=== PATIENT | female | born 1940 | race Caucasian/White ===

== ENCOUNTER 2019-09-13 06:28 | Emergency (ER) | payer MEDICARE, MEDICAID, SELFPAY ==
--- NOTE | ~2019-09-13 | XR_ITS ---
XR hip RT min 3V w AP pelvis 09/13/2019 07:49 Indication: Right hip pain Procedure: 6 views right hip including AP pelvis Comparison: No prior studies for comparison. Findings: There is osteoarthritis of the hips, right greater than left. Pelvic rings are intact. Ther e is an IVC filter. Sacral foramen are symmetric. No acute fracture or traumatic malalignment. Impression: 1: No acute fracture. Reviewed, dictated and finalized at location A. ATION GENERAL MANAGER Impression: 1: No acute fracture.
--- NOTE | ~2019-09-13 | XR_ITS ---
XR lumbar spine 2-3V 09/13/2019 07:49 Indication: Back pain. Procedure: 4 views lumbar spine Comparison: No prior studies for comparison. Findings: There is levoscoliosis. There is disc narrowing at all lumbar levels. There is advanced mul tilevel facet hypertrophy. No acute fracture or traumatic malalignment. There is an IVC filter with t he superior aspect of the L2-3 level. There are cholecystectomy clips. There are multiple pelvic phle boliths. Bowel pattern is nonobstructive. Impression: 1: Severe lumbar spondylosis with levoscoliosis. Reviewed, dictated and finalized at location A. OR JAVA UI DEVELOPER Impression: 1: Severe lumbar spondylosis with levoscoliosis.
--- NOTE | ~2019-09-13 | XR_ITS ---
XR toe 1st LT min 2V 09/13/2019 07:49 Indication: Left first toe pain after injury Procedure: 4 views left first toe Comparison: No prior studies for comparison. Findings: There is a nondisplaced extra-articular fracture left first distal phalanx. Osteopenia. Mod erate osteoarthritis of the first MTP joint. No other fractures. There is hallux valgus. Impression: 1: Nondisplaced extra-articular fracture left first distal phalanx. Reviewed, dictated and finalized at location A. RACT DESIGN AGENT Impression: 1: Nondisplaced extra-articular fracture left first distal phalanx.
[2019-09-13 06:27] VITALS: BP 160/84; PULSE 86; RESP 18; TEMP 36.6; O2SAT 100
[2019-09-13 06:49] VITALS: BP 141/70; PULSE 81; RESP 21; O2SAT 95
--- NOTE | 2019-09-13 07:00 | ED.GENADULT ---
HPI - General Adult General Chief complaint: Extremity Injury, Lower Stated complaint: right hip pain Time Seen by Provider: 09/13/19 06:46 History of Present Illness HPI narrative: Patient is 79 y/o female complaining of aching right hip and back pain for 2 days. She rates her pain as 3/10 with no radiation. When asked to point to her area of pain, she points to right buttock and waist area. She denies any recent injury. She states that she was doing some physical therapy. She also complains of bending her left great toe last night in shower and still has some bleeding. Related Data Home Medications Medication Instructions Recorded Confirmed aspirin 81 mg PO DAILY 07/18/19 citalopram 20 mg PO DAILY 07/18/19 diltiazem HCl 180 mg PO DAILY 07/18/19 furosemide 40 mg PO DAILY 07/18/19 lisinopril 5 mg PO DAILY 07/18/19 insulin glargine [Lantus Solostar unit SUBCUT 07/21/19 U-100 Insulin] meclizine mg 07/21/19 metformin mg 07/21/19 metoprolol succinate PO 07/21/19 nystatin TOPICAL 07/21/19 potassium chloride meq PO 07/21/19 blood sugar diagnostic [OneTouch 09/13/19 09/13/19 Ultra Blue Test Strip] cholecalciferol (vitamin D3) unit 09/13/19 [Vitamin D3] [id number] acid-lutein [Centrum tablet PO 09/13/19 Silver] Allergies Allergy/AdvReac Type Severity Reaction Status Date / Time bisoprolol Allergy Intermediate unknown Verified 09/13/19 06:42 hydrochlorothiazide Allergy Intermediate unknown Verified 09/13/19 06:42 oxycodone Allergy Intermediate unknown Verified 09/13/19 06:42 acetaminophen Allergy Unknown Unknown Verified 09/13/19 06:42 Review of Systems Constitutional: Constitutional: Denies chills, Denies fever(s), Denies headache(s) and Denies weakness Eyes: Eyes: Denies blurry vision ENT: Denies headache(s) and Denies neck pain Cardiovascular: Cardiovascular: Denies chest pain and Denies dyspnea Respiratory: Respiratory: Denies cough and Denies dyspnea Gastrointestinal: Gastrointestinal: Denies abdominal pain, Denies diarrhea, Denies nausea and Denies vomiting Genitourinary: Genitourinary: Denies hematuria and Denies dysuria Musculoskeletal: Musculoskeletal: Reports as per HPI, Reports back pain, Reports arthralgias (right hip pain) and Denies neck pain Neurologic: Denies headache(s) and Denies weakness PMFSH Past Medical History Medical History Arthritis Atrial fibrillation Bronchitis CHF (congestive heart failure) Diabetes Foot fracture, left GERD (gastroesophageal reflux disease) Hypercholesterolemia Hypertension Mitral valve prolapse Peripheral neuropathy Pneumonia Sinus problem UTI (urinary tract infection) Surgical History Surgical History H/O: hysterectomy History of appendectomy Hx of cholecystectomy Social History Social History Smoking status: Never smoker Exam Const: General: no acute distress and well developed Orientation/consciousness: oriented to person, oriented to place, oriented to time and patient oriented x3 HENMT: Head: normocephalic Ears: external ears normal General nose exam: Normal external nose present Eyes: General: appearance normal, both eyes and all related structures Conjunctivae: conjunctivae normal Neck: Neck: normal visual inspection and full ROM Chest: Chest palpation & inspection: normal inspection of the chest and no tenderness Resp: Effort & Inspection: normal respiratory effort Auscultation: clear to auscultation bilaterally Cardio: Rate: regular rate Rhythm: regular rhythm GI: GI Palp: No abdominal tenderness and Yes Soft to palpation Skin: General skin exam: normal color and turgor normal Trauma: laceration (lateral aspect of left great toe) Neuro: General: oriented to person, oriented to place, oriented to time and patient oriented x3 Cognition (Neuro): n
[2019-09-13 07:05] VITALS: BP 148/83; PULSE 79; RESP 13; O2SAT 97
--- NOTE | 2019-09-13 07:05 | PC.NURSE ---
Assumed care of patient, report received from Fela PABLO
[2019-09-13] MEDS: CYCLOBENZAPRINE HCL 10 MG TABLET PO (07:12)
[2019-09-13] MEDS: TETANUS,DIPHTHERIA,AC PERTUSSIS ADULT (0.5 ML) BOOSTRIX IM (07:12)
--- NOTE | 2019-09-13 07:15 | PC.NURSE ---
Patient reports that she is unable to urinate at this time. Refusing straight cath. Water given. Patient going to xray. Will attempt collection when she returns.
[2019-09-13 07:16] LABS: Basophils Absolute Auto 0.1 K/mm3 (0.0-0.1); Basophils Percent Auto 0.7 % (0.2-1.2); Eosinophils Absolute Auto 0.1 K/mm3 (0-0.3); Eosinophils Percent Auto 1.6 % (0-4.4); Hematocrit 35.9 % (37.0-47.0); Hemoglobin 11.2 g/dL (12.0-15.0); Immature Granulocyte Absolute 0.03 K/mm3 (0.00-0.031); Immature Granulocyte Percent A 0.3 % (0-0.5); Lymphocytes Absolute Auto 1.29 K/mm3 (0.9-3.2); Lymphocytes Percent Auto 14.4 % (18.3-44.2); Mean Corpuscular HGB Conc 31.2 g/dl (32-36); Mean Corpuscular Hemoglobin 27.5 pg (26-34); Mean Corpuscular Volume 88.2 fl (80-100); Mean Platelet Volume 10.1 fl (7.4-10.4); Monocytes Absolute Auto 0.8 K/mm3 (0.1-0.6); Monocytes Percent Auto 9.2 % (2.6-8.5); Neutrophils Absolute Auto 6.6 K/mm3 (1.3-6.7); Neutrophils Percent Auto 73.8 % (45.5-73.1); Platelet Count Result 280 k/mm3 (150-375); Red Blood Count 4.07 M/mm3 (4.2-5.4); Red Cell Distribution Width 14.6 % (11.5-14.5)
[2019-09-13 07:24] LABS: Alanine Aminotransferase 21 U/L (4-35); Albumin Level 3.8 g/dL (3.5-5.1); Alkaline Phosphatase 103 U/L (38-126); Aspartate Amino Transferase 25 U/L (14-36); Bilirubin,Total 0.5 mg/dL (0.2-1.3); Blood Urea Nitrogen 18 mg/dL (7-17); Calcium 8.8 mg/dL (8.4-10.2); Carbon Dioxide 27 mmol/L (22-30); Chloride 106 mmol/L (98-107); Estimated CRCL calculation 65 ml/min; Estimated Glomerular Filt Rate > 60; Glucose 61 mg/dL (65-105); Potassium 3.7 mmol/L (3.4-5.0); Sodium 137 mmol/L (137-145)
[2019-09-13 08:15] LABS: Add Urine Microscopic? YES; Appearance Urine Clear (Clear); Bilirubin Urine Negative (Negative); Blood Urine Negative (Negative); Color Urine Yellow (Yellow); Glucose Urine UA Negative (Negative); Ketones Urine Trace mg/dL (Negative); Leukocyte Esterase Ur Negative LEU/UL (Negative); Mucus Urine Rare /lpf; Nitrate Urine Negative (Negative); Protein Urine 1+ mg/dL (Negative); RBC Urine 0-2 /hpf (0-2); Specific Grav Ur 1.017 (1.001-1.035); Urobilinogen Urine Negative mg/dL (<2.0); WBC Urine 0-3 /hpf
[2019-09-13 08:29] VITALS: BP 151/95; PULSE 84
[2019-09-13 09:27] VITALS: BP 141/85; PULSE 78; RESP 18; O2SAT 98
[2019-09-13 10:25] VITALS: BP 134/82; PULSE 66; RESP 18; O2SAT 100
== END 2019-09-13 10:26 ==
PROVIDERS: Emergency Provider Emergency Medicine; PCP Emergency Medicine
DX: M54.5 Low back pain (principal); S92.425A Nondisplaced fracture of distal phalanx of left great toe, initial encounter for closed fracture; Z23 Encounter for immunization; M19.90 Unspecified osteoarthritis, unspecified site; I48.91 Unspecified atrial fibrillation; I50.9 Heart failure, unspecified; E11.42 Type 2 diabetes mellitus with diabetic polyneuropathy; K21.9 Gastro-esophageal reflux disease without esophagitis; E78.00 Pure hypercholesterolemia, unspecified; I11.0 Hypertensive heart disease with heart failure; I34.1 Nonrheumatic mitral (valve) prolapse; Z79.4 Long term (current) use of insulin; Z79.82 Long term (current) use of aspirin; Z87.440 Personal history of urinary (tract) infections; M47.816 Spondylosis without myelopathy or radiculopathy, lumbar region; X50.9XXA Other and unspecified overexertion or strenuous movements or postures, initial encounter
CPT/HCPCS: 36415; 51701; 72100; 73502; 73660; 80053; 81001; 85025; 90471; 90715; 99284; A9270

== ENCOUNTER 2020-09-27 14:22 | Outpatient (CLI) | payer MEDICARE, SELFPAY ==
--- NOTE | ~2020-09-27 | XR_ITS ---
XR knee LT 3V DATE: 09/27/2020 15:15 INDICATION: Bilateral knee pain, right greater than left. Left knee surgery 7 years ago. TECHNIQUE: [place], AP and crosstable lateral views COMPARISON: None FINDINGS: Diffuse osteopenia. 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 No recent fracture or dislocation. No joint effusion is evident. No periosteal reaction or bone destr uction. IMPRESSION: Status post left total knee arthroplasty Osteopenia Reviewed, dictated and finalized at location B.
--- NOTE | ~2020-09-27 | XR_ITS ---
XR knee RT 3V 09/27/2020 15:10 Indication: Right knee pain Procedure: 3 views right knee Comparison: No prior studies for comparison. Findings: There is mild osteoarthritis of the right knee. No fracture or traumatic malalignment no si gnificant joint effusion. Osteopenia. No foreign bodies. Impression: 1: Mild osteoarthritis of the right knee. Reviewed, dictated and finalized at location A. Impression: 1: Mild osteoarthritis of the right knee.
[2020-09-27 15:06] LABS: Hemoglobin A1C 5.8 % (<5.7)
[2020-09-27 15:09] LABS: BNP 73.1 pg/mL (0-100)
[2020-09-27 15:18] LABS: Alanine Aminotransferase 32 U/L (14-59); Albumin Level 3.5 g/dL (3.4-5.0); Alkaline Phosphatase 98 U/L (46-116); Anion Gap 10 mmol/L (8-16); Aspartate Amino Transferase 21 U/L (15-37); Bilirubin,Total 0.3 mg/dL (0.00-1.00); Blood Urea Nitrogen 26 mg/dL (7-18); Calcium 9.4 mg/dL (8.5-10.1); Carbon Dioxide 29 mmol/L (21-32); Chloride 106 mmol/L (98-108); Cholesterol 144 mg/dL (0-200); Estimated Glomerular Filt Rate 59; Glucose 69 mg/dL (70-99); HDL Direct 69 mg/dL (40-60); LDL Cholesterol Calculated 61 mg/dL (<130); Osmolality Calculated 302 mOsm/kg (285-295); Potassium 3.7 mmol/L (3.5-5.1); Sodium 145 mmol/L (136-145); Total Protein 6.9 g/dL (6.4-8.2); Triglycerides 72 mg/dL (0-150)
== END 2020-09-27 14:23 | disposition home or self-care (01) ==
PROVIDERS: PCP Family Medicine; Visit Provider Family Medicine
DX: I50.9 Heart failure, unspecified (principal); E11.9 Type 2 diabetes mellitus without complications; M19.90 Unspecified osteoarthritis, unspecified site
CPT/HCPCS: 36415; 73562; 80053; 80061; 83036; 83880

== ENCOUNTER 2021-04-25 18:47 | Inpatient (IN) | payer MEDICARE, MEDICAID, SELFPAY ==
--- NOTE | ~2021-04-25 | XR_ITS ---
EXAMINATION: XR retrograde pyelo w/stent BI DATE: 04/26/2021 12:43 INDICATION: Bilateral urolithiasis with bilateral internal ureteral stent placement. TECHNIQUE: 9 fluoroscopic spot images of the abdomen and pelvis were obtained during procedure perfor med by Dr. Monge. Radiologist was not present for the imaging or procedure. The amount of fluorosc opy time used during this procedure was 0.5 minutes. COMPARISON: CT and KUB dated 04/25/2021. FINDINGS: Large stone at the right ureteropelvic junction is clearly visible on the game tester images. The previous noted left ureteral stone is not identified. Subsequent image demonstrates a catheter advanced into t he right renal pelvis with contrast injection demonstrating mild dilation of the right renal pelvis b ut no significant caliectasis. Final images demonstrate placement of a right internal ureteral stent with proximal loop in the right renal pelvis and distal loop formed in the bladder. There is incomple tely visualized left internal ureteral stent with loops formed in the bladder extending proximally al sathish the left ureter but with the proximal loop not imaged. Infrarenal IVC filter projects along the r ight side of the lower lumbar spine. Cholecystectomy clips in right upper quadrant. Lumbar levoscolio sis with moderate spondylosis. IMPRESSION: 1. Fluoroscopy utilized during placement of bilateral internal ureteral stents. 2. Unchanged large stone at the right ureter pelvic junction on the game tester image. This region is opaci fied with contrast on the subsequent images and is unclear whether this has been removed or not. Also a prior left ureteral stone is not visualized and may also been removed. Correlate with procedure no te. Reviewed, dictated and finalized at location A. IMPRESSION: 1. Fluoroscopy utilized during placement of bilateral internal ureteral stents. 2. Unchanged large stone at the right ureter pelvic junction on the game tester image . This region is opacified with contrast on the subsequent images and is unclea r whether this has been removed or not. Also a prior left ureteral stone is not visualized and may also been removed. Correlate with procedure note.
--- NOTE | ~2021-04-25 | XR_ITS ---
EXAMINATION: XR abdomen/kub 1V DATE: 04/27/2021 14:38 INDICATION: Urolithiasis. TECHNIQUE: A supine view of the abdomen on 2 radiographs was obtained. COMPARISON: Abdomen radiographs 04/25/2021 FINDINGS: There are phleboliths in the pelvis. There are bilateral internal ureteral stents in expect ed positions. There is a 9 mm stone in right renal pelvis. There is a 10 mm stone in proximal left ur eter. There is a filter in the inferior vena cava. Surgical clips in the right upper quadrant are lik thor from cholecystectomy. IMPRESSION: 1. Stone in the right renal pelvis with right internal ureteral stent in expected position. 2. Stone in the proximal left ureter with left internal ureteral stent in expected position. Reviewed, dictated and finalized at location A. IMPRESSION: 1. Stone in the right renal pelvis with right internal ureteral stent in expect ed position. 2. Stone in the proximal left ureter with left internal ureteral stent in expec grant position.
--- NOTE | ~2021-04-25 | CT_ITS ---
EXAMINATION: CT abdomen pelvis w con INDICATION: Nausea and vomiting TECHNIQUE: Computed tomographic images of the abdomen and pelvis were obtained after the administrati on of 100 cc of Omnipaque 350 intravenous contrast. The dose-length product (DLP) was 1193.21 mGy-cm. Automated exposure control and iterative reconstruction technique were employed. COMPARISON: None available FINDINGS: Minimal dependent atelectasis is present in the lung bases. Cardiomegaly is noted. Cysts of the liver measure up to 1.5 cm in the right hepatic lobe. The spleen, pancreas, and adrenal glands a re normal. The gallbladder is surgically absent. There is a 9 mm stone in the left proximal ureter wh ich causes moderate left hydroureteronephrosis. Nonobstructing stones of the left kidney measure up t o 5 mm. There is an 11 mm stone in the right renal pelvis. An IVC filter is noted. No pathologically enlarged abdominal or pelvic lymph nodes are identified. There is no free intraperitoneal gas or evid ence of bowel obstruction. The appendix is normal. There is severe lumbar spondylosis with grade 2 an terolisthesis of L5 on S1. IMPRESSION: 1. 9 mm stone of the left proximal ureter causing moderate left hydroureteronephrosis. 2. 11 mm stone in the right renal pelvis. 3. Nonobstructing left nephrolithiasis. Reviewed, dictated and finalized at location A. IMPRESSION: 1. 9 mm stone of the left proximal ureter causing moderate left hydroureteronep hrosis. 2. 11 mm stone in the right renal pelvis. 3. Nonobstructing left nephrolithiasis.
--- NOTE | ~2021-04-25 | XR_ITS ---
EXAMINATION: XR abdomen/kub 1V INDICATION: Left flank pain TECHNIQUE: Supine views of the abdomen were obtained on 2 radiographs. COMPARISON: CT from today FINDINGS: There is a 7 mm stone projecting in the proximal left ureter. An 11 projects in the expecte d location of the right renal pelvis. There are multiple phleboliths of the pelvis. No dilated loops of bowel are evident. An IVC filter is noted. There is mild left and moderate right hip osteoarthriti s. Cholecystectomy clips are noted in the right upper quadrant. IMPRESSION: 1. 7 mm stone in the expected location of the left proximal ureter and 11 mm stone in the right renal pelvis. Reviewed, dictated and finalized at location A. IMPRESSION: 1. 7 mm stone in the expected location of the left proximal ureter and [address] one in the right renal pelvis.
--- NOTE | ~2021-04-25 | US_ITS ---
EXAMINATION: US renal BI DATE: 04/27/2021 16:21 INDICATION: Hydronephrosis TECHNIQUE: Multiple grayscale and Doppler ultrasound images of the kidneys were obtained. COMPARISON: None. FINDINGS: The right kidney measures 10.6 x 5.5 x 4.9 cm. An internal ureteral stent is seen in the ri ght renal pelvis. There is also a 17 mm stone of the right renal pelvis. The left kidney measures 10. 7 x 4.6 x 5.0 cm. The kidneys demonstrate normal parenchymal echogenicity. There is mild right hydron ephrosis. The bladder is normal. IMPRESSION: 1. Mild right hydronephrosis with 70 mm stone of the right renal pelvis. Reviewed, dictated and finalized at location A.
[2021-04-25 19:01] VITALS: BP 185/103; PULSE 102; RESP 14; TEMP 37.1; O2SAT 99
[2021-04-25 19:22] LABS: Basophils Percent Auto 0.2 % (0.2-1.2); Hematocrit 43.3 % (37.0-47.0); Hemoglobin 14.2 g/dL (12.0-15.0); Immature Granulocyte Absolute 0.05 K/mm3 (0.00-0.031); Immature Granulocyte Percent A 0.4 % (0-0.5); Lymphocytes Absolute Auto 1.11 K/mm3 (0.9-3.2); Lymphocytes Percent Auto 8.2 % (18.3-44.2); Mean Corpuscular HGB Conc 32.8 g/dl (32-36); Mean Corpuscular Volume 88.4 fl (80-100); Mean Platelet Volume 9.8 fl (7.4-10.4); Monocytes Absolute Auto 0.7 K/mm3 (0.1-0.6); Monocytes Percent Auto 5.4 % (2.6-8.5); Neutrophils Absolute Auto 11.7 K/mm3 (1.3-6.7); Neutrophils Percent Auto 85.8 % (45.5-73.1); Platelet Count Result 299 k/mm3 (150-375); Red Cell Distribution Width 15.2 % (11.5-14.5); White Blood Count 13.6 K/mm3 (4.5-10.0)
[2021-04-25 19:37] LABS: Alanine Aminotransferase 31 U/L (4-35); Albumin Level 5.1 g/dL (3.5-5.1); Alkaline Phosphatase 111 U/L (38-126); Anion Gap 15 mmol/L (8-16); Aspartate Amino Transferase 57 U/L (14-36); Bilirubin,Total 0.8 mg/dL (0.2-1.3); Blood Urea Nitrogen 19 mg/dL (7-17); Carbon Dioxide 26 mmol/L (22-30); Chloride 94 mmol/L (98-107); Estimated CRCL calculation 37 ml/min; Estimated Glomerular Filt Rate 48; Glucose 190 mg/dL (65-110); Lipase 78 U/L (23-300); Potassium 3.8 mmol/L (3.4-5.0); Sodium 135 mmol/L (137-145)
[2021-04-25 20:04] LABS: Add Urine Microscopic? YES; Appearance Urine Clear (Clear); Bilirubin Urine Negative (Negative); Blood Urine 2+ (Negative); Color Urine Straw (Yellow); Glucose Urine UA 1+ mg/dL (Negative); Ketones Urine 1+ mg/dL (Negative); Leukocyte Esterase Ur Trace LEU/UL (Negative); Nitrate Urine Negative (Negative); Protein Urine 3+ mg/dL (Negative); RBC Urine >75 /hpf (0-2); Specific Grav Ur 1.011 (1.001-1.035); Squamous Epithelial Cell Urine Rare /hpf (Few); Urobilinogen Urine Negative mg/dL (<2.0); WBC Urine 21-30 /hpf
[2021-04-25 21:31] VITALS: BP 152/98; PULSE 112; RESP 18; O2SAT 100
[2021-04-25] MEDS: ONDANSETRON INJ 4 MG/2 ML VIAL IV PUSH (21:41)
--- NOTE | 2021-04-25 21:41 | ED.ABDPAIN ---
HPI - Abdominal Pain General Chief Complaint: Abdominal Pain Stated Complaint: abd pain/hip pain/nausea Time Seen by Provider: 04/25/21 21:27 Source: RN notes reviewed History of Present Illness HPI narrative: Patient presents emergency room from home for abdominal pain. Patient states that abdominal pain began this morning pain is located in the left abdomen and into the left back described as aching in nature. Associated with nausea but patient denies any vomiting denies any diarrhea she denies any fevers or chills chest pain shortness of breath or any other symptoms. States she took Tylenol at home with last dose of Tylenol at 5 PM this evening Related Data Home Medications Medication Instructions Recorded Confirmed fm-icx-hcdoa acid-lutein [Centrum tablet PO 09/13/19 03/23/21 Silver] aspirin 81 mg tablet,delayed 81 mg PO DAILY 09/27/20 03/23/21 release calcium carbonate 600 mg calcium 1,200 mg PO DAILY tablet 09/27/20 03/23/21 (1,500 mg) tablet cholecalciferol (vitamin D3) 25 25 mcg PO DAILY 09/27/20 03/23/21 mcg (1,000 unit) tablet cyclobenzaprine 5 mg tablet 5 mg PO .Bedtime PRN tablet 09/27/20 03/23/21 diltiazem HCl 180 mg 180 mg PO DAILY 09/27/20 03/23/21 capsule,extended release 24 hr furosemide 40 mg tablet 40 mg PO QAM 09/27/20 03/23/21 lisinopril 5 mg tablet 5 mg PO DAILY 09/27/20 03/23/21 meclizine 25 mg tablet 25 mg PO BID PRN 09/27/20 03/23/21 metformin 1,000 mg tablet 1,000 mg PO BID 09/27/20 03/23/21 metoprolol succinate 100 mg 100 mg PO DAILY 09/27/20 03/23/21 tablet,extended release 24 hr wbyfdcruowtt-gakafaoc-hkziki tablet 1 tablet PO DAILY 09/27/20 03/23/21 potassium chloride 20 mEq 20 meq PO DAILY 09/27/20 03/23/21 tablet,extended release(part/cryst) insulin glargine 100 unit/mL (3 15 unit SUBCUT QAM 03/11/21 03/23/21 mL) subcutaneous pen Allergies Allergy/AdvReac Type Severity Reaction Status Date / Time bisoprolol Allergy Intermediate unknown Verified 03/23/21 11:03 hydrochlorothiazide Allergy Intermediate unknown Verified 03/23/21 11:03 oxycodone Allergy Intermediate unknown Verified 03/23/21 11:03 acetaminophen Allergy Unknown Unknown Verified 03/23/21 11:03 Review of Systems Review of Systems: Gen.: Denies fevers or chills ENT: Denies congestion Respiratory: Denies shortness of breath or cough CV: Denies chest pain or palpitations GI: See HPI denies burning, urgency, frequency or hematuria Musculoskeletal: Denies back pain or muscle pain Neuro: Denies numbness, tingling, weakness or focal weakness Skin: Denies rash Except as documented, all other systems reviewed and negative [facility] Past Medical History Medical History Arthritis Atrial fibrillation Bronchitis CHF (congestive heart failure) Diabetes Foot fracture, left GERD (gastroesophageal reflux disease) Hypercholesterolemia Hypertension Mitral valve prolapse Peripheral neuropathy Pneumonia Sinus problem UTI (urinary tract infection) Surgical History Surgical History H/O: hysterectomy History of appendectomy Hx of cholecystectomy Social History Social History Smoking status: Never smoker Gender identity (if verbalized by the patient): Female Exam Narrative: APPEARANCE: No acute distress, nontoxic, resting in bed HEENT: Normocephalic, atraumatic, OMM RESPIRATORY: No respiratory distress, clear to auscultation bilaterally with no rhonchi wheezing or rales CARDIOVASCULAR: RRR s murmur ABDOMINAL: Soft nondistended tender palpation left upper quadrant left lower quadrant no tenderness right upper quadrant right lower quadrant no rebound or guarding MUSCULOSKELETAl: Moves all extremities. No clubbing, cyanosis or edema. NEURO: Awake and alert. Following commands, speech normal, no focal deficits SKIN:: Warm, dry. Normal Color PSYCHI
[2021-04-25] MEDS: SODIUM CHLORIDE 0.9% IV 1,000 ML 999 ML IV CONT (21:42)
[2021-04-25 23:14] VITALS: BP 143/111; PULSE 94; RESP 20; O2SAT 98
[2021-04-25 23:49] LABS: Lactic Acid Reflex 5.7 mmol/L (0.7-2.1)
[2021-04-26] VITALS (17 sets, daily range): BP systolic 109–179; BP diastolic 61–108; PULSE 71–111; RESP 16–20; TEMP 36.4–37.2; O2SAT 92–100; BMI 39.0
[2021-04-26] MEDS: SODIUM CHLORIDE 0.9% IV 1,000 ML 999 ML IV CONT (00:13)
[2021-04-26 01:58] LABS: Reflex Lactic Acid Yes or No Add Lactic
--- NOTE | 2021-04-26 02:21 | ADMGEN ---
This patient, Freda Khanna, was admitted to 3 [facility] Surg Room 316-01. Patient/family oriented to hospital policies and general routines including ID bracelet, bed and alarms, visiting hours, pain management, procedures, bathroom and other care routines, personal items, smoking policy, room service/diet, and visiting hours. Information on how to activate the Rapid Response Team has been discussed. Patient/Family are encouraged to report perceived risks to care and to ask questions if they do not understand what they are told or what they should do.
[2021-04-26] MEDS: SODIUM CHLORIDE 0.9% IV 1,000 ML 125 ML IV CONT (03:17)
[2021-04-26 03:21] LABS: Lactic Acid 2.9 mmol/L (0.7-2.1)
[2021-04-26] MEDS: ONDANSETRON INJ 4 MG/2 ML VIAL IV PUSH ×2 (04:31→09:28)
[2021-04-26 07:55] LABS: Glucose Point of Care 138 mg/dl (65-105)
--- NOTE | 2021-04-26 08:07 | ECG_ITS ---
Measurements Intervals Johnson Rate: 107 P: MA: 0 QRS: -55 QRSD: 116 T: 264 QT: 345 QTc: 462 Interpretive Statements ATRIAL FLUTTER/TACHYCARDIA WITH RAPID VENTRICULAR RESPONSE LEFT AXIS DEVIATION LEFT VENTRICULAR HYPERTROPHY AND ST-T CHANGE CANNOT RULE OUT SEPTAL INFARCT, AGE INDETERMINATE INFERIOR INFARCT, AGE INDETERMINATE ABNORMAL ECG Electronically Signed On 04-26-2021 8:32:46 CDT by Juan Alberto Gomez D.O.
--- NOTE | 2021-04-26 09:22 | WPDURCON ---
Assessment and Plan Assessment and plan (1) Acute UTI: Code(s): N39.0 - Urinary tract infection, site not specified <Rema Mendoza APRN - Last Filed: 04/26/21 11:53> Status: Acute <Rema Mendoza APRN - Last Filed: 04/26/21 11:53> Assessment and Plan: Continue Ceftriaxone, tailor antibiotics to culture results. <Rema Mendoza APRN - Last Filed: 04/26/21 11:53> (2) Left ureteral stone: Code(s): N20.1 - Calculus of ureter <Rema Mendoza APRN - Last Filed: 04/26/21 11:53> Status: Acute <Rema Mendoza APRN - Last Filed: 04/26/21 11:53> Assessment and Plan: 9mm left proximal ureteral stone visible on KUB. Obtain Consent:Cystoscopy with bilateral ureteroscopy, bilateral stent placement, bilateral retrograde pyelogram. Keep NPO Plan to go to the OR today with Dr. Monge. Patient will then need to have bilateral lithotripsy, the left side first after infection clears as an outpatient in a few weeks. <Rema Mendoza APRN - Last Filed: 04/26/21 11:53> (3) Bilateral renal stones: Code(s): N20.0 - Calculus of kidney <Rema Mendoza APRN - Last Filed: 04/26/21 11:53> Status: Acute <Rema Mendoza APRN - Last Filed: 04/26/21 11:53> Assessment and Plan: 11mm right renal pelvic stone visible on KUB as well. Multiple smaller left non obstructive stones not visible on KUB measuring up to 5mm. <Rema Mendoza APRN - Last Filed: 04/26/21 11:53> Urology Consult Note HPI Date Seen: 04/26/21 <Rema Mendoza APRN - Last Filed: 04/26/21 11:53> 04/26/21 <Jc Monge MD - Last Filed: 04/26/21 11:44> Requesting Physician: Edgardo Browne MD <Rema Mendoza APRN - Last Filed: 04/26/21 11:53> Primary Care Provider: Dayton Jones DO <Rema Mendoza APRN - Last Filed: 04/26/21 11:53> Consult Narrative Narrative: Freda Khanna is a 80 year old female who presented to the ER yesterday with abdominal pain on the left side and nausea. She denies fever, vomiting, right flank pain, dysuria or hematuria at this time and is afebrile. Her WBC is elevated at 13.6, creatinine 1.10, UA appears to support a UTI, urine and blood cultures are pending at this time. She is on Ceftriaxone for the possible UTI and leukocytosis. She was found on CT/KUB to have a 9mm left proximal ureteral stone with moderate left hydronephrosis and an 11mm right renal pelvic stone as well as non obstructive left renal stones measuring up to 5mm. She is fatigued and was found asleep in her bed this morning, I startled her when I got to the bedside. She was alert and oriented but very confused when I was trying to explain the plan for her treatment. We went over it many times before she finally understood. <Rema Mendoza APRN - Last Filed: 04/26/21 11:53> Review of Systems Cardiovascular: Cardiovascular: Denies chest pain <Rema Mendoza APRN - Last Filed: 04/26/21 11:53> Respiratory: Respiratory: Reports no additional respiratory complaints <Rema Mendoza APRN - Last Filed: 04/26/21 11:53> Gastrointestinal: Gastrointestinal: Reports abdominal pain, Reports nausea and Denies vomiting <Rema Mendoza APRN - Last Filed: 04/26/21 11:53> [facility] Past Medical History Medical History: Medical History Arthritis Atrial fibrillation Bronchitis CHF (congestive heart failure) Diabetes Foot fracture, left GERD (gastroesophageal reflux disease) Hypercholesterolemia Hypertension Mitral valve prolapse Peripheral neuropathy Pneumonia Sinus problem UTI (urinary tract infection) <Rema Mendoza APRN - Last Filed: 04/26/21 11:53> Surgical History Surgical History: Surgical History H/O: hysterectomy History of appendectomy Hx of cholecystecto
[2021-04-26] MEDS: fentaNYL CITRATE INJ (*CRX) 100 MCG/2 ML VIAL 25 MCG IV PUSH ×2 (10:23→11:43)
--- NOTE | 2021-04-26 11:23 | PC.NURSE ---
Pt transferred to PreOP at 1115 via stretcher.
[2021-04-26 11:31] LABS: Glucose Point of Care 147 mg/dl (65-105)
--- NOTE | 2021-04-26 11:44 | WPDHPUPDATE1 ---
History and Physical Update Update Date/Time: 04/26/21 11:44 History and Physical has been reviewed, including an updated exam of the patient. There are NO changes in the patient's condition. Risks, benefits, and alternatives have been discussed and questions answered. Patient agrees to proceed with procedure. Consult note reviewed. Case discussed with patient. Patient has an obstructing 9 mm left proximal ureteral calculus but also 11 mm stone in the right renal pelvis which is at risk for causing obstruction. Given her sepsis I have recommended placement of bilateral ureteral stents to give maximal drainage bilaterally. Patient is in agreement. Will proceed with cystoscopy bilateral retrogrades bilateral ureteral stent placement today
[2021-04-26] MEDS: LACTATED RINGERS 1,000 ML 30 ML IV CONT (11:45)
--- NOTE | 2021-04-26 12:01 | WPDANESEPPF ---
Anes - Initial Pre Proc Eval Procedure: Operation Date: 04/26/21 12:30 Proposed Procedures p Cystoscopy, Left Stent Placement - Jc Monge MD Date/Time: 04/26/21 12:01 Surgeon: Edgardo Browne MD Pre Op Diagnosis: Severe Sepsis,Left Kidney Stone, UTI Patient Data Age: 80 Gender: F Height: 1.57 m Weight: 96.8 kg Last Vital Signs Temp 97.8 F 04/26/21 11:30 Pulse 107 H 04/26/21 11:30 Resp 16 04/26/21 11:30 BP 123/76 04/26/21 11:30 Pulse Ox 96 04/26/21 11:30 Allergies Allergy/AdvReac Type Severity Reaction Status Date / Time bisoprolol Allergy Intermediate unknown Verified 04/26/21 02:52 hydrochlorothiazide Allergy Intermediate unknown Verified 04/26/21 02:52 oxycodone Allergy Intermediate unknown Verified 04/26/21 02:52 acetaminophen Allergy Unknown Unknown Verified 04/26/21 02:52 Home Medications Medication Instructions Recorded Confirmed Type [id number] acid-lutein [Centrum 1 tablet PO DAILY 09/13/19 04/26/21 History Silver] calcium carbonate 600 mg calcium 1,200 mg PO DAILY tablet 09/27/20 04/26/21 History (1,500 mg) tablet cholecalciferol (vitamin D3) 25 25 mcg PO DAILY 09/27/20 04/26/21 History mcg (1,000 unit) tablet cyclobenzaprine 5 mg tablet 5 mg PO .Bedtime PRN tablet 09/27/20 04/26/21 History diltiazem HCl 180 mg 180 mg PO DAILY 09/27/20 04/26/21 History capsule,extended release 24 hr furosemide 40 mg tablet 40 mg PO QAM 09/27/20 04/26/21 History lisinopril 5 mg tablet 5 mg PO DAILY 09/27/20 04/26/21 History meclizine 25 mg tablet 25 mg PO BID PRN 09/27/20 04/26/21 History metformin 1,000 mg tablet 1,000 mg PO BID 09/27/20 04/26/21 History metoprolol succinate 100 mg 100 mg PO DAILY 09/27/20 04/26/21 History tablet,extended release 24 hr potassium chloride 20 mEq 20 meq PO DAILY 09/27/20 04/26/21 History tablet,extended release(part/cryst) citalopram 10 mg tablet See Rx Instructions .ROUTE 01/19/21 04/26/21 Rx .COMPLEX #30 tablet blood sugar diagnostic #100 ea 02/24/21 04/26/21 Rx blood sugar diagnostic #100 ea 03/03/21 04/26/21 Rx nystatin 100,000 unit/gram topical See Rx Instructions .ROUTE 03/08/21 04/26/21 Rx cream .COMPLEX #30 gram insulin glargine 100 unit/mL (3 15 unit SUBCUT QAM 03/11/21 04/26/21 History mL) subcutaneous pen aspirin 325 mg PO DAILY 04/26/21 04/26/21 History Laboratory Tests 04/25/21 04/25/21 04/25/21 19:15 19:15 19:30 WBC 13.6 K/mm3 H K/mm3 (4.5-10.0) RBC 4.90 M/mm3 M/mm3 (4.2-5.4) Hgb 14.2 g/dL D g/dL (12.0-15.0) Hct 43.3 % % (37.0-47.0) MCV 88.4 fl fl (80-100) MCH 29.0 pg pg (26-34) MCHC 32.8 g/dl g/dl (32-36) RDW 15.2 % H % (11.5-14.5) Plt Count 299 k/mm3 k/mm3 (150-375) MPV 9.8 fl fl (7.4-10.4) Immature Gran % (Auto) 0.4 % % (0-0.5) Neut % (Auto) 85.8 % H % (45.5-73.1) Lymph % (Auto) 8.2 % L % (18.3-44.2) [place] % (Auto) 5.4 % % (2.6-8.5) Eos % (Auto) 0.0 % % (0-4.4) Baso % (Auto) 0.2 % % (0.2-1.2) Lymph # (Auto) 1.11 K/mm3 K/mm3 (0.9-3.2) [place] # (Auto) 0.7 K/mm3 H K/mm3 (0.1-0.6) Eos # (Auto) 0.0 K/mm3 K/mm3 (0-0.3) Baso # (Auto) 0.0 K/mm3 K/mm3 (0.0-0.1) Abs Immat Gran (auto) 0.05 K/mm3 H K/mm3 (0.00-0.031) Absolute Neuts (auto) 11.7 K/mm3 H K/mm3 (1.3-6.7) Absolute Nucleated RBC 0.0 K/mm3 K/mm3 (0.0-0.012) Nucleated RBC % 0.0 % % (0.0-0.2) Sodium 135 mmol/L L mmol/L (137-145) Potassium 3.8 mmol/L mmol/L (3.4-5.0) Chloride 94 mmol/L L mmol/L (98-107) Carbon Dioxide 26 mmol/L mmol/L (22-30) Anion Gap 15 mmol/L mmol/L (8-16) BUN 19 mg/dL H mg/dL (7-17) Creatinine 1.10 mg/dL H mg/dL (0.7-1.0) Estim Creat Clear Calc 37 ml/min ml/m
--- NOTE | 2021-04-26 12:40 | P.OP_ITS ---
Procedure Note - Detailed Date of Procedure 04/26/21 Pre-op Diagnosis Severe Sepsis,Left ureteral stone, right renal pelvic stone, UTI Post-op Diagnosis same Procedure Performed Cystoscopy, bilateral retrogrades, bilateral ureteral stent placement 4.8 [place] contour Surgeon Jc Monge MD Anesthesia general Description of Procedure Patient is taken the operative suite correctly identified. Once anesthesia was obtained she was placed in dorsal lithotomy position and prepped and draped usual sterile fashion. Twenty-two [place] scope was inserted the bladder. There is no tumors noted. Left ureteral orifice was cannulated with a [place] and a pyelogram was performed. Contrast made its way up into the kidney easily. Guidewire was inserted and a 4.8 [place] contour stent was then placed with proximal end coiled in the renal pelvis distal in the bladder. We then turned our attention to the right side. Similar procedure was then performed. Another 4.8 [place] contour stent was placed with the proximal end coiled in the renal pelvis and the distal in the bladder. Bladder was drained. 2% viscous lidocaine was inserted urethra patient is taken recovery stable condition. Will await final urine cultures. Once patient gets over acute episode will plan on lithotripsy of her left proximal ureteral stone 1st. Will plan on obtaining a KUB in the morning just to see where the stones are at this time with the stents in. Drains Yes Packing No Pathology none sent Complications No immediate complications Condition stable Disposition PACU
[2021-04-26] MEDS: LIDOCAINE HCL 2% GEL UROJET 10 ML PKG MUCOUS MEM (12:53)
[2021-04-26 13:21] LABS: Glucose Point of Care 138 mg/dl (65-105)
--- NOTE | 2021-04-26 14:28 | PM.IMHP ---
H&P: HPI History of Present Illness Date/Time: 04/26/21 14:28 CC ABDOMINAL PAIN Pt presents to ED with lower abdominal pains worse on left flank. Pt denies fever, no dysuria or hematuria. No significant medical problems. Pt feels anxious about procedure. Pt having stents placed today. Pt having dark urine and left flank pain. Pt labs reviewed, WBC is elevated at 13.6, creatinine 1.10, UA appears to support a UTI, cultures are pending . Pt started on iv rocephin. for UTI. CT/KUB showed 9mm left proximal ureteral stone with moderate left hydronephrosis and an 11mm right renal pelvic stone as well as non obstructive left renal stones measuring up to 5mm. Chief Complaint: Left flank pain and lower abdominal pains Review of Systems Review of Systems: All systems reviewed & are unremarkable except as noted in HPI and below PMFSH Past Medical History Medical History Arthritis Atrial fibrillation Bronchitis CHF (congestive heart failure) Diabetes Foot fracture, left GERD (gastroesophageal reflux disease) Hypercholesterolemia Hypertension Mitral valve prolapse Peripheral neuropathy Pneumonia Sinus problem UTI (urinary tract infection) Surgical History Surgical History H/O: hysterectomy History of appendectomy Hx of cholecystectomy Social History Social History Smoking status: Never smoker Second hand tobacco smoke exposure: No Alcohol intake: never Substance use: never Substance use type: does not use Gender identity (if verbalized by the patient): Female Spiritual care concerns: No Meds Home Medications and Allergies Home Medications Medication Instructions Recorded Confirmed Type id-oao-hmddr acid-lutein [Centrum 1 tablet PO DAILY 09/13/19 04/26/21 History Silver] calcium carbonate 600 mg calcium 1,200 mg PO DAILY tablet 09/27/20 04/26/21 History (1,500 mg) tablet cholecalciferol (vitamin D3) 25 25 mcg PO DAILY 09/27/20 04/26/21 History mcg (1,000 unit) tablet cyclobenzaprine 5 mg tablet 5 mg PO .Bedtime PRN tablet 09/27/20 04/26/21 History diltiazem HCl 180 mg 180 mg PO DAILY 09/27/20 04/26/21 History capsule,extended release 24 hr furosemide 40 mg tablet 40 mg PO QAM 09/27/20 04/26/21 History lisinopril 5 mg tablet 5 mg PO DAILY 09/27/20 04/26/21 History meclizine 25 mg tablet 25 mg PO BID PRN 09/27/20 04/26/21 History metformin 1,000 mg tablet 1,000 mg PO BID 09/27/20 04/26/21 History metoprolol succinate 100 mg 100 mg PO DAILY 09/27/20 04/26/21 History tablet,extended release 24 hr potassium chloride 20 mEq 20 meq PO DAILY 09/27/20 04/26/21 History tablet,extended release(part/cryst) citalopram 10 mg tablet See Rx Instructions .ROUTE 01/19/21 04/26/21 Rx .COMPLEX #30 tablet blood sugar diagnostic #100 ea 02/24/21 04/26/21 Rx blood sugar diagnostic #100 ea 03/03/21 04/26/21 Rx nystatin 100,000 unit/gram topical See Rx Instructions .ROUTE 03/08/21 04/26/21 Rx cream .COMPLEX #30 gram insulin glargine 100 unit/mL (3 15 unit SUBCUT QAM 03/11/21 04/26/21 History mL) subcutaneous pen aspirin 325 mg PO DAILY 04/26/21 04/26/21 History Allergies Allergy/AdvReac Type Severity Reaction Status Date / Time bisoprolol Allergy Intermediate unknown Verified 04/26/21 02:52 hydrochlorothiazide Allergy Intermediate unknown Verified 04/26/21 02:52 oxycodone Allergy Intermediate unknown Verified 04/26/21 02:52 acetaminophen Allergy Unknown Unknown Verified 04/26/21 02:52 Vital Signs Vital Signs - 24 hr 04/25/21 19:01 04/25/21 21:31 04/25/21 23:14 Temperature 37.1 C Pulse Rate 102 H 112 H 94 Respiratory Rate 14 18 20 Blood Pressure 185/103 H 152/98 H 143/111 H Pulse Oximetry 99 100 98 04/26/21 00:14 04/26/21 01:10 04/26/21 02:15 Temperature 36.6 C Pulse Rate 111 H 109 H 75 Respiratory Rate 19
[2021-04-26] MEDS: SODIUM CHLORIDE 0.9% IV 1,000 ML 100 ML IV CONT ×2 (15:50→16:30)
[2021-04-26 15:55] LABS: Glucose Point of Care 158 mg/dl (65-105)
[2021-04-26 16:50] LABS: Glucose Point of Care 162 mg/dl (65-105)
[2021-04-26] MEDS: METOPROLOL SUCCINATE EXT REL 100 MG TABCR PO (17:33)
[2021-04-26] MEDS: POTASSIUM CHLORIDE 20 MEQ TABLET.ER PO (17:33)
[2021-04-26] MEDS: lisinopriL 5 MG TABLET PO (17:34)
[2021-04-26] MEDS: dilTIAZem HCL CD 180 MG CAP.ER.24H PO (17:34)
[2021-04-26] MEDS: CYCLOBENZAPRINE HCL 5 MG TABLET PO (21:00)
[2021-04-26 23:57] LABS: Glucose Point of Care 257 mg/dl (65-105)
[2021-04-27] VITALS (8 sets, daily range): BP systolic 146–180; BP diastolic 82–98; PULSE 74–93; RESP 17–20; TEMP 36.6–36.8; O2SAT 91–98
[2021-04-27] MEDS: SODIUM CHLORIDE 0.9% IV 1,000 ML 100 ML IV CONT ×2 (05:24→21:28)
[2021-04-27 06:27] LABS: Basophils Percent Auto 0.3 % (0.2-1.2); Eosinophils Percent Auto 0.2 % (0-4.4); Hematocrit 42.4 % (37.0-47.0); Hemoglobin 13.5 g/dL (12.0-15.0); Immature Granulocyte Absolute 0.05 K/mm3 (0.00-0.031); Immature Granulocyte Percent A 0.5 % (0-0.5); Lymphocytes Percent Auto 12.7 % (18.3-44.2); Mean Corpuscular HGB Conc 31.8 g/dl (32-36); Mean Corpuscular Hemoglobin 28.4 pg (26-34); Mean Corpuscular Volume 89.3 fl (80-100); Mean Platelet Volume 10.3 fl (7.4-10.4); Monocytes Absolute Auto 1.4 K/mm3 (0.1-0.6); Monocytes Percent Auto 12.3 % (2.6-8.5); Neutrophils Absolute Auto 8.2 K/mm3 (1.3-6.7); Platelet Count Result 297 k/mm3 (150-375); Red Blood Count 4.75 M/mm3 (4.2-5.4)
[2021-04-27 07:00] LABS: Anion Gap 10 mmol/L (8-16); Blood Urea Nitrogen 15 mg/dL (7-17); Calcium 8.5 mg/dL (8.4-10.2); Carbon Dioxide 27 mmol/L (22-30); Chloride 99 mmol/L (98-107); Estimated CRCL calculation 47 ml/min; Estimated Glomerular Filt Rate 60; Glucose 178 mg/dL (65-110); Potassium 2.8 mmol/L (3.4-5.0); Sodium 136 mmol/L (137-145)
[2021-04-27 08:53] LABS: Glucose Point of Care 183 mg/dl (65-105)
[2021-04-27] MEDS: MULTIVITAMINS /C LUTEIN (CENTRUM SILVER) TABLET *BKC 1 TAB PO (09:40)
[2021-04-27] MEDS: TOLNAFTATE 1% POWDER 45 GM BTL 1 APPLIC TOPICAL ×2 (09:40→21:29)
[2021-04-27] MEDS: METOPROLOL SUCCINATE EXT REL 100 MG TABCR PO (09:40)
[2021-04-27] MEDS: FUROSEMIDE 40 MG TABLET PO (09:40)
[2021-04-27] MEDS: POTASSIUM CHLORIDE 20 MEQ PACKET (FOR LIQUID) 40 MEQ PO ×2 (09:42→16:19)
[2021-04-27] MEDS: lisinopriL 5 MG TABLET PO (09:42)
[2021-04-27] MEDS: dilTIAZem HCL CD 180 MG CAP.ER.24H PO (09:42)
[2021-04-27] MEDS: POTASSIUM CHLORIDE 20 MEQ TABLET.ER PO (09:42)
[2021-04-27] MEDS: INSULIN GLARGINE (*BKC) 100 UNITS/ML 15 UNITS SUB-Q (09:50)
[2021-04-27] MEDS: ONDANSETRON INJ 4 MG/2 ML VIAL IV PUSH ×2 (09:52→16:26)
--- NOTE | 2021-04-27 09:57 | PM.IMPN ---
Progress Note: A&P Assessment and Plan (1) Bilateral renal stones: Code(s): N20.0 - Calculus of kidney Status: Acute Assessment and Plan: Currently patient is postop day 1 cystoscopy, bilateral stent placement, bilateral retrograde pyelogram. She is doing much better today and has tolerated the stents. She is reporting some postoperative nausea. Bilateral stents were placed by urology. Follow up KUB and FATIMAH to confirm stone placement and resolution of hydro. Continue toradol and flexeril for pain. Tums or zofran for nausea. (2) Severe sepsis: Code(s): A41.9 - Sepsis, unspecified organism; R65.20 - Severe sepsis without septic shock Status: Acute Assessment and Plan: Continue IV fluids IV rocephin await cultures. Currently patient is hemodynamically stable with a blood pressure of 160/82 a pulse of 74, respirations 17, temperature 98?, and a saturation of 97% on room air. She has been afebrile since admission. (3) Acute UTI: Code(s): N39.0 - Urinary tract infection, site not specified Status: Acute Assessment and Plan: Patient's present to the hospital with bilateral flank pain worse on the left side. On admission her CBC showed a WBC of 13.6 with 85.8% neutrophils. White blood cell count improving down to 11 today. Her urinalysis showed 3+ protein, 1+ glucose, 1+ ketones, 2+ blood, trace leukocyte esterase, over 75 RBC, 21-30 WBC. Urine culture is growing pansensitive E coli. Blood cultures have been sent and pending at the time of this dictation. Continue iv rocephin (4) CHF (congestive heart failure): Code(s): I50.9 - Heart failure, unspecified Status: Acute Assessment and Plan: Monitor for evidence of volume overload with previous CHF diagnosis (5) Type II diabetes mellitus: Code(s): E11.9 - Type 2 diabetes mellitus without complications Status: Acute Assessment and Plan: ssi accuchecks, home insulin correcting insulin Fasting blood sugar was 178. Accu-Cheks in 183-287 range. (6) Osteoarthritis: Code(s): M19.90 - Unspecified osteoarthritis, unspecified site Status: Acute Assessment and Plan: Pain control pt appears stable with her OA . If statin or as needed for pain management. (7) Hypokalemia: Code(s): E87.6 - Hypokalemia Status: Acute Assessment and Plan: Hypokalemia was supplemented with post IV and p.o. potassium. Repeat potassium is 3.5. Monitor potassium in daily labs. Subjective Date/time seen: Pt presents to ED with lower abdominal pains worse on left flank. Pt denies fever, no dysuria or hematuria. No significant medical problems. Pt feels anxious about procedure. Pt had bilateral stents placed yesterday. Pt having dark urine and left flank pain. Pt labs reviewed, WBC is elevated at 13.6, creatinine 1.10, UA appears to support a UTI, cultures are pending . Pt started on iv rocephin. for UTI. CT/KUB showed 9mm left proximal ureteral stone with moderate left hydronephrosis and an 11mm right renal pelvic stone as well as non obstructive left renal stones measuring up to 5mm. Bilateral stents in place; follow up KUB and FATIMAH to confirm stone placement and resolution of hydro. 04/27/21 09:57 S: Patient is examined at the bedside. No complaints. she tolerated the procedure well yesterday. Exam Const: General: other (Elderly tired ) HENMT: Head: normocephalic Eyes: General: appearance normal, both eyes and all related structures Pupils: Equal, round and reactive pupils present Neck: Neck: supple Chest: Chest palpation & inspection: normal inspection of the chest Resp: Effort & Inspection: normal respiratory effort Auscultation: clear to auscultation bilaterally Cardio: Jugular venous distension: no JVD Rhythm: regular rhythm Heart sounds: S1 normal heart sound present and S2 normal heart sound present GI: Inspection: normal to inspection Auscultation: normal bowel sounds
[2021-04-27 11:40] LABS: Glucose Point of Care 287 mg/dl (65-105)
--- NOTE | 2021-04-27 13:13 | WPDANESPN ---
Anes - Prog Note Post-Op Date/Time: 04/27/21 13:13 Cardiovascular status: normal Respiratory status: normal Airway patency: baseline Mental status: baseline Post-Op hydration status: normal Vital Signs: Last Vital Signs Temp 36.8 C 04/27/21 06:00 Pulse 88 04/27/21 09:40 Resp 18 04/27/21 06:00 BP 146/88 H 04/27/21 06:00 Pulse Ox 91 04/27/21 10:24 Pain Score (VAS): 0 I/O: Intake & Output 04/26/21 04/27/21 04/27/21 23:59 07:59 15:59 Intake Total 1650 1400 240 Output Total 500 Balance 1150 1400 240 Laboratory Tests 04/27/21 05:51 04/27/21 05:51 04/26/21 04/26/21 04/26/21 13:18 15:43 16:47 WBC RBC Hgb Hct MCV MCH MCHC RDW Plt Count MPV Immature Gran % (Auto) Neut % (Auto) Lymph % (Auto) [place] % (Auto) Eos % (Auto) Baso % (Auto) Lymph # (Auto) [place] # (Auto) Eos # (Auto) Baso # (Auto) Abs Immat Gran (auto) Absolute Neuts (auto) Absolute Nucleated RBC Nucleated RBC % Sodium Potassium Chloride Carbon Dioxide Anion Gap BUN Creatinine Estim Creat Clear Calc Estimated GFR Glucose POC Capillary Glucose 138 H 158 H 162 H Calcium 04/26/21 04/27/21 04/27/21 20:58 05:51 05:51 WBC 11.0 H RBC 4.75 Hgb 13.5 Hct 42.4 MCV 89.3 MCH 28.4 MCHC 31.8 L RDW 15.0 H Plt Count 297 MPV 10.3 Immature Gran % (Auto) 0.5 Neut % (Auto) 74.0 H Lymph % (Auto) 12.7 L [place] % (Auto) 12.3 H Eos % (Auto) 0.2 Baso % (Auto) 0.3 Lymph # (Auto) 1.40 [place] # (Auto) 1.4 H Eos # (Auto) 0.0 Baso # (Auto) 0.0 Abs Immat Gran (auto) 0.05 H Absolute Neuts (auto) 8.2 H Absolute Nucleated RBC 0.0 Nucleated RBC % 0.0 Sodium 136 L Potassium 2.8 L* Chloride 99 Carbon Dioxide 27 Anion Gap 10 BUN 15 Creatinine 0.90 Estim Creat Clear Calc 47 Estimated GFR 60 Glucose 178 H POC Capillary Glucose 257 H Calcium 8.5 04/27/21 04/27/21 08:27 11:29 WBC RBC Hgb Hct MCV MCH MCHC RDW Plt Count MPV Immature Gran % (Auto) Neut % (Auto) Lymph % (Auto) [place] % (Auto) Eos % (Auto) Baso % (Auto) Lymph # (Auto) [place] # (Auto) Eos # (Auto) Baso # (Auto) Abs Immat Gran (auto) Absolute Neuts (auto) Absolute Nucleated RBC Nucleated RBC % Sodium Potassium Chloride Carbon Dioxide Anion Gap BUN Creatinine Estim Creat Clear Calc Estimated GFR Glucose POC Capillary Glucose 183 H 287 H Calcium Microbiology 04/25/21 19:30 Urine Clean Catch Urine Culture - Final Escherichia Coli 04/25/21 22:51 Blood Blood Culture - Preliminary 04/25/21 22:51 Blood Blood Culture - Preliminary Post-procedural complaints: none Patient Feedback: Patient satisfied with anesthetic care.
--- NOTE | 2021-04-27 14:19 | WPDUROPN2 ---
Progress Note: A&P Assessment and Plan (1) Bilateral renal stones: Code(s): N20.0 - Calculus of kidney Status: Acute Assessment and Plan: Bilateral stents in place. Will get a KUB and FATIMAH to confirm stone placement and resolution of hydro. (2) Left ureteral stone: Code(s): N20.1 - Calculus of ureter Status: Acute Assessment and Plan: Will plan to do a left lithotripsy first in a couple of weeks once infection clears. She will f/u in the office next week for a repeat urine culture and surgical planning. (3) Acute UTI: Code(s): N39.0 - Urinary tract infection, site not specified Status: Acute Assessment and Plan: [place] grew E-Coli but is sensitive to Ceftriaxone, continue IV antibiotics. (4) Acute renal insufficiency: Code(s): N28.9 - Disorder of kidney and ureter, unspecified Status: Acute Assessment and Plan: creatinine is 0.90. Subjective Subjective Date/Time Seen: 04/27/21 14:19 POD #1 Cystoscopy, bilateral stent placement, bilateral retrograde pyelogram. Doing much better today, and is tolerating the stents ok. She is having some post op nausea. Review of Systems Cardiovascular: Cardiovascular: Denies chest pain Respiratory: Respiratory: Reports no additional respiratory complaints Gastrointestinal: Gastrointestinal: Denies abdominal pain, Reports nausea and Denies vomiting Genitourinary: Genitourinary: Denies nocturia, Denies dysuria, Denies pelvic pain, Denies flank pain and Denies urinary urgency Exam Resp: Effort & Inspection: normal respiratory effort Cardio: Rate: regular rate GI: GI Palp: Yes Soft to palpation and No Tenderness to palpation present (GI) : General: Yes no CVA tenderness Urinary Catheter: Urinary Catheter: patent and draining and urine cloudy Extrem: General: no edema Objective Data Vital Signs Vital Signs: Vital Signs - 24 hr 04/26/21 14:38 04/26/21 14:49 04/26/21 17:33 Temperature 98.9 F Pulse Rate 110 H 82 Respiratory Rate 18 Blood Pressure 179/99 H Pulse Oximetry 100 96 04/26/21 20:00 04/26/21 22:00 04/27/21 06:00 Temperature 97.8 F 98.2 F Pulse Rate 71 84 Respiratory Rate 18 18 Blood Pressure 140/76 146/88 H Pulse Oximetry 94 94 95 10/20/21 08:00 04/27/21 09:40 04/27/21 09:55 Temperature Pulse Rate 88 Respiratory Rate Blood Pressure Pulse Oximetry 91 97 04/27/21 10:24 Temperature Pulse Rate Respiratory Rate Blood Pressure Pulse Oximetry 91 Intake/Output Intake/Output: Intake & Output 04/24/21 04/25/21 04/26/21 04/27/21 23:59 23:59 23:59 23:59 Intake Total 1000 2900 2100 Output Total 500 Balance 1000 2400 2100 Meds/Results Medications: Active Medications Generic Name Dose Route Start Last Admin Trade Name Freq PRN Reason Stop Dose Admin Cyclobenzaprine HCl 5 mg 04/26/21 21:00 04/26/21 21:00 Cyclobenzaprine Hcl 5 Mg Tablet PO 5 mg HS PRN Administration Muscle Pain Dextrose 12.5 gm 04/26/21 15:30 Dextrose 50% 25 Gm/50 Ml Syringe IV PUSH PRN PRN Hypoglycemia Protocol Diltiazem HCl 180 mg 04/26/21 16:00 04/27/21 09:42 Diltiazem Hcl Cd 180 Mg Cap.Er.24h PO 180 mg DAILY DALIA Administration Furosemide 40 mg 04/27/21 09:00 04/27/21 09:40 Furosemide 40 Mg Tablet PO 40 mg QAM DALIA Administration Glucagon 1 mg 04/26/21 15:30 Glucagon For Inj 1 Mg Vial IM PRN PRN Hypoglycemia Protocol Glucose 15 gm 04/26/21 15:30 Glucose Oral Gel 15 Gm Of Glucse In 37.5 Gm Tube PO PRN PRN Hypoglycemia Protocol Ceftriaxone Sodium/Dextrose 1 gm in 50 mls @ 100 mls/hr 04/27/21 00:00 04/27/21 00:22 Rocephin 1 Gm/D5w 50 Ml IVPB Infused Q24H DALIA Infusion Sodium Chloride 1,000 mls @ 100 mls/hr 04/26/21 15:05 04/27/21 05:24 Normal Saline Iv IV CONT 100 mls/hr .Q10H DALIA Administration Dextrose 1,000 mls @ 100 mls/hr
[2021-04-27 14:28] LABS: Potassium 3.5 mmol/L (3.4-5.0)
[2021-04-27 16:39] LABS: Glucose Point of Care 224 mg/dl (65-105)
[2021-04-27 22:26] LABS: Glucose Point of Care 188 mg/dl (65-105)
[2021-04-28 06:00] VITALS: BP 168/92; PULSE 60; RESP 18; TEMP 36.2; O2SAT 93
[2021-04-28 06:41] LABS: Potassium 3.3 mmol/L (3.4-5.0)
[2021-04-28 08:00] VITALS: O2SAT 92
[2021-04-28 08:28] LABS: Glucose Point of Care 155 mg/dl (65-105)
[2021-04-28] MEDS: SODIUM CHLORIDE 0.9% IV 1,000 ML 100 ML IV CONT (08:33)
[2021-04-28 08:34] VITALS: PULSE 108
[2021-04-28] MEDS: METOPROLOL SUCCINATE EXT REL 100 MG TABCR PO (08:34)
[2021-04-28] MEDS: dilTIAZem HCL CD 180 MG CAP.ER.24H PO (08:34)
[2021-04-28] MEDS: lisinopriL 5 MG TABLET PO ×2 (08:34→14:00)
[2021-04-28] MEDS: MULTIVITAMINS /C LUTEIN (CENTRUM SILVER) TABLET *BKC 1 TAB PO (08:34)
[2021-04-28] MEDS: FUROSEMIDE 40 MG TABLET PO (08:35)
[2021-04-28] MEDS: INSULIN GLARGINE (*BKC) 100 UNITS/ML 15 UNITS SUB-Q (11:15)
[2021-04-28] MEDS: TOLNAFTATE 1% POWDER 45 GM BTL 1 APPLIC TOPICAL ×2 (11:17→21:40)
--- NOTE | 2021-04-28 11:36 | WPDCDIQUERY2 ---
CDI Query Clarification Request -04/25 Abd/Pelvis CT impression: moderate left hydroureteronephrosis - CT/KUB showed 9mm left proximal ureteral stone with moderate left hydronephrosis and an 11mm right renal pelvic stone as well as non obstructive left renal stones measuring up to 5mm. documented in H&P - Follow up KUB and FATIMAH to confirm stone placement and resolution of hydro documented Coders are not able to code from CT/KUB findings or from hydro . Please clarify diagnosis that corresponds to above findings.
[2021-04-28 12:05] LABS: Glucose Point of Care 199 mg/dl (65-105)
[2021-04-28 14:00] VITALS: BP 132/80; PULSE 79; RESP 17; TEMP 36.4; O2SAT 97
[2021-04-28 15:37] LABS: Anion Gap 7 mmol/L (8-16); Blood Urea Nitrogen 18 mg/dL (7-17); Carbon Dioxide 31 mmol/L (22-30); Chloride 96 mmol/L (98-107); Estimated CRCL calculation 52 ml/min; Estimated Glomerular Filt Rate > 60; Glucose 259 mg/dL (65-110); Potassium 3.7 mmol/L (3.4-5.0); Sodium 134 mmol/L (137-145)
[2021-04-28 16:41] LABS: Glucose Point of Care 206 mg/dl (65-105)
--- NOTE | 2021-04-28 17:04 | PM.IMPN ---
Progress Note: A&P Assessment and Plan (1) Bilateral renal stones: Code(s): N20.0 - Calculus of kidney Status: Acute Assessment and Plan: Currently patient is postop day 2 cystoscopy, bilateral stent placement, bilateral retrograde pyelogram. She is doing much better today and has tolerated the stents. She reported some postoperative nausea, now resolved. Bilateral stents were placed by urology. repeat renal US shows mild right hydronephrosis with 70 mm stone of the right renal pelvis Continue toradol and flexeril for pain. Tums or zofran PRN for nausea. (2) Severe sepsis: Code(s): A41.9 - Sepsis, unspecified organism; R65.20 - Severe sepsis without septic shock Status: Acute Assessment and Plan: Continue IV fluids IV rocephin; urine growing Ecoli sensitive to rocephin. Currently patient is hemodynamically stable with a blood pressure of 132/80 a pulse of 79, respirations 17, temperature 97.6F, and a saturation of 97% on room air. She has been afebrile since admission. (3) Acute UTI: Code(s): N39.0 - Urinary tract infection, site not specified Status: Acute Assessment and Plan: Patient's present to the hospital with bilateral flank pain worse on the left side. On admission her CBC showed a WBC of 13.6 with 85.8% neutrophils. White blood cell count improving down to 11 today. Her urinalysis showed 3+ protein, 1+ glucose, 1+ ketones, 2+ blood, trace leukocyte esterase, over 75 RBC, 21-30 WBC. Urine culture is growing pansensitive E coli. Blood cultures have been negative so far. Continue iv rocephin (4) CHF (congestive heart failure): Code(s): I50.9 - Heart failure, unspecified Status: Acute Assessment and Plan: Monitor for evidence of volume overload with previous CHF diagnosis (5) Type II diabetes mellitus: Code(s): E11.9 - Type 2 diabetes mellitus without complications Status: Acute Assessment and Plan: ssi accuchecks, home insulin correcting insulin Fasting blood sugar was 258. Accu-Cheks in 199-206 range. (6) Osteoarthritis: Code(s): M19.90 - Unspecified osteoarthritis, unspecified site Status: Acute Assessment and Plan: Pain control pt appears stable with her OA . If statin or as needed for pain management. (7) Hypokalemia: Code(s): E87.6 - Hypokalemia Status: Acute Assessment and Plan: Hypokalemia was supplemented with post IV and p.o. potassium. Repeat potassium is 3.5. Monitor potassium in daily labs. Subjective Date/time seen: 04/28/21 17:04 S: Patient is examined at the bedside. She is feeling a lot better. No complaints. Review of Systems Review of Systems: All systems reviewed & are unremarkable except as noted in HPI and below Constitutional: Constitutional: Reports no additional constitutional complaints Eyes: Eyes: Reports no additional eye complaints ENT: Reports system reviewed and no additional complaints, except as documented Cardiovascular: Cardiovascular: Reports no additional cardiovascular complaints Respiratory: Respiratory: Reports no additional respiratory complaints Gastrointestinal: Gastrointestinal: Reports no additional gastrointestinal complaints Genitourinary: Genitourinary: Reports no additional female genitourinary complaints Musculoskeletal: Musculoskeletal: Reports no additional musculoskeletal complaints Integumentary/Breasts: Skin/Breast: Reports system reviewed and no additional complaints, except as docu Neurologic: Reports system reviewed and no additional complaints, except as documented Psychiatric: Psychiatric: Reports no additional psychiatric complaints Exam Const: General: cooperative, comfortable, no acute distress and other (Elderly tired ) HENMT: Head: normocephalic Eyes: General: appearance normal, both eyes and all related structures Pupils: Equal, round and reactive pupils present Neck: Neck: supple Chest:
[2021-04-28 21:57] LABS: Glucose Point of Care 173 mg/dl (65-105)
[2021-04-28 22:00] VITALS: BP 144/93; PULSE 74; RESP 20; TEMP 36.5; O2SAT 100
[2021-04-29] MEDS: SODIUM CHLORIDE 0.9% IV 1,000 ML 100 ML IV CONT ×2 (00:43→12:22)
[2021-04-29 05:35] VITALS: BP 153/84; PULSE 73; RESP 20; TEMP 37; O2SAT 95
[2021-04-29 06:31] LABS: Basophils Absolute Auto 0.1 K/mm3 (0.0-0.1); Basophils Percent Auto 0.6 % (0.2-1.2); Eosinophils Absolute Auto 0.3 K/mm3 (0-0.3); Eosinophils Percent Auto 3.2 % (0-4.4); Hematocrit 39.4 % (37.0-47.0); Hemoglobin 12.7 g/dL (12.0-15.0); Immature Granulocyte Absolute 0.04 K/mm3 (0.00-0.031); Immature Granulocyte Percent A 0.4 % (0-0.5); Lymphocytes Absolute Auto 2.79 K/mm3 (0.9-3.2); Lymphocytes Percent Auto 28.1 % (18.3-44.2); Mean Corpuscular HGB Conc 32.2 g/dl (32-36); Mean Corpuscular Hemoglobin 28.2 pg (26-34); Mean Corpuscular Volume 87.6 fl (80-100); Monocytes Percent Auto 10.4 % (2.6-8.5); Neutrophils Absolute Auto 5.7 K/mm3 (1.3-6.7); Neutrophils Percent Auto 57.3 % (45.5-73.1); Platelet Count Result 293 k/mm3 (150-375); Red Cell Distribution Width 14.8 % (11.5-14.5); White Blood Count 9.9 K/mm3 (4.5-10.0)
[2021-04-29 06:47] LABS: Anion Gap 6 mmol/L (8-16); Blood Urea Nitrogen 16 mg/dL (7-17); Calcium 8.2 mg/dL (8.4-10.2); Carbon Dioxide 32 mmol/L (22-30); Chloride 101 mmol/L (98-107); Estimated CRCL calculation 52 ml/min; Estimated Glomerular Filt Rate > 60; Glucose 125 mg/dL (65-110); Potassium 3.4 mmol/L (3.4-5.0); Sodium 139 mmol/L (137-145)
[2021-04-29 08:10] LABS: Glucose Point of Care 171 mg/dl (65-105)
[2021-04-29 08:14] LABS: Magnesium 1.5 mg/dL (1.6-2.3)
[2021-04-29] MEDS: MULTIVITAMINS /C LUTEIN (CENTRUM SILVER) TABLET *BKC 1 TAB PO (09:19)
[2021-04-29 09:20] VITALS: PULSE 64; O2SAT 98
[2021-04-29] MEDS: dilTIAZem HCL CD 180 MG CAP.ER.24H PO (09:20)
[2021-04-29] MEDS: lisinopriL 10 MG TABLET PO (09:20)
[2021-04-29] MEDS: POTASSIUM CHLORIDE 20 MEQ PACKET (FOR LIQUID) 40 MEQ PO (09:20)
[2021-04-29] MEDS: FUROSEMIDE 40 MG TABLET PO (09:20)
[2021-04-29] MEDS: METOPROLOL SUCCINATE EXT REL 100 MG TABCR PO (09:20)
[2021-04-29] MEDS: INSULIN GLARGINE (*BKC) 100 UNITS/ML 15 UNITS SUB-Q (09:21)
[2021-04-29] MEDS: TOLNAFTATE 1% POWDER 45 GM BTL 1 APPLIC TOPICAL (09:22)
[2021-04-29] MEDS: INSULIN ASPART (*BKC) 100 UNITS/ML SUB-Q ×3 (09:22→16:59)
[2021-04-29 12:32] LABS: Glucose Point of Care 166 mg/dl (65-105)
[2021-04-29 14:30] VITALS: BP 149/78; PULSE 64; RESP 14; TEMP 36.7; O2SAT 99
--- NOTE | 2021-04-29 14:30 | PM.DS ---
DS: Admitting Diagnosis Discharge Date 04/29/2021 Admitting Diagnosis Bilateral renal stones Urinary tract infection, Sepsis DS: Discharge Diagnosis Discharge Diagnosis (1) Bilateral renal stones: Code(s): N20.0 - Calculus of kidney Status: Acute Assessment and Plan: Currently patient is postop day 2 cystoscopy, bilateral stent placement, bilateral retrograde pyelogram. She is doing much better today and has tolerated the stents. She reported some postoperative nausea, now resolved. Bilateral stents were placed by urology. repeat renal US shows mild right hydronephrosis with 70 mm stone of the right renal pelvis Continue toradol and flexeril for pain. Tums or zofran PRN for nausea. (2) Severe sepsis: Code(s): A41.9 - Sepsis, unspecified organism; R65.20 - Severe sepsis without septic shock Status: Acute Assessment and Plan: Continue IV fluids IV rocephin; urine growing Ecoli sensitive to rocephin. Currently patient is hemodynamically stable with a blood pressure of 132/80 a pulse of 79, respirations 17, temperature 97.6F, and a saturation of 97% on room air. She has been afebrile since admission. (3) Acute UTI: Code(s): N39.0 - Urinary tract infection, site not specified Status: Acute Assessment and Plan: Patient's present to the hospital with bilateral flank pain worse on the left side. On admission her CBC showed a WBC of 13.6 with 85.8% neutrophils. White blood cell count improving down to 11 today. Her urinalysis showed 3+ protein, 1+ glucose, 1+ ketones, 2+ blood, trace leukocyte esterase, over 75 RBC, 21-30 WBC. Urine culture is growing pansensitive E coli. Blood cultures have been negative so far. Continue iv rocephin (4) CHF (congestive heart failure): Code(s): I50.9 - Heart failure, unspecified Status: Acute Assessment and Plan: Monitor for evidence of volume overload with previous CHF diagnosis (5) Type II diabetes mellitus: Code(s): E11.9 - Type 2 diabetes mellitus without complications Status: Acute Assessment and Plan: ssi accuchecks, home insulin correcting insulin Fasting blood sugar was 258. Accu-Cheks in 199-206 range. (6) Osteoarthritis: Code(s): M19.90 - Unspecified osteoarthritis, unspecified site Status: Acute Assessment and Plan: Pain control pt appears stable with her OA . If statin or as needed for pain management. (7) Hypokalemia: Code(s): E87.6 - Hypokalemia Status: Acute Assessment and Plan: Hypokalemia was supplemented with post IV and p.o. potassium. Repeat potassium is 3.5. Monitor potassium in daily labs. DS: Summary Hospital Course Reason for hospitalization: Chief Complaint: Left flank pain and lower abdominal pain. Hospital Course: Pt presents to ED with lower abdominal pains worse on left flank. Pt denies fever, no dysuria or hematuria. No significant medical problems. Pt feels anxious about procedure. Pt having stents placed today. Pt having dark urine and left flank pain. Pt labs reviewed, WBC is elevated at 13.6, creatinine 1.10, UA appears to support a UTI, urine cultures revealed pansensitive E coli. Pt started on iv rocephin for UTI. CT/KUB showed 9mm left proximal ureteral stone with moderate left hydronephrosis and an 11mm right renal pelvic stone as well as non obstructive left renal stones measuring up to 5mm. Patient underwent stent placement by Urology. Her pain was managed with Toradol and Flexeril. Patient carries a diagnosis of heart failure. She was not on fluid overload. Patient carries a diagnosis of type 2 diabetes mellitus and was managed with sliding scale insulin. Her blood sugar were well controlled and she was discharged on her home medication. Patient blood pressure was elevated. This could be multifactorial related to pain. Her lisinopril was increased from 5-10 mg p.o. daily. On the day of discharge her blood pressure was stabl
[2021-04-29 17:00] LABS: Glucose Point of Care 105 mg/dl (65-105)
== END 2021-04-29 17:30 | DRG 854 ==
LOC: ANHED 22:41 → ANH3MEDSUR 04-26 00:41
PROVIDERS: Emergency Medicine; Family Medicine; Urology; Admitting Provider Internal Medicine; Emergency Provider Emergency Medicine; PCP Family Medicine; Visit Provider Internal Medicine
PROC: 0T788DZ Dilation of Bilateral Ureters with Intraluminal Device, Via Natural or Artificial Opening Endoscopic (ICD-10-PCS; CPT 52352; principal; 2021-04-26 12:30)
DX: A41.9 Sepsis, unspecified organism (principal); N13.6 Pyonephrosis; B96.20 Unspecified Escherichia coli [E. coli] as the cause of diseases classified elsewhere; E11.42 Type 2 diabetes mellitus with diabetic polyneuropathy; I11.0 Hypertensive heart disease with heart failure; I50.9 Heart failure, unspecified; R65.20 Severe sepsis without septic shock; N28.9 Disorder of kidney and ureter, unspecified; M19.90 Unspecified osteoarthritis, unspecified site; K21.9 Gastro-esophageal reflux disease without esophagitis; I34.1 Nonrheumatic mitral (valve) prolapse; E78.00 Pure hypercholesterolemia, unspecified; E87.6 Hypokalemia; Z23 Encounter for immunization; Z79.4 Long term (current) use of insulin; Z79.82 Long term (current) use of aspirin; Z79.84 Long term (current) use of oral hypoglycemic drugs
CPT/HCPCS: 36415; 74018; 74177; 74420; 76775; 80048; 80053; 81001; 82948; 83605; 83690; 83735; 84132; 85025; 87040; 87077; 87086; 87088; 87186; 90471; 90653; 93005; 96361; 96365; 96367; 96375; 96376; 97162; 97165; 97530; 97535; 99285; A9270; C1758; C1769; C2617; G0008; G0378; J0131; J0696; J1815; J2405; J2704; J3010; J3480; J7030; J7120; Q9966; Q9967

== ENCOUNTER 2021-05-01 16:06 | Inpatient (IN) | payer MEDICARE, MEDICAID, SELFPAY ==
--- NOTE | ~2021-05-01 | CT_ITS ---
EXAMINATION: CT brain wo con DATE: 05/01/2021 17:12 INDICATION: Posterior head injury from fall. TECHNIQUE: Computed tomography (CT) of the head was performed without intravenous contrast. The mA wa s adjusted according to patient size. Iterative reconstruction technique was employed. Exam dose: 60 5.33 mGy-cm total exam DLP. COMPARISON: 07/21/2019 CT Brain FINDINGS: Cavum septum pellucidum and cavum vergae. There is moderate cerebral and cerebellar volume loss consistent with patient age. There is prominent nonspecific diminished attenuation of the subcortical and periventricular cerebral white matter, most likely due to chronic small vessel ischemic changes. Bilateral carotid siphon int ernal carotid artery calcifications and vertebral artery calcifications are noted. No intracranial mass lesion or hemorrhage, midline shift or mass effect or cerebrovascular accident. No subdural or epidural hematoma. No fracture or bone destruction of the cranial vault. The mastoid air cells and included paranasal si nuses are unremarkable. IMPRESSION: Cerebral atherosclerosis and chronic small vessel ischemic changes of the cerebral white matter Cavum septum pellucidum and cavum very No acute intracranial finding or skull fracture Reviewed, dictated and finalized at [facility]. Reviewed, dictated and finalized at location [facility].
--- NOTE | ~2021-05-01 | XR_ITS ---
XR abdomen/kub 1V DATE: 05/01/2021 17:04 INDICATION: Left renal stone, stent TECHNIQUE: AP projection, 2 views COMPARISON: 04/27/2021 KUB / CT abdomen pelvis with IV contrast material FINDINGS: Previously reported 9 mm right renal pelvic calcified calculus and proximal left ureteral 1 0 mm calcified calculus or unchanged in position since 04/27/2021. Bilateral internal urinary stents are unchanged in position. Status post cholecystectomy. IVC filter. Nonspecific bowel gas pattern without evidence of obstruction. IMPRESSION: No change in position of 9 mm right renal calcified pelvic calculus and terminal proximal left ureteral calcified calculus Bilateral internal urinary stents. Reviewed, dictated and finalized at [facility]. Reviewed, dictated and finalized at [facility].
--- NOTE | ~2021-05-01 | XR_ITS ---
XR chest 1V DATE: 05/01/2021 17:04 INDICATION: Fall. TECHNIQUE: AP chest COMPARISON: 02/03/2018 AP and lateral chest FINDINGS: Cardiomegaly. There is aortic calcification and tortuosity. No hilar or mediastinal enlarge ment. No pulmonary infiltrate or consolidation, pleural effusion or pulmonary vascular congestion or pneumo thorax. Diffuse osteopenia. Bilateral glenohumeral osteoarthritis. Right rotator cuff atrophy. There is dextroscoliosis and prominent degenerative spurring of the thoracic spine, levoscoliosis of the lumbar spine. IMPRESSION: Cardiomegaly and aortic atherosclerosis No active pulmonary disease Scoliosis and degenerative change of the thoracic and lumbar spine. Reviewed, dictated and finalized at location [facility].
--- NOTE | ~2021-05-01 | CT_ITS ---
EXAMINATION: CT abdomen pelvis w con DATE: 05/01/2021 17:52 INDICATION: Worsening left-sided abdominal pain TECHNIQUE: Computed tomography (CT) of the abdomen and pelvis was performed with 100 cc Omnipaque 350 intravenous contrast. Automated exposure control and iterative reconstruction technique were employe d. Exam dose: 1427.83 mGy-cm total exam DLP. COMPARISON: 05/01/2021 KUB FINDINGS: There is patchy groundglass density in the lower lung zones. Mild atelectasis in the lower lung zones. Cardiomegaly. No pericardial or pleural effusion. 1.2 cm lateral segment left hepatic cyst. Status post cholecystectomy. No bile duct or pancreatic duct dilatation. Normal splenic size. Normal morphology of the adrenal glands. Bilateral internal urinary stents are present, the proximal pigtails in the renal pelves. 12 mm right renal pelvic calculus. No right renal mass lesion is noted. Approximately 5 mm nonobstructing upper pole left renal calculus. 2.7 mm lower pole nonobstructing le ft renal calculus. Several left renal cysts, measuring up to 9 mm maximal dimension. There is mild left hydronephrosis and pelviectasis. There is an approximately 1 cm stone in the proxi mal left ureter. There is a small sliding hiatal hernia. IVC filter is present. Diffuse idiopathic skeletal hyperostosis of the thoracic spine. Borderline grade 2/almost grade 3 anterolisthesis at L5-S1. Severe degenerative disc disease and poss ible fusion at L5-S1. There is severe degenerative change at the apophyseal joints of the lumbar and lumbosacral spine. Prominent degenerative disc disease at T11-12, T12-L1, L1-L2, moderately prominent degenerative disc disease at L2-3 and L3-4. Bilateral hip osteoporosis, more severe on the right. IMPRESSION: Mild left pelviectasis and hydronephrosis secondary to proximal left ureteral 1 cm calcu adams 5 mm and 2.7 mm nonobstructing left renal calculi 12 mm right renal pelvic calculus Bilateral internal urinary stents Left renal cysts IVC filter Status post cholecystectomy 1.2 cm lateral segment left hepatic cyst Small sliding hiatal hernia Cardiomegaly Reviewed, dictated and finalized at [facility]. Reviewed, dictated and finalized at location [facility]. IMPRESSION: Mild left pelviectasis and hydronephrosis secondary to proximal le ft ureteral 1 cm calculus 5 mm and 2.7 mm nonobstructing left renal calculi 12 mm right renal pelvic calculus Bilateral internal urinary stents Left renal cysts IVC filter Status post cholecystectomy 1.2 cm lateral segment left hepatic cyst Small sliding hiatal hernia Cardiomegaly
[2021-05-01 16:05] VITALS: BP 117/82; PULSE 85; RESP 18; O2SAT 98
[2021-05-01 16:20] LABS: Basophils Absolute Auto 0.1 K/mm3 (0.0-0.1); Basophils Percent Auto 0.5 % (0.2-1.2); Eosinophils Absolute Auto 0.2 K/mm3 (0-0.3); Hematocrit 38.7 % (37.0-47.0); Hemoglobin 12.4 g/dL (12.0-15.0); Immature Granulocyte Absolute 0.06 K/mm3 (0.00-0.031); Immature Granulocyte Percent A 0.5 % (0-0.5); Lymphocytes Absolute Auto 2.16 K/mm3 (0.9-3.2); Lymphocytes Percent Auto 18.7 % (18.3-44.2); Mean Corpuscular Hemoglobin 28.8 pg (26-34); Mean Corpuscular Volume 89.8 fl (80-100); Mean Platelet Volume 9.8 fl (7.4-10.4); Monocytes Absolute Auto 1.2 K/mm3 (0.1-0.6); Monocytes Percent Auto 10.6 % (2.6-8.5); Neutrophils Absolute Auto 7.8 K/mm3 (1.3-6.7); Neutrophils Percent Auto 67.7 % (45.5-73.1); Platelet Count Result 284 k/mm3 (150-375); Red Blood Count 4.31 M/mm3 (4.2-5.4); Red Cell Distribution Width 15.1 % (11.5-14.5); White Blood Count 11.6 K/mm3 (4.5-10.0)
[2021-05-01 16:34] LABS: Alanine Aminotransferase 42 U/L (4-35); Albumin Level 3.9 g/dL (3.5-5.1); Alkaline Phosphatase 90 U/L (38-126); Anion Gap 9 mmol/L (8-16); Aspartate Amino Transferase 39 U/L (14-36); Bilirubin,Total 0.2 mg/dL (0.2-1.3); Blood Urea Nitrogen 24 mg/dL (7-17); Calcium 9.3 mg/dL (8.4-10.2); Carbon Dioxide 31 mmol/L (22-30); Chloride 100 mmol/L (98-107); Estimated CRCL calculation 35 ml/min; Estimated Glomerular Filt Rate 48; Glucose 155 mg/dL (65-110); Lipase 264 U/L (23-300); Sodium 140 mmol/L (137-145)
--- NOTE | 2021-05-01 16:45 | ECG_ITS ---
Measurements Intervals [place] Rate: 85 P: [place]: 0 QRS: -61 QRSD: 109 T: -83 QT: 365 QTc: 436 Interpretive Statements ATRIAL FLUTTER/TACHYCARDIA LEFT AXIS DEVIATION INCOMPLETE RIGHT BUNDLE BRANCH BLOCK LEFT VENTRICULAR HYPERTROPHY AND ST-T CHANGE ANTEROSEPTAL INFARCT, AGE INDETERMINATE INFERIOR INFARCT, AGE INDETERMINATE BORDERLINE ST-T WAVE ABNORMALITY- HIGH LATERAL LEADS BASELINE ARTIFACT- I, III, AVR, AVL, AVF ABNORMAL ECG Electronically Signed On 05-01-2021 22:28:23 CDT by Juan Alberto Gomez D.O.
--- NOTE | 2021-05-01 17:03 | ED.ABDPAIN ---
HPI - Abdominal Pain General Chief Complaint: Abdominal Pain Stated Complaint: abd & back pain Time Seen by Provider: 05/01/21 16:13 Source: patient, family, RN notes reviewed and old records reviewed Mode of arrival: EMS Limitations: no limitations and dementia History of Present Illness HPI narrative: This is an 80 year old female with recent diagnosis left proximal ureter calculus s/p stent who presents for evaluation of left lower abdominal pain. Patient states she developed pain this morning and it has gradually worsens. She has associated nausea and back pain. She is unsure of fever or chills. She reports frequent urination and BM but states this is normal for her. She was discharged from [facility] 3 days ago after hospitalization for UTI and kidney stone. She was found to have left proximal ureteral stone with moderate hydronephrosis and large right renal stone so urology placed bilateral ureteral stents 4 days ago. She was discharged with antibiotics as well. PAtient denies taking anything for pain and I do not see that patient was discharged with pain medications or ordered any at facility. Patient also notes that she fell early today coming out of bathroom. She states she fell onto her bottom fell backwards hitting her head. She had a headache but it is resolving. She denies LOC . She takes aspirin 325 mg. Related Data Home Medications Medication Instructions Recorded Confirmed Centrum Silver 1 tablet PO DAILY 09/13/19 04/26/21 calcium carbonate 600 mg calcium 1,200 mg PO DAILY tablet 09/27/20 04/26/21 (1,500 mg) tablet cholecalciferol (vitamin D3) 25 25 mcg PO DAILY 09/27/20 04/26/21 mcg (1,000 unit) tablet cyclobenzaprine 5 mg tablet 5 mg PO .Bedtime PRN tablet 09/27/20 04/26/21 diltiazem HCl 180 mg 180 mg PO DAILY 09/27/20 04/26/21 capsule,extended release 24 hr furosemide 40 mg tablet 40 mg PO QAM 09/27/20 04/26/21 meclizine 25 mg tablet 25 mg PO BID PRN 09/27/20 04/26/21 metformin 1,000 mg tablet 1,000 mg PO BID 09/27/20 04/26/21 metoprolol succinate 100 mg 100 mg PO DAILY 09/27/20 04/26/21 tablet,extended release 24 hr potassium chloride 20 mEq 20 meq PO DAILY 09/27/20 04/26/21 tablet,extended release(part/cryst) insulin glargine 100 unit/mL (3 15 unit SUBCUT QAM 03/11/21 04/26/21 mL) subcutaneous pen aspirin 325 mg PO DAILY 04/26/21 04/26/21 Allergies Allergy/AdvReac Type Severity Reaction Status Date / Time bisoprolol Allergy Intermediate unknown Verified 04/26/21 02:52 hydrochlorothiazide Allergy Intermediate unknown Verified 04/26/21 02:52 oxycodone Allergy Intermediate unknown Verified 04/26/21 02:52 acetaminophen Allergy Unknown Unknown Verified 04/26/21 02:52 Review of Systems Review of Systems: All systems reviewed & are unremarkable except as noted in HPI and below PMFSH Past Medical History Medical History Arthritis Atrial fibrillation Bronchitis CHF (congestive heart failure) Diabetes Foot fracture, left GERD (gastroesophageal reflux disease) Hypercholesterolemia Hypertension Mitral valve prolapse Peripheral neuropathy Pneumonia Sinus problem UTI (urinary tract infection) Surgical History Surgical History H/O: hysterectomy History of appendectomy Hx of cholecystectomy Social History Social History Smoking status: Never smoker Second hand tobacco smoke exposure: No Alcohol intake: never Substance use: never Substance use type: does not use Gender identity (if verbalized by the patient): Female Spiritual care concerns: No Exam Const: General: no acute distress and alert Nutritional Appearance: obese Orientation/consciousness: patient oriented x3 Eyes: EOM: EOMs intact bilaterally Resp: Effort & Inspection: normal respiratory effort and no retractions Au
[2021-05-01] MEDS: SODIUM CHLORIDE 0.9% IV 1,000 ML 999 ML IV CONT (17:16)
[2021-05-01 17:27] LABS: Magnesium 1.4 mg/dL (1.6-2.3)
[2021-05-01 18:01] VITALS: BP 117/50; PULSE 74; RESP 18; O2SAT 97
[2021-05-01 18:25] LABS: Add Urine Microscopic? YES; Appearance Urine Cloudy (Clear); Bacteria Urine Trace /hpf; Bilirubin Urine Negative (Negative); Blood Urine 2+ (Negative); Color Urine Yellow (Yellow); Glucose Urine UA Negative (Negative); Ketones Urine Negative (Negative); Leukocyte Esterase Ur 3+ LEU/UL (Negative); Mucus Urine Rare /lpf; Nitrate Urine Negative (Negative); Protein Urine 2+ mg/dL (Negative); RBC Urine >75 /hpf (0-2); Specific Grav Ur 1.018 (1.001-1.035); Squamous Epithelial Cell Urine Rare /hpf (Few); Urobilinogen Urine Negative mg/dL (<2.0); WBC Urine 31-50 /hpf
[2021-05-01] MEDS: MAGNESIUM OXIDE 400 MG TABLET PO (19:02)
[2021-05-01] MEDS: POTASSIUM CHLORIDE 20 MEQ TABLET 40 MEQ PO (19:02)
[2021-05-01 19:04] VITALS: BP 103/72; PULSE 94; RESP 20; TEMP 37; O2SAT 97
[2021-05-01 20:52] VITALS: BP 109/84; PULSE 72; RESP 19; O2SAT 97
[2021-05-01 21:29] VITALS: BP 107/58; PULSE 76; RESP 16; O2SAT 95
[2021-05-01 21:45] VITALS: BP 108/90; PULSE 81; RESP 18; TEMP 36.3; O2SAT 100; BMI 38.7
--- NOTE | 2021-05-01 21:58 | PM.IMHP ---
H&P: HPI History of Present Illness Date/Time: 05/01/21 21:58 this is a 80-year-old female patient who was just discharged from this facility 2 days ago. The patient had cystoscopy, bilateral retrogrades, bilateral ureteral stent placement 4.8 Sloven[place] contour placed on 04/26/[address] Monge. The patient had been on Rocephin at that time. The patient was growing E coli that was pansensitive. The patient had been sent home on Levaquin 750 mg p.o. daily for 14 days. Also her lisinopril was increased to 10 mg daily. The patient resides at [facility]. The patient developed pain this morning that gradually got worse. She also had nausea back pain. She was reporting frequent urination. The patient also was complaining of feeling weak and she fell earlier today coming out of bathroom. The patient states that she fell on to her buttocks and fell backwards hitting her head. She has a headache but it is starting to resolve. Head CT was read as Cerebral atherosclerosis and chronic small vessel ischemic changes of the cerebral white matter Cavum septum pellucidum and cavum very No acute intracranial finding or skull fracture. Abdominal x-ray was read as No change in position of 9 mm right renal calcified pelvic calculus and terminal proximal left ureteral calcified calculus Bilateral internal urinary stents. Abdominal pelvis CT was read as the followingMild left pelviectasis and hydronephrosis secondary to proximal left ureteral 1 cm calculus 5 mm and 2.7 mm nonobstructing left renal calculi 12 mm right renal pelvic calculus Bilateral internal urinary stents Left renal cysts IVC filter Status post cholecystectomy 1.2 cm lateral segment left hepatic cyst Small sliding hiatal hernia Cardiomegaly Chest x-ray was read asCardiomegaly and aortic atherosclerosis No active pulmonary disease Scoliosis and degenerative change of the thoracic and lumbar spine. Her white count is elevated to 11.6 and had been normal when she was discharged 2 days ago. BUN 24 creatinine 1.1 glucose 155. Magnesium 1.4. Urine is positive for UTI. The patient was started on IV fluids and ceftriaxone. She was supplemented with magnesium and potassium. Urology has been consulted. The patient has been admitted for observation on the date of service of 05/01/2021. Chief Complaint: Weakness Review of Systems Review of Systems: All systems reviewed & are unremarkable except as noted in HPI and below Constitutional: Constitutional: Reports as per HPI and Reports no additional constitutional complaints Eyes: Eyes: Reports as per HPI and Reports no additional eye complaints ENT: Reports system reviewed and no additional complaints, except as documented and Reports Normal hearing present Cardiovascular: Cardiovascular: Reports no additional cardiovascular complaints Respiratory: Respiratory: Reports no additional respiratory complaints and Reports no additional respiratory complaints Gastrointestinal: Gastrointestinal: Reports as per HPI and Reports no additional gastrointestinal complaints Musculoskeletal: Musculoskeletal: Reports no additional musculoskeletal complaints Integumentary/Breasts: Skin/Breast: Reports system reviewed and no additional complaints, except as docu and Reports as per HPI Neurologic: Reports system reviewed and no additional complaints, except as documented, Reports as per HPI and Reports Normal hearing present Psychiatric: Psychiatric: Reports no additional psychiatric complaints and Reports as per HPI Endocrine: Endocrine: Reports no additional endocrine complaints Hematologic/Lymphatic: Hematologic/Lymphatic: Reports no additional hematologic/lymphatic complaints Allergic/Immunologic: Allergic/Immunologic: Reports no additional allergic/immunologic complaints [facility] Past Medical History Medical History (Updated 05/01/21 @ 22:24 by Natacha Jimenez NP) Arthritis Atrial fibrillation Bronchitis CHF (congestive hea
[2021-05-01] MEDS: LACTATED RINGERS 1,000 ML 125 ML IV CONT (22:13)
[2021-05-01 22:28] LABS: Glucose Point of Care 163 mg/dl (65-105)
--- NOTE | 2021-05-01 23:13 | ADMGEN ---
This patient, Freda Khanna, was admitted to [facility] Surg Room 332-02. Patient/family oriented to hospital policies and general routines including ID bracelet, bed and alarms, visiting hours, pain management, procedures, bathroom and other care routines, personal items, smoking policy, room service/diet, and visiting hours. Information on how to activate the Rapid Response Team has been discussed. Patient/Family are encouraged to report perceived risks to care and to ask questions if they do not understand what they are told or what they should do.
[2021-05-02 06:00] VITALS: BP 132/75; PULSE 70; RESP 18; TEMP 36.2; O2SAT 95
[2021-05-02 06:40] LABS: Basophils Absolute Auto 0.1 K/mm3 (0.0-0.1); Basophils Percent Auto 0.9 % (0.2-1.2); Eosinophils Absolute Auto 0.4 K/mm3 (0-0.3); Eosinophils Percent Auto 4.4 % (0-4.4); Hematocrit 37.1 % (37.0-47.0); Hemoglobin 11.8 g/dL (12.0-15.0); Immature Granulocyte Absolute 0.06 K/mm3 (0.00-0.031); Immature Granulocyte Percent A 0.6 % (0-0.5); Lymphocytes Absolute Auto 2.35 K/mm3 (0.9-3.2); Lymphocytes Percent Auto 25.1 % (18.3-44.2); Mean Corpuscular HGB Conc 31.8 g/dl (32-36); Mean Corpuscular Hemoglobin 28.6 pg (26-34); Mean Corpuscular Volume 89.8 fl (80-100); Mean Platelet Volume 10.2 fl (7.4-10.4); Monocytes Absolute Auto 0.9 K/mm3 (0.1-0.6); Monocytes Percent Auto 9.9 % (2.6-8.5); Neutrophils Absolute Auto 5.6 K/mm3 (1.3-6.7); Neutrophils Percent Auto 59.1 % (45.5-73.1); Platelet Count Result 275 k/mm3 (150-375); Red Blood Count 4.13 M/mm3 (4.2-5.4); Red Cell Distribution Width 15.5 % (11.5-14.5); White Blood Count 9.4 K/mm3 (4.5-10.0)
[2021-05-02 07:02] LABS: Alanine Aminotransferase 37 U/L (4-35); Albumin Level 3.5 g/dL (3.5-5.1); Alkaline Phosphatase 84 U/L (38-126); Anion Gap 6 mmol/L (8-16); Aspartate Amino Transferase 36 U/L (14-36); Bilirubin,Total 0.4 mg/dL (0.2-1.3); Blood Urea Nitrogen 20 mg/dL (7-17); Calcium 8.7 mg/dL (8.4-10.2); Carbon Dioxide 29 mmol/L (22-30); Chloride 105 mmol/L (98-107); Estimated CRCL calculation 52 ml/min; Estimated Glomerular Filt Rate > 60; Glucose 112 mg/dL (65-110); Potassium 3.5 mmol/L (3.4-5.0); Sodium 140 mmol/L (137-145)
[2021-05-02 08:24] LABS: Glucose Point of Care 93 mg/dl (65-105)
[2021-05-02 09:05] LABS: Magnesium 1.6 mg/dL (1.6-2.3)
[2021-05-02 09:31] VITALS: PULSE 78
[2021-05-02] MEDS: ASPIRIN 325 MG TABLET PO (09:31)
[2021-05-02] MEDS: FUROSEMIDE 40 MG TABLET PO (09:31)
[2021-05-02] MEDS: dilTIAZem HCL CD 180 MG CAP.ER.24H PO (09:31)
[2021-05-02] MEDS: POTASSIUM CHLORIDE 20 MEQ TABLET.ER PO (09:31)
[2021-05-02] MEDS: METOPROLOL SUCCINATE EXT REL 100 MG TABCR PO (09:31)
[2021-05-02] MEDS: CITALOPRAM HYDROBROMIDE 10 MG TABLET PO (09:31)
[2021-05-02] MEDS: CALCIUM CARBONATE (OSCAL) 500 MG TABLET 1000 MG PO (09:32)
[2021-05-02] MEDS: MULTIVITAMINS /C LUTEIN (CENTRUM SILVER) TABLET *BKC 1 TAB PO (09:32)
[2021-05-02] MEDS: CHOLECALCIFEROL 1,000 UNITS TABLET 1000 UNITS PO (09:32)
[2021-05-02] MEDS: TOLNAFTATE 1% POWDER 45 GM BTL 1 APPLIC TOPICAL ×2 (09:33→20:12)
[2021-05-02 09:37] VITALS: O2SAT 92
[2021-05-02] MEDS: INSULIN GLARGINE (*BKC) 100 UNITS/ML 15 UNITS SUB-Q (09:38)
--- NOTE | 2021-05-02 12:21 | WPDURCON ---
Assessment and Plan Assessment and plan (1) Bilateral ureteral calculi: Code(s): N20.1 - Calculus of ureter Status: Acute Assessment and Plan: Stents appeared to be in good position. Abdominal pain is resolved. She is minimally bothered by her stents other than frequency. Will need outpatient definitive urologic procedure for her stones. (2) Hydronephrosis: Code(s): N13.30 - Unspecified hydronephrosis Status: Acute Assessment and Plan: Minimal. Appears more to be an extrarenal pelvis. Consistent with stent placement. No intervention needed. Her creatinine is normal at 0.8 (3) Urinary tract infection: Code(s): N39.0 - Urinary tract infection, site not specified Status: Acute Assessment and Plan: Recent urinary tract infection of E coli. With sent home on Levaquin as an outpatient. Continue management (4) Abnormal urinalysis: Code(s): R82.90 - Unspecified abnormal findings in urine Status: Acute Assessment and Plan: Urinalysis is unreliable with stents in her urinary tract. Urine culture is pending. Urology Consult Note HPI Date Seen: 05/02/21 Requesting Physician: Divya Bautista PA-C Primary Care Provider: Dayton Jones DO Consult Narrative Narrative: Freda Khanna is a 80 year old female s seen at the request of hospitalist service. On April 25, 2021 she underwent bilateral stent placement for bilateral ureteral stones. She also positive urine with E coli with multiple sensitivities. She was sent back to her facility on antibiotics. She returned 2 days later with nonspecific abdominal pain and what sounds like diarrhea. A CT scan shows the stents to be in good position. There is mild hydronephrosis which looks more like an extrarenal pelvis and is consistent with placement of her stents. The ureteral stones are still present. She denies any fevers. She denies any chills. She denies any dysuria. She does note urinary frequency secondary to the stents. Her abdominal pain has since resolved. Review of Systems Review of Systems: All systems reviewed & are unremarkable except as noted in HPI and below [facility] Past Medical History Medical History Arthritis Atrial fibrillation Bronchitis CHF (congestive heart failure) Diabetes Foot fracture, left GERD (gastroesophageal reflux disease) Hypercholesterolemia Hypertension Mitral valve prolapse Peripheral neuropathy Pneumonia Sinus problem UTI (urinary tract infection) Surgical History Surgical History H/O cataract extraction H/O: hysterectomy History of appendectomy History of esophageal surgery History of total knee arthroplasty On the left Hx of cholecystectomy S/P excision of lipoma S/P IVC filter Family History Family History Mother Diabetes mellitus Father Diabetes mellitus Sibling Acute myocardial infarction Social History Social History Social History: The patient resides has [facility] living. The patient has 5 children. The patient is . 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 The patient does have a durable power family law attorney for healthcare. The patient is lifelong nonsmoker. She does not use any marijuana alcohol or illicit drugs. Code status Full code Smoking status: Never smoker Second hand tobacco smoke exposure: No Alcohol intake: never Substance use: never Substance use type: does not use Gender identity (if verbalized by the patient): Female Spiritual care concerns: No Meds Home Medications and Allergies Home Medications Medication Instructions Recorded Confirmed Type Centrum Silver 1 tablet PO DAILY 09/13/19 05/01/21 History calcium carbonate 600 mg calc
[2021-05-02 12:45] LABS: Glucose Point of Care 153 mg/dl (65-105)
[2021-05-02 14:00] VITALS: BP 114/64; PULSE 80; RESP 18; TEMP 36.5; O2SAT 97
--- NOTE | 2021-05-02 14:41 | P.PNIM_ITS ---
Progress Note: A&P Assessment and Plan (1) Bilateral ureteral calculi: Code(s): N20.1 - Calculus of ureter Status: Acute Assessment and Plan: With recent bilateral ureteral stent placement on 04/26/21 * Appreciate urology consultation. No intervention required at this time. * She will need definitive stone management down the road. Continue with outpatient urology follow-up (2) Hydronephrosis: Code(s): N13.30 - Unspecified hydronephrosis Status: Acute Assessment and Plan: Mild hydronephrosis noted on CT, secondary to stone * Urology has evaluated the patient and determined no intervention is required * Renal function is normal * Continue urology follow-up outpatient as described above (3) Abnormal urinalysis: Code(s): R82.90 - Unspecified abnormal findings in urine Status: Acute Assessment and Plan: UA abnormal on presentation. She does not endorse urinary symptoms on my evaluation. * May be related to bilateral ureteral stents * Continue with IV ceftriaxone while awaiting urine culture results * Discontinue IV fluids as she is tolerating p.o. intake * Urine culture from recent admission 04 25 positive for E coli. She was discharged on a 14 day course of Levaquin (4) Hypertension: Code(s): I10 - Essential (primary) hypertension Status: Chronic Assessment and Plan: Blood pressure reviewed and has been stable. Last BP 132/75 * Continue diltiazem, lisinopril, and metoprolol * Monitor BP trends (5) CHF (congestive heart failure): Code(s): I50.9 - Heart failure, unspecified Status: Acute Assessment and Plan: She appears euvolemic at this time. * Continue home regimen of Lasix 40 mg daily * Continue metoprolol and lisinopril * Monitor intake output. Weigh daily. Heart healthy diet (6) Type II diabetes mellitus: Code(s): E11.9 - Type 2 diabetes mellitus without complications Status: Acute Assessment and Plan: Last A1c was 5.8 in September 2020. Blood sugars have been well controlled this hospital stay * Accu-Cheks, sliding scale insulin, hypoglycemic protocol * Continue home metformin and Lantus 15 units q.h.s. * Monitor blood sugars closely and adjust medication regimen as needed * Check updated A1c (7) Atrial fibrillation: Code(s): I48.91 - Unspecified atrial fibrillation Status: Acute Assessment and Plan: Rate is controlled at this time * She is not on anticoagulation, possibly due to fall risk. She is on full dose aspirin daily which is being continued * Continue metoprolol and diltiazem Additional Plan Spoke with insurance healthcare consultant. Patient resides in assisted living and requires PT/OT eval prior to return. Therapy orders placed and appreciate evaluations. Hopeful discharge tomorrow if continued improvement pending results of urine culture Subjective Date/time seen: 05/02/21 14:41 Interval history: Date of service: 05/02/2021 Freda Khanna is an 80-year-old female with a history of atrial fibrillation not on chronic anticoagulation, CHF, hypertension, hyperlipidemia, diabetes mellitus, and mitral valve prolapse who is seen in follow-up for ureterolithiasis with hydronephrosis. She is feeling very well at this time. She offers no complaints. She is enjoying her lunch. She denies nausea, vomiting, fever, chills, dizziness, lightheadedness. She has no pain. Denies suprapubic pain, flank pain, or back pain. She does note some generalized
--- NOTE | 2021-05-02 14:41 | PM.IMPN ---
Progress Note: A&P Assessment and Plan (1) Bilateral ureteral calculi: Code(s): N20.1 - Calculus of ureter Status: Acute Assessment and Plan: With recent bilateral ureteral stent placement on 04/26/21 Appreciate urology consultation. No intervention required at this time. She will need definitive stone management down the road. Continue with outpatient urology follow-up (2) Hydronephrosis: Code(s): N13.30 - Unspecified hydronephrosis Status: Acute Assessment and Plan: Mild hydronephrosis noted on CT, secondary to stone Urology has evaluated the patient and determined no intervention is required Renal function is normal Continue urology follow-up outpatient as described above (3) Abnormal urinalysis: Code(s): R82.90 - Unspecified abnormal findings in urine Status: Acute Assessment and Plan: UA abnormal on presentation. She does not endorse urinary symptoms on my evaluation. May be related to bilateral ureteral stents Continue with IV ceftriaxone while awaiting urine culture results Discontinue IV fluids as she is tolerating p.o. intake Urine culture from recent admission 10 18 positive for E coli. She was discharged on a 14 day course of Levaquin (4) Hypertension: Code(s): I10 - Essential (primary) hypertension Status: Chronic Assessment and Plan: Blood pressure reviewed and has been stable. Last BP 132/75 Continue diltiazem, lisinopril, and metoprolol Monitor BP trends (5) CHF (congestive heart failure): Code(s): I50.9 - Heart failure, unspecified Status: Acute Assessment and Plan: She appears euvolemic at this time. Continue home regimen of Lasix 40 mg daily Continue metoprolol and lisinopril Monitor intake output. Weigh daily. Heart healthy diet (6) Type II diabetes mellitus: Code(s): E11.9 - Type 2 diabetes mellitus without complications Status: Acute Assessment and Plan: Last A1c was 5.8 in September 2020. Blood sugars have been well controlled this hospital stay Accu-Cheks, sliding scale insulin, hypoglycemic protocol Continue home metformin and Lantus 15 units q.h.s. Monitor blood sugars closely and adjust medication regimen as needed Check updated A1c (7) Atrial fibrillation: Code(s): I48.91 - Unspecified atrial fibrillation Status: Acute Assessment and Plan: Rate is controlled at this time She is not on anticoagulation, possibly due to fall risk. She is on full dose aspirin daily which is being continued Continue metoprolol and diltiazem Additional Plan Spoke with child care provider. Patient resides in assisted living and requires PT/OT eval prior to return. Therapy orders placed and appreciate evaluations. Hopeful discharge tomorrow if continued improvement pending results of urine culture Subjective Date/time seen: 05/02/21 14:41 Interval history: Date of service: 05/02/2021 Freda Khanna is an 80-year-old female with a history of atrial fibrillation not on chronic anticoagulation, CHF, hypertension, hyperlipidemia, diabetes mellitus, and mitral valve prolapse who is seen in follow-up for ureterolithiasis with hydronephrosis. She is feeling very well at this time. She offers no complaints. She is enjoying her lunch. She denies nausea, vomiting, fever, chills, dizziness, lightheadedness. She has no pain. Denies suprapubic pain, flank pain, or back pain. She does note some generalized soreness of her back due to lying in the bed. She denies dysuria, hematuria, urgency, or frequency. No shortness breath, cough, or chest pain. She denies feeling dizzy, weak, or lightheaded. She has no additional concerns. Review of Systems Review of Systems: All systems reviewed & are unremarkable except as noted in HPI and below Exam Narrative: Ms. Khanna is no wheeze, well-appearing 80-year-old female who is sitting up in b
[2021-05-02] MEDS: MAGNESIUM OXIDE 400 MG TABLET PO (16:43)
[2021-05-02 16:53] LABS: Glucose Point of Care 160 mg/dl (65-105)
[2021-05-02 20:48] VITALS: PULSE 74; RESP 18; O2SAT 96
[2021-05-02 20:59] VITALS: BP 131/85; PULSE 104; RESP 17; TEMP 36.6; O2SAT 94
[2021-05-03 00:32] LABS: Glucose Point of Care 155 mg/dl (65-105)
[2021-05-03 04:20] VITALS: BP 132/78; PULSE 73; RESP 18; TEMP 36.6; O2SAT 97
[2021-05-03 06:04] LABS: Hematocrit 35.8 % (37.0-47.0); Hemoglobin 11.6 g/dL (12.0-15.0)
[2021-05-03 06:19] LABS: Magnesium 1.5 mg/dL (1.6-2.3)
[2021-05-03 07:04] LABS: Hemoglobin A1C 6.3 % (<5.7)
[2021-05-03 07:54] LABS: Glucose Point of Care 115 mg/dl (65-105)
[2021-05-03] MEDS: MICONAZOLE NITRATE 2% CREAM 30 GM TUBE 1 APPLIC TOPICAL (08:30)
[2021-05-03] MEDS: ASPIRIN 325 MG TABLET PO (08:51)
[2021-05-03] MEDS: POTASSIUM CHLORIDE 20 MEQ TABLET.ER PO (08:51)
[2021-05-03] MEDS: CITALOPRAM HYDROBROMIDE 10 MG TABLET PO (08:51)
[2021-05-03] MEDS: CHOLECALCIFEROL 1,000 UNITS TABLET 1000 UNITS PO (08:51)
[2021-05-03] MEDS: dilTIAZem HCL CD 180 MG CAP.ER.24H PO (08:51)
[2021-05-03 08:52] VITALS: PULSE 73
[2021-05-03] MEDS: METOPROLOL SUCCINATE EXT REL 100 MG TABCR PO (08:52)
[2021-05-03] MEDS: INSULIN GLARGINE (*BKC) 100 UNITS/ML 15 UNITS SUB-Q (08:52)
[2021-05-03] MEDS: CALCIUM CARBONATE (OSCAL) 500 MG TABLET 1000 MG PO (08:52)
[2021-05-03] MEDS: MULTIVITAMINS /C LUTEIN (CENTRUM SILVER) TABLET *BKC 1 TAB PO (08:52)
[2021-05-03] MEDS: FUROSEMIDE 40 MG TABLET PO (08:53)
[2021-05-03] MEDS: TOLNAFTATE 1% POWDER 45 GM BTL 1 APPLIC TOPICAL (08:53)
[2021-05-03] MEDS: MAGNESIUM OXIDE 400 MG TABLET PO (10:13)
[2021-05-03] MEDS: MAGNESIUM SULF 2 GM/WATER 50ML 2 GM/50 ML BAG IVPB (12:19)
[2021-05-03 12:20] LABS: Glucose Point of Care 156 mg/dl (65-105)
[2021-05-03 14:00] VITALS: BP 123/74; PULSE 82; RESP 18; TEMP 36.4; O2SAT 94
--- NOTE | 2021-05-03 16:14 | PC.NURSE ---
On 05/03/21, the student, [Eric Curry ], provided care and completed [facility] documentation on this patient. I have reviewed the student's documentation and agree with the findings.
[2021-05-03 16:19] LABS: Glucose Point of Care 216 mg/dl (65-105)
[2021-05-03] MEDS: INSULIN ASPART (*BKC) 100 UNITS/ML SUB-Q (16:54)
--- NOTE | 2021-05-03 17:04 | PM.DS ---
DS: Admitting Diagnosis Discharge Date 05/03/2021 Admitting Diagnosis Bilateral ureteral calculi DS: Discharge Diagnosis Discharge Diagnosis (1) Bilateral ureteral calculi: Code(s): N20.1 - Calculus of ureter Status: Acute Assessment and Plan: Recent admission 04/26-04/29 with bilateral ureteral stent placement on 04/26/21. She was seen in consultation by Urology this admission and no intervention was required at this time. She will need definitive stone management down the road. Continue with outpatient urology follow-up (2) Hydronephrosis: Code(s): N13.30 - Unspecified hydronephrosis Status: Acute Assessment and Plan: Mild hydronephrosis noted on CT, secondary to stone. As above, she was evaluated by Urology and no intervention was required. Renal function was normal. Urology follow-up (3) Abnormal urinalysis: Code(s): R82.90 - Unspecified abnormal findings in urine Status: Acute Assessment and Plan: UA abnormal on presentation. She did not endorse urinary symptoms on my evaluation. She was started on IV Rocephin while awaiting urine culture results. Urine culture was negative for growth. She will continue with p.o. Levaquin to complete 14 day course which was prescribed at last admission on 04/29 based on E coli UTI from 04/25/2021 urine culture. (4) Hypertension: Code(s): I10 - Essential (primary) hypertension Status: Chronic Assessment and Plan: Blood pressure reviewed and remained stable. Continue diltiazem, lisinopril, and metoprolol (5) CHF (congestive heart failure): Code(s): I50.9 - Heart failure, unspecified Status: Acute Assessment and Plan: She was euvolemic. Continue Lasix, metoprolol, and lisinopril (6) Type II diabetes mellitus: Code(s): E11.9 - Type 2 diabetes mellitus without complications Status: Acute Assessment and Plan: A1c is 6.3. Blood sugars well controlled during hospital stay. Continue home regimen with metformin and Lantus (7) Atrial fibrillation: Code(s): I48.91 - Unspecified atrial fibrillation Status: Acute Assessment and Plan: Rate controlled. She is on anticoagulation, possibly due to fall risk. She is on full-dose aspirin daily. Continue metoprolol diltiazem. (8) Fall: Code(s): W19.XXXA - Unspecified fall, initial encounter Status: Acute Assessment and Plan: She had a mechanical fall just prior to presentation. She fell on to her buttocks and then fell backwards hitting her head. Did not have loss of consciousness. Head CT showed no acute intracranial findings or skull fracture. She was evaluated by PT/OT and will continue with therapy at assisted living facility. (9) Electrolyte abnormality: Code(s): E87.8 - Other disorders of electrolyte and fluid balance, not elsewhere classified Status: Acute Assessment and Plan: Potassium magnesium slightly low and was supplemented. Repeat magnesium levels in 1 week. DS: Summary Hospital Course Hospital Course: Date of admission: 05/01/2021 Date of discharge: 05/03/2021 Freda Khanna is an 80-year-old female with a history of atrial fibrillation not on chronic anticoagulation, CHF, hypertension, hyperlipidemia, diabetes mellitus, mitral valve prolapse, and recent admission a few days prior for UTI and ureteral stones s/p bilateral ureteral stent placement who presented to the emergency department from her assisted living facility on 05/01/2021 with complaints of left flank pain with associated nausea. She also had a fall prior to presentation. On presentation to the emergency department, her vital signs were stable, she was afebrile, she had mild leukocytosis, additional CBC unremarkable, potassium was 3.0, creatinine 1.1, magnesium 1.4, additional electrolytes stable, UA was abnormal, CXR showed no acute cardiopulmonary disease, hea
== END 2021-05-03 17:36 | DRG 690 ==
LOC: ANHED 19:21 → ANH3MEDSUR 21:09
PROVIDERS: Physician Assistant; Admitting Provider Internal Medicine; Emergency Provider General Practice; PCP Family Medicine; Visit Provider Internal Medicine
DX: N13.6 Pyonephrosis (principal); I48.20 Chronic atrial fibrillation, unspecified; I11.0 Hypertensive heart disease with heart failure; I50.9 Heart failure, unspecified; N17.9 Acute kidney failure, unspecified; E11.42 Type 2 diabetes mellitus with diabetic polyneuropathy; W19.XXXA Unspecified fall, initial encounter; E87.8 Other disorders of electrolyte and fluid balance, not elsewhere classified; E78.5 Hyperlipidemia, unspecified; I34.1 Nonrheumatic mitral (valve) prolapse; M19.90 Unspecified osteoarthritis, unspecified site; E87.6 Hypokalemia; K21.9 Gastro-esophageal reflux disease without esophagitis; Z90.49 Acquired absence of other specified parts of digestive tract; Z90.710 Acquired absence of both cervix and uterus; Z79.82 Long term (current) use of aspirin
CPT/HCPCS: 36415; 51701; 70450; 71045; 74018; 74177; 80053; 81001; 82948; 83036; 83690; 83735; 85014; 85018; 85025; 87086; 93005; 96365; 96366; 96367; 97161; 97165; 99285; A9270; G0378; J0131; J0696; J1815; J3475; J7030; J7120; Q9967

== ENCOUNTER 2021-05-14 23:32 | Inpatient (IN) | payer OTHER, SELFPAY ==
--- NOTE | ~2021-05-14 | XR_ITS ---
EXAMINATION: XR abdomen/kub 1V DATE: 05/15/2021 09:17 INDICATION: Bilateral renal calculi and internal ureteral stents. TECHNIQUE: A supine view of the abdomen was obtained. COMPARISON: CT dated 05/15/2021 at 1:55 AM FINDINGS: Bilateral internal ureteral stents with loops formed in the bilateral renal pelvises sees and in the bladder. 12 mm stone in the right kidney has shifted, now in the renal pelvis slightly cephalad to th e internal ureteral stent. Unchanged 10 mm stone alongside the left internal ureteral stent at the ur eteropelvic junction. Couple smaller stones remain in the lower pole calyx of the left kidney. Multip le phleboliths in the pelvis. Normal bowel gas pattern. Cholecystectomy clips in right upper quadrant . IVC filter projects over the right side of the lumbar spine at L3-L4. S-shaped thoracolumbar scolio sis with moderate spondylosis. Moderate right and mild left hip osteoarthritis. Mild bibasilar atelec tasis. IMPRESSION: 1. Bilateral nephrolithiasis including 2 mm stone at the left ureteropelvic junction. 2. Bilateral internal ureteral stents remain in expected position. Reviewed, dictated and finalized at location A. FILTER TANK TENDER HEAD IMPRESSION: 1. Bilateral nephrolithiasis including 2 mm stone at the left ureteropelvic terri ction. 2. Bilateral internal ureteral stents remain in expected position.
--- NOTE | ~2021-05-14 | XR_ITS ---
EXAMINATION: XR chest 1V DATE: 05/15/2021 00:08 INDICATION: Transient alteration of awareness. Abdominal pain. TECHNIQUE: frontal view of the chest was obtained. COMPARISON: Chest radiograph dated 05/01/2021 FINDINGS: Persistent linear band of discoid atelectasis/scarring at the right lower lung zone. No pulmonary albin ma, pleural effusion or pneumothorax. Cardiomegaly. Right rotator cuff arthropathy. IMPRESSION: 1. Unchanged discoid atelectasis/scarring at the right lower lung zone. Reviewed, dictated and finalized at location A. UNTING COORDINATOR
--- NOTE | ~2021-05-14 | CT_ITS ---
EXAMINATION: CT abdomen pelvis wo con DATE: 05/15/2021 01:01 INDICATION: Nausea. Bilateral urinary tract calculi and internal urinary stents TECHNIQUE: Computed tomography (CT) of the abdomen and pelvis was performed without intravenous contr ast. Automated exposure control and iterative reconstruction technique were employed. Exam dose: 134 1.99 mGy-cm total exam DLP. COMPARISON: 04/27/2021 CT abdomen pelvis FINDINGS: There is bibasilar multifocal discoid atelectasis or scarring. Cardiomegaly. No pericardial or pleural effusion. Stable approximately 1.2 cm lateral segment left hepatic cyst. The liver is otherwise unremarkable. Status post cholecystectomy. No bile duct dilatation. Normal splenic size. No pancreatic mass lesion, calcification or ductal dilatation. Normal morphology of the adrenal glands. There are bilateral internal urinary stent, the proximal pigtails in the renal pelves and the distal pigtails of the base of the urinary bladder. There are 2 contiguous nonobstructing lower pole left renal calculi measuring up to approximately 5.7 mm maximal dimension. There is an approximately 5 x 8 mm calculus at the left ureteropelvic junction . There is mild left hydronephrosis. There is prominent anterior and posterior pararenal fascia soft tissue thickening and perinephric stranding, new since 05/01/2021, suggesting possible infection. 11 x 13 x 14 mm calculus of the lower pole of the right kidney IVC filter. Normal caliber of the abdominal aorta. Small sliding hiatal hernia. Occasional colonic diverticula; no CT evidence of diverticulitis. No bow el obstruction or intraperitoneal free air. Borderline grade 2/grade 3 spondylolisthesis and fusion at L5-S1. Diffuse osteopenia. Extensive degenerative changes of the thoracic and lumbar spine including diffuse idiopathic skeletal hyperostosis of the thoracic spine, multilevel degenerative disc disease of the lumbar spine and prominent degenerative change at the apophyseal joints. Bilateral hip osteoarthritis. IMPRESSION: Interval left perinephric stranding and thickening of the anterior and posterior pararen al fascia suggesting left sided or urinary tract infection Bilateral internal urinary stents are again noted in addition to bilateral nephrolithiasis IVC filter Reviewed, dictated and finalized at [facility]. Reviewed, dictated and finalized at location A. T METAL SHOP HELPER IMPRESSION: Interval left perinephric stranding and thickening of the anterior and posterior pararenal fascia suggesting left sided or urinary tract infectio n Bilateral internal urinary stents are again noted in addition to bilateral neph rolithiasis IVC filter
--- NOTE | ~2021-05-14 | CT_ITS ---
EXAMINATION: CT brain wo con DATE: 05/15/2021 00:00 INDICATION: Altered mental status TECHNIQUE: Computed tomography (CT) of the head was performed without intravenous contrast. Sagittal and coronal reconstructions were performed. The mA was adjusted according to patient size. Iterative reconstruction technique was employed. The dose-length product was 605.33 mGy-cm. COMPARISON: head CT dated 05/01/2021 FINDINGS: No acute intracranial hemorrhage, acute infarction or abnormal extra axial fluid collection. There is moderate to severe scattered white matter hypoattenuation consistent with chronic small vessel ische guillaume disease. Ventricles are normal and symmetric with normal variant cavum septum pellucidum et verg ae. No mass/mass effect. Changes of bilateral intraocular lens replacement. The orbits, paranasal sin uses and mastoid air cells are normal. Intracranial calcified cerebral atherosclerosis is noted. IMPRESSION: 1. No acute intracranial process. 2. Stable appearance of moderate to severe scattered white matter hypoattenuation consistent with chr onic small vessel ischemic disease. Reviewed, dictated and finalized at location A. UCT MARKETER IMPRESSION: 1. No acute intracranial process. 2. Stable appearance of moderate to severe scattered white matter hypoattenuati on consistent with chronic small vessel ischemic disease.
[2021-05-14 23:34] VITALS: BP 124/100; PULSE 112; RESP 16; TEMP 37.1; O2SAT 92
--- NOTE | 2021-05-14 23:40 | ECG_ITS ---
Measurements Intervals [place] Rate: 119 P: [place]: 0 QRS: -56 QRSD: 109 T: 31 QT: 337 QTc: 475 Interpretive Statements ATRIAL FLUTTER/TACHYCARDIA WITH RAPID VENTRICULAR RESPONSE LEFT AXIS DEVIATION ANTERIOR INFARCT, AGE INDETERMINATE BORDERLINE ST-T WAVE ABNORMALITY- HIGH LATERAL LEADS BASELINE ARTIFACT- I, III, AVR, AVL ABNORMAL ECG Electronically Signed On 05-15-2021 7:01:17 VALUER by Juan Alberto Gomez D.O.
--- NOTE | 2021-05-14 23:46 | ED.AMS ---
HPI - Altered Mental Status General Chief Complaint: Altered Mental Status Stated Complaint: mult c/o Source: RN notes reviewed History of Present Illness HPI narrative: Patient presents emergency department from [facility] via EMS for weakness. Patient states over the past 2 days has been having increasing weakness difficulty getting up and ambulating. Patient denies any numbness or tingling in the extremities she denies any chest pain shortness of breath states she has been nauseous but denies any abdominal pain or vomiting. Per EMS when they arrived the patient was 88% on room air is currently placed on 2 L nasal cannula Related Data Home Medications Medication Instructions Recorded Confirmed calcium carbonate 600 mg calcium 1,200 mg PO DAILY tablet 09/27/20 05/01/21 (1,500 mg) tablet cholecalciferol (vitamin D3) 25 25 mcg PO DAILY 09/27/20 05/01/21 mcg (1,000 unit) tablet diltiazem HCl 180 mg 180 mg PO DAILY 09/27/20 05/01/21 capsule,extended release 24 hr furosemide 40 mg tablet 40 mg PO QAM 09/27/20 05/01/21 metformin 1,000 mg tablet 1,000 mg PO BID 09/27/20 05/01/21 insulin glargine 100 unit/mL (3 15 unit SUBCUT QAM 03/11/21 05/01/21 mL) subcutaneous pen citalopram 10 mg PO DAILY 05/01/21 05/01/21 nystatin See Rx Instructions .ROUTE 05/01/21 05/01/21 .COMPLEX PRN Allergies Allergy/AdvReac Type Severity Reaction Status Date / Time bisoprolol Allergy Intermediate unknown Verified 05/12/21 07:35 hydrochlorothiazide Allergy Intermediate unknown Verified 05/12/21 07:35 oxycodone Allergy Intermediate unknown Verified 05/12/21 07:35 Review of Systems Review of Systems: Gen.: Denies fevers or chills Eyes: Denies eye pain or visual change ENT: Denies congestion Respiratory: Denies shortness of breath or cough CV: Denies chest pain or palpitations GI: Denies abdominal pain emesis or diarrhea reports nausea denies burning, urgency, frequency or hematuria Musculoskeletal: Denies back pain or muscle pain Neuro: Reports weakness Skin: Denies rash Except as documented, all other systems reviewed and negative PMFSH Past Medical History Medical History Arthritis Atrial fibrillation Bronchitis CHF (congestive heart failure) Diabetes Foot fracture, left GERD (gastroesophageal reflux disease) Hypercholesterolemia Hypertension Mitral valve prolapse Peripheral neuropathy Pneumonia Sinus problem UTI (urinary tract infection) Surgical History Surgical History H/O cataract extraction H/O: hysterectomy History of appendectomy History of esophageal surgery History of total knee arthroplasty On the left Hx of cholecystectomy S/P excision of lipoma S/P IVC filter Family History Family History Mother Diabetes mellitus Father Diabetes mellitus Sibling Acute myocardial infarction Social History Social History Social History: The patient resides has [facility] living. The patient has 5 children. The patient is . 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 The patient does have a durable power staff attorney for healthcare. The patient is lifelong nonsmoker. She does not use any marijuana alcohol or illicit drugs. Code status Full code Smoking status: Never smoker Second hand tobacco smoke exposure: No Alcohol intake: never Substance use: never Substance use type: does not use Gender identity (if verbalized by the patient): Female Spiritual care concerns: No Exam Narrative: APPEARANCE: No acute distress, nontoxic, resting in bed EYES: EOMI, PERRL HEENT: Normocephalic, atraumatic, OMM RESPIRATORY: No respiratory distress Clear to auscultation bilaterally with no rhonchi wheezing or rales. CARDIOVASCULAR: Tachycardic without murmurs rubs o
[2021-05-14 23:50] VITALS: PULSE 119; RESP 33; O2SAT 95
[2021-05-15] VITALS (36 sets, daily range): BP systolic 104–171; BP diastolic 62–109; PULSE 84–124; RESP 17–31; TEMP 37–38.1; O2SAT 90–99; BMI 37.3
[2021-05-15 00:02] LABS: Basophils Absolute Auto 0.1 K/mm3 (0.0-0.1); Basophils Percent Auto 0.5 % (0.2-1.2); Eosinophils Percent Auto 0.1 % (0-4.4); Hematocrit 32.4 % (37.0-47.0); Hemoglobin 10.8 g/dL (12.0-15.0); Immature Granulocyte Absolute 0.08 K/mm3 (0.00-0.031); Immature Granulocyte Percent A 0.6 % (0-0.5); Lymphocytes Absolute Auto 0.81 K/mm3 (0.9-3.2); Lymphocytes Percent Auto 5.6 % (18.3-44.2); Mean Corpuscular HGB Conc 33.3 g/dl (32-36); Mean Corpuscular Hemoglobin 28.4 pg (26-34); Mean Corpuscular Volume 85.3 fl (80-100); Mean Platelet Volume 9.9 fl (7.4-10.4); Monocytes Absolute Auto 1.5 K/mm3 (0.1-0.6); Monocytes Percent Auto 10.3 % (2.6-8.5); Neutrophils Absolute Auto 11.9 K/mm3 (1.3-6.7); Neutrophils Percent Auto 82.9 % (45.5-73.1); Platelet Count Result 290 k/mm3 (150-375); Red Cell Distribution Width 15.7 % (11.5-14.5); White Blood Count 14.4 K/mm3 (4.5-10.0)
[2021-05-15 00:11] LABS: INR 1.1; Prothrombin Time 14.1 Seconds (11.1-14.7)
[2021-05-15 00:12] LABS: Partial Thromboplastin Time 31.7 SECONDS (22.3-36.8)
[2021-05-15] MEDS: dilTIAZem HCl INJ 25 MG/5 ML VIAL 5 MG IV PUSH (01:03)
[2021-05-15 01:04] LABS: Alanine Aminotransferase 22 U/L (4-35); Albumin Level 3.7 g/dL (3.5-5.1); Alkaline Phosphatase 99 U/L (38-126); Anion Gap 11 mmol/L (8-16); Aspartate Amino Transferase 29 U/L (14-36); Bilirubin,Total 0.6 mg/dL (0.2-1.3); Blood Urea Nitrogen 16 mg/dL (7-17); Calcium 9.1 mg/dL (8.4-10.2); Carbon Dioxide 24 mmol/L (22-30); Chloride 102 mmol/L (98-107); Estimated CRCL calculation 42 ml/min; Estimated Glomerular Filt Rate 48; Glucose 166 mg/dL (65-110); Lactic Acid Reflex 2.6 mmol/L (0.7-2.1); Sodium 137 mmol/L (137-145)
--- NOTE | 2021-05-15 01:27 | ECG_ITS ---
Measurements Intervals [place] Rate: 113 P: [place]: 0 QRS: -56 QRSD: 116 T: 264 QT: 345 QTc: 474 Interpretive Statements ATRIAL FLUTTER/TACHYCARDIA WITH RAPID VENTRICULAR RESPONSE LEFT AXIS DEVIATION INTRAVENTRICULAR CONDUCTION DELAY ANTERIOR INFARCT, AGE INDETERMINATE BORDERLINE ST-T WAVE ABNORMALITY- HIGH LATERAL LEADS ABNORMAL ECG Electronically Signed On 05-15-2021 7:06:58 BATH DESIGN SALES CONSULTANT by Juan Alberto Gomez D.O.
[2021-05-15 01:28] LABS: NT Pro B Type Natriuretic Pept 2950 pg/mL (5-100); Troponin I 0.052 ng/mL (0.000-0.034)
[2021-05-15 01:47] LABS: Add Urine Microscopic? YES; Appearance Urine Cloudy (Clear); Bacteria Urine Trace /hpf; Bilirubin Urine Negative (Negative); Blood Urine 3+ (Negative); Budding Yeast Urine Present /hpf; Color Urine Yellow (Yellow); Glucose Urine UA Negative (Negative); Ketones Urine Negative (Negative); Leukocyte Esterase Ur 3+ LEU/UL (Negative); Mucus Urine Rare /lpf; Nitrate Urine Negative (Negative); Protein Urine 2+ mg/dL (Negative); RBC Urine >75 /hpf (0-2); Urobilinogen Urine Negative mg/dL (<2.0); WBC Urine >75 /hpf
[2021-05-15] MEDS: SODIUM CHLORIDE 0.9% IV 1,000 ML 999 ML IV CONT (01:48)
[2021-05-15] MEDS: POTASSIUM CHLORIDE 20 MEQ TABLET 40 MEQ PO (02:07)
--- NOTE | 2021-05-15 02:38 | PC.NURSE ---
RN spoke with Rema GARCIA at [facility] and notified them that pt will be admitted but we do not currently have a bed at this time. Notified them that RN will attempt to make contact with Pts son in the morning, but pt did not want us to call in the middle of the night.
[2021-05-15 03:18] LABS: Reflex Lactic Acid Yes or No Add Lactic
[2021-05-15 03:59] LABS: Lactic Acid 1.1 mmol/L (0.7-2.1)
[2021-05-15 04:17] LABS: Troponin I 0.052 ng/mL (0.000-0.034)
--- NOTE | 2021-05-15 06:40 | PC.NURSE ---
This patient, Freda Khanna, was admitted to Intensive Care Unit-11. Patient/family oriented to hospital policies and general routines including ID bracelet, bed and alarms, visiting hours, pain management, procedures, bathroom and other care routines, personal items, smoking policy, room service/diet, and visiting hours. Information on how to activate the Rapid Response Team has been discussed. Patient/Family are encouraged to report perceived risks to care and to ask questions if they do not understand what they are told or what they should do.
--- NOTE | 2021-05-15 07:38 | PM.IMHP ---
H&P: HPI History of Present Illness Date/Time: 05/15/21 07:38 This 80-year-old lady with multiple comorbidities including but not limited to kidney stone, diabetes mellitus, mood disorder, atrial fibrillation, was recently admitted with obstructive uropathy whom a stone disease and treated with urinary tract infection. She was 1st diagnosed with kidney stone disease after a KUB showed 9mm left proximal ureteral stone with moderate left hydronephrosis and an 11mm right renal pelvic stone as well as non obstructive left renal stones measuring up to 5mm. Bilateral stents in place; follow up KUB and FATIMAH to confirm stone placement and resolution of hydronephrosis. she was managed appropriately with IV fluids and IV rocephin; urine grew Ecoli sensitive to rocephin. At the time she was discharged on a 14 day course of Levaquin with a plan to return to the hospital for an elective lithotripsy. Two days after her discharge, the patient developed nausea, back pain and frequent urination. She was feeling weak and even fell earlier prior to presentation. She was evaluated by Urology who found that her stents were in good position. Plan was to perform definitive urologic procedure for her stones electively. she was discharged home on a 14 day course of p.o. Levaquin with plan to follow up with Urology as an outpatient.The patient had been in her usual state of health until 2 days prior to presentation. The patient had cystoscopy, bilateral retrogrades, bilateral ureteral stent placement 4.8 Estonian contour placed on 04/26/[address] Monge. The patient had been on Rocephin at that time. The patient was growing E coli that was pansensitive. The patient had been sent home on Levaquin 750 mg p.o. daily for 14 days. Also her lisinopril was increased to 10 mg daily. The patient resides at [facility]. Patient states over the past 2 days has been having increasing weakness difficulty getting up and ambulating. Patient denies any numbness or tingling in the extremities she denies any chest pain shortness of breath states she has been nauseous but denies any abdominal pain or vomiting. Per EMS when they arrived the patient was 88% on room air is currently placed on 2 L nasal cannula. She was appropriately started on IV fluid and IV antibiotics. Her blood pressures was increasing and in view of her history of CHF, and objective physical findings of mild peripheral edema, IV fluids were stopped her arrival to the ICU. in the ED the patient is stable and afebrile with the following vital sign temperature 98.7? Sunday night, pulse rate 112, scattered rate 16, blood pressure 124/100, pulse oximetry 92 while breathing oxygen 2 L via nasal cannula. She was found to be in atrial fib fibrillation rate control with heart rate 70-80. Dr Mccullough with Cardiology Was consulted for elevated troponin and management of atrial fibrillation with rapid ventricular response; Dr. Monge with urology was consulted for lithotripsy. Patient is admitted on the inpatient service for least 2 midnights. Chief Complaint: Altered mental status, weakness. Review of Systems Review of Systems: All systems reviewed & are unremarkable except as noted in HPI and below Constitutional: Constitutional: Reports no additional constitutional complaints, Denies body ache(s), Denies chills, Denies difficulty sleeping, Reports fatigue, Reports lethargy, Denies night sweats and Reports weakness Eyes: Eyes: Denies no additional eye complaints and Denies blurry vision ENT: Denies dysphagia, Denies epistaxis and Denies nasal congestion Cardiovascular: Cardiovascular: Reports no additional cardiovascular complaints, Denies chest pain, Denies diaphoresis, Reports leg edema, Denies lightheadedness and Denies palpitations Respiratory: Respiratory: Reports as per HPI, Denies cough, Denies dyspnea, Denies dyspnea on exertion and Denies wheezing Gastrointestinal: Gastrointestinal: Denies
--- NOTE | 2021-05-15 08:55 | WPDURCON ---
Assessment and Plan Assessment and plan (1) Bilateral ureteral calculi: Code(s): N20.1 - Calculus of ureter Status: Acute Assessment and Plan: Will obtain KUB to evaluate the stones. Will need further management once he gets over acute episode an infection is treated. (2) Sepsis: Code(s): A41.9 - Sepsis, unspecified organism Status: Acute Assessment and Plan: Cultures pending at this time. Hemodynamically stable Urology Consult Note HPI Date Seen: 05/15/21 Requesting Physician: Gely Salgado DO Primary Care Provider: Dayton Jones DO Consult Narrative Narrative: Freda Khanna is a 80 year old female who is well known to me. Freda had a 9-10 mm left proximal ureteral stone as well as a 12-15 mm right renal pelvic stone. She was taken to the operating room April 26 and had bilateral ureteral stents placed. She had a UTI at that time and we were in the process of waiting to see see if her infection cleared. She now presented back to the emergency room with a fall [place] [id number] with a persistent infection. She also has AFib. She is is it for further evaluation and management. Patient does complain of some abdominal discomfort possibly related to the stents with spasms. Review of Systems Review of Systems: All systems reviewed & are unremarkable except as noted in HPI and below PMFSH Past Medical History Medical History Arthritis Atrial fibrillation Bronchitis CHF (congestive heart failure) Diabetes Foot fracture, left GERD (gastroesophageal reflux disease) Hypercholesterolemia Hypertension Mitral valve prolapse Peripheral neuropathy Pneumonia Sinus problem UTI (urinary tract infection) Surgical History Surgical History H/O cataract extraction H/O: hysterectomy History of appendectomy History of esophageal surgery History of total knee arthroplasty On the left Hx of cholecystectomy S/P excision of lipoma S/P IVC filter Family History Family History Mother Diabetes mellitus Father Diabetes mellitus Sibling Acute myocardial infarction Social History Social History Social History: The patient resides has [facility]. The patient has 5 children. The patient is . 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 The patient does have a durable power assistant county attorney for healthcare. The patient is lifelong nonsmoker. She does not use any marijuana alcohol or illicit drugs. Code status Full code Smoking status: Never smoker Second hand tobacco smoke exposure: Yes Alcohol intake: never Substance use: never Substance use type: does not use Gender identity (if verbalized by the patient): Female Spiritual care concerns: No Meds Home Medications and Allergies Home Medications Medication Instructions Recorded Confirmed Type calcium carbonate 600 mg calcium 1,200 mg PO DAILY tablet 09/27/20 05/15/21 History (1,500 mg) tablet cholecalciferol (vitamin D3) 25 25 mcg PO DAILY 09/27/20 05/15/21 History mcg (1,000 unit) tablet diltiazem HCl 180 mg 180 mg PO DAILY 09/27/20 05/15/21 History capsule,extended release 24 hr furosemide 40 mg tablet 40 mg PO QAM 09/27/20 05/15/21 History metformin 1,000 mg tablet 1,000 mg PO BID 09/27/20 05/15/21 History blood sugar diagnostic #100 ea 02/24/21 05/15/21 Rx blood sugar diagnostic #100 ea 03/03/21 05/15/21 Rx insulin glargine 100 unit/mL (3 30 unit SUBCUT QA 03/11/21 05/15/21 History mL) subcutaneous pen citalopram 10 mg PO DAILY 05/01/21 05/15/21 History nystatin See Rx Instructions .ROUTE 05/01/21 05/15/21 History .COMPLEX PRN aspirin 325 mg PO DAILY 05/15/21 05/15/21 History cyclo
[2021-05-15 09:09] LABS: Troponin I 0.035 ng/mL (0.000-0.034)
[2021-05-15 09:30] LABS: Glucose Point of Care 109 mg/dl (65-105)
[2021-05-15 09:40] LABS: Anion Gap 8 mmol/L (8-16); Blood Urea Nitrogen 15 mg/dL (7-17); Calcium 8.4 mg/dL (8.4-10.2); Carbon Dioxide 27 mmol/L (22-30); Chloride 104 mmol/L (98-107); Estimated CRCL calculation 41 ml/min; Estimated Glomerular Filt Rate 53; Glucose 129 mg/dL (65-110); Potassium 3.2 mmol/L (3.4-5.0); Sodium 139 mmol/L (137-145)
--- NOTE | 2021-05-15 11:01 | PM.CNCAR ---
Assessment and Plan Assessment and plan (1) Chronic atrial flutter: Code(s): I48.92 - Unspecified atrial flutter Status: Acute Assessment and Plan: Chronic atrial flutter presenting with RVR in setting of sepsis, fall and mild acute kidney injury. Controlled on Diltiazem gtt. Continue for now until pt further stabilized from infectious perspective. PT at significant risk for CVA (CHADS2-Vasc score 7) and A/C would in general be advised Pt is not currently on systemic A/C presumably due to fall risk. Nonetheless, given presentation with fall and head injury candidacy for A/C highly questionable. ASA to be continued. Continue Toprol XL 100 mg daily which would be favored over propranolol apparently changes an outpatient recently. As patient states she no longer sees Dr. Gomez we will continue to follow patient. We will check with Dr. Gomez's office in AM to confirm she in fact is not an active patient, yet no notes in the system since 07/2018. (2) Elevated troponin: Code(s): R77.8 - Other specified abnormalities of plasma proteins Status: Acute Assessment and Plan: Most likely type 2 infarct in setting of sepsis, JEREMY history of cardiomyopathy, atrial flutter with RVR, and hypoxia. Presentation not consistent with acute coronary syndrome and/or plaque rupture. However, given patient's history of cardiomyopathy, multiple risk factors for atherosclerotic disease include diabetes mellitus, hypertension, age can not exclude underlying CAD. Repeat 2D echocardiogram to assess LV function, wall motion abnormalities, valve pathology pulmonary pressures. Recommendations to follow. (3) Sepsis: Code(s): A41.9 - Sepsis, unspecified organism Status: Acute (4) Cardiomyopathy: Code(s): I42.9 - Cardiomyopathy, unspecified Status: Acute Assessment and Plan: Echocardiogram 2018 EF 40-45% without repeat study available in system. Patient is not in overt decompensated heart failure at this time. Continue to monitor volume status closely however. Continue supportive medical therapy as she tolerates. (5) Status post fall: Code(s): Z91.81 - History of falling Status: Acute Assessment and Plan: As above, candidacy for anticoagulation highly questionable in this regard. Agree with continuation of aspirin for the time being. (6) Hypertension: Code(s): I10 - Essential (primary) hypertension Status: Chronic Assessment and Plan: Stable. Avoid excessive hypotension. (7) Acute renal insufficiency: Code(s): N28.9 - Disorder of kidney and ureter, unspecified Status: Acute Assessment and Plan: Improved since admission. Continue treatment per primary service. (8) Urinary tract infection: Code(s): N39.0 - Urinary tract infection, site not specified Status: Acute Assessment and Plan: Per urology and primary service. (9) Type II diabetes mellitus: Code(s): E11.9 - Type 2 diabetes mellitus without complications Status: Acute Assessment and Plan: Per primary service. History of Present Illness History of Present Illness Consult date/time: Date of service: 05/15/21 11:01 Cardiology consultation at the request of Dr. Weiss for our opinion regarding atrial flutter with rapid ventricular response. Requesting physician: Ceci Weiss MD Consult reason: atrial fibrillation (atrial flutter with RVR) Reason For Visit: A fib with RVR, sepsis, UTI, elevated troponin, Narrative: Patient is an 80-year-old female with a past medical history significant for mild to moderate LV dysfunction EF 40 45% by echocardiogram 2018, persistent atrial flutter, type 2 diabetes mellitus, chronic heart failure with reduced ejection fraction, history of CVA who per records had been seen by Dr. Gomez in 2018 and 2019 but patient states she no longer sees him as her insurance was no longer accepted. She states she had not established wi
[2021-05-15] MEDS: CHOLECALCIFEROL 1,000 UNITS TABLET 1000 UNITS PO (11:46)
[2021-05-15] MEDS: INSULIN ASPART (*BKC) 100 UNITS/ML SUB-Q (11:46)
[2021-05-15 12:16] LABS: Glucose Point of Care 251 mg/dl (65-105)
[2021-05-15 13:35] LABS: Anion Gap 8 mmol/L (8-16); Blood Urea Nitrogen 15 mg/dL (7-17); Calcium 8.6 mg/dL (8.4-10.2); Carbon Dioxide 26 mmol/L (22-30); Chloride 103 mmol/L (98-107); Estimated CRCL calculation 41 ml/min; Estimated Glomerular Filt Rate 53; Glucose 221 mg/dL (65-110); Potassium 3.6 mmol/L (3.4-5.0); Sodium 137 mmol/L (137-145)
[2021-05-15 16:21] LABS: Potassium 3.5 mmol/L (3.4-5.0)
[2021-05-15] MEDS: FUROSEMIDE 40 MG TABLET PO (17:01)
[2021-05-15] MEDS: METOPROLOL SUCCINATE EXT REL 50 MG TABCR PO (17:01)
[2021-05-15] MEDS: lisinopriL 10 MG TABLET PO (17:01)
[2021-05-15 18:18] LABS: Glucose Point of Care 167 mg/dl (65-105)
[2021-05-15] MEDS: ACETAMINOPHEN 325 MG TABLET 650 MG PO (20:49)
[2021-05-15] MEDS: MICONAZOLE NITRATE 2% CREAM 30 GM TUBE TOPICAL (20:51)
[2021-05-15 22:08] LABS: Glucose Point of Care 207 mg/dl (65-105)
[2021-05-16] VITALS (12 sets, daily range): BP systolic 105–152; BP diastolic 67–90; PULSE 73–90; RESP 15–20; TEMP 36.9–37.4; O2SAT 93–98
[2021-05-16 04:54] LABS: Basophils Absolute Auto 0.1 K/mm3 (0.0-0.1); Basophils Percent Auto 0.4 % (0.2-1.2); Eosinophils Absolute Auto 0.7 K/mm3 (0-0.3); Eosinophils Percent Auto 4.9 % (0-4.4); Hematocrit 31.9 % (37.0-47.0); Hemoglobin 10.4 g/dL (12.0-15.0); Immature Granulocyte Absolute 0.08 K/mm3 (0.00-0.031); Immature Granulocyte Percent A 0.6 % (0-0.5); Lymphocytes Absolute Auto 1.71 K/mm3 (0.9-3.2); Lymphocytes Percent Auto 12.9 % (18.3-44.2); Mean Corpuscular HGB Conc 32.6 g/dl (32-36); Mean Corpuscular Hemoglobin 27.9 pg (26-34); Mean Corpuscular Volume 85.5 fl (80-100); Mean Platelet Volume 10.4 fl (7.4-10.4); Monocytes Absolute Auto 1.5 K/mm3 (0.1-0.6); Monocytes Percent Auto 11.1 % (2.6-8.5); Neutrophils Absolute Auto 9.3 K/mm3 (1.3-6.7); Neutrophils Percent Auto 70.1 % (45.5-73.1); Platelet Count Result 274 k/mm3 (150-375); Red Blood Count 3.73 M/mm3 (4.2-5.4); Red Cell Distribution Width 15.9 % (11.5-14.5); White Blood Count 13.3 K/mm3 (4.5-10.0)
[2021-05-16 05:07] LABS: Anion Gap 9 mmol/L (8-16); Blood Urea Nitrogen 14 mg/dL (7-17); Calcium 8.4 mg/dL (8.4-10.2); Carbon Dioxide 29 mmol/L (22-30); Chloride 98 mmol/L (98-107); Estimated CRCL calculation 41 ml/min; Estimated Glomerular Filt Rate 53; Glucose 140 mg/dL (65-110); Sodium 136 mmol/L (137-145)
[2021-05-16 07:28] LABS: Glucose Point of Care 131 mg/dl (65-105)
[2021-05-16] MEDS: POTASSIUM CHLORIDE 20 MEQ TABLET 80 MEQ PO (08:31)
[2021-05-16] MEDS: lisinopriL 10 MG TABLET PO (08:32)
[2021-05-16] MEDS: CALCIUM CARBONATE (OSCAL) 500 MG TABLET 1000 MG PO (08:32)
[2021-05-16] MEDS: CHOLECALCIFEROL 1,000 UNITS TABLET 1000 UNITS PO (08:32)
[2021-05-16] MEDS: MULTIVITAMINS /C LUTEIN (CENTRUM SILVER) TABLET *BKC 1 TAB PO (08:33)
[2021-05-16] MEDS: METOPROLOL SUCCINATE EXT REL 100 MG TABCR PO (08:33)
[2021-05-16] MEDS: CITALOPRAM HYDROBROMIDE 10 MG TABLET PO (08:33)
[2021-05-16] MEDS: ASPIRIN 325 MG ENTERIC TABLET PO (08:33)
[2021-05-16] MEDS: INSULIN GLARGINE (*BKC) 100 UNITS/ML 15 UNITS SUB-Q (09:46)
[2021-05-16] MEDS: dilTIAZem HCL CD 180 MG CAP.ER.24H PO (11:12)
--- NOTE | 2021-05-16 11:30 | ECHO_ITS ---
Patient Info Name: Freda Khanna Age: 80 years : 1940 Gender: Female Ht: 62 in Wt: 204 lbs BSA: 2.06 m2 HR: 90 bpm BP: 118 / 79 mmHg Heart Rhythm: Atrial Flutter Exam Date: 05/16/2021 8:07 AM Exam Location: [facility] Pulmonary Patient Status: Inpatient Admit Date: 05/15/2021 Staff Ordering Physician: Brett Whitman MD [employer] Supervisor: Jame Castaneda RDCS, RT Attending Provider: Gely Salgado DO Referring Physician: Antonette BUENROSTRO; Exam Type: CA echo doppler color flow Study Info Indications I50.9 - Heart failure, unspecified Complete two-dimensional, color flow and Doppler transthoracic echocardiogram is performed. Strain analysis performed. Summary 1. Complete two-dimensional, color flow and Doppler transthoracic echocardiogram is performed. 2. Left ventricular chamber dimension is normal. 3. Left ventricular systolic function is normal, estimated at 50-55%. 4. Biatrial dilation left greater than right. 5. Trivial amount of aortic valve regurgitation. 6. Dilated IVC. 7. Assessment of LV function somewhat difficult as the patient is in atrial flutter with variable conduction. Left Ventricle Left ventricular chamber dimension is normal. Left ventricular systolic function is normal, estimated at 50-55%. Right Ventricle Right ventricular chamber dimension is normal. Left Atria Left atrial chamber dimension is moderately enlarged. Right Atria Right atrial chamber dimension is mildly enlarged. Aortic Valve The aortic valve is trileaflet. There is mild aortic valve sclerosis. Pulmonic Valve The pulmonic valve is not well visualized. Mitral Valve The mitral valve has normal leaflets. Tricuspid Valve The tricuspid valve leaflets are normal. Pericardium/Pleural The pericardium appears normal. Aorta The aortic root size at the sinus of Valsalva is normal. Left Ventricular Outflow Tract Name Value Normal LVOT 2D LVOT Diameter 2.0 cm LVOT Doppler LVOT Peak Gradient 3 mmHg LVOT Mean Gradient 2 mmHg LVOT VTI 16 cm LVOT VTI/AV VTI Ratio 0.7 LVOT Stroke Volume 50 ml LVOT CO 5.0 l/min LVOT CI 2.4 l/min/m2 Mitral Valve Name Value Normal MV Doppler MV Decel Maries 742 cm/s2 MV PHT 48 ms MV Area (PHT) 4.6 cm2 4.0-5.0 MV Diastolic Function MV E Peak Velocity 122 cm/s MV A Peak Velocity 0 cm/s MV E/A 335.7 MV Decel Time
[2021-05-16 12:37] LABS: Glucose Point of Care 156 mg/dl (65-105)
--- NOTE | 2021-05-16 14:30 | PM.IMPN ---
Progress Note: A&P Assessment and Plan (1) Atrial fibrillation: Code(s): I48.91 - Unspecified atrial fibrillation Status: Acute Assessment and Plan: Chronic atrial flutter presenting with RVR in setting of sepsis, fall and mild acute kidney injury along with UTI - Controlled on Diltiazem gtt. -patient also on metoprolol, rate controlled -will transition diltiazem infusion to p.o. diltiazem the patient takes at home - PT at significant risk for CVA (CHADS2-Vasc score 7) and A/C would in general be advised. Pt is not currently on systemic A/C presumably due to fall risk. will start aggressive rehabilitation with PT and OT. -appreciate cardiology evaluation and recommendations -continue aspirin (2) Acute UTI: Code(s): N39.0 - Urinary tract infection, site not specified Status: Acute Assessment and Plan: UA reflective of UTI, -urine culture growing pansensitive E coli, -continue ceftriaxone (3) Weakness: Code(s): R53.1 - Weakness Status: Acute Assessment and Plan: Likely secondary to acute urinary tract infection in an elderly lady. -will order PT/OT (4) Acute renal failure (ARF): Qualifiers: Acute renal failure type: unspecified Qualified Code(s): N17.9 - Acute kidney failure, unspecified Code(s): N17.9 - Acute kidney failure, unspecified Status: Acute Assessment and Plan: Mild JEREMY with creatinine already improving down to 1.0 -urine output has been adequate, continue to monitor (5) CHF (congestive heart failure): Code(s): I50.9 - Heart failure, unspecified Status: Acute Assessment and Plan: Currently patient without evidence of acute exacerbation. She only has trace peripheral edema. -chest x-ray reviewed Unchanged discoid atelectasis/scarring at the right lower lung zone. -continue Lasix, lisinopril, metoprolol (6) Type II diabetes mellitus: Code(s): E11.9 - Type 2 diabetes mellitus without complications Status: Acute Assessment and Plan: Hyperglycemia, continue Lantus and sliding scale insulin with Accu-Chek (7) Mood disorder: Code(s): F39 - Unspecified mood [affective] disorder Status: Acute Assessment and Plan: Continue home medication. Patient appears slightly confused which can be likely send with a acute UTI. Head CT was unremarkable. No additional intervention for now. (8) Hypertension: Code(s): I10 - Essential (primary) hypertension Status: Chronic Assessment and Plan: Uncontrolled hypertension. Resume home medications. Continue close blood pressure monitoring. Additional Plan Code status: Full code This dictation may have been done utilizing a voice recognition system. Attempts have been made to correct errors. However, there may be uncorrected grammatical, spelling, and recognition errors present. Due to a high probability of clinically significant, life threatening deterioration, the patient required my highest level of preparedness to intervene emergently and I personally spent this critical care time directly and personally managing the patient. This critical care time included obtaining a history; examining the patient; pulse oximetry; ordering and review of studies; arranging urgent treatment with development of a management plan; evaluation of patient's response to treatment; frequent reassessment; and discussions with other providers. It was exclusive of separately billable procedures and treating other patients and teaching time. Please see Assessment and Plan section and the rest of the note for further information on patient assessment and treatment Subjective Date/time seen: 05/16/21 14:30 Interval history: 05/16/2021: Seeing patient for the hospitalist group. Patient resting in bed, is awake, alert, able to answer questions and follow simple commands. Remains in atrial flutter, rate controlled on Cardizem infusion
--- NOTE | 2021-05-16 15:00 | PM.PNCARD ---
Progress Note: A&P Assessment and Plan (1) Chronic atrial flutter: Code(s): I48.92 - Unspecified atrial flutter Status: Acute Assessment and Plan: Chronic atrial flutter presenting with RVR in setting of sepsis, fall and mild acute kidney injury. Initially controlled with diltiazem drip, now has been transitioned to oral and rate remains controlled. PT at significant risk for CVA (CHADS2-Vasc score 7) and A/C would in general be advised. However, given presentation with fall and head injury candidacy for A/C highly questionable. Patient tells me she has fallen as recently as this past Sunday. ASA to be continued. Continue Toprol XL 100 mg daily which would be favored over propranolol apparently changes an outpatient recently. As patient states she no longer sees Dr. Gomez we will continue to follow patient. Confirmed with Dr. Gomez's office that patient is no longer seen in his practice. (2) Elevated troponin: Code(s): R77.8 - Other specified abnormalities of plasma proteins Status: Acute Assessment and Plan: Most likely type 2 infarct in setting of sepsis, JEREMY history of cardiomyopathy, atrial flutter with RVR, and hypoxia. Presentation not consistent with acute coronary syndrome and/or plaque rupture. However, given patient's history of cardiomyopathy, multiple risk factors for atherosclerotic disease include diabetes mellitus, hypertension, age can not exclude underlying CAD. Repeat 2D echocardiogram to assess LV function, wall motion abnormalities, valve pathology pulmonary pressures. Recommendations to follow. (3) Sepsis: Code(s): A41.9 - Sepsis, unspecified organism Status: Acute Assessment and Plan: Management per primary team (4) Cardiomyopathy: Code(s): I42.9 - Cardiomyopathy, unspecified Status: Acute Assessment and Plan: Echocardiogram 2018 EF 40-45% without repeat study available in system. Repeat echocardiogram pending. Patient is not in overt decompensated heart failure at this time. Continue to monitor volume status closely however. Continue supportive medical therapy as she tolerates. (5) Status post fall: Code(s): Z91.81 - History of falling Status: Acute Assessment and Plan: As above, candidacy for anticoagulation highly questionable in this regard. Agree with continuation of aspirin for the time being. (6) Hypertension: Code(s): I10 - Essential (primary) hypertension Status: Chronic Assessment and Plan: Stable. Avoid excessive hypotension. (7) Acute renal insufficiency: Code(s): N28.9 - Disorder of kidney and ureter, unspecified Status: Acute Assessment and Plan: Improved since admission. Continue treatment per primary service. (8) Urinary tract infection: Code(s): N39.0 - Urinary tract infection, site not specified Status: Acute Assessment and Plan: Per urology and primary service. (9) Type II diabetes mellitus: Code(s): E11.9 - Type 2 diabetes mellitus without complications Status: Acute Assessment and Plan: Per primary service. Subjective Date/time seen: 05/16/21 15:00 Cardiology follow up for atrial flutter Date of service 05/16/2021: Patient is complaining of fatigue today. Denies chest pain, shortness of breath, palpitations. She remains in strial flutter, rate controlled in the 70's. Review of Systems Review of Systems: All systems reviewed & are unremarkable except as noted in HPI and below Constitutional: Constitutional: Reports as per HPI, Reports no additional constitutional complaints, Reports chills, Reports fatigue, Denies headache(s) and Reports weakness Eyes: Eyes: Reports as per HPI and Reports no additional eye complaints ENT: Reports system reviewed and no additional complaints, except as documented, Reports as per HPI and Denies headache(s) Cardiovascular: Cardiovascular: Reports as per HPI, Reports no a
[2021-05-16] MEDS: ACETAMINOPHEN 325 MG TABLET 650 MG PO (16:32)
[2021-05-16 16:33] LABS: Glucose Point of Care 162 mg/dl (65-105)
--- NOTE | 2021-05-16 18:20 | PM.IMPN ---
Progress Note: A&P Assessment and Plan (1) Acute UTI: Code(s): N39.0 - Urinary tract infection, site not specified Status: Acute Assessment and Plan: A urinalysis reveals pyuria. Patient was appropriately started on Rocephin, pending final culture results. Most recently patient was diagnosed with funez sensitive E coli UTI. (2) Weakness: Code(s): R53.1 - Weakness Status: Acute Assessment and Plan: Likely secondary to acute urinary tract infection in an elderly lady. PT OT in a.m.. (3) Acute renal failure (ARF): Qualifiers: Acute renal failure type: unspecified Qualified Code(s): N17.9 - Acute kidney failure, unspecified Code(s): N17.9 - Acute kidney failure, unspecified Status: Acute Assessment and Plan: Mild JEREMY with creatinine already improving down to 1. (4) CHF (congestive heart failure): Code(s): I50.9 - Heart failure, unspecified Status: Acute Assessment and Plan: Currently patient without evidence of acute exacerbation. She is tolerating the decubitus position. She only has trace peripheral edema. Chest x-ray read. Unchanged discoid atelectasis/scarring at the right lower lung zone. Resume home medications and stop IV fluids. Mild flat troponin elevation likely reflecting type 2 [place] un the settign of acute ilness, Afib with RVR, mild JEREMY and hyppoxia. Obtain echo to evaluate for LV function. (5) Type II diabetes mellitus: Code(s): E11.9 - Type 2 diabetes mellitus without complications Status: Acute Assessment and Plan: Uncontrolled diabetes with blood glucose 140 and Accu-Chek of 131-162.. Continue accucheck monitoring. Standard insulin coverage. (6) Atrial fibrillation: Code(s): I48.91 - Unspecified atrial fibrillation Status: Acute Assessment and Plan: Chronic atrial flutter presenting with RVR in setting of sepsis, fall and mild acute kidney injury. Controlled on Diltiazem gtt. Continue for now until pt further stabilized from infectious perspective. Transition to p.o. diltiazem in a.m. PT at significant risk for CVA (CHADS2-Vasc score 7) and A/C would in general be advised. Pt is not currently on systemic A/C presumably due to fall risk. Continue ASA. will start aggressive rehabilitation with PT and OT. (7) Mood disorder: Code(s): F39 - Unspecified mood [affective] disorder Status: Acute Assessment and Plan: Continue home medication. Patient appears slightly confused which can be likely send with a acute UTI. Head CT was unremarkable. No additional intervention for now. (8) Hypertension: Code(s): I10 - Essential (primary) hypertension Status: Chronic Assessment and Plan: Uncontrolled hypertension. Resume home medications. Continue close blood pressure monitoring. Subjective Date/time seen: 05/16/21 10:20 S: Patient is examined at the bedside. She is feeling a lot better. There is no active complaints. Review of Systems Review of Systems: All systems reviewed & are unremarkable except as noted in HPI and below Constitutional: Constitutional: Reports no additional constitutional complaints, Denies body ache(s), Denies chills, Denies difficulty sleeping, Reports fatigue, Reports lethargy, Denies night sweats and Reports weakness Eyes: Eyes: Denies no additional eye complaints and Denies blurry vision ENT: Denies dysphagia, Denies epistaxis and Denies nasal congestion Cardiovascular: Cardiovascular: Reports no additional cardiovascular complaints, Denies chest pain, Denies diaphoresis, Reports leg edema, Denies lightheadedness, Denies palpitations, Denies dyspnea and Denies dyspnea on exertion Respiratory: Respiratory: Reports as per HPI, Denies cough, Denies dyspnea, Denies dyspnea on exertion and Denies wheezing Gastrointestinal: Gastrointestinal: Denies no additional gastrointestinal complaints, Denies abdominal pain, Denies dys
[2021-05-16 21:01] LABS: Glucose Point of Care 202 mg/dl (65-105)
[2021-05-17] VITALS (11 sets, daily range): BP systolic 122–151; BP diastolic 63–93; PULSE 87–122; RESP 18–28; TEMP 36.8–37.6; O2SAT 92–97
[2021-05-17] MEDS: ACETAMINOPHEN 325 MG TABLET 650 MG PO (00:23)
[2021-05-17 05:19] LABS: Basophils Absolute Auto 0.1 K/mm3 (0.0-0.1); Basophils Percent Auto 0.4 % (0.2-1.2); Eosinophils Absolute Auto 0.4 K/mm3 (0-0.3); Eosinophils Percent Auto 3.7 % (0-4.4); Hematocrit 31.1 % (37.0-47.0); Hemoglobin 10.1 g/dL (12.0-15.0); Immature Granulocyte Absolute 0.07 K/mm3 (0.00-0.031); Immature Granulocyte Percent A 0.6 % (0-0.5); Lymphocytes Percent Auto 12.3 % (18.3-44.2); Mean Corpuscular HGB Conc 32.5 g/dl (32-36); Mean Corpuscular Hemoglobin 27.8 pg (26-34); Mean Corpuscular Volume 85.7 fl (80-100); Mean Platelet Volume 10.5 fl (7.4-10.4); Monocytes Absolute Auto 1.4 K/mm3 (0.1-0.6); Monocytes Percent Auto 11.8 % (2.6-8.5); Neutrophils Absolute Auto 8.1 K/mm3 (1.3-6.7); Neutrophils Percent Auto 71.2 % (45.5-73.1); Platelet Count Result 307 k/mm3 (150-375); Red Blood Count 3.63 M/mm3 (4.2-5.4); Red Cell Distribution Width 15.8 % (11.5-14.5); White Blood Count 11.4 K/mm3 (4.5-10.0)
[2021-05-17 05:39] LABS: Alanine Aminotransferase 23 U/L (4-35); Albumin Level 3.1 g/dL (3.5-5.1); Alkaline Phosphatase 144 U/L (38-126); Anion Gap 4 mmol/L (8-16); Aspartate Amino Transferase 29 U/L (14-36); Bilirubin,Total 0.4 mg/dL (0.2-1.3); Blood Urea Nitrogen 18 mg/dL (7-17); Calcium 8.5 mg/dL (8.4-10.2); Carbon Dioxide 30 mmol/L (22-30); Chloride 102 mmol/L (98-107); Estimated CRCL calculation 40 ml/min; Estimated Glomerular Filt Rate 48; Glucose 157 mg/dL (65-110); Magnesium 1.7 mg/dL (1.6-2.3); Potassium 3.7 mmol/L (3.4-5.0); Sodium 136 mmol/L (137-145)
[2021-05-17] MEDS: dilTIAZem HCL CD 180 MG CAP.ER.24H PO (09:14)
[2021-05-17] MEDS: CITALOPRAM HYDROBROMIDE 10 MG TABLET PO (09:14)
[2021-05-17] MEDS: POTASSIUM CHLORIDE 20 MEQ TABLET.ER PO (09:14)
[2021-05-17] MEDS: ASPIRIN 325 MG ENTERIC TABLET PO (09:14)
[2021-05-17] MEDS: lisinopriL 10 MG TABLET PO (09:14)
[2021-05-17] MEDS: CALCIUM CARBONATE (OSCAL) 500 MG TABLET 1000 MG PO (09:14)
[2021-05-17] MEDS: CHOLECALCIFEROL 1,000 UNITS TABLET 1000 UNITS PO (09:15)
[2021-05-17] MEDS: METOPROLOL SUCCINATE EXT REL 100 MG TABCR PO (09:16)
--- NOTE | 2021-05-17 09:17 | PM.PNCARD ---
Progress Note: A&P Assessment and Plan (1) Chronic atrial flutter: Code(s): I48.92 - Unspecified atrial flutter Status: Acute Assessment and Plan: Chronic atrial flutter presenting with RVR in setting of sepsis, fall and mild acute kidney injury. Initially controlled with diltiazem drip, now has been transitioned to oral and rate remains reasonably controlled although some tachycardia was noted on telemetry this morning possibly with activity. PT at significant risk for CVA (CHADS2-Vasc score 7) and A/C would in general be advised. However, given presentation with fall and head injury candidacy for A/C highly questionable. Patient tells me she has fallen as recently as this past Sunday. ASA to be continued. Continue Toprol XL 100 mg daily which would be favored over propranolol apparently changes an outpatient recently. As patient states she no longer sees Dr. Gomez we will continue to follow patient. Confirmed with Dr. Gomez's office that patient is no longer seen in his practice. (2) Elevated troponin: Code(s): R77.8 - Other specified abnormalities of plasma proteins Status: Acute Assessment and Plan: Most likely type 2 infarct in setting of sepsis, JEREMY history of cardiomyopathy, atrial flutter with RVR, and hypoxia. Presentation not consistent with acute coronary syndrome and/or plaque rupture. However, given patient's history of cardiomyopathy, multiple risk factors for atherosclerotic disease include diabetes mellitus, hypertension, age can not exclude underlying CAD. Echocardiogram showed normal LV systolic function with an ejection fraction of 50-55%. (3) Sepsis: Code(s): A41.9 - Sepsis, unspecified organism Status: Acute Assessment and Plan: Management per primary team (4) Cardiomyopathy: Code(s): I42.9 - Cardiomyopathy, unspecified Status: Acute Assessment and Plan: Repeat echocardiogramShowed normal LV systolic function with an ejection fraction of 50-55%. Patient is not in overt decompensated heart failure at this time. Continue to monitor volume status closely however. Continue supportive medical therapy as she tolerates. (5) Status post fall: Code(s): Z91.81 - History of falling Status: Acute Assessment and Plan: As above, candidacy for anticoagulation highly questionable in this regard. Agree with continuation of aspirin for the time being. (6) Hypertension: Code(s): I10 - Essential (primary) hypertension Status: Chronic Assessment and Plan: Stable. Avoid excessive hypotension. (7) Acute renal insufficiency: Code(s): N28.9 - Disorder of kidney and ureter, unspecified Status: Acute Assessment and Plan: Improved since admission. Continue treatment per primary service. (8) Urinary tract infection: Code(s): N39.0 - Urinary tract infection, site not specified Status: Acute Assessment and Plan: Per urology and primary service. (9) Type II diabetes mellitus: Code(s): E11.9 - Type 2 diabetes mellitus without complications Status: Acute Assessment and Plan: Per primary service. Subjective Date/time seen: 05/17/21 09:17 Cardiology follow-up for atrial flutter Date of service 05/17/2021: Who she is feeling okay today. She denies any chest pain, shortness of breath, palpitations. She is complaining about her ureteral stents and says that she wants that to be taken out. Review of Systems Review of Systems: All systems reviewed & are unremarkable except as noted in HPI and below Constitutional: Constitutional: Reports as per HPI, Reports no additional constitutional complaints, Reports chills, Reports fatigue, Denies headache(s) and Reports weakness Eyes: Eyes: Reports as per HPI and Reports no additional eye complaints ENT: Reports system reviewed and no additional complaints, except as documented, Reports as per HPI and Denies headache(s) Ca
[2021-05-17] MEDS: FUROSEMIDE 40 MG TABLET PO (09:46)
[2021-05-17] MEDS: INSULIN GLARGINE (*BKC) 100 UNITS/ML 15 UNITS SUB-Q (09:47)
[2021-05-17] MEDS: MULTIVITAMINS /C LUTEIN (CENTRUM SILVER) TABLET *BKC 1 TAB PO (09:47)
[2021-05-17 11:54] LABS: Glucose Point of Care 188 mg/dl (65-105)
--- NOTE | 2021-05-17 15:59 | PM.IMPN ---
Progress Note: A&P Assessment and Plan (1) Acute UTI: Code(s): N39.0 - Urinary tract infection, site not specified Status: Acute Assessment and Plan: A urinalysis reveals pyuria. Patient was appropriately started on Rocephin, pending final culture results. Most recently patient was diagnosed with funez sensitive E coli UTI. Urine and blood cultures have remained negative at the time of this dictation. This is the patient on admission with the same UTI. Discussed with urology; plan for lithotripsy for source control later this week. Meanwhile patient will remain inpatient on IV antibiotics. (2) Weakness: Code(s): R53.1 - Weakness Status: Acute Assessment and Plan: Likely secondary to acute urinary tract infection in an elderly lady. Improving with daily PT OT . (3) Acute renal failure (ARF): Qualifiers: Acute renal failure type: unspecified Qualified Code(s): N17.9 - Acute kidney failure, unspecified Code(s): N17.9 - Acute kidney failure, unspecified Status: Acute Assessment and Plan: Resolved mild JEREMY with creatinine already improving down to 1. (4) CHF (congestive heart failure): Code(s): I50.9 - Heart failure, unspecified Status: Acute Assessment and Plan: Currently patient without evidence of acute exacerbation. She is tolerating the decubitus position. She only has trace peripheral edema. Chest x-ray read. Unchanged discoid atelectasis/scarring at the right lower lung zone. Resume home medications and stop IV fluids. Mild flat troponin elevation likely reflecting type 2 [place] un the settign of acute ilness, Afib with RVR, mild JEREMY and hyppoxia. Obtain echo to evaluate for LV function. (5) Type II diabetes mellitus: Code(s): E11.9 - Type 2 diabetes mellitus without complications Status: Acute Assessment and Plan: Uncontrolled diabetes with blood glucose 157 and Accu-Chek of 188-188. Continue accucheck monitoring. Standard insulin coverage. (6) Atrial fibrillation: Code(s): I48.91 - Unspecified atrial fibrillation Status: Acute Assessment and Plan: Chronic atrial flutter presenting with RVR in setting of sepsis, fall and mild acute kidney injury. Controlled on Diltiazem gtt. Continue for now until pt further stabilized from infectious perspective. Transition to p.o. diltiazem in a.m. PT at significant risk for CVA (CHADS2-Vasc score 7) and A/C would in general be advised. Pt is not currently on systemic A/C presumably due to fall risk. Continue ASA. will continue aggressive rehabilitation with PT and OT. (7) Mood disorder: Code(s): F39 - Unspecified mood [affective] disorder Status: Acute Assessment and Plan: Continue home medication. Patient appears slightly confused which can be likely send with a acute UTI. Head CT was unremarkable. No additional intervention for now. (8) Hypertension: Code(s): I10 - Essential (primary) hypertension Status: Chronic Assessment and Plan: Improved blood pressure control with blood pressures in the 122/68-1 40/76 range. Continue home blood pressure medications. Continue close blood pressure monitoring. Continue diltiazem 180 mg p.o. daily. Continue lisinopril 10 mg p.o. daily. Continue metoprolol 100 mg p.o. daily. Continue Lasix 40 mg p.o. daily. Additional Plan Code status: Full code This dictation may have been done utilizing a voice recognition system. Attempts have been made to correct errors. However, there may be uncorrected grammatical, spelling, and recognition errors present. Subjective Date/time seen: 05/17/21 15:59 S: Patient was examined at the bedside. She is feeling a lot better. She is working with physical therapy. Oral intake is well tolerated. She denies any urinary symptoms. Review of Systems Review of Systems: All systems reviewed & are unremarkable except as noted in HPI and below
[2021-05-17 16:22] LABS: Glucose Point of Care 188 mg/dl (65-105)
[2021-05-17 20:37] LABS: Glucose Point of Care 163 mg/dl (65-105)
[2021-05-18] VITALS (12 sets, daily range): BP systolic 115–154; BP diastolic 76–115; PULSE 80–122; RESP 16–20; TEMP 36.1–36.7; O2SAT 93–98
--- NOTE | 2021-05-18 07:29 | PM.IMPN ---
Progress Note: A&P Assessment and Plan (1) Acute UTI: Code(s): N39.0 - Urinary tract infection, site not specified Status: Acute Assessment and Plan: A urinalysis reveals pyuria. Patient was appropriately started on Rocephin, her cultures have remained negative. Most recently patient was diagnosed with funez sensitive E coli UTI on urine culture from 04/25/2021. Urine and blood cultures have remained negative at the time of this dictation. Discussed with urology; plan for lithotripsy for source control later this week. Meanwhile patient will remain inpatient on IV antibiotics. (2) Weakness: Code(s): R53.1 - Weakness Status: Acute Assessment and Plan: Likely secondary to acute urinary tract infection in an elderly lady. Improving with daily PT OT . (3) Acute renal failure (ARF): Qualifiers: Acute renal failure type: unspecified Qualified Code(s): N17.9 - Acute kidney failure, unspecified Code(s): N17.9 - Acute kidney failure, unspecified Status: Acute Assessment and Plan: Resolved mild JEREMY with creatinine already improving down to 1.1. (4) CHF (congestive heart failure): Code(s): I50.9 - Heart failure, unspecified Status: Acute Assessment and Plan: Currently patient without evidence of acute exacerbation. She is tolerating the decubitus position. She only has trace peripheral edema. Chest x-ray read. Unchanged discoid atelectasis/scarring at the right lower lung zone. Resume home medications and stop IV fluids. Mild flat troponin elevation likely reflecting type 2 [place] un the setting of acute illness, Afib with RVR, mild JEREMY and hypoxia. On echocardiogram from 05/16/2021, her left systolic ventricular function is normal, with an EF estimated at 50-55%. Her left atrial chamber dimension is moderately enlarged. (5) Type II diabetes mellitus: Code(s): E11.9 - Type 2 diabetes mellitus without complications Status: Acute Assessment and Plan: Moderately controlled diabetes with blood glucose 157 on 05/17 and Accu-Check in the 163-188 range. Hemoglobin A1c has been ordered and is pending at the time of this dictation. Continue accucheck monitoring. Standard insulin coverage. (6) Atrial fibrillation: Code(s): I48.91 - Unspecified atrial fibrillation Status: Acute Assessment and Plan: Chronic atrial flutter presenting with RVR in setting of sepsis, fall and mild acute kidney injury. Controlled on Diltiazem gtt. Continue for now until pt further stabilized from infectious perspective. Patient was switched to p.o. diltiazem in a.m. PT at significant risk for CVA (CHADS2-Vasc score 7) and A/C would in general be advised. Pt is not currently on systemic A/C presumably due to fall risk. Continue ASA. We will continue aggressive rehabilitation with PT and OT. After rehabilitation, control of current infection, patient may be reassessed with for initiation of chronic anticoagulation for stroke prevention. (7) Mood disorder: Code(s): F39 - Unspecified mood [affective] disorder Status: Acute Assessment and Plan: Continue home medication. Patient appears slightly confused on admission which can be likely send with a acute UTI. Head CT was unremarkable. No additional intervention for now. Currently the patient mood as improved significantly. Her mentation is a lot better. She is awake alert and oriented x3. She appears to be back to her baseline. This was likely acute metabolic encephalopathy in the setting of acute infection. Continue to monitor. (8) Hypertension: Code(s): I10 - Essential (primary) hypertension Status: Chronic Assessment and Plan: Improved blood pressure control with blood pressures in the 130/89-151/86 range. Continue home blood pressure medications. Continue close blood pressure monitoring. Continue diltiazem 180 mg p.o. daily. Continue lisinopril 10 mg
[2021-05-18 07:48] LABS: Glucose Point of Care 171 mg/dl (65-105)
[2021-05-18] MEDS: METOPROLOL SUCCINATE EXT REL 100 MG TABCR PO (08:10)
[2021-05-18] MEDS: POTASSIUM CHLORIDE 20 MEQ TABLET.ER PO (08:10)
[2021-05-18] MEDS: FUROSEMIDE 40 MG TABLET PO (08:10)
[2021-05-18] MEDS: CITALOPRAM HYDROBROMIDE 10 MG TABLET PO (08:11)
[2021-05-18] MEDS: lisinopriL 10 MG TABLET PO (08:11)
[2021-05-18] MEDS: ASPIRIN 325 MG ENTERIC TABLET PO (08:11)
[2021-05-18] MEDS: dilTIAZem HCL CD 180 MG CAP.ER.24H PO (08:11)
[2021-05-18] MEDS: MULTIVITAMINS /C LUTEIN (CENTRUM SILVER) TABLET *BKC 1 TAB PO (08:11)
[2021-05-18] MEDS: CALCIUM CARBONATE (OSCAL) 500 MG TABLET 1000 MG PO (08:11)
[2021-05-18] MEDS: CHOLECALCIFEROL 1,000 UNITS TABLET 1000 UNITS PO (08:11)
[2021-05-18] MEDS: INSULIN GLARGINE (*BKC) 100 UNITS/ML 15 UNITS SUB-Q (08:16)
[2021-05-18 11:43] LABS: Glucose Point of Care 195 mg/dl (65-105)
[2021-05-18 16:24] LABS: Glucose Point of Care 199 mg/dl (65-105)
--- NOTE | 2021-05-18 17:04 | PM.PNCARD ---
Progress Note: A&P Assessment and Plan (1) Chronic atrial flutter: Code(s): I48.92 - Unspecified atrial flutter Status: Acute Assessment and Plan: Chronic atrial flutter presenting with RVR in setting of sepsis, fall and mild acute kidney injury. Initially controlled with diltiazem drip, now has been transitioned to oral and rate remains reasonably controlled. Pt. at significant risk for CVA (CHADS2-Vasc score 7) and A/C would in general be advised. However, given presentation with fall and head injury candidacy for A/C highly questionable. Patient tells me She falls frequently and fell just days prior to coming to the hospital. ASA to be continued. Continue Toprol XL 100 mg daily which would be favored over propranolol apparently changed as an outpatient recently. (2) Elevated troponin: Code(s): R77.8 - Other specified abnormalities of plasma proteins Status: Acute Assessment and Plan: Most likely type 2 infarct in setting of sepsis, JEREMY history of cardiomyopathy, atrial flutter with RVR, and hypoxia. Presentation not consistent with acute coronary syndrome and/or plaque rupture. However, given patient's history of cardiomyopathy, multiple risk factors for atherosclerotic disease include diabetes mellitus, hypertension, age can not exclude underlying CAD. Echocardiogram showed normal LV systolic function with an ejection fraction of 50-55%. (3) Sepsis: Code(s): A41.9 - Sepsis, unspecified organism Status: Acute Assessment and Plan: Management per primary team (4) Cardiomyopathy: Code(s): I42.9 - Cardiomyopathy, unspecified Status: Acute Assessment and Plan: Repeat echocardiogramShowed normal LV systolic function with an ejection fraction of 50-55%. Patient is not in overt decompensated heart failure at this time. Continue to monitor volume status closely however. Continue supportive medical therapy as she tolerates. (5) Status post fall: Code(s): Z91.81 - History of falling Status: Acute Assessment and Plan: As above, candidacy for anticoagulation highly questionable in this regard. Agree with continuation of aspirin for the time being. (6) Hypertension: Code(s): I10 - Essential (primary) hypertension Status: Chronic Assessment and Plan: Stable. Avoid excessive hypotension. (7) Acute renal insufficiency: Code(s): N28.9 - Disorder of kidney and ureter, unspecified Status: Acute Assessment and Plan: Improved since admission. Continue treatment per primary service. (8) Urinary tract infection: Code(s): N39.0 - Urinary tract infection, site not specified Status: Acute Assessment and Plan: Per urology and primary service. (9) Type II diabetes mellitus: Code(s): E11.9 - Type 2 diabetes mellitus without complications Status: Acute Assessment and Plan: Per primary service. Additional Plan History of chronic atrial flutter. Was found have atrial flutter with rapid ventricular response in the setting of urosepsis. This was controlled initially with IV diltiazem. She has been transitioned to oral diltiazem and her rate remains controlled. She is no longer on telemetry. She was previously a patient of Dr. Gomez but will need to be established with a provider in our office as Dr. Stewart office does not accept her insurance. I will arrange for this. Currently, she does not have any acute cardiac issues. The primary reason for her hospitalization is UTI and sepsis. We will follow along with this patient on an as-needed basis while she remains in the hospital. Thank you for asking us to see Ms. Khanna. Please do not hesitate to contact us if we can be of assistance in the care of this patient in any way. Subjective Date/time seen: 05/18/21 17:04 Cardiology Follow-up for atrial flutter Date of service 05/18/2021: She is feeling well today. She dugan
[2021-05-18] MEDS: ACETAMINOPHEN 325 MG TABLET 650 MG PO (19:49)
[2021-05-18 20:07] LABS: Glucose Point of Care 233 mg/dl (65-105)
[2021-05-19] VITALS (13 sets, daily range): BP systolic 93–142; BP diastolic 64–89; PULSE 49–123; RESP 16–18; TEMP 35.8–36.8; O2SAT 92–97
[2021-05-19 05:35] LABS: Hematocrit 29.4 % (37.0-47.0); Mean Corpuscular Hemoglobin 28.2 pg (26-34); Mean Corpuscular Volume 82.8 fl (80-100); Mean Platelet Volume 9.9 fl (7.4-10.4); Platelet Count Result 361 k/mm3 (150-375); Red Blood Count 3.55 M/mm3 (4.2-5.4); Red Cell Distribution Width 15.5 % (11.5-14.5); White Blood Count 11.3 K/mm3 (4.5-10.0)
[2021-05-19 05:49] LABS: Anion Gap 5 mmol/L (8-16); Blood Urea Nitrogen 23 mg/dL (7-17); Calcium 8.5 mg/dL (8.4-10.2); Carbon Dioxide 32 mmol/L (22-30); Chloride 97 mmol/L (98-107); Estimated CRCL calculation 36 ml/min; Estimated Glomerular Filt Rate 43; Glucose 126 mg/dL (65-110); Potassium 3.3 mmol/L (3.4-5.0); Sodium 134 mmol/L (137-145)
[2021-05-19 06:01] LABS: Hemoglobin A1C 6.1 % (<5.7)
--- NOTE | 2021-05-19 07:50 | PM.IMPN ---
Progress Note: A&P Assessment and Plan (1) Acute UTI: Code(s): N39.0 - Urinary tract infection, site not specified Status: Acute Assessment and Plan: A urinalysis reveals pyuria. Patient was appropriately started on Rocephin, her cultures have remained negative. Most recently patient was diagnosed with funez sensitive E coli UTI on urine culture from 04/25/2021. Urine and blood cultures have remained negative at the time of this dictation. Discussed with urology; plan for lithotripsy for source control later this week. Meanwhile patient will remain inpatient on IV antibiotics. (2) Weakness: Code(s): R53.1 - Weakness Status: Acute Assessment and Plan: Likely secondary to acute urinary tract infection in an elderly lady. Improving with daily PT OT . (3) Acute renal failure (ARF): Qualifiers: Acute renal failure type: unspecified Qualified Code(s): N17.9 - Acute kidney failure, unspecified Code(s): N17.9 - Acute kidney failure, unspecified Status: Acute Assessment and Plan: Resolved mild JEREMY with creatinine already improving down to 1.1. (4) CHF (congestive heart failure): Code(s): I50.9 - Heart failure, unspecified Status: Acute Assessment and Plan: Currently patient without evidence of acute exacerbation. She is tolerating the decubitus position. She only has trace peripheral edema. Chest x-ray read. Unchanged discoid atelectasis/scarring at the right lower lung zone. Resume home medications and stop IV fluids. Mild flat troponin elevation likely reflecting type 2 [place] un the setting of acute illness, Afib with RVR, mild JEREMY and hypoxia. On echocardiogram from 05/16/2021, her left systolic ventricular function is normal, with an EF estimated at 50-55%. Her left atrial chamber dimension is moderately enlarged. (5) Type II diabetes mellitus: Code(s): E11.9 - Type 2 diabetes mellitus without complications Status: Acute Assessment and Plan: Moderately controlled diabetes with blood glucose 126 and Accu-Check in the 142-205 range. Hemoglobin A1c is at goal at 6 point on. Continue accucheck monitoring. Standard insulin coverage. (6) Atrial fibrillation: Code(s): I48.91 - Unspecified atrial fibrillation Status: Acute Assessment and Plan: Chronic atrial flutter presenting with RVR in setting of sepsis, fall and mild acute kidney injury. Controlled on Diltiazem gtt on admission. Continue p.o. diltiazem in addition to Toprol XL 100 mg daily. ASA to be continued as patient is at significant risk for CVA (CHADS2-Vasc score 7) and A/C would in general be advised. Pt is not currently on systemic A/C presumably due to fall risk. Continue ASA. We will continue aggressive rehabilitation with PT and OT. After rehabilitation, control of current infection, patient may be reassessed with for initiation of chronic anticoagulation for primary stroke prevention. (7) Mood disorder: Code(s): F39 - Unspecified mood [affective] disorder Status: Acute Assessment and Plan: Continue home medication. Patient appears slightly confused on admission which can be likely send with a acute UTI. Head CT was unremarkable. No additional intervention for now. Currently the patient mood as improved significantly. Her mentation is a lot better. She is awake alert and oriented x3. She appears to be back to her baseline. This was likely acute metabolic encephalopathy in the setting of acute infection. Continue to monitor. (8) Hypertension: Code(s): I10 - Essential (primary) hypertension Status: Chronic Assessment and Plan: Blood cultures well controlled with current BP of 126/64. Continue home blood pressure medications. Continue close blood pressure monitoring. Continue diltiazem 180 mg p.o. daily. Continue lisinopril 10 mg p.o. daily. Continue metoprolol 100 mg p.o. daily. Continue Lasix 40 mg p
[2021-05-19 07:55] LABS: Glucose Point of Care 142 mg/dl (65-105)
--- NOTE | 2021-05-19 08:06 | PM.DS ---
DS: Admitting Diagnosis Discharge Date 05/20/2021 Admitting Diagnosis Urinary tract infection. Weakness. Altered mental status. Atrial fibrillation with rapid ventricular response. DS: Discharge Diagnosis Discharge Diagnosis (1) Acute UTI: Code(s): N39.0 - Urinary tract infection, site not specified Status: Acute Assessment and Plan: A urinalysis reveals pyuria. Patient was appropriately started on Rocephin, her cultures have remained negative. Most recently patient was diagnosed with funez sensitive E coli UTI on urine culture from 04/25/2021. Urine and blood cultures have remained negative at the time of this dictation. Discussed with urology; plan for lithotripsy for source control later this week. Meanwhile patient will remain inpatient on IV antibiotics. (2) Weakness: Code(s): R53.1 - Weakness Status: Acute Assessment and Plan: Likely secondary to acute urinary tract infection in an elderly lady. Improving with daily PT OT . (3) Acute renal failure (ARF): Qualifiers: Acute renal failure type: unspecified Qualified Code(s): N17.9 - Acute kidney failure, unspecified Code(s): N17.9 - Acute kidney failure, unspecified Status: Acute Assessment and Plan: Resolved mild JEREMY with creatinine already improving down to 1.1. (4) CHF (congestive heart failure): Code(s): I50.9 - Heart failure, unspecified Status: Acute Assessment and Plan: Currently patient without evidence of acute exacerbation. She is tolerating the decubitus position. She only has trace peripheral edema. Chest x-ray read. Unchanged discoid atelectasis/scarring at the right lower lung zone. Resume home medications and stop IV fluids. Mild flat troponin elevation likely reflecting type 2 IA un the setting of acute illness, Afib with RVR, mild JEREMY and hypoxia. On echocardiogram from 05/16/2021, her left systolic ventricular function is normal, with an EF estimated at 50-55%. Her left atrial chamber dimension is moderately enlarged. (5) Type II diabetes mellitus: Code(s): E11.9 - Type 2 diabetes mellitus without complications Status: Acute Assessment and Plan: Moderately controlled diabetes with blood glucose 157 on 05/17 and Accu-Check in the 163-188 range. Hemoglobin A1c has been ordered and is pending at the time of this dictation. Continue accucheck monitoring. Standard insulin coverage. (6) Atrial fibrillation: Code(s): I48.91 - Unspecified atrial fibrillation Status: Acute Assessment and Plan: Chronic atrial flutter presenting with RVR in setting of sepsis, fall and mild acute kidney injury. Controlled on Diltiazem gtt on admission. Continue p.o. diltiazem in addition to Toprol XL 100 mg daily. ASA to be continued as patient is at significant risk for CVA (CHADS2-Vasc score 7) and A/C would in general be advised. Pt is not currently on systemic A/C presumably due to fall risk. Continue ASA. We will continue aggressive rehabilitation with PT and OT. After rehabilitation, control of current infection, patient may be reassessed with for initiation of chronic anticoagulation for primary stroke prevention. (7) Mood disorder: Code(s): F39 - Unspecified mood [affective] disorder Status: Acute Assessment and Plan: Continue home medication. Patient appears slightly confused on admission which can be likely send with a acute UTI. Head CT was unremarkable. No additional intervention for now. Currently the patient mood as improved significantly. Her mentation is a lot better. She is awake alert and oriented x3. She appears to be back to her baseline. This was likely acute metabolic encephalopathy in the setting of acute infection. Continue to monitor. (8) Hypertension: Code(s): I10 - Essential (primary) hypertension Status: Chronic Assessment and Plan: Blood cultures well controlled with cu
[2021-05-19] MEDS: POTASSIUM CHLORIDE 20 MEQ PACKET (FOR LIQUID) 40 MEQ PO ×2 (08:07→18:38)
[2021-05-19] MEDS: dilTIAZem HCL CD 180 MG CAP.ER.24H PO (08:34)
[2021-05-19] MEDS: FUROSEMIDE 40 MG TABLET PO (08:34)
[2021-05-19] MEDS: MULTIVITAMINS /C LUTEIN (CENTRUM SILVER) TABLET *BKC 1 TAB PO (08:34)
[2021-05-19] MEDS: CHOLECALCIFEROL 1,000 UNITS TABLET 1000 UNITS PO (08:34)
[2021-05-19] MEDS: ASPIRIN 325 MG ENTERIC TABLET PO (08:34)
[2021-05-19] MEDS: CITALOPRAM HYDROBROMIDE 10 MG TABLET PO (08:35)
[2021-05-19] MEDS: POTASSIUM CHLORIDE 20 MEQ TABLET.ER PO (08:35)
[2021-05-19] MEDS: METOPROLOL SUCCINATE EXT REL 100 MG TABCR PO (08:35)
[2021-05-19] MEDS: lisinopriL 10 MG TABLET PO (08:36)
[2021-05-19] MEDS: CALCIUM CARBONATE (OSCAL) 500 MG TABLET 1000 MG PO (08:36)
[2021-05-19] MEDS: INSULIN GLARGINE (*BKC) 100 UNITS/ML 15 UNITS SUB-Q (08:37)
[2021-05-19] MEDS: ACETAMINOPHEN 325 MG TABLET 650 MG PO ×2 (11:46→18:41)
[2021-05-19 11:50] LABS: Glucose Point of Care 184 mg/dl (65-105)
--- NOTE | 2021-05-19 13:14 | WPDUROPN2 ---
Progress Note: A&P Assessment and Plan (1) Acute UTI: Code(s): N39.0 - Urinary tract infection, site not specified Status: Acute Assessment and Plan: Urine culture negative from 05/15/2021. No need for antibiotics s/p discharge from a urologic standpoint. (2) Bilateral ureteral calculi: Code(s): N20.1 - Calculus of ureter Status: Acute Assessment and Plan: Vicente is scheduled for a CYstoscopy with bilateral stent exchange and stone removal with Dr. Osullivan on 05/27/2021 at 3:30pm at [facility]. Ok to discharge home at any time, if she has further complications, she should f/u at [facility] d/t her surgery being scheduled there next week. Subjective Subjective Date/Time Seen: 05/19/21 13:14 S/P Cystosopy, bilateral stent placement, bilateral retrograde pyelogram on 04/26/[address] Monge She is doing well, up to chair today, having some diarrhea, but tolerating stents well and has no urinary complaints. Review of Systems Cardiovascular: Cardiovascular: Reports no additional cardiovascular complaints Respiratory: Respiratory: Reports no additional respiratory complaints Gastrointestinal: Gastrointestinal: Denies abdominal pain, Reports diarrhea, Denies nausea and Denies vomiting Genitourinary: Genitourinary: Denies hematuria, Denies dysuria, Denies flank pain, Denies urinary incontinence, Denies urinary hesitancy and Denies urinary urgency Exam Resp: Effort & Inspection: normal respiratory effort Cardio: Rate: regular rate GI: GI Palp: Yes Soft to palpation and No Tenderness to palpation present (GI) : General: Yes no CVA tenderness Extrem: General: no edema Objective Data Vital Signs Vital Signs: Vital Signs - 24 hr 05/18/21 14:17 05/18/21 14:39 05/18/21 16:00 Temperature 97.9 F Pulse Rate 90 80 95 Respiratory Rate 18 20 Blood Pressure 154/109 H 115/76 Pulse Oximetry 93 05/18/21 18:32 05/18/21 20:00 05/18/21 22:00 Temperature 96.9 F L 97.0 F L Pulse Rate 87 87 89 Respiratory Rate 16 16 18 Blood Pressure 149/115 H 138/82 Pulse Oximetry 97 97 98 05/19/21 00:00 05/19/21 04:00 05/19/21 05:58 Temperature 97.6 F Pulse Rate 71 85 84 Respiratory Rate 18 Blood Pressure 134/75 Pulse Oximetry 94 05/19/21 08:00 05/19/21 08:35 05/19/21 08:37 Temperature Pulse Rate 109 H 123 H Respiratory Rate 18 Blood Pressure Pulse Oximetry 94 05/19/21 10:24 05/19/21 12:00 Temperature 97.7 F Pulse Rate 92 92 Respiratory Rate 16 Blood Pressure 93/66 L Pulse Oximetry 94 Intake/Output Intake/Output: Intake & Output 05/16/21 05/17/21 05/18/21 05/19/21 23:59 23:59 23:59 23:59 Intake Total 1010 2160 1220 890 Output Total 600 300 250 Balance 410 1860 970 890 Meds/Results Medications: Active Medications Generic Name Dose Route Start Last Admin Trade Name Freq PRN Reason Stop Dose Admin Acetaminophen 650 mg 05/15/21 20:21 05/19/21 11:46 Acetaminophen 325 Mg Tablet PO 650 mg Q4H PRN Administration Headache Aspirin 325 mg 05/16/21 09:00 05/19/21 08:34 Aspirin 325 Mg Enteric Tablet PO 325 mg DAILY DALIA Administration Calcium Carbonate 1,000 mg 05/16/21 09:00 05/19/21 08:36 Calcium Carbonate (Oscal) 500 Mg Tablet PO 1,000 mg DAILY DALIA Administration Citalopram Hydrobromide 10 mg 05/16/21 09:00 05/19/21 08:35 Citalopram Hydrobromide 10 Mg Tablet PO 10 mg DAILY DALIA Administration Cyclobenzaprine HCl 5 mg 05/15/21 09:19 Cyclobenzaprine Hcl 5 Mg Tablet PO HS PRN Muscle Spasm Dextrose 12.5 gm 05/15/21 16:45 Dextrose 50% 25 Gm/50 Ml Syringe IV PUSH PRN PRN Hypoglycemia Protocol Diltiazem HCl 180 mg 05/16/21 11:00 05/19/21 08:34 Diltiazem Hcl Cd 180 Mg Cap.Er.24h PO 180 mg QAM DALIA Administration Furosemide 40 mg 05/17/21 09:00 05/19/21 08:34 Furosemide 40 Mg Tablet PO 40 mg QAM DALIA Administration Glucagon
[2021-05-19 16:27] LABS: Glucose Point of Care 205 mg/dl (65-105)
[2021-05-19] MEDS: INSULIN ASPART (*BKC) 100 UNITS/ML SUB-Q (16:46)
[2021-05-19 21:32] LABS: Glucose Point of Care 181 mg/dl (65-105)
[2021-05-20] VITALS (7 sets, daily range): BP systolic 109–153; BP diastolic 54–80; PULSE 70–122; RESP 18–20; TEMP 36.7–37; O2SAT 93–97
[2021-05-20] MEDS: ACETAMINOPHEN 325 MG TABLET 650 MG PO (05:54)
[2021-05-20 07:55] LABS: Glucose Point of Care 138 mg/dl (65-105)
[2021-05-20] MEDS: INSULIN GLARGINE (*BKC) 100 UNITS/ML 15 UNITS SUB-Q (08:07)
[2021-05-20] MEDS: FUROSEMIDE 40 MG TABLET PO (08:09)
[2021-05-20] MEDS: CITALOPRAM HYDROBROMIDE 10 MG TABLET PO (08:09)
[2021-05-20] MEDS: ASPIRIN 325 MG ENTERIC TABLET PO (08:09)
[2021-05-20] MEDS: POTASSIUM CHLORIDE 20 MEQ TABLET.ER PO (08:09)
[2021-05-20] MEDS: MULTIVITAMINS /C LUTEIN (CENTRUM SILVER) TABLET *BKC 1 TAB PO (08:09)
[2021-05-20] MEDS: METOPROLOL SUCCINATE EXT REL 100 MG TABCR PO (08:09)
[2021-05-20] MEDS: lisinopriL 10 MG TABLET PO (08:10)
[2021-05-20] MEDS: CHOLECALCIFEROL 1,000 UNITS TABLET 1000 UNITS PO (08:10)
[2021-05-20] MEDS: CALCIUM CARBONATE (OSCAL) 500 MG TABLET 1000 MG PO (08:10)
[2021-05-20] MEDS: dilTIAZem HCL CD 180 MG CAP.ER.24H PO (08:10)
--- NOTE | 2021-05-20 10:28 | PM.IMPN ---
Progress Note: A&P Assessment and Plan (1) Acute UTI: Code(s): N39.0 - Urinary tract infection, site not specified Status: Acute Assessment and Plan: A urinalysis reveals pyuria. Patient was appropriately started on Rocephin, her cultures have remained negative. Most recently patient was diagnosed with funez sensitive E coli UTI on urine culture from 04/25/2021. Urine and blood cultures have remained negative at the time of this dictation. Discussed with urology; plan for lithotripsy for source control later this week. Meanwhile patient will remain inpatient on IV antibiotics. Patient can be discharged today without any antibiotics. She has remained afebrile and leukocytosis has improved by the time of discharge. (2) Weakness: Code(s): R53.1 - Weakness Status: Acute Assessment and Plan: Likely secondary to acute urinary tract infection in an elderly lady. Improving with daily PT OT . Discharged to assisted living. Continue physical therapy at the assisted living. (3) Acute renal failure (ARF): Qualifiers: Acute renal failure type: unspecified Qualified Code(s): N17.9 - Acute kidney failure, unspecified Code(s): N17.9 - Acute kidney failure, unspecified Status: Acute Assessment and Plan: Resolved mild JEREMY with creatinine already improving down to 1.1. (4) CHF (congestive heart failure): Code(s): I50.9 - Heart failure, unspecified Status: Acute Assessment and Plan: Currently patient without evidence of acute exacerbation. She is tolerating the decubitus position. She only has trace peripheral edema. Chest x-ray read. Unchanged discoid atelectasis/scarring at the right lower lung zone. Resume home medications and stop IV fluids. Mild flat troponin elevation likely reflecting type 2 [place] un the setting of acute illness, Afib with RVR, mild JEREMY and hypoxia. On echocardiogram from 05/16/2021, her left systolic ventricular function is normal, with an EF estimated at 50-55%. Her left atrial chamber dimension is moderately enlarged. (5) Type II diabetes mellitus: Code(s): E11.9 - Type 2 diabetes mellitus without complications Status: Acute Assessment and Plan: Moderately controlled diabetes with blood glucose 157 on 05/17 and Accu-Check in the 138-160 range. Hemoglobin A1c has been ordered and is pending at the time of this dictation. Continue accucheck monitoring. Standard insulin coverage. (6) Atrial fibrillation: Code(s): I48.91 - Unspecified atrial fibrillation Status: Acute Assessment and Plan: Chronic atrial flutter presenting with RVR in setting of sepsis, fall and mild acute kidney injury. Controlled on Diltiazem gtt on admission. Continue p.o. diltiazem in addition to Toprol XL 100 mg daily. ASA to be continued as patient is at significant risk for CVA (CHADS2-Vasc score 7) and A/C would in general be advised. Pt is not currently on systemic A/C presumably due to fall risk. Continue ASA. We will continue aggressive rehabilitation with PT and OT. After rehabilitation, control of current infection, patient may be reassessed with for initiation of chronic anticoagulation for primary stroke prevention. (7) Mood disorder: Code(s): F39 - Unspecified mood [affective] disorder Status: Acute Assessment and Plan: Continue home medication. Patient appears slightly confused on admission which can be likely send with a acute UTI. Head CT was unremarkable. No additional intervention for now. Currently the patient mood as improved significantly. Her mentation is a lot better. She is awake alert and oriented x3. She appears to be back to her baseline. This was likely acute metabolic encephalopathy in the setting of acute infection. Continue to monitor. (8) Hypertension: Code(s): I10 - Essential (primary) hypertension Status: Chronic Assessment and Plan: Blood cultures
[2021-05-20 11:46] LABS: Glucose Point of Care 160 mg/dl (65-105)
== END 2021-05-20 15:37 | DRG 871 ==
LOC: ANHED 05-15 02:55 → ANHICU 05-15 05:45 → ANH3MED 05-17 04:46
PROVIDERS: Internal Medicine; Internal Medicine Cardiovascular Disease; Admitting Provider Internal Medicine; Emergency Provider Emergency Medicine; PCP Family Medicine; Visit Provider Internal Medicine
DX: A41.9 Sepsis, unspecified organism (principal); G93.41 Metabolic encephalopathy; N39.0 Urinary tract infection, site not specified; N17.9 Acute kidney failure, unspecified; I48.92 Unspecified atrial flutter; I42.9 Cardiomyopathy, unspecified; N20.1 Calculus of ureter; I11.0 Hypertensive heart disease with heart failure; I50.9 Heart failure, unspecified; I48.91 Unspecified atrial fibrillation; E11.42 Type 2 diabetes mellitus with diabetic polyneuropathy; R53.1 Weakness; I34.1 Nonrheumatic mitral (valve) prolapse; F39 Unspecified mood [affective] disorder; E78.00 Pure hypercholesterolemia, unspecified; R77.8 Other specified abnormalities of plasma proteins; Z96.0 Presence of urogenital implants; Z98.49 Cataract extraction status, unspecified eye; Z91.81 History of falling; Z86.73 Personal history of transient ischemic attack (TIA), and cerebral infarction without residual deficits
CPT/HCPCS: 36415; 70450; 71045; 74018; 74176; 80048; 80053; 81001; 82948; 83036; 83605; 83735; 83880; 84100; 84132; 84443; 84484; 85025; 85027; 85610; 85730; 87040; 87086; 87088; 93005; 93306; 96365; 96366; 96367; 96368; 96375; 97110; 97116; 97161; 97166; 97530; 97535; 99285; A9270; G0378; J0131; J0696; J1815; J3480; J7030; J7060

== ENCOUNTER 2021-05-20 18:00 | Inpatient (IN) | payer OTHER, SELFPAY ==
[2021-05-20] VITALS (21 sets, daily range): BP systolic 117–160; BP diastolic 69–105; PULSE 85–118; RESP 11–32; TEMP 36.4–37.3; O2SAT 91–97; BMI 42.2
--- NOTE | ~2021-05-20 | CT_ITS ---
EXAMINATION: CT abdomen pelvis wo con EXAM DATE: 05/20/2021 20:13 INDICATION: abd pain, right flank pain. TECHNIQUE: Spiral CT of the abdomen and pelvis was performed without contrast. Axial, coronal and sag ittal images were reviewed. The dose-length product (DLP) for this examination was 1422.72 mGy-cm. The exposure was tailored according to patient size (auto mA exposure control), and iterative reconst ruction (ASIR) was used as additional dose reduction technique. Comparison is made to prior examinati on from 05/15/2021. FINDINGS: Again there are bilateral double-J ureteral stents in position. There is moderate bilateral perinephric and periureteral fat stranding, correlate with urinalysis. Moderate bilateral hydronephr osis is also unchanged. Nonobstructing bilateral calyceal stones up to about 1 cm in each kidney. The uterus is not identified and has likely been surgically resected. The bladder is collapsed at time of imaging limiting evaluation. The liver, spleen, adrenal glands and pancreas are unremarkable. Th ere are cholecystectomy clips. There is no retroperitoneal or pelvic lymphadenopathy. IVC filter. The appendix is normal. There is small sliding gastroesophageal hiatal hernia. There is expected am ount of colonic stool. No free intraperitoneal gas. There is cardiomegaly. There are no pleural o r pericardial effusions. Left lower lobe subsegmental atelectasis. Left lower lobe subsegmental ate lectasis. Moderate lumbar levoscoliosis. IMPRESSION: 1. Persistent moderate bilateral hydroureteronephrosis and perinephric fat stranding. Stents in posi tion. 2. Bilateral nonobstructing calyceal stones. 3. Small hiatal hernia. Reviewed, dictated and finalized at location A. R FEEDER IMPRESSION: 1. Persistent moderate bilateral hydroureteronephrosis and perinephric fat str anding. Stents in position. 2. Bilateral nonobstructing calyceal stones. 3. Small hiatal hernia.
--- NOTE | ~2021-05-20 | CT_ITS ---
EXAMINATION: CT brain wo [facility] EXAM DATE: 05/20/2021 20:13 INDICATION: Altered mental status, disoriented. TECHNIQUE: Spiral CT of the head was performed without contrast. Axial, coronal and sagittal images were reviewed. The dose-length product (DLP) for this examination was 681.00 mGy-cm. The exposure w as tailored according to patient size, and iterative reconstruction (ASIR) was used as additional dos e reduction technique. Comparison is made to prior examination from 05/14/2021. FINDINGS: There is no acute intraparenchymal hemorrhage. No evidence of intraparenchymal brain mass lesion. No evidence of acute infarction. Please note that initial head CT has limited sensitivity f or small or acute infarctions. 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 There is extensive periventricular and subcortical hypodensity, nonspecific but probably related to small v essel ischemic disease. There is mild to moderate prominence of the sulci and ventricles related to cerebral atrophy. There is intracranial carotid arteriosclerosis. There are no extra-axial collec tions. There is no mass effect or midline shift. Patient has had bilateral ocular lens surgery. So ft tissue is unremarkable. The visualized sinuses and mastoid air cells are well aerated. IMPRESSION: 1. No acute intracranial findings. 2. Chronic age related findings. Reviewed, dictated and finalized at location A. CAL SERVICE TECHNICIAN
[2021-05-20 18:28] LABS: Basophils Absolute Auto 0.1 K/mm3 (0.0-0.1); Basophils Percent Auto 0.6 % (0.2-1.2); Eosinophils Absolute Auto 0.6 K/mm3 (0-0.3); Eosinophils Percent Auto 3.6 % (0-4.4); Hematocrit 35.1 % (37.0-47.0); Hemoglobin 11.7 g/dL (12.0-15.0); Immature Granulocyte Absolute 0.35 K/mm3 (0.00-0.031); Immature Granulocyte Percent A 2.3 % (0-0.5); Lymphocytes Absolute Auto 1.64 K/mm3 (0.9-3.2); Lymphocytes Percent Auto 10.8 % (18.3-44.2); Mean Corpuscular HGB Conc 33.3 g/dl (32-36); Mean Corpuscular Hemoglobin 28.5 pg (26-34); Mean Corpuscular Volume 85.6 fl (80-100); Mean Platelet Volume 9.8 fl (7.4-10.4); Monocytes Absolute Auto 1.5 K/mm3 (0.1-0.6); Monocytes Percent Auto 9.9 % (2.6-8.5); Neutrophils Absolute Auto 11.1 K/mm3 (1.3-6.7); Neutrophils Percent Auto 72.8 % (45.5-73.1); Platelet Count Result 472 k/mm3 (150-375); Red Cell Distribution Width 15.3 % (11.5-14.5); White Blood Count 15.2 K/mm3 (4.5-10.0)
[2021-05-20 18:37] LABS: Anion Gap 9 mmol/L (8-16); Blood Urea Nitrogen 31 mg/dL (7-17); Calcium 9.7 mg/dL (8.4-10.2); Carbon Dioxide 30 mmol/L (22-30); Chloride 95 mmol/L (98-107); Estimated CRCL calculation 28 ml/min; Estimated Glomerular Filt Rate 33; Glucose 179 mg/dL (65-110); Potassium 4.6 mmol/L (3.4-5.0); Sodium 134 mmol/L (137-145)
[2021-05-20 19:52] LABS: Alanine Aminotransferase 82 U/L (4-35); Albumin Level 3.9 g/dL (3.5-5.1); Alkaline Phosphatase 271 U/L (38-126); Aspartate Amino Transferase 81 U/L (14-36); Bilirubin,Total 0.4 mg/dL (0.2-1.3); Lipase 264 U/L (23-300)
[2021-05-20] MEDS: ONDANSETRON INJ 4 MG/2 ML VIAL IV PUSH (19:52)
[2021-05-20] MEDS: fentaNYL CITRATE INJ (*CRX) 100 MCG/2 ML VIAL 25 MCG IV PUSH ×2 (19:52→21:41)
[2021-05-20] MEDS: SODIUM CHLORIDE 0.9% IV 1,000 ML 999 ML IV CONT (19:52)
[2021-05-20 19:53] LABS: Lactic Acid Reflex 1.6 mmol/L (0.7-2.1)
--- NOTE | 2021-05-20 19:56 | PC.NURSE ---
Pt off floor to radiology. son given patient's watch
--- NOTE | 2021-05-20 19:59 | PC.NURSE ---
Pt is only oriented to self. MD aware, ordered head CT
--- NOTE | 2021-05-20 20:44 | PC.NURSE ---
Pt vomiting, 100 cc green bili. aware
[2021-05-20 20:51] LABS: Add Urine Microscopic? YES; Appearance Urine Turbid (Clear); Bilirubin Urine Negative (Negative); Blood Urine Negative (Negative); Color Urine Yellow (Yellow); Glucose Urine UA Negative (Negative); Ketones Urine Negative (Negative); Leukocyte Esterase Ur 2+ LEU/UL (Negative); Mucus Urine Few /lpf; Nitrate Urine Negative (Negative); Protein Urine 2+ mg/dL (Negative); RBC Urine >75 /hpf (0-2); Urobilinogen Urine Negative mg/dL (<2.0); WBC Clumps Urine Present /HPF; WBC Urine >75 /hpf
--- NOTE | 2021-05-20 21:19 | PC.NURSE ---
Interaction noted between citalopram and zofran. Order cancelled for additional dose of zofran by Dr Tiwari
--- NOTE | 2021-05-20 21:33 | PM.IMHP ---
H&P: HPI History of Present Illness Date/Time: 05/20/21 21:33 Chief Complaint: Fevers and chills Narrative: This is an 80-year-old female with past medical history significant for atrial fibrillation, arthritis, bronchitis, congestive heart failure, gastroesophageal reflux disease, hypercholesterolemia, mitral valve prolapse, referral neuropathy, kidney stones. Patient was just discharged home to [facility] an assisted living facility where she has been residing for the last 7 years patient had stents placed for urolithiasis and returned after been there for only few hours due to chills, fevers, generalized malaise, rigors, nausea, vomiting, patient is status post situs copy with bilateral stent placement and retrograde pyelograms she is scheduled later this month at [facility] for stent exchange with situs copy and extracorporeal wave lithotripsy. Preliminary workup is significant for CT of abdomen and pelvis with persistent moderate bilateral hydroureteronephrosis and perinephric fat stranding, stents in position, bilateral nonobstructing calyceal stones, small hiatal hernia, WBC was 15,000, creatinine of 1.5 and BUN of 30. Decision has been made to admit the patient for further management, evaluation and treatment. Review of Systems Review of Systems: Chills ,fevers, nausea,vomiting ,generalized weakness, feels ill. Constitutional: Constitutional: Reports chills, Reports fever(s), Reports poor appetite and Reports weakness Eyes: Eyes: Denies change in vision ENT: Denies dysphagia, Denies vertigo, Denies dizziness, Denies nasal discharge, Denies nasal obstruction and Denies odynophagia Cardiovascular: Cardiovascular: Denies edema, Denies irregular heart rhythm, Denies claudication, Denies lightheadedness, Denies radiating jaw, neck or arm pain, Denies palpitations, Denies dyspnea on exertion and Denies orthopnea Respiratory: Respiratory: Denies change in phlegm color, Denies cough, Denies excessive phlegm production and Denies dyspnea Gastrointestinal: Gastrointestinal: Denies abdominal pain, Denies dyspepsia, Denies heartburn, Denies diarrhea, Reports nausea and Reports vomiting Genitourinary: Genitourinary: Denies dysuria and Denies flank pain Musculoskeletal: Musculoskeletal: Denies arthralgias and Denies joint swelling Integumentary/Breasts: Skin/Breast: Denies rash Neurologic: Denies focal weakness and Denies Sensory deficit (Neuro) Psychiatric: Psychiatric: Reports no additional psychiatric complaints and Reports as per HPI Endocrine: Endocrine: Reports no additional endocrine complaints and Reports as per HPI Hematologic/Lymphatic: Hematologic/Lymphatic: Reports no additional hematologic/lymphatic complaints and Reports as per HPI Allergic/Immunologic: Allergic/Immunologic: Reports no additional allergic/immunologic complaints and Reports as per HPI PMFSH Past Medical History Medical History (Updated 05/21/21 @ 01:49 by Edgardo Browne MD) Arthritis Atrial fibrillation Bronchitis CHF (congestive heart failure) Diabetes Foot fracture, left GERD (gastroesophageal reflux disease) Hypercholesterolemia Hypertension Mitral valve prolapse Peripheral neuropathy Pneumonia Sinus problem UTI (urinary tract infection) Surgical History Surgical History H/O cataract extraction H/O: hysterectomy History of appendectomy History of esophageal surgery History of total knee arthroplasty On the left Hx of cholecystectomy S/P excision of lipoma S/P IVC filter Family History Family History Mother Diabetes mellitus Father Diabetes mellitus Sibling Acute myocardial infarction Social History Social History Social History: The patient resides has [facility] living. The patient has 5 children. The patient is . The patient was a homemak
--- NOTE | 2021-05-20 21:47 | PC.NURSE ---
Hospitalist at bedside
[2021-05-20] MEDS: SODIUM CHLORIDE 0.9% IV 1,000 ML 125 ML IV CONT (22:17)
--- NOTE | 2021-05-20 22:17 | ED.ABDPAIN ---
HPI - Abdominal Pain General Chief Complaint: Abdominal Pain Stated Complaint: flank pain Time Seen by Provider: 05/20/21 19:01 Source: RN notes reviewed History of Present Illness HPI narrative: Patient presents emergency department for right flank and abdominal pain. Patient states that she has been having increasing pain in the right flank described as sharp and stabbing states is associated with pain that radiates around to the abdomen as well as nausea she denies any fevers or chills or chest pain denies shortness of breath denies diarrhea. The patient was recently admitted to the hospital and discharged yesterday in which she had bilateral renal stents placed she is due to have her stents replaced and bilateral kidney stone removal next week agreement see by Dr. Sinclair. The patient had had a UTI in the emergency department but was no longer on antibiotics from discharged Related Data Home Medications Medication Instructions Recorded Confirmed calcium carbonate 600 mg calcium 1,200 mg PO DAILY tablet 09/27/20 05/15/21 (1,500 mg) tablet cholecalciferol (vitamin D3) 25 25 mcg PO DAILY 09/27/20 05/15/21 mcg (1,000 unit) tablet diltiazem HCl 180 mg 180 mg PO DAILY 09/27/20 05/15/21 capsule,extended release 24 hr furosemide 40 mg tablet 40 mg PO QAM 09/27/20 05/15/21 metformin 1,000 mg tablet 1,000 mg PO BID 09/27/20 05/15/21 citalopram 10 mg PO DAILY 05/01/21 05/15/21 nystatin See Rx Instructions .ROUTE 05/01/21 05/15/21 .COMPLEX PRN CertaVite Senior 1 tablet PO DAILY 05/15/21 05/15/21 aspirin 325 mg PO DAILY 05/15/21 05/15/21 cyclobenzaprine 5 mg PO HS PRN 05/15/21 05/15/21 lisinopril 5 mg PO DAILY 05/15/21 05/15/21 meclizine 25 mg PO BID PRN 05/15/21 05/15/21 metoprolol succinate 100 mg PO DAILY 05/15/21 05/15/21 potassium chloride 20 meq PO DAILY 05/15/21 05/15/21 Allergies Allergy/AdvReac Type Severity Reaction Status Date / Time bisoprolol Allergy Intermediate unknown Verified 05/12/21 07:35 hydrochlorothiazide Allergy Intermediate unknown Verified 05/12/21 07:35 oxycodone Allergy Intermediate unknown Verified 05/12/21 07:35 Review of Systems Review of Systems: Gen.: Denies fevers or chills ENT: Denies congestion Respiratory: Denies shortness of breath or cough CV: Denies chest pain or palpitations GI: Reports abdominal pain nausea and emesis denies diarrhea see HPI Musculoskeletal: Denies back pain or muscle pain Neuro: Denies numbness, tingling, weakness or focal weakness Skin: Denies rash Except as documented, all other systems reviewed and negative [facility] Past Medical History Medical History Arthritis Atrial fibrillation Bronchitis CHF (congestive heart failure) Diabetes Foot fracture, left GERD (gastroesophageal reflux disease) Hypercholesterolemia Hypertension Mitral valve prolapse Peripheral neuropathy Pneumonia Sinus problem UTI (urinary tract infection) Surgical History Surgical History H/O cataract extraction H/O: hysterectomy History of appendectomy History of esophageal surgery History of total knee arthroplasty On the left Hx of cholecystectomy S/P excision of lipoma S/P IVC filter Family History Family History Mother Diabetes mellitus Father Diabetes mellitus Sibling Acute myocardial infarction Social History Social History Social History: The patient resides has [facility]. The patient has 5 children. The patient is . 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 The patient does have a durable power claim attorney for healthcare. The patient is lifelong nonsmoker. She does not use any marijuana alcohol or illicit drugs. Code status Full code Smoking status: Never smoker Second hand tobacco smoke exposure:
--- NOTE | 2021-05-20 23:06 | PC.NURSE ---
Called [facility] requesting facility paperwork to be faxed to ED. Unable to locate facility paperwork.
--- NOTE | 2021-05-20 23:45 | ADMGEN ---
This patient, Freda Khanna, was admitted to Medical Room 347-01. Patient/family oriented to hospital policies and general routines including ID bracelet, bed and alarms, visiting hours, pain management, procedures, bathroom and other care routines, personal items, smoking policy, room service/diet, and visiting hours. Information on how to activate the Rapid Response Team has been discussed. Patient/Family are encouraged to report perceived risks to care and to ask questions if they do not understand what they are told or what they should do.
[2021-05-21] VITALS (10 sets, daily range): BP systolic 115–157; BP diastolic 57–88; PULSE 80–115; RESP 16–18; TEMP 36.1–37.7; O2SAT 91–94
[2021-05-21 04:47] LABS: Basophils Absolute Auto 0.1 K/mm3 (0.0-0.1); Basophils Percent Auto 0.4 % (0.2-1.2); Eosinophils Percent Auto 0.1 % (0-4.4); Hematocrit 32.7 % (37.0-47.0); Hemoglobin 10.9 g/dL (12.0-15.0); Immature Granulocyte Absolute 0.33 K/mm3 (0.00-0.031); Immature Granulocyte Percent A 2.4 % (0-0.5); Lymphocytes Absolute Auto 1.04 K/mm3 (0.9-3.2); Lymphocytes Percent Auto 7.5 % (18.3-44.2); Mean Corpuscular HGB Conc 33.3 g/dl (32-36); Mean Corpuscular Hemoglobin 28.3 pg (26-34); Mean Corpuscular Volume 84.9 fl (80-100); Mean Platelet Volume 10.2 fl (7.4-10.4); Monocytes Absolute Auto 0.9 K/mm3 (0.1-0.6); Monocytes Percent Auto 6.6 % (2.6-8.5); Neutrophils Absolute Auto 11.6 K/mm3 (1.3-6.7); Platelet Count Result 455 k/mm3 (150-375); Red Blood Count 3.85 M/mm3 (4.2-5.4); Red Cell Distribution Width 15.3 % (11.5-14.5); White Blood Count 13.9 K/mm3 (4.5-10.0)
[2021-05-21 05:01] LABS: Alanine Aminotransferase 72 U/L (4-35); Albumin Level 3.4 g/dL (3.5-5.1); Alkaline Phosphatase 231 U/L (38-126); Anion Gap 8 mmol/L (8-16); Aspartate Amino Transferase 65 U/L (14-36); Bilirubin,Total 0.4 mg/dL (0.2-1.3); Blood Urea Nitrogen 30 mg/dL (7-17); Calcium 8.7 mg/dL (8.4-10.2); Carbon Dioxide 31 mmol/L (22-30); Chloride 97 mmol/L (98-107); Estimated CRCL calculation 25 ml/min; Estimated Glomerular Filt Rate 29; Glucose 201 mg/dL (65-110); Potassium 4.1 mmol/L (3.4-5.0); Sodium 136 mmol/L (137-145)
[2021-05-21 08:07] LABS: Glucose Point of Care 178 mg/dl (65-105)
[2021-05-21] MEDS: SODIUM CHLORIDE 0.9% IV 1,000 ML 100 ML IV CONT ×2 (09:16→20:51)
[2021-05-21] MEDS: MULTIVITAMINS /C LUTEIN (CENTRUM SILVER) TABLET *BKC 1 TAB PO (09:17)
[2021-05-21] MEDS: CALCIUM CARBONATE (OSCAL) 500 MG TABLET 1000 MG PO (09:17)
[2021-05-21] MEDS: METOPROLOL SUCCINATE EXT REL 100 MG TABCR PO (09:18)
[2021-05-21] MEDS: INSULIN GLARGINE (*BKC) 100 UNITS/ML 15 UNITS SUB-Q (09:28)
[2021-05-21] MEDS: MICONAZOLE NITRATE 2% CREAM 30 GM TUBE 1 APPLIC TOPICAL ×2 (09:29→17:58)
[2021-05-21] MEDS: dilTIAZem HCL CD 180 MG CAP.ER.24H PO (10:29)
[2021-05-21] MEDS: CITALOPRAM HYDROBROMIDE 10 MG TABLET PO (10:29)
[2021-05-21] MEDS: CHOLECALCIFEROL 1,000 UNITS TABLET 1000 UNITS PO (10:29)
--- NOTE | 2021-05-21 11:46 | PM.IMPN ---
Progress Note: A&P Assessment and Plan (1) Acute UTI: Code(s): N39.0 - Urinary tract infection, site not specified Status: Acute Assessment and Plan: Patient is an 80-year-old woman with a history of diabetes, atrial fibrillation not on anticoagulation most likely secondary to fall risk, who was just discharged from our hospital after being admitted for generalized weakness, CHF, diabetes, and bilateral ureteral calculi. She was given IV Rocephin while here since her urine culture from 04/25/2021 grew out E coli which was pansensitive. Urology evaluated her in the hospital and has set up a cystoscopy with stent exchange and stone removal on 05/27/2021 at 3:00 p.m. at [facility], [place]. The patient was discharged to SNF facility where she was not even there for 24 hours when she began feeling disoriented, right flank pain. Initial vitals showed stable blood pressure 132/69, heart rate 92, afebrile, normal oxygenation on room air. Initial labs showed leukocytosis at 15,000, normal neutrophil count, normocytic anemia with a hemoglobin of 11, hematocrit 35. Slight hyponatremia at 134, elevated creatinine at 1.5, BUN 31. Lactic acid was normal at 1.6. Elevated LFTs with an AST of 81, ALT 82, alk-phos 271. Lipase normal. Urinalysis shows turbid urine with 2+ leukocyte esterase, greater than 75 WBCs and RBCs, WBC clumps present. Abdominal CT scan showed Persistent moderate bilateral hydroureteronephrosis and perinephric fat stranding. Stents in position. Bilateral nonobstructing calyceal stones. Small hiatal hernia. The patient was admitted into the hospital with broad-spectrum antibiotics for UTI and Urology consult due to moderate bilateral hydroureternephrosis. Started on IV Zosyn until urine and blood cultures return Continue IV fluid hydration at 100 cc/hour due to elevated creatinine Urology evaluated the patient and will place her NPO after midnight and may perform further evaluation Bladder scan showed she was retaining 200 cc, will continue monitoring to make sure she is not retaining urine Continue monitoring. Appreciate urology input (2) Bilateral hydronephrosis: Code(s): N13.30 - Unspecified hydronephrosis Status: Acute Assessment and Plan: Could be due to obstructive nephropathy due to kidney stones in ureters verses outflow obstruction verses underlying infection Bladder scan showed she was only retaining 200 cc, will continue monitoring to make sure she is not retaining more needs to Schwartz Urology evaluated the patient and may perform a procedure tomorrow if she is still having issues with increasing creatinine Will continue some IV fluid hydration at this time and recheck labs in morning. (3) Acute renal insufficiency: Code(s): N28.9 - Disorder of kidney and ureter, unspecified Status: Acute Assessment and Plan: Likely secondary to post obstructive uropathy and UTI infection Continue IV fluids Continue to monitor Holding Lasix , lisinopril and metformin. Continue monitoring. (4) Nausea and vomiting: Code(s): R11.2 - Nausea with vomiting, unspecified Status: Acute Assessment and Plan: Likely due to underlying infection. P.r.n. antiemetics. Patient states she is feeling much better at this time (5) Chronic atrial flutter: Code(s): I48.92 - Unspecified atrial flutter Status: Acute Assessment and Plan: Rate controlled. Will order Lovenox while hospitalized. She is not on chronic anticoagulation due to fall risk Continue to monitor (6) Type II diabetes mellitus: Code(s): E11.9 - Type 2 diabetes mellitus without complications Status: Acute Assessment and Plan: Continue monitoring. Will hold metformin due to JEREMY. Will continue insulin. Accu-Cheks AC and HS. Sliding scale insulin. Hypoglycemic protocol in place. (7) GERD (gastroesophageal reflux disease): Code(s): K21.9 - Gastro-eso
[2021-05-21 12:26] LABS: Glucose Point of Care 163 mg/dl (65-105)
--- NOTE | 2021-05-21 13:05 | WPDURCON ---
Assessment and Plan Additional Plan 80-year-old woman with bilateral ureteral stents in place and presumed urosepsis. Cultures are pending. She was started on Zosyn for broad-spectrum antibiosis well cultures results. I suspect her azotemia secondary to urosepsis. Blood pressures are stable however she is persistently tachycardic. Her urine output is low however she and her nurse report that she suffers from incontinence which will complicate monitoring I&Os . 1. Agree with IV fluid rehydration, agree with antibiotic selection. Taper to culture and sensitivity as they result. 2. Place Schwartz. Repeat a BMP around 4:00 p.m.. This will allow 12 hours since the last. if her creatinine continues to rise with a Schwartz catheter and her urine outputs are low, we will proceed to the operating room for ureteral stent replacement and up-sizing. NPO at midnight. Discussed plan with nursing. 3. Contact Urology emergently if the patient develops hemodynamic instability. Urology Consult Note HPI Date Seen: 05/21/21 Requesting Physician: Sayda Cartagena PA-C Primary Care Provider: Dayton Jones DO Consult Narrative Narrative: Freda Khanna is a 80 year old female low underwent bilateral ureteral stent placement with Dr. Monge several weeks ago for ureteral stones. She was discharged and then subsequently readmitted for presumed urosepsis. To his again discharged this time without antibiotics as her cultures were negative but presented to the emergency room at [facility] with tachycardia confusion and weakness. In the emergency room she was noted to have a leukocytosis, elevated creatinine, CT demonstrated ureteral stents in position, urinalysis with suggestion of urinary tract infection, cultures are pending. She is scheduled for bilateral ureteroscopy laser lithotripsy with Dr. Osullivan at [facility] on Sunday05/27/2021. Review of Systems Constitutional: Constitutional: Reports as per HPI Eyes: Eyes: Reports no additional eye complaints ENT: Reports system reviewed and no additional complaints, except as documented and Reports Normal hearing present Cardiovascular: Cardiovascular: Reports as per HPI Respiratory: Respiratory: Reports no additional respiratory complaints Gastrointestinal: Gastrointestinal: Reports no additional gastrointestinal complaints Genitourinary: Genitourinary: Reports as per HPI Musculoskeletal: Musculoskeletal: Reports as per HPI Integumentary/Breasts: Skin/Breast: Reports system reviewed and no additional complaints, except as docu Neurologic: Reports system reviewed and no additional complaints, except as documented Psychiatric: Psychiatric: Reports no additional psychiatric complaints Endocrine: Endocrine: Reports no additional endocrine complaints [facility] Past Medical History Medical History (Updated 05/21/21 @ 12:20 by Sayda Cartagena PA-C) Arthritis Atrial fibrillation Bronchitis CHF (congestive heart failure) Diabetes Foot fracture, left GERD (gastroesophageal reflux disease) Hypercholesterolemia Hypertension Mitral valve prolapse Peripheral neuropathy Pneumonia Sinus problem UTI (urinary tract infection) Surgical History Surgical History H/O cataract extraction H/O: hysterectomy History of appendectomy History of esophageal surgery History of total knee arthroplasty On the left Hx of cholecystectomy S/P excision of lipoma S/P IVC filter Family History Family History Mother Diabetes mellitus Father Diabetes mellitus Sibling Acute myocardial infarction Social History Social History Social History: The patient resides has [facility] [place] living. The patient has 5 children. The patient is . 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 The
--- NOTE | 2021-05-21 13:31 | PCPTNOTE ---
attempted PT evaluation 1330, pt was resting in bed, partially asleep; stated tired and did not want PT evaluation. Her son was present, stated she is worn out, came in late last night and did not get enough sleep last night. He stated pt to rest and do PT tomorrow.
[2021-05-21] MEDS: ENOXAPARIN 30 MG/0.3 ML SYRINGE SUB-Q (14:07)
--- NOTE | 2021-05-21 14:57 | PCOTNOTE ---
OT evaluation attempted; pt. unarousable d/t increased fatigue. Vitals check revealed 100 degree fever. Will follow-up for evaluation at a later time.
[2021-05-21 16:06] LABS: Anion Gap 9 mmol/L (8-16); Blood Urea Nitrogen 25 mg/dL (7-17); Calcium 8.5 mg/dL (8.4-10.2); Carbon Dioxide 30 mmol/L (22-30); Chloride 97 mmol/L (98-107); Estimated CRCL calculation 30 ml/min; Estimated Glomerular Filt Rate 36; Glucose 171 mg/dL (65-110); Potassium 3.9 mmol/L (3.4-5.0); Sodium 136 mmol/L (137-145)
[2021-05-21 16:40] LABS: Glucose Point of Care 145 mg/dl (65-105)
[2021-05-21 20:20] LABS: Glucose Point of Care 142 mg/dl (65-105)
[2021-05-21] MEDS: PANTOPRAZOLE 40 MG TABLET PO (20:51)
[2021-05-22 05:09] VITALS: BP 128/83; PULSE 78; RESP 18; TEMP 36.6; O2SAT 92
[2021-05-22 06:01] LABS: Basophils Absolute Auto 0.1 K/mm3 (0.0-0.1); Basophils Percent Auto 0.5 % (0.2-1.2); Eosinophils Percent Auto 8.4 % (0-4.4); Hematocrit 30.3 % (37.0-47.0); Hemoglobin 9.9 g/dL (12.0-15.0); Immature Granulocyte Absolute 0.19 K/mm3 (0.00-0.031); Immature Granulocyte Percent A 1.7 % (0-0.5); Lymphocytes Absolute Auto 0.87 K/mm3 (0.9-3.2); Lymphocytes Percent Auto 7.6 % (18.3-44.2); Mean Corpuscular HGB Conc 32.7 g/dl (32-36); Mean Corpuscular Hemoglobin 27.6 pg (26-34); Mean Corpuscular Volume 84.4 fl (80-100); Mean Platelet Volume 9.9 fl (7.4-10.4); Monocytes Absolute Auto 0.7 K/mm3 (0.1-0.6); Monocytes Percent Auto 6.3 % (2.6-8.5); Neutrophils Absolute Auto 8.7 K/mm3 (1.3-6.7); Neutrophils Percent Auto 75.5 % (45.5-73.1); Platelet Count Result 483 k/mm3 (150-375); Red Blood Count 3.59 M/mm3 (4.2-5.4); Red Cell Distribution Width 15.6 % (11.5-14.5); White Blood Count 11.5 K/mm3 (4.5-10.0)
[2021-05-22 06:15] LABS: Alanine Aminotransferase 50 U/L (4-35); Albumin Level 2.9 g/dL (3.5-5.1); Alkaline Phosphatase 166 U/L (38-126); Anion Gap 8 mmol/L (8-16); Aspartate Amino Transferase 40 U/L (14-36); Bilirubin,Total 0.3 mg/dL (0.2-1.3); Blood Urea Nitrogen 22 mg/dL (7-17); Calcium 7.9 mg/dL (8.4-10.2); Carbon Dioxide 28 mmol/L (22-30); Chloride 100 mmol/L (98-107); Estimated CRCL calculation 34 ml/min; Estimated Glomerular Filt Rate 43; Glucose 115 mg/dL (65-110); Potassium 3.5 mmol/L (3.4-5.0); Sodium 136 mmol/L (137-145)
[2021-05-22 08:04] LABS: Glucose Point of Care 98 mg/dl (65-105)
[2021-05-22] MEDS: INSULIN GLARGINE (*BKC) 100 UNITS/ML 10 UNITS SUB-Q (08:58)
[2021-05-22] MEDS: CHOLECALCIFEROL 1,000 UNITS TABLET 1000 UNITS PO (08:59)
[2021-05-22] MEDS: CALCIUM CARBONATE (OSCAL) 500 MG TABLET 1000 MG PO (08:59)
[2021-05-22] MEDS: MULTIVITAMINS /C LUTEIN (CENTRUM SILVER) TABLET *BKC 1 TAB PO (08:59)
[2021-05-22] MEDS: CITALOPRAM HYDROBROMIDE 10 MG TABLET PO (08:59)
[2021-05-22] MEDS: dilTIAZem HCL CD 180 MG CAP.ER.24H PO (08:59)
[2021-05-22] MEDS: PANTOPRAZOLE 40 MG TABLET PO ×2 (08:59→20:04)
[2021-05-22 09:00] VITALS: PULSE 80
[2021-05-22] MEDS: METOPROLOL SUCCINATE EXT REL 100 MG TABCR PO (09:00)
[2021-05-22] MEDS: ENOXAPARIN 30 MG/0.3 ML SYRINGE SUB-Q (09:00)
[2021-05-22] MEDS: MICONAZOLE NITRATE 2% CREAM 30 GM TUBE 1 APPLIC TOPICAL ×2 (09:01→17:38)
[2021-05-22 09:34] LABS: Magnesium 1.3 mg/dL (1.6-2.3)
[2021-05-22 10:03] LABS: Hepatitis B Surface Antigen Negative (Negative)
[2021-05-22 10:08] LABS: HAV RESULT Negative (Negative); Hepatitis B Core IgM Result Negative (Negative)
--- NOTE | 2021-05-22 10:16 | WPDUROPN2 ---
Progress Note: A&P Additional Plan 80F with presume urosepsis and urinary retention--cultures pending, serum studies demonstrate improvement. 1. Culture pending at [facility], they expect result tomorrow morning, continue broad spectrum antibiotics, patient's mental status is improving. 2. SCr down-trending, maintain Schwartz for maximal urinary drainage and likely source control. 3. Trend labs. I have discussed with Dr. Osullivan who is scheduled to take patient to OR on Sunday for URS/LL. OR plans may need to be delayed pending patient's clinical status. Monique Alvarado MD [facility] Subjective Subjective Date/Time Seen: 05/22/21 10:16 Interval history: NAEO, SCr has down-trended after Schwartz placement, suspect retention and likely infection at play. I called [facility], culture was plated at 3AM, expect results tomorrow morning (05/23/21). Dr. Osullivan aware. Exam Const: General: cooperative, comfortable and no acute distress Orientation/consciousness: oriented to person, oriented to place, oriented to time and confusion (Less confused today.) HENMT: Face and sinus: normal facial exam and no edema Eyes: General: appearance normal, both eyes and all related structures Neck: Neck: normal visual inspection Resp: Effort & Inspection: normal respiratory effort, able to speak in complete sentences, normal respiratory pattern and no audible wheezes Cardio: Jugular venous distension: JVD present Rate: regular rate (HR 86) Rhythm: regular rhythm GI: Inspection: normal to inspection Urinary Catheter: Urinary Catheter: patent and draining and urine clear Objective Data Vital Signs Vital Signs: Vital Signs - 24 hr 05/21/21 10:37 05/21/21 11:54 05/21/21 14:00 Temperature 100 F H Pulse Rate 83 92 Respiratory Rate 16 Blood Pressure 121/58 L Pulse Oximetry 91 94 93 05/21/21 14:56 05/21/21 15:28 05/21/21 18:00 Temperature 100 F H 99.4 F 98 F Pulse Rate Respiratory Rate Blood Pressure Pulse Oximetry 05/21/21 19:55 05/21/21 20:23 05/22/21 05:09 Temperature 97.3 F L 98 F Pulse Rate 82 80 78 Respiratory Rate 16 16 18 Blood Pressure 115/57 L 128/83 Pulse Oximetry 93 93 92 05/22/21 09:00 Temperature Pulse Rate 80 Respiratory Rate Blood Pressure Pulse Oximetry Intake/Output Intake/Output: Intake & Output 05/19/21 05/20/21 05/21/21 05/22/21 23:59 23:59 23:59 23:59 Intake Total 1050 2650 50 Output Total 277 60 9560 Balance 890 2625 -950 Meds/Results Medications: Active Medications Generic Name Dose Route Start Last Admin Trade Name Freq PRN Reason Stop Dose Admin Calcium Carbonate 1,000 mg 05/21/21 09:00 05/22/21 08:59 Calcium Carbonate (Oscal) 500 Mg Tablet PO 1,000 mg QAM DALIA Administration Citalopram Hydrobromide 10 mg 05/21/21 09:00 05/22/21 08:59 Citalopram Hydrobromide 10 Mg Tablet PO 10 mg DAILY DALIA Administration Dextrose 12.5 gm 05/21/21 07:55 Dextrose 50% 25 Gm/50 Ml Syringe IV PUSH PRN PRN Hypoglycemia Protocol Diltiazem HCl 180 mg 05/21/21 09:00 05/22/21 08:59 Diltiazem Hcl Cd 180 Mg Cap.Er.24h PO 180 mg DAILY DALIA Administration Enoxaparin Sodium 30 mg 05/21/21 13:18 05/22/21 09:00 Enoxaparin 30 Mg/0.3 Ml Syringe SUB-Q 30 mg DAILY DALIA Administration Glucagon 1 mg 05/21/21 07:55 Glucagon For Inj 1 Mg Vial IM PRN PRN Hypoglycemia Protocol Glucose 15 gm 05/21/21 07:55 Glucose Oral Gel 15 Gm Of Glucse In 37.5 Gm Tube PO PRN PRN Hypoglycemia Protocol Piperacillin Sod/Tazobactam Sod 2.25 gm in 50 mls @ 100 mls/hr 05/21/21 12:00 05/22/21 06:10 Zosyn 2.25 Gm/D5w 50 Ml IVPB Infused Q6HR DALIA Infusion Dextrose 1,000 mls @ 100 mls/hr 05/21/21 07:55 Dextrose 5% 1,000 Ml IVPB PRN PRN Hypoglycemia Protocol Insulin Aspart 4 - 8 units 05/21/21 08:00 05/22/21 08:51 Insulin Aspart (*Bkc) 100 Units/Ml SUB-Q Not Given TIDW
[2021-05-22 10:20] LABS: Hepatitis C Virus Antibody Negative (Negative)
--- NOTE | 2021-05-22 10:24 | PM.IMPN ---
Progress Note: A&P Assessment and Plan (1) Acute UTI: Code(s): N39.0 - Urinary tract infection, site not specified Status: Acute Assessment and Plan: Patient is an 80-year-old woman with a history of diabetes, atrial fibrillation not on anticoagulation most likely secondary to fall risk, who was just discharged from our hospital after being admitted for generalized weakness, CHF, diabetes, and bilateral ureteral calculi. She was given IV Rocephin while here since her urine culture from 04/25/2021 grew out E coli which was pansensitive. Urology evaluated her in the hospital and has set up a cystoscopy with stent exchange and stone removal on 05/27/2021 at 3:00 p.m. at [facility]. The patient was discharged to SNF facility where she was not even there for 24 hours when she began feeling disoriented, right flank pain. Initial vitals showed stable blood pressure 132/69, heart rate 92, afebrile, normal oxygenation on room air. Initial labs showed leukocytosis at 15,000, normal neutrophil count, normocytic anemia with a hemoglobin of 11, hematocrit 35. Slight hyponatremia at 134, elevated creatinine at 1.5, BUN 31. Lactic acid was normal at 1.6. Elevated LFTs with an AST of 81, ALT 82, alk-phos 271. Lipase normal. Urinalysis shows turbid urine with 2+ leukocyte esterase, greater than 75 WBCs and RBCs, WBC clumps present. Abdominal CT scan showed Persistent moderate bilateral hydroureteronephrosis and perinephric fat stranding. Stents in position. Bilateral nonobstructing calyceal stones. Small hiatal hernia. The patient was admitted into the hospital with broad-spectrum antibiotics for UTI and Urology consult due to moderate bilateral hydroureternephrosis. Continue on IV Zosyn until urine Blood cultures are negative to date Will discontinue IV fluids at this time since she has improvement of her creatinine. Urology evaluated the patient and placed a Schwartz catheter. They feel with her creatinine improving, good output with the Schwartz catheter this could have been contributing to her UTI from urinary retention. Bladder scan showed she was retaining 200 cc Waiting for urine culture results Continue monitoring. Appreciate urology input (2) Sepsis: Code(s): A41.9 - Sepsis, unspecified organism Status: Acute Assessment and Plan: Patient meets criteria for sepsis with fever of 100, tachycardia, leukocytosis, with metabolic encephalopathy in the setting of an acute UTI Given IV fluid hydration which is now discontinued Given broad-spectrum IV antibiotics, pending urine culture results Blood culture results are negative today Patient is much more back to her baseline at this time. She has been afebrile overnight, non tachycardic, leukocytosis improving Continue monitoring. (3) Metabolic encephalopathy: Code(s): G93.41 - Metabolic encephalopathy Status: Acute Assessment and Plan: See under sepsis. (4) Bilateral hydronephrosis: Code(s): N13.30 - Unspecified hydronephrosis Status: Acute Assessment and Plan: Could be due to obstructive nephropathy due to kidney stones in ureters verses outflow obstruction verses underlying infection Bladder scan showed she was only retaining 200 cc, will continue monitoring to make sure she is not retaining more needs to Schwartz Urology evaluated the patient and placed a Schwartz catheter. Believed that urinary retention could be contributing to her bilateral hydronephrosis. Creatinine improving and we will continue waiting for urine culture results. Will continue some IV fluid hydration at this time and recheck labs in morning. (5) Acute renal insufficiency: Code(s): N28.9 - Disorder of kidney and ureter, unspecified Status: Acute Assessment and Plan: Likely secondary to post obstructive uropathy and UTI infection Creatinine improved to 1.2 this morning. Will discontinue IV fluids to prevent fluid ov
[2021-05-22 12:03] LABS: Glucose Point of Care 165 mg/dl (65-105)
[2021-05-22] MEDS: MAGNESIUM SULF 4 GM/WATER100ML 4 GM/100 ML BAG IVPB (12:18)
[2021-05-22] MEDS: POTASSIUM CHLORIDE 20 MEQ TABLET 40 MEQ PO (13:20)
[2021-05-22 14:00] VITALS: BP 132/72; PULSE 79; RESP 16; TEMP 37.4; O2SAT 96
[2021-05-22 17:33] LABS: Glucose Point of Care 251 mg/dl (65-105)
[2021-05-22] MEDS: INSULIN ASPART (*BKC) 100 UNITS/ML SUB-Q (17:37)
[2021-05-22 20:08] VITALS: BP 123/88; PULSE 77; RESP 18; TEMP 36.2; O2SAT 96
[2021-05-22 21:16] LABS: Glucose Point of Care 228 mg/dl (65-105)
[2021-05-23 05:23] VITALS: BP 142/89; PULSE 86; RESP 18; TEMP 36.4; O2SAT 95
[2021-05-23 06:51] LABS: Basophils Absolute Auto 0.1 K/mm3 (0.0-0.1); Basophils Percent Auto 0.6 % (0.2-1.2); Eosinophils Absolute Auto 0.5 K/mm3 (0-0.3); Eosinophils Percent Auto 5.1 % (0-4.4); Hematocrit 30.4 % (37.0-47.0); Hemoglobin 10.1 g/dL (12.0-15.0); Immature Granulocyte Absolute 0.28 K/mm3 (0.00-0.031); Lymphocytes Absolute Auto 1.02 K/mm3 (0.9-3.2); Lymphocytes Percent Auto 10.7 % (18.3-44.2); Mean Corpuscular HGB Conc 33.2 g/dl (32-36); Mean Corpuscular Hemoglobin 28.5 pg (26-34); Mean Corpuscular Volume 85.9 fl (80-100); Mean Platelet Volume 10.1 fl (7.4-10.4); Monocytes Absolute Auto 0.9 K/mm3 (0.1-0.6); Monocytes Percent Auto 9.2 % (2.6-8.5); Neutrophils Absolute Auto 6.8 K/mm3 (1.3-6.7); Neutrophils Percent Auto 71.4 % (45.5-73.1); Platelet Count Result 414 k/mm3 (150-375); Red Blood Count 3.54 M/mm3 (4.2-5.4); Red Cell Distribution Width 15.3 % (11.5-14.5); White Blood Count 9.5 K/mm3 (4.5-10.0)
[2021-05-23 07:05] LABS: Alanine Aminotransferase 57 U/L (4-35); Alkaline Phosphatase 178 U/L (38-126); Anion Gap 8 mmol/L (8-16); Aspartate Amino Transferase 54 U/L (14-36); Bilirubin,Total 0.3 mg/dL (0.2-1.3); Blood Urea Nitrogen 17 mg/dL (7-17); Calcium 7.7 mg/dL (8.4-10.2); Carbon Dioxide 26 mmol/L (22-30); Chloride 97 mmol/L (98-107); Estimated CRCL calculation 37 ml/min; Estimated Glomerular Filt Rate 48; Glucose 160 mg/dL (65-110); Magnesium 1.5 mg/dL (1.6-2.3); Potassium 3.6 mmol/L (3.4-5.0); Sodium 131 mmol/L (137-145)
[2021-05-23 07:48] LABS: Glucose Point of Care 171 mg/dl (65-105)
[2021-05-23 08:00] VITALS: PULSE 74; RESP 18; O2SAT 97
[2021-05-23 08:25] VITALS: PULSE 86
[2021-05-23] MEDS: CHOLECALCIFEROL 1,000 UNITS TABLET 1000 UNITS PO (08:25)
[2021-05-23] MEDS: dilTIAZem HCL CD 180 MG CAP.ER.24H PO (08:25)
[2021-05-23] MEDS: MULTIVITAMINS /C LUTEIN (CENTRUM SILVER) TABLET *BKC 1 TAB PO (08:25)
[2021-05-23] MEDS: CALCIUM CARBONATE (OSCAL) 500 MG TABLET 1000 MG PO (08:25)
[2021-05-23] MEDS: METOPROLOL SUCCINATE EXT REL 100 MG TABCR PO (08:25)
[2021-05-23] MEDS: PANTOPRAZOLE 40 MG TABLET PO ×2 (08:26→20:25)
[2021-05-23] MEDS: CITALOPRAM HYDROBROMIDE 10 MG TABLET PO (08:26)
[2021-05-23] MEDS: MICONAZOLE NITRATE 2% CREAM 30 GM TUBE 1 APPLIC TOPICAL ×2 (08:28→17:20)
[2021-05-23] MEDS: POTASSIUM CHLORIDE 20 MEQ TABLET 40 MEQ PO (08:32)
[2021-05-23] MEDS: INSULIN GLARGINE (*BKC) 100 UNITS/ML 10 UNITS SUB-Q (08:33)
[2021-05-23] MEDS: ENOXAPARIN 30 MG/0.3 ML SYRINGE SUB-Q (08:41)
--- NOTE | 2021-05-23 08:55 | WPDUROPN2 ---
Progress Note: A&P Assessment and Plan (1) Sepsis: Code(s): A41.9 - Sepsis, unspecified organism Status: Acute Assessment and Plan: Urine culture was negative from 05/20/2021. WBC is stable, creatinine is normal at 1.10. (2) Bilateral hydronephrosis: Code(s): N13.30 - Unspecified hydronephrosis Status: Acute Assessment and Plan: Keep drake in place, stents are in place and draining and will be exchanged with Dr. Osullivan this Sunday at [place] as well as bilateral ureteral calculi removal. No further evaluation needed. Ok to discharge with drake at anytime from a urologic standpoint. (3) Bilateral ureteral calculi: Code(s): N20.1 - Calculus of ureter Status: Acute Subjective Subjective Date/Time Seen: 05/23/21 08:55 SCr has down-trended after Drake placement, suspect retention, urine cultures are negative. Urine remains cloudy and milky secondary to stents, it is draining well to gravity. Review of Systems Cardiovascular: Cardiovascular: Denies chest pain Respiratory: Respiratory: Reports no additional respiratory complaints Gastrointestinal: Gastrointestinal: Reports abdominal pain, Denies nausea and Denies vomiting Genitourinary: Genitourinary: Denies hematuria, Denies flank pain and Reports other (retention) Exam Resp: Effort & Inspection: normal respiratory effort Cardio: Rate: regular rate GI: GI Palp: Yes Soft to palpation and Yes Tenderness to palpation present (GI) (bilaterally) Urinary Catheter: Urinary Catheter: patent and draining and urine cloudy Extrem: General: no edema Objective Data Vital Signs Vital Signs: Vital Signs - 24 hr 05/22/21 09:00 05/22/21 14:00 05/22/21 20:08 Temperature 99.3 F 97.2 F L Pulse Rate 80 79 77 Respiratory Rate 16 18 Blood Pressure 132/72 123/88 Pulse Oximetry 96 96 05/23/21 05:23 05/23/21 08:25 Temperature 97.6 F Pulse Rate 86 86 Respiratory Rate 18 Blood Pressure 142/89 H Pulse Oximetry 95 Intake/Output Intake/Output: Intake & Output 05/20/21 05/21/21 05/22/21 05/23/21 23:59 23:59 23:59 23:59 Intake Total 1050 2650 440 550 Output Total 041 73 4535 900 Balance 890 2625 -1360 -350 Meds/Results Medications: Active Medications Generic Name Dose Route Start Last Admin Trade Name Freq PRN Reason Stop Dose Admin Calcium Carbonate 1,000 mg 05/21/21 09:00 05/23/21 08:25 Calcium Carbonate (Oscal) 500 Mg Tablet PO 1,000 mg QAM DALIA Administration Citalopram Hydrobromide 10 mg 05/21/21 09:00 05/23/21 08:26 Citalopram Hydrobromide 10 Mg Tablet PO 10 mg DAILY DALIA Administration Dextrose 12.5 gm 05/21/21 07:55 Dextrose 50% 25 Gm/50 Ml Syringe IV PUSH PRN PRN Hypoglycemia Protocol Diltiazem HCl 180 mg 05/21/21 09:00 05/23/21 08:25 Diltiazem Hcl Cd 180 Mg Cap.Er.24h PO 180 mg DAILY DALIA Administration Enoxaparin Sodium 30 mg 05/21/21 13:18 05/23/21 08:41 Enoxaparin 30 Mg/0.3 Ml Syringe SUB-Q 30 mg DAILY DALIA Administration Glucagon 1 mg 05/21/21 07:55 Glucagon For Inj 1 Mg Vial IM PRN PRN Hypoglycemia Protocol Glucose 15 gm 05/21/21 07:55 Glucose Oral Gel 15 Gm Of Glucse In 37.5 Gm Tube PO PRN PRN Hypoglycemia Protocol Piperacillin Sod/Tazobactam Sod 2.25 gm in 50 mls @ 100 mls/hr 05/21/21 12:00 05/23/21 05:55 Zosyn 2.25 Gm/D5w 50 Ml IVPB Infused Q6HR DALIA Infusion Dextrose 1,000 mls @ 100 mls/hr 05/21/21 07:55 Dextrose 5% 1,000 Ml IVPB PRN PRN Hypoglycemia Protocol Magnesium Sulfate 4 gm in 100 mls @ 100 mls/hr 05/23/21 08:12 Magnesium Sulf 4 Gm/[id number] IVPB 05/23/21 09:11 ONCE ONE Insulin Aspart 4 - 8 units 05/21/21 08:00 05/23/21 08:28 Insulin Aspart (*Bkc) 100 Units/Ml SUB-Q Not Given TIDWM [facility] Protocol Insulin Glargine 10 units 05/22/21 09:00 05/23/21 08:33 Insulin Glargine (*Bkc) 100 Units/Ml SUB-Q 10
[2021-05-23] MEDS: MAGNESIUM SULF 4 GM/WATER100ML 4 GM/100 ML BAG IVPB (11:03)
[2021-05-23 12:15] LABS: Glucose Point of Care 179 mg/dl (65-105)
--- NOTE | 2021-05-23 13:28 | PM.IMPN ---
Progress Note: A&P Assessment and Plan (1) Acute UTI: Code(s): N39.0 - Urinary tract infection, site not specified Status: Acute Assessment and Plan: Patient is an 80-year-old woman with a history of diabetes, atrial fibrillation not on anticoagulation most likely secondary to fall risk, who was just discharged from our hospital after being admitted for generalized weakness, CHF, diabetes, and bilateral ureteral calculi. She was given IV Rocephin while here since her urine culture from 04/25/2021 grew out E coli which was pansensitive. Urology evaluated her in the hospital and has set up a cystoscopy with stent exchange and stone removal on 05/27/2021 at 3:00 p.m. at [facility]. The patient was discharged to SNF facility where she was not even there for 24 hours when she began feeling disoriented, right flank pain. Initial vitals showed stable blood pressure 132/69, heart rate 92, afebrile, normal oxygenation on room air. Initial labs showed leukocytosis at 15,000, normal neutrophil count, normocytic anemia with a hemoglobin of 11, hematocrit 35. Slight hyponatremia at 134, elevated creatinine at 1.5, BUN 31. Lactic acid was normal at 1.6. Elevated LFTs with an AST of 81, ALT 82, alk-phos 271. Lipase normal. Urinalysis shows turbid urine with 2+ leukocyte esterase, greater than 75 WBCs and RBCs, WBC clumps present. Abdominal CT scan showed Persistent moderate bilateral hydroureteronephrosis and perinephric fat stranding. Stents in position. Bilateral nonobstructing calyceal stones. Small hiatal hernia. The patient was admitted into the hospital with broad-spectrum antibiotics for UTI and Urology consult due to moderate bilateral hydroureternephrosis. Continue on IV Zosyn Urine culture shows no growth Blood cultures are negative to date Urology evaluated the patient and placed a Schwartz catheter. They feel with her creatinine improving, good output with the Schwartz catheter this could have been contributing to her UTI from urinary retention. Urology feels she is stable at this time to continue antibiotics outpatient and follow up for procedure Sunday. I am trying to get a hold of the Urology team about my concerns with this being her 4th admission in 1 month due to recurrence of infection which could be from ureteral obstruction from kidney stones with continued moderate hydronephrosis vs mistreatment of UTI and needed more broadspectrum antibiotics but concerned her CT on arrival still showed persistent hydro and fat stranding. Bladder scan showed she was retaining 200 cc but Schwartz catheter was placed by urology who was concerned she was having retention issues. Continue monitoring. Appreciate urology input (2) Sepsis: Code(s): A41.9 - Sepsis, unspecified organism Status: Acute Assessment and Plan: Patient meets criteria for sepsis with fever of 100, tachycardia, leukocytosis, with metabolic encephalopathy in the setting of an acute UTI Given broad-spectrum IV antibiotics with Zosyn, will talk to urology about the plan and my concerns. Blood culture results are negative Patient is much more back to her baseline at this time. She has been afebrile overnight, non tachycardic, leukocytosis improving Continue monitoring. (3) Metabolic encephalopathy: Code(s): G93.41 - Metabolic encephalopathy Status: Acute Assessment and Plan: See under sepsis. (4) Bilateral hydronephrosis: Code(s): N13.30 - Unspecified hydronephrosis Status: Acute Assessment and Plan: Could be due to obstructive nephropathy due to kidney stones in ureters verses outflow obstruction verses underlying infection Bladder scan showed she was only retaining 200 cc, will continue monitoring to make sure she is not retaining more needs to Schwartz Urology evaluated the patient and placed a Schwartz catheter. Believed that urinary retention could be contributing to her bilateral hydronephrosis.
[2021-05-23 14:00] VITALS: BP 107/89; PULSE 74; RESP 18; TEMP 36.8; O2SAT 97
[2021-05-23 17:04] LABS: Glucose Point of Care 229 mg/dl (65-105)
[2021-05-23] MEDS: INSULIN ASPART (*BKC) 100 UNITS/ML SUB-Q (18:16)
[2021-05-23 19:53] VITALS: BP 136/71; PULSE 79; RESP 17; TEMP 36.4; O2SAT 94
[2021-05-23 20:40] LABS: Glucose Point of Care 208 mg/dl (65-105)
[2021-05-24 04:24] VITALS: BP 139/76; PULSE 87; RESP 16; TEMP 36.9; O2SAT 92
[2021-05-24 06:32] LABS: Alanine Aminotransferase 58 U/L (4-35); Albumin Level 2.9 g/dL (3.5-5.1); Alkaline Phosphatase 171 U/L (38-126); Anion Gap 8 mmol/L (8-16); Aspartate Amino Transferase 62 U/L (14-36); Bilirubin,Total 0.2 mg/dL (0.2-1.3); Blood Urea Nitrogen 12 mg/dL (7-17); Calcium 7.6 mg/dL (8.4-10.2); Carbon Dioxide 27 mmol/L (22-30); Chloride 95 mmol/L (98-107); Estimated CRCL calculation 41 ml/min; Estimated Glomerular Filt Rate 53; Glucose 130 mg/dL (65-110); Magnesium 1.7 mg/dL (1.6-2.3); Potassium 3.2 mmol/L (3.4-5.0); Sodium 130 mmol/L (137-145)
[2021-05-24 06:40] LABS: Hematocrit 27.7 % (37.0-47.0); Hemoglobin 9.2 g/dL (12.0-15.0); Mean Corpuscular HGB Conc 33.2 g/dl (32-36); Mean Corpuscular Hemoglobin 27.6 pg (26-34); Mean Corpuscular Volume 83.2 fl (80-100); Mean Platelet Volume 9.8 fl (7.4-10.4); Platelet Count Result 379 k/mm3 (150-375); Red Blood Count 3.33 M/mm3 (4.2-5.4); Red Cell Distribution Width 15.5 % (11.5-14.5); White Blood Count 8.1 K/mm3 (4.5-10.0)
[2021-05-24 08:03] LABS: Glucose Point of Care 129 mg/dl (65-105)
[2021-05-24] MEDS: CITALOPRAM HYDROBROMIDE 10 MG TABLET PO (09:22)
[2021-05-24] MEDS: CALCIUM CARBONATE (OSCAL) 500 MG TABLET 1000 MG PO (09:22)
[2021-05-24] MEDS: CHOLECALCIFEROL 1,000 UNITS TABLET 1000 UNITS PO (09:22)
[2021-05-24 09:23] VITALS: PULSE 84
[2021-05-24] MEDS: lisinopriL 5 MG TABLET PO (09:23)
[2021-05-24] MEDS: MULTIVITAMINS /C LUTEIN (CENTRUM SILVER) TABLET *BKC 1 TAB PO (09:23)
[2021-05-24] MEDS: METOPROLOL SUCCINATE EXT REL 100 MG TABCR PO (09:23)
[2021-05-24] MEDS: dilTIAZem HCL CD 180 MG CAP.ER.24H PO (09:23)
[2021-05-24] MEDS: PANTOPRAZOLE 40 MG TABLET PO ×2 (09:23→20:11)
[2021-05-24] MEDS: ENOXAPARIN 30 MG/0.3 ML SYRINGE SUB-Q (09:23)
[2021-05-24] MEDS: INSULIN GLARGINE (*BKC) 100 UNITS/ML 10 UNITS SUB-Q (09:24)
[2021-05-24] MEDS: MICONAZOLE NITRATE 2% CREAM 30 GM TUBE 1 APPLIC TOPICAL ×2 (09:24→16:36)
[2021-05-24] MEDS: POTASSIUM CHLORIDE 20 MEQ PACKET (FOR LIQUID) 40 MEQ PO (09:24)
[2021-05-24 12:01] LABS: Glucose Point of Care 246 mg/dl (65-105)
[2021-05-24] MEDS: INSULIN ASPART (*BKC) 100 UNITS/ML SUB-Q (12:22)
[2021-05-24 14:00] VITALS: BP 134/66; PULSE 81; RESP 18; TEMP 37.1; O2SAT 98
--- NOTE | 2021-05-24 16:14 | PM.IMPN ---
Progress Note: A&P Assessment and Plan (1) Acute UTI: Code(s): N39.0 - Urinary tract infection, site not specified Status: Acute Assessment and Plan: Patient is an 80-year-old woman with a history of diabetes, atrial fibrillation not on anticoagulation most likely secondary to fall risk, who was just discharged from our hospital after being admitted for generalized weakness, CHF, diabetes, and bilateral ureteral calculi. She was given IV Rocephin(05/15/2021-05/19/2021)while here since her urine culture from 04/25/2021 grew out E coli which was pansensitive. Urology evaluated her in the hospital. Currently patient was already scheduled for cystoscopy with stent exchange and stone removal on 05/27/2021 at 3:00 p.m. at [facility]. The patient was discharged to SNF facility where she was not even there for 24 hours when she began feeling disoriented, right flank pain. Initial vitals showed stable blood pressure 132/69, heart rate 92, afebrile, normal oxygenation on room air. Initial labs showed leukocytosis at 15,000, normal neutrophil count, normocytic anemia with a hemoglobin of 11, hematocrit 35. Mild hyponatremia at 134, elevated creatinine at 1.5, BUN 31. Lactic acid was normal at 1.6. Elevated LFTs with an AST of 81, ALT 82, alk-phos 271. Lipase normal. Urinalysis shows turbid urine with 2+ leukocyte esterase, greater than 75 WBCs and RBCs, WBC clumps present. Abdominal CT scan showed Persistent moderate bilateral hydroureteronephrosis and perinephric fat stranding. Stents in position. Bilateral nonobstructing calyceal stones. Small hiatal hernia. The patient was admitted into the hospital with broad-spectrum antibiotics for UTI and Urology consult due to moderate bilateral hydro-ureteronephrosis. Continue on IV Zosyn Urine culture shows no growth Blood cultures are negative to date Urology evaluated the patient and placed a Schwartz catheter. They feel with her creatinine improving, good output with the Schwartz catheter this could have been contributing to her UTI from urinary retention. Urology feels she is stable at this time to continue antibiotics outpatient and follow up for procedure Sunday. Given her recurrent admissions over the last 6 weeks, we have tried to contact [facility] to arrange for a transfer to their facility without success today. Bladder scan showed she was retaining 200 cc but Schwartz catheter was placed by urology who was concerned she was having retention issues. Patient is scheduled for intervention by Dr. Lazaro at [facility] on Thursday May 27, 2021. Transfer to [facility] [place] upon discharge from [facility]. (2) Sepsis: Code(s): A41.9 - Sepsis, unspecified organism Status: Acute Assessment and Plan: Patient meets criteria for sepsis with fever of 100, tachycardia, leukocytosis, with metabolic encephalopathy in the setting of an acute UTI Given broad-spectrum IV antibiotics with Zosyn, will talk to urology about the plan and my concerns. Blood culture results are negative. Patient is much more back to her baseline at this time. She has been afebrile overnight, non tachycardic, leukocytosis improving Continue monitoring. (3) Metabolic encephalopathy: Code(s): G93.41 - Metabolic encephalopathy Status: Acute Assessment and Plan: Patient has improved clinically after prompt and cessation of IV antibiotics. It is believed that her recurrent presentation with sepsis may be secondary to infected kidney stones. (4) Bilateral hydronephrosis: Code(s): N13.30 - Unspecified hydronephrosis Status: Acute Assessment and Plan: Could be due to obstructive nephropathy due to kidney stones in ureters verses outflow obstruction verses underlying infection Bladder scan showed she was only retaining 200 cc, will continue monitoring to make sure she is not retaining more needs to [facility] evaluat
[2021-05-24 16:35] LABS: Glucose Point of Care 145 mg/dl (65-105)
[2021-05-24 21:47] LABS: Glucose Point of Care 176 mg/dl (65-105)
[2021-05-24 22:00] VITALS: BP 121/54; PULSE 76; RESP 18; TEMP 37.6; O2SAT 94
[2021-05-25 05:17] VITALS: BP 114/73; PULSE 77; RESP 16; TEMP 37.2; O2SAT 93
--- NOTE | 2021-05-25 08:02 | WPDUROPN2 ---
Progress Note: A&P Assessment and Plan (1) Bilateral renal stones: Code(s): N20.0 - Calculus of kidney Status: Acute Assessment and Plan: Doing well from urologic standpoint. Hemodynamically and medically stable. Urine cultures negative. Patient is already scheduled for a bilateral ureteroscopy with stone manipulation at [facility] on Sunday with our partner Dr. Osullivan. Can be discharge from our standpoint or transfer to [facility] for definitive treatment. Subjective Subjective Date/Time Seen: 05/25/21 08:02 Principal diagnosis: Mental status changes with bilateral renal calculi Interval history: Freda has no complaints at this time and is resting comfortably Review of Systems Review of Systems: All systems reviewed & are unremarkable except as noted in HPI and below Exam Const: General: cooperative, comfortable and no acute distress Resp: Effort & Inspection: normal respiratory effort GI: GI Palp: Yes Soft to palpation Objective Data Vital Signs Vital Signs: Vital Signs - 24 hr 05/24/21 09:23 05/24/21 14:00 05/24/21 22:00 Temperature 37.1 C 37.6 C Pulse Rate 84 81 76 Respiratory Rate 18 18 Blood Pressure 134/66 121/54 L Pulse Oximetry 98 94 05/25/21 05:17 Temperature 37.2 C Pulse Rate 77 Respiratory Rate 16 Blood Pressure 114/73 Pulse Oximetry 93 Intake/Output Intake/Output: Intake & Output 05/22/21 05/23/21 05/24/21 05/25/21 23:59 23:59 23:59 23:59 Intake Total 540 1520 2270 350 Output Total 1800 1650 2150 1000 Balance -1260 -130 120 -650 Meds/Results Medications: Active Medications Generic Name Dose Route Start Last Admin Trade Name Freq PRN Reason Stop Dose Admin Calcium Carbonate 1,000 mg 05/21/21 09:00 05/24/21 09:22 Calcium Carbonate (Oscal) 500 Mg Tablet PO 1,000 mg QAM DALIA Administration Citalopram Hydrobromide 10 mg 05/21/21 09:00 05/24/21 09:22 Citalopram Hydrobromide 10 Mg Tablet PO 10 mg DAILY DALIA Administration Cyclobenzaprine HCl 5 mg 05/23/21 13:34 Cyclobenzaprine Hcl 5 Mg Tablet PO HS PRN Muscle Spasm Dextrose 12.5 gm 05/21/21 07:55 Dextrose 50% 25 Gm/50 Ml Syringe IV PUSH PRN PRN Hypoglycemia Protocol Diltiazem HCl 180 mg 05/21/21 09:00 05/24/21 09:23 Diltiazem Hcl Cd 180 Mg Cap.Er.24h PO 180 mg DAILY DALIA Administration Enoxaparin Sodium 30 mg 05/21/21 13:18 05/24/21 09:23 Enoxaparin 30 Mg/0.3 Ml Syringe SUB-Q 30 mg DAILY DALIA Administration Glucagon 1 mg 05/21/21 07:55 Glucagon For Inj 1 Mg Vial IM PRN PRN Hypoglycemia Protocol Glucose 15 gm 05/21/21 07:55 Glucose Oral Gel 15 Gm Of Glucse In 37.5 Gm Tube PO PRN PRN Hypoglycemia Protocol Piperacillin Sod/Tazobactam Sod 2.25 gm in 50 mls @ 100 mls/hr 05/21/21 12:00 05/25/21 05:50 Zosyn 2.25 Gm/D5w 50 Ml IVPB Infused Q6HR DALIA Infusion Dextrose 1,000 mls @ 100 mls/hr 05/21/21 07:55 Dextrose 5% 1,000 Ml IVPB PRN PRN Hypoglycemia Protocol Insulin Aspart 4 - 8 units 05/21/21 08:00 05/24/21 16:35 Insulin Aspart (*Bkc) 100 Units/Ml SUB-Q Not Given [facility] Protocol Insulin Glargine 10 units 05/22/21 09:00 05/24/21 09:24 Insulin Glargine (*Bkc) 100 Units/Ml SUB-Q 10 units QAM DALIA Administration Lisinopril 5 mg 05/24/21 09:00 05/24/21 09:23 Lisinopril 5 Mg Tablet PO 5 mg DAILY DALIA Administration Meclizine HCl 25 mg 05/21/21 01:52 Meclizine Hcl 25 Mg Tablet PO BID PRN Dizziness Metoprolol Succinate 100 mg 05/21/21 09:00 05/24/21 09:23 Metoprolol Succinate Ext Rel 100 Mg Tabcr PO 100 mg DAILY DALIA Administration Miconazole Nitrate 1 applic 05/21/21 09:00 05/24/21 16:36 Miconazole Nitrate 2% Cream 30 Gm Tube TOPICAL 1 applic BID DALIA Administration Multivitamins/Minerals 1 tab 05/21/21 09:00 05/24/21 09:23 Multivitamins /C Lutein (Centrum Silver) Tablet *Bkc P
[2021-05-25 08:04] LABS: Glucose Point of Care 133 mg/dl (65-105)
[2021-05-25 08:35] VITALS: PULSE 82
[2021-05-25] MEDS: dilTIAZem HCL CD 180 MG CAP.ER.24H PO (08:35)
[2021-05-25] MEDS: CALCIUM CARBONATE (OSCAL) 500 MG TABLET 1000 MG PO (08:35)
[2021-05-25] MEDS: METOPROLOL SUCCINATE EXT REL 100 MG TABCR PO (08:35)
[2021-05-25] MEDS: CHOLECALCIFEROL 1,000 UNITS TABLET 1000 UNITS PO (08:35)
[2021-05-25] MEDS: MULTIVITAMINS /C LUTEIN (CENTRUM SILVER) TABLET *BKC 1 TAB PO (08:35)
[2021-05-25] MEDS: ENOXAPARIN 30 MG/0.3 ML SYRINGE SUB-Q (08:35)
[2021-05-25] MEDS: lisinopriL 5 MG TABLET PO (08:36)
[2021-05-25] MEDS: CITALOPRAM HYDROBROMIDE 10 MG TABLET PO (08:36)
[2021-05-25] MEDS: PANTOPRAZOLE 40 MG TABLET PO ×2 (08:36→20:20)
[2021-05-25] MEDS: MICONAZOLE NITRATE 2% CREAM 30 GM TUBE 1 APPLIC TOPICAL ×2 (08:37→18:00)
[2021-05-25] MEDS: INSULIN GLARGINE (*BKC) 100 UNITS/ML 10 UNITS SUB-Q (08:46)
[2021-05-25 12:08] LABS: Glucose Point of Care 141 mg/dl (65-105)
--- NOTE | 2021-05-25 13:04 | P.CDI_ITS ---
CDI Query Clarification Request -UTI has been documented -Bilateral indwelling ureteral stents documented Please clarify if UTI is: * Due to/associated with indwelling ureteral stents * Not due to/ associated with indwelling ureteral stents * Unable to determine
--- NOTE | 2021-05-25 13:04 | WPDCDIQUERY2 ---
CDI Query Clarification Request -UTI has been documented -Bilateral indwelling ureteral stents documented Please clarify if UTI is: Due to/associated with indwelling ureteral stents Not due to/ associated with indwelling ureteral stents Unable to determine
--- NOTE | 2021-05-25 14:10 | PM.IMPN ---
Progress Note: A&P Assessment and Plan (1) Acute UTI: Code(s): N39.0 - Urinary tract infection, site not specified Status: Acute Assessment and Plan: Patient is an 80-year-old woman with a history of diabetes, atrial fibrillation not on anticoagulation most likely secondary to fall risk, who was just discharged from our hospital after being admitted for generalized weakness, CHF, diabetes, and bilateral ureteral calculi. She was given IV Rocephin(05/15/2021-05/19/2021)while here since her urine culture from 04/25/2021 grew out E coli which was pansensitive. Urology evaluated her in the hospital. Currently patient was already scheduled for cystoscopy with stent exchange and stone removal on 05/27/2021 at 3:00 p.m. at [facility]. The patient was discharged to [facility] facility where she was not even there for 24 hours when she began feeling disoriented, right flank pain. Initial vitals showed stable blood pressure 132/69, heart rate 92, afebrile, normal oxygenation on room air. Initial labs showed leukocytosis at 15,000, normal neutrophil count, normocytic anemia with a hemoglobin of 11, hematocrit 35. Mild hyponatremia at 134, elevated creatinine at 1.5, BUN 31. Lactic acid was normal at 1.6. Elevated LFTs with an AST of 81, ALT 82, alk-phos 271. Lipase normal. Urinalysis shows turbid urine with 2+ leukocyte esterase, greater than 75 WBCs and RBCs, WBC clumps present. Abdominal CT scan showed Persistent moderate bilateral hydroureteronephrosis and perinephric fat stranding. Stents in position. Bilateral nonobstructing calyceal stones. Small hiatal hernia. The patient was admitted into the hospital with broad-spectrum antibiotics for UTI and Urology consult due to moderate bilateral hydro-ureteronephrosis. Continue on IV Zosyn Urine culture shows no growth Blood cultures are negative to date Urology evaluated the patient and placed a Schwartz catheter. They feel with her creatinine improving, good output with the Schwartz catheter this could have been contributing to her UTI from urinary retention. Urology feels she is stable at this time to continue antibiotics outpatient and follow up for procedure Sunday. procedure has been postponed pt to be discharged back to [facility] tomorrow (2) Sepsis: Code(s): A41.9 - Sepsis, unspecified organism Status: Resolved (3) Metabolic encephalopathy: Code(s): G93.41 - Metabolic encephalopathy Status: Resolved (4) Bilateral hydronephrosis: Code(s): N13.30 - Unspecified hydronephrosis Status: Acute Assessment and Plan: Could be due to obstructive nephropathy due to kidney stones in ureters verses outflow obstruction verses underlying infection Bladder scan showed she was only retaining 200 cc, will continue monitoring to make sure she is not retaining more needs to [facility] evaluated the patient and placed a Schwartz catheter. Believed that urinary retention could be contributing to her bilateral hydronephrosis. (5) Acute renal insufficiency: Code(s): N28.9 - Disorder of kidney and ureter, unspecified Status: Resolved (6) Nausea and vomiting: Code(s): R11.2 - Nausea with vomiting, unspecified Status: Resolved (7) Chronic atrial flutter: Code(s): I48.92 - Unspecified atrial flutter Status: Acute Assessment and Plan: Rate controlled. Continue Lovenox while hospitalized. She is not on chronic anticoagulation due to fall risk Continue to monitor (8) Type II diabetes mellitus: Code(s): E11.9 - Type 2 diabetes mellitus without complications Status: Acute Assessment and Plan: Continue monitoring. Will hold metformin due to JEREMY. Will continue insulin. Accu-Cheks AC and HS. Sliding scale insulin. Hypoglycemic protocol in place. (9) GERD (gastroesophageal reflux disease): Code(s): K21.9 - Gastro-esophageal reflux disease without esophagitis
[2021-05-25 14:20] VITALS: BP 113/50; PULSE 78; RESP 20; TEMP 36.7; O2SAT 98
[2021-05-25 16:30] LABS: Glucose Point of Care 195 mg/dl (65-105)
[2021-05-25 21:00] VITALS: BP 102/66; PULSE 74; RESP 17; TEMP 36.7; O2SAT 96
[2021-05-25 21:48] LABS: Glucose Point of Care 250 mg/dl (65-105)
[2021-05-26 07:01] VITALS: BP 104/64; PULSE 84; RESP 18; TEMP 36.1; O2SAT 99
[2021-05-26 07:43] LABS: Glucose Point of Care 143 mg/dl (65-105)
[2021-05-26 08:05] LABS: Hematocrit 30.5 % (37.0-47.0); Hemoglobin 9.9 g/dL (12.0-15.0); Mean Corpuscular HGB Conc 32.5 g/dl (32-36); Mean Corpuscular Hemoglobin 27.7 pg (26-34); Mean Corpuscular Volume 85.2 fl (80-100); Mean Platelet Volume 10.1 fl (7.4-10.4); Platelet Count Result 363 k/mm3 (150-375); Red Blood Count 3.58 M/mm3 (4.2-5.4); Red Cell Distribution Width 15.5 % (11.5-14.5)
[2021-05-26] MEDS: CALCIUM CARBONATE (OSCAL) 500 MG TABLET 1000 MG PO (08:09)
[2021-05-26 08:10] VITALS: PULSE 88
[2021-05-26] MEDS: dilTIAZem HCL CD 180 MG CAP.ER.24H PO (08:10)
[2021-05-26] MEDS: CITALOPRAM HYDROBROMIDE 10 MG TABLET PO (08:10)
[2021-05-26] MEDS: METOPROLOL SUCCINATE EXT REL 100 MG TABCR PO (08:10)
[2021-05-26] MEDS: CHOLECALCIFEROL 1,000 UNITS TABLET 1000 UNITS PO (08:10)
[2021-05-26] MEDS: MICONAZOLE NITRATE 2% CREAM 30 GM TUBE 1 APPLIC TOPICAL ×2 (08:10→16:52)
[2021-05-26] MEDS: MULTIVITAMINS /C LUTEIN (CENTRUM SILVER) TABLET *BKC 1 TAB PO (08:10)
[2021-05-26] MEDS: lisinopriL 5 MG TABLET PO (08:10)
[2021-05-26] MEDS: ENOXAPARIN 30 MG/0.3 ML SYRINGE SUB-Q (08:10)
[2021-05-26] MEDS: PANTOPRAZOLE 40 MG TABLET PO ×2 (08:11→21:07)
[2021-05-26] MEDS: INSULIN GLARGINE (*BKC) 100 UNITS/ML 10 UNITS SUB-Q (08:11)
[2021-05-26 08:24] LABS: Anion Gap 7 mmol/L (8-16); Blood Urea Nitrogen 12 mg/dL (7-17); Calcium 7.7 mg/dL (8.4-10.2); Carbon Dioxide 27 mmol/L (22-30); Chloride 99 mmol/L (98-107); Estimated CRCL calculation 45 ml/min; Estimated Glomerular Filt Rate 60; Glucose 142 mg/dL (65-110); Potassium 3.3 mmol/L (3.4-5.0); Sodium 133 mmol/L (137-145)
--- NOTE | 2021-05-26 10:11 | PM.IMPN ---
Progress Note: A&P Assessment and Plan (1) Acute UTI: Code(s): N39.0 - Urinary tract infection, site not specified Status: Acute Assessment and Plan: Patient is an 80-year-old woman with a history of diabetes, atrial fibrillation not on anticoagulation most likely secondary to fall risk, who was just discharged from our hospital after being admitted for generalized weakness, CHF, diabetes, and bilateral ureteral calculi. She was given IV Rocephin(05/15/2021-05/19/2021)while here since her urine culture from 04/25/2021 grew out E coli which was pansensitive. Urology evaluated her in the hospital. Currently patient was already scheduled for cystoscopy with stent exchange and stone removal on 05/27/2021 at 3:00 p.m. at [facility]. The patient was discharged to SNF facility where she was not even there for 24 hours when she began feeling disoriented, right flank pain. Initial vitals showed stable blood pressure 132/69, heart rate 92, afebrile, normal oxygenation on room air. Initial labs showed leukocytosis at 15,000, normal neutrophil count, normocytic anemia with a hemoglobin of 11, hematocrit 35. Mild hyponatremia at 134, elevated creatinine at 1.5, BUN 31. Lactic acid was normal at 1.6. Elevated LFTs with an AST of 81, ALT 82, alk-phos 271. Lipase normal. Urinalysis shows turbid urine with 2+ leukocyte esterase, greater than 75 WBCs and RBCs, WBC clumps present. Abdominal CT scan showed Persistent moderate bilateral hydroureteronephrosis and perinephric fat stranding. Stents in position. Bilateral nonobstructing calyceal stones. Small hiatal hernia. The patient was admitted into the hospital with broad-spectrum antibiotics for UTI and Urology consult due to moderate bilateral hydro-ureteronephrosis. Continue on IV Zosyn Urine culture shows no growth Blood cultures are negative to date Urology evaluated the patient and placed a Schwartz catheter. They feel with her creatinine improving, good output with the Schwartz catheter this could have been contributing to her UTI from urinary retention. Urology feels she is stable at this time to continue antibiotics outpatient and follow up for procedure Sunday. procedure has been postponed pt to be discharged back to [facility] or SNF placement soon (2) Sepsis: Code(s): A41.9 - Sepsis, unspecified organism Status: Resolved (3) Metabolic encephalopathy: Code(s): G93.41 - Metabolic encephalopathy Status: Resolved (4) Bilateral hydronephrosis: Code(s): N13.30 - Unspecified hydronephrosis Status: Acute Assessment and Plan: Could be due to obstructive nephropathy due to kidney stones in ureters verses outflow obstruction verses underlying infection Bladder scan showed she was only retaining 200 cc, will continue monitoring to make sure she is not retaining more needs to [facility] evaluated the patient and placed a Schwartz catheter. Believed that urinary retention could be contributing to her bilateral hydronephrosis. (5) Acute renal insufficiency: Code(s): N28.9 - Disorder of kidney and ureter, unspecified Status: Resolved (6) Nausea and vomiting: Code(s): R11.2 - Nausea with vomiting, unspecified Status: Resolved (7) Chronic atrial flutter: Code(s): I48.92 - Unspecified atrial flutter Status: Acute Assessment and Plan: Rate controlled. Continue Lovenox while hospitalized. She is not on chronic anticoagulation due to fall risk Continue to monitor (8) Type II diabetes mellitus: Code(s): E11.9 - Type 2 diabetes mellitus without complications Status: Acute Assessment and Plan: Continue monitoring. Will hold metformin due to JEREMY. Will continue insulin. Accu-Cheks AC and HS. Sliding scale insulin. Hypoglycemic protocol in place. (9) GERD (gastroesophageal reflux disease): Code(s): K21.9 - Gastro-esophageal reflux disease without es
[2021-05-26] MEDS: POTASSIUM CHLORIDE 20 MEQ PACKET (FOR LIQUID) 40 MEQ PO ×2 (11:07→16:51)
[2021-05-26 11:39] LABS: Glucose Point of Care 190 mg/dl (65-105)
--- NOTE | 2021-05-26 12:02 | WPDCDIQUERY2 ---
CDI Query Clarification Request -Acute UTI and The patient was admitted into the hospital with broad-spectrum antibiotics for UTI documented - Urine culture shows no growth documented -Pt was on Augmentin prior to arrival, received Ceftriaxone on 05/20 and Zosyn from 05/21 to 05/26. -Antibiotics discontinued due to rash per documentation Please clarify if UTI has been ruled in or ruled out or unable to determine.
[2021-05-26 14:00] VITALS: BP 113/55; PULSE 68; RESP 16; TEMP 36.2; O2SAT 99
[2021-05-26 15:01] LABS: EDCOVIDSCREEN Negative (Negative)
[2021-05-26 16:33] LABS: Glucose Point of Care 250 mg/dl (65-105)
[2021-05-26] MEDS: INSULIN ASPART (*BKC) 100 UNITS/ML SUB-Q (16:49)
[2021-05-26 20:20] VITALS: BP 152/88; PULSE 79; RESP 18; TEMP 36.6; O2SAT 96
[2021-05-26 20:35] LABS: Glucose Point of Care 180 mg/dl (65-105)
[2021-05-27 04:18] VITALS: BP 140/74; PULSE 95; RESP 18; TEMP 36.6; O2SAT 97
[2021-05-27 07:43] LABS: Glucose Point of Care 157 mg/dl (65-105)
[2021-05-27] MEDS: MULTIVITAMINS /C LUTEIN (CENTRUM SILVER) TABLET *BKC 1 TAB PO (08:02)
[2021-05-27] MEDS: dilTIAZem HCL CD 180 MG CAP.ER.24H PO (08:02)
[2021-05-27] MEDS: CHOLECALCIFEROL 1,000 UNITS TABLET 1000 UNITS PO (08:02)
[2021-05-27] MEDS: PANTOPRAZOLE 40 MG TABLET PO (08:02)
[2021-05-27] MEDS: ENOXAPARIN 30 MG/0.3 ML SYRINGE SUB-Q (08:02)
[2021-05-27] MEDS: CITALOPRAM HYDROBROMIDE 10 MG TABLET PO (08:02)
[2021-05-27] MEDS: DIPHENHYDRAMINE 1%/ZINC 0.1% CREAM 30 GM TUBE 1 APPLIC TOPICAL (08:02)
[2021-05-27] MEDS: METOPROLOL SUCCINATE EXT REL 100 MG TABCR PO (08:03)
[2021-05-27] MEDS: POTASSIUM CHLORIDE 20 MEQ PACKET (FOR LIQUID) 40 MEQ PO ×2 (08:03→16:23)
[2021-05-27] MEDS: CALCIUM CARBONATE (OSCAL) 500 MG TABLET 1000 MG PO (08:03)
[2021-05-27] MEDS: lisinopriL 5 MG TABLET PO (08:03)
[2021-05-27] MEDS: MICONAZOLE NITRATE 2% CREAM 30 GM TUBE 1 APPLIC TOPICAL ×2 (08:04→16:23)
[2021-05-27] MEDS: INSULIN GLARGINE (*BKC) 100 UNITS/ML 10 UNITS SUB-Q (08:04)
--- NOTE | 2021-05-27 10:56 | PM.DS ---
DS: Admitting Diagnosis Discharge Date 05/27/2021 Admitting Diagnosis Fevers and chills DS: Discharge Diagnosis Discharge Diagnosis (1) Acute UTI: Code(s): N39.0 - Urinary tract infection, site not specified Status: Acute Assessment and Plan: Patient is an 80-year-old woman with a history of diabetes, atrial fibrillation not on anticoagulation most likely secondary to fall risk, who was just discharged from our hospital after being admitted for generalized weakness, CHF, diabetes, and bilateral ureteral calculi. She was given IV Rocephin(05/15/2021-05/19/2021)while here since her urine culture from 04/25/2021 grew out E coli which was pansensitive. Urology evaluated her in the hospital. Currently patient was already scheduled for cystoscopy with stent exchange and stone removal on 05/27/2021 at 3:00 p.m. at [facility]. The patient was discharged to [facility] facility where she was not even there for 24 hours when she began feeling disoriented, right flank pain. Initial vitals showed stable blood pressure 132/69, heart rate 92, afebrile, normal oxygenation on room air. Initial labs showed leukocytosis at 15,000, normal neutrophil count, normocytic anemia with a hemoglobin of 11, hematocrit 35. Mild hyponatremia at 134, elevated creatinine at 1.5, BUN 31. Lactic acid was normal at 1.6. Elevated LFTs with an AST of 81, ALT 82, alk-phos 271. Lipase normal. Urinalysis shows turbid urine with 2+ leukocyte esterase, greater than 75 WBCs and RBCs, WBC clumps present. Abdominal CT scan showed Persistent moderate bilateral hydroureteronephrosis and perinephric fat stranding. Stents in position. Bilateral nonobstructing calyceal stones. Small hiatal hernia. The patient was admitted into the hospital with broad-spectrum antibiotics for UTI and Urology consult due to moderate bilateral hydro-ureteronephrosis. Continue on IV Zosyn Urine culture shows no growth Blood cultures are negative to date Urology evaluated the patient and placed a Schwartz catheter. They feel with her creatinine improving, good output with the Schwartz catheter this could have been contributing to her UTI from urinary retention. Urology feels she is stable at this time to continue antibiotics outpatient and follow up for procedure Sunday. unfortunately procedure has been postponed as family are having ill health Pt to be discharged back to [facility] and have her procedure later in [place] (2) Sepsis: Code(s): A41.9 - Sepsis, unspecified organism Status: Resolved (3) Metabolic encephalopathy: Code(s): G93.41 - Metabolic encephalopathy Status: Resolved (4) Bilateral hydronephrosis: Code(s): N13.30 - Unspecified hydronephrosis Status: Acute Assessment and Plan: Urology evaluated the patient and placed a Schwartz catheter. Believed that urinary retention could be contributing to her bilateral hydronephrosis. (5) Acute renal insufficiency: Code(s): N28.9 - Disorder of kidney and ureter, unspecified Status: Resolved (6) Nausea and vomiting: Code(s): R11.2 - Nausea with vomiting, unspecified Status: Resolved (7) Chronic atrial flutter: Code(s): I48.92 - Unspecified atrial flutter Status: Acute Assessment and Plan: Rate controlled. Continue Lovenox while hospitalized. She is not on chronic anticoagulation due to fall risk Continue to monitor (8) Type II diabetes mellitus: Code(s): E11.9 - Type 2 diabetes mellitus without complications Status: Chronic Assessment and Plan: Continue monitoring. Will hold metformin due to JEREMY. Will continue insulin. Accu-Cheks AC and HS. Sliding scale insulin. Hypoglycemic protocol in place. (9) GERD (gastroesophageal reflux disease): Code(s): K21.9 - Gastro-esophageal reflux disease without esophagitis Status: Acute Assessment and Plan: PPI (10) Rash:
[2021-05-27 11:38] LABS: Glucose Point of Care 152 mg/dl (65-105)
[2021-05-27 16:26] LABS: Glucose Point of Care 157 mg/dl (65-105)
== END 2021-05-27 18:37 | DRG 698 ==
LOC: ANHED 22:21 → ANH3MED 22:29
PROVIDERS: Emergency Medicine; Physician Assistant; Urology; Admitting Provider Internal Medicine; Emergency Provider Emergency Medicine; PCP Family Medicine; Visit Provider Family Medicine
DX: T83.592A Infection and inflammatory reaction due to indwelling ureteral stent, initial encounter (principal); A41.9 Sepsis, unspecified organism; G93.41 Metabolic encephalopathy; N13.6 Pyonephrosis; E87.1 Hypo-osmolality and hyponatremia; I48.92 Unspecified atrial flutter; N28.9 Disorder of kidney and ureter, unspecified; Z20.822 Contact with and (suspected) exposure to COVID-19; K21.9 Gastro-esophageal reflux disease without esophagitis; R21 Rash and other nonspecific skin eruption; L27.0 Generalized skin eruption due to drugs and medicaments taken internally; T36.0X5A Adverse effect of penicillins, initial encounter; I48.91 Unspecified atrial fibrillation; M19.90 Unspecified osteoarthritis, unspecified site; E11.42 Type 2 diabetes mellitus with diabetic polyneuropathy; Z96.652 Presence of left artificial knee joint; Z90.49 Acquired absence of other specified parts of digestive tract; Z90.710 Acquired absence of both cervix and uterus; Z98.42 Cataract extraction status, left eye; Z98.41 Cataract extraction status, right eye
CPT/HCPCS: 36415; 51701; 70450; 74176; 80048; 80053; 80074; 80076; 81001; 82948; 83605; 83690; 83735; 84132; 85025; 85027; 87040; 87086; 87088; 87426; 96361; 96365; 96366; 96367; 96372; 96375; 96376; 97110; 97116; 97161; 97165; 97530; 97535; 99285; A9270; C9803; G0378; J0131; J1650; J1815; J2405; J2543; J3010; J3475; J7030

== ENCOUNTER 2021-08-01 14:30 | Outpatient (CLI) | payer OTHER, SELFPAY ==
[2021-08-01 15:03] LABS: Hematocrit 31.6 % (35.0-42.0); Hemoglobin 9.8 g/dL (11.7-13.8); Mean Corpuscular Hemoglobin 26.7 pg (27.0-31.0); Mean Corpuscular Volume 86.1 fL (78.0-102.0); Platelet Count Result 309 K/mm3 (150-420); Red Blood Count 3.67 M/mm3 (4.20-5.40); Red Cell Distribution Width 16.3 % (11.6-14.4); White Blood Count 9.5 K/mm3 (4.8-10.8)
[2021-08-01 15:49] LABS: Alanine Aminotransferase 28 U/L (14-59); Albumin Level 3.4 g/dL (3.4-5.0); Alkaline Phosphatase 96 U/L (46-116); Anion Gap 9 mmol/L (8-16); Aspartate Amino Transferase 23 U/L (15-37); Bilirubin,Total 0.4 mg/dL (0.00-1.00); Blood Urea Nitrogen 21 mg/dL (7-18); Calcium 9.3 mg/dL (8.5-10.1); Carbon Dioxide 30 mmol/L (21-32); Chloride 103 mmol/L (98-108); Estimated Glomerular Filt Rate > 60; Ferritin 25 ng/mL (8-252); Glucose 72 mg/dL (70-99); Iron 21 ug/dL (50-170); Osmolality Calculated 296 mOsm/kg (285-295); Percent Iron Saturation 5 % (12-57); Potassium 3.2 mmol/L (3.5-5.1); Sodium 142 mmol/L (136-145); Total Protein 7.1 g/dL (6.4-8.2)
== END 2021-08-01 14:31 | disposition home or self-care (01) ==
LOC: CHSLAB 14:32
PROVIDERS: PCP Family Medicine; Visit Provider Family Medicine
DX: I50.9 Heart failure, unspecified (principal)
CPT/HCPCS: 36415; 80053; 82728; 83540; 83550; 85027

== ENCOUNTER 2021-09-09 13:05 | Outpatient (CLI) | payer OTHER, SELFPAY ==
--- NOTE | ~2021-09-09 | DEXA_ITS ---
Bone Density Report Name: CATY LAURA Age: 81 Sex: Female Ethnicity: White Date of : 1940 Indication: postmenopausal; screening for osteoporosis; Referring Provider: KAYLEE BHAKTA Study: Bone densitometry was performed. Exam Date: September 09, 2021 Accession number: [id number] Bone Density: Region BMD T-score Z-score Classification AP Spine(L1-L4) 1.350 2.8 5.5 Normal Femoral Neck (Left) 0.814 -0.3 2.1 Normal Total Hip (Left) 0.850 -0.8 1.4 Normal Femoral Neck (Right) 0.832 -0.2 2.2 Normal Total Hip (Right) 0.886 -0.5 1.7 Normal Femoral Neck Mean 0.823 -0.2 2.2 Normal Total Hip Mean 0.868 -0.6 1.6 Normal World Health Organization criteria for BMD impression classify patients as: Normal (T-score at or above -1.0), Osteopenia (T-score between -1.0 and -2.5), or Osteoporosis (T-score at or below -2.5). 10-year Fracture Risk: FRAX not reported because: All T-scores for Spine Total, Hip Total, Femoral Neck at or above -1.0 Clinical Information Provided by Patient: Patient maximum height was 60 No regular weight bearing exercise Does not regularly consume dairy products Drinks caffeinated beverages Onset of menses at age 13 Number of children 5 Impression: The patient has normal bone mass. Discussion: BONE DENSITY IS ABOVE THE MINIMUM DESIRABLE LEVEL AT ALL SKELETAL SITES TESTED. This patient?s bone mineral density is above the minimum desirable level (T-score -1.0 or better) at all sites measured. The patient should follow a healthful lifestyle (good nutrition with adequate calcium and vitamin D, and appropriate weight-bearing exercise). Follow-Up: Consider repeating this study in 5 years or sooner if there is some new clinical indication. Reported by: Dr. Zachery Saeed on 09/09/2021 2:42:00 PM. Reviewed, dictated and finalized at location [facility]
--- NOTE | ~2021-09-09 | MM_ITS ---
EXAMINATION: MM screening jacques BI w becki HISTORY: Screening mammogram TECHNIQUE: Craniocaudal and mediolateral oblique 3-D tomosynthesis images were obtained and synthetic 2-D images were generated. CAD analysis was submitted and interpreted. COMPARISON: No prior mammogram is available for comparison at this institution. BREAST PARENCHYMAL COMPOSITION: There are scattered areas of fibroglandular density. FINDINGS: There is no evidence of suspicious mass, calcification, or architectural distortion to sugg est malignancy in either breast. IMPRESSION: 1. No mammographic evidence of malignancy. 2. Recommend routine screening mammography while the patient remains in good health. BI-RADS Category 1: Negative Reviewed, dictated and finalized at location A. [employer] IMPRESSION: 1. No mammographic evidence of malignancy. 2. Recommend routine screening mammography while the patient remains in good he alth. BI-RADS Category 1: Negative
== END 2021-09-09 13:06 | disposition home or self-care (01) ==
LOC: CHSIMG 13:08
PROVIDERS: PCP Family Medicine; Visit Provider Family Medicine
DX: Z78.0 Asymptomatic menopausal state (principal); Z12.31 Encounter for screening mammogram for malignant neoplasm of breast
CPT/HCPCS: 77063; 77067; 77080

== ENCOUNTER 2022-03-05 15:54 | Emergency (ER) | payer OTHER, SELFPAY ==
--- NOTE | ~2022-03-05 | XR_ITS ---
EXAM: XR elbow RT min 3V DATE: 03/05/2022 17:02 HISTORY: PAIN THROUGHOUT RIGHT ARM TODAY NO INJURY, HX ARTHRITIS . COMPARISON: None available. FINDINGS: Decreased mineralization. No fracture or dislocation. No lytic or blastic lesion. Joint sp aces are maintained. No erosion or periosteal change. Soft tissues within normal limits. IMPRESSION: No acute osseous finding in the right elbow. Reviewed, dictated and finalized at location K.
--- NOTE | ~2022-03-05 | XR_ITS ---
EXAM: XR wrist RT min 3V DATE: 03/05/2022 17:04 HISTORY: swelling to posterior wrist w/ pain no injury hx arthritis . COMPARISON: None available. FINDINGS: Decreased mineralization. No fracture or dislocation. No lytic or blastic lesion. There ar e changes in the wrist. Abnormal scapholunate angle. Scapholunate widening. No erosion or periosteal change. Soft tissues within normal limits. IMPRESSION: Scapholunate widening, lack of recent trauma history this is likely related to chronic ch gina or old trauma and findings of SLAC wrist. Reviewed, dictated and finalized at location K. IMPRESSION: Scapholunate widening, lack of recent trauma history this is likely related to chronic change or old trauma and findings of SLAC wrist.
--- NOTE | ~2022-03-05 | XR_ITS ---
EXAM: XR shoulder RT min 2V DATE: 03/05/2022 17:03 HISTORY: pain throughout after opening a drawer yesterday,hxarthritis . COMPARISON: None available. FINDINGS: Decreased mineralization. No fracture or dislocation. No lytic or blastic lesion. Severe A C joint hypertrophy. Moderate glenohumeral joint osteoarthritis. Likely ossific loose joint body in a nterior joint recess. Superior humeral head migration as can be seen with rotator cuff pathology. No erosion or periosteal change. An electronic device projects over the inferior image in one of the vie ws. Metallic density foci project over the anterior soft tissues. IMPRESSION: No acute osseous finding in the right shoulder. Reviewed, dictated and finalized at location K.
[2022-03-05 15:55] VITALS: BP 140/83; PULSE 84; RESP 20; TEMP 36.8; O2SAT 97
--- NOTE | 2022-03-05 17:34 | ED.GENADULT ---
HPI - General Adult General Chief complaint: Extremity Injury, Upper Stated complaint: RIGHT ARM PAIN Time Seen by Provider: 03/05/22 15:54 History of Present Illness HPI narrative: 81-year-old female presented to the emergency department for evaluation of right arm pain. Patient states that she was attempting to pull up in a drawer yesterday when she injured her right arm. Patient does report decreased range of motion of the right arm. Patient states that she has pain in shoulder elbow and wrist. Patient denies any falls or injuries. Related Data Home Medications Medication Instructions Recorded Confirmed calcium carbonate 600 mg calcium 1,200 mg PO DAILY 09/27/20 05/20/21 (1,500 mg) tablet cholecalciferol (vitamin D3) 25 25 mcg PO DAILY 09/27/20 05/20/21 mcg (1,000 unit) tablet diltiazem HCl 180 mg 180 mg PO DAILY 09/27/20 05/20/21 capsule,extended release 24 hr furosemide 40 mg tablet 40 mg PO QAM 09/27/20 05/20/21 metformin 1,000 mg tablet 1,000 mg PO BID 09/27/20 05/20/21 nystatin 100,000 unit/gram topical See Rx Instructions .Route 05/01/21 05/20/21 cream .COMPLEX PRN Rash aspirin 81 mg tablet,delayed 325 mg PO DAILY 05/15/21 05/20/21 release cyclobenzaprine 5 mg tablet 5 mg PO HS PRN Muscle Spasm 05/15/21 05/20/21 meclizine 25 mg tablet 25 mg PO BID PRN Dizziness 05/15/21 05/20/21 metoprolol succinate 100 mg 100 mg PO DAILY 05/15/21 05/20/21 tablet,extended release 24 hr stxntaga-xtf-ppwkt acid 0.4 1 tablet PO DAILY 05/15/21 05/20/21 mg-lycopene 300 mcg-lutein 250 mcg tablet (CertaVite Senior) potassium chloride 20 mEq 20 meq PO DAILY 05/15/21 05/20/21 tablet,extended release Allergies Allergy/AdvReac Type Severity Reaction Status Date / Time bisoprolol Allergy Intermediate unknown Verified 03/05/22 16:04 hydrochlorothiazide Allergy Intermediate unknown Verified 03/05/22 16:04 oxycodone Allergy Intermediate unknown Verified 03/05/22 16:04 Review of Systems Review of Systems: CONSTITUTIONAL: Denies fever, chills, or sweats. EYES: Denies visual changes, redness, or discharge. ENT: Denies rhinorrhea, congestion, sore throat, or otalgia. CARDIOVASCULAR: Denies chest pain, palpitations, or edema. RESPIRATORY: Denies cough or dyspnea. GASTROINTESTINAL: Denies abdominal pain, nausea, vomiting, or diarrhea. GENITOURINARY: Denies dysuria or hematuria. SKIN: Denies rash or itching. MUSCULOSKELETAL: See HPI NEUROLOGIC: Denies headache, numbness, or weakness. PSYCHIATRIC: Denies anxiety or depression. [facility] Past Medical History Medical History (Updated 03/05/22 @ 18:38 by Fernando Navarro MD) Acute renal insufficiency Acute UTI Atrial fibrillation CHF (congestive heart failure) Elevated troponin GERD (gastroesophageal reflux disease) Hypercholesterolemia Hypertension Mitral valve prolapse Sepsis Surgical History Surgical History H/O cataract extraction H/O: hysterectomy History of appendectomy History of esophageal surgery History of total knee arthroplasty On the left Hx of cholecystectomy S/P excision of lipoma S/P IVC filter Family History Family History Mother Diabetes mellitus Father Diabetes mellitus Sibling Acute myocardial infarction Social History Social History Social History: The patient resides has [facility] living. The patient has 5 children. The patient is . 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 The patient does have a durable power state attorney for healthcare. The patient is lifelong nonsmoker. She does not use any marijuana alcohol or illicit drugs. Code status Full code Smoking status: Never smoker Second hand tobacco smoke exposure: Yes Alcohol intake: never Substance use: never Substance use type: does not use Gender identity (if verbalized by the
[2022-03-05 17:52] VITALS: BP 153/99; PULSE 82; RESP 18; O2SAT 98
[2022-03-05] MEDS: ACETAMINOPHEN 500 MG TABLET 650 MG PO (18:43)
== END 2022-03-05 19:06 ==
PROVIDERS: Emergency Provider Emergency Medicine; PCP Family Medicine
DX: S49.91XA Unspecified injury of right shoulder and upper arm, initial encounter (principal); Z79.84 Long term (current) use of oral hypoglycemic drugs; I48.91 Unspecified atrial fibrillation; I50.9 Heart failure, unspecified; K21.9 Gastro-esophageal reflux disease without esophagitis; E78.00 Pure hypercholesterolemia, unspecified; I11.0 Hypertensive heart disease with heart failure; I34.1 Nonrheumatic mitral (valve) prolapse; Z98.49 Cataract extraction status, unspecified eye; Z90.710 Acquired absence of both cervix and uterus; Z96.652 Presence of left artificial knee joint; X50.9XXA Other and unspecified overexertion or strenuous movements or postures, initial encounter
CPT/HCPCS: 73030; 73080; 73110; 99284; A4565; A9270

== ENCOUNTER 2022-03-22 15:17 | Outpatient (CLI) | payer OTHER, SELFPAY ==
[2022-03-22 15:34] LABS: Occult Blood Negative (Negative)
== END 2022-03-22 15:18 | disposition home or self-care (01) ==
PROVIDERS: PCP Family Medicine; Visit Provider Family Medicine
DX: D50.9 Iron deficiency anemia, unspecified (principal)
CPT/HCPCS: 82272

== ENCOUNTER 2022-05-14 17:58 | Observation (INO) | payer OTHER, SELFPAY ==
--- NOTE | ~2022-05-14 | CT_ITS ---
EXAMINATION: CT lumbar spine wo con DATE: 05/14/2022 18:54 INDICATION: fall . TECHNIQUE: Computed tomography (CT) of the lumbar spine was performed without intravenous contrast. A utomated exposure control and iterative reconstruction technique were employed. The dose-length produ ct was 1166.42 mGy-cm. COMPARISON: CT abdomen and pelvis 05/20/2021. FINDINGS: Moderate lumbar scoliosis. IVC filter. 5 nonrib-bearing lumbar-type vertebral bodies. Pedic les intact. Exaggerated lumbar lordosis. Grade 2 anterolisthesis at L5-S1, with fusion. Vertebral bod y heights preserved. Severe degenerative disc disease at all lumbar levels except L4-5. Multilevel se jessie bilateral neural foraminal narrowing and severe central canal narrowing. Severe facet arthropath y at all levels. 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 IMPRESSION: No acute fracture or traumatic malalignment in the lumbar spine. Reviewed, dictated and finalized at location K. IDER RELATIONS SPECIALIST
--- NOTE | ~2022-05-14 | XR_ITS ---
EXAM: XR knee LT min 4V DATE: 05/14/2022 19:07 HISTORY: left knee pain, fall . COMPARISON: 09/27/2020. FINDINGS: Uncomplicated left knee arthroplasty. Decreased mineralization. No fracture or dislocation . No lytic or blastic lesion. Joint spaces are maintained. No erosion or periosteal change. Scattered degenerative and vascular calcifications. Moderate volume joint fluid. IMPRESSION: No acute osseous finding the left knee. No radiographic evidence of hardware related comp lication. Reviewed, dictated and finalized at location K. MACHINE OPERATOR IMPRESSION: No acute osseous finding the left knee. No radiographic evidence of hardware related complication.
--- NOTE | ~2022-05-14 | XR_ITS ---
EXAM: XR hip BI 2V w AP pelvis DATE: 05/14/2022 19:07 HISTORY: BILATERAL HIP PAIN. POOR HISTORIAN . COMPARISON: 09/13/2019. FINDINGS: IVC filter. Decreased mineralization. No acute fracture or dislocation. Dystrophic obscura tion versus old fracture fragment off the superior aspect of the right greater trochanter. Bilateral hip and pelvic enthesopathy No lytic or blastic lesion. Moderate right and mild left hip osteoarthrit is. Degenerative change in the lumbar spine. No erosion or periosteal change. Multiple pelvic phlebol iths. IMPRESSION: No acute osseous finding in the pelvis or bilateral hips. Reviewed, dictated and finalized at location K. STICS OPERATIONS MANAGER
--- NOTE | ~2022-05-14 | XR_ITS ---
EXAMINATION: XR chest 2V Exam Date/Time: 05/14/2022 18:50 COMPLETION ENGINEER HISTORY: WEAKNESS. HX CHF, A-FIB, HTN Comparison: 05/14/2021. RESULT: Lines, tubes, and devices: None. Lungs and pleura: Senescent changes. Cardiomediastinal silhouette: Stable. Other: No acute osseous or upper abdominal finding. IMPRESSION: No acute cardiopulmonary process. Reviewed, dictated and finalized at location K. LETION ENGINEER
--- NOTE | ~2022-05-14 | CT_ITS ---
EXAMINATION: CT cervical spine wo con DATE: 05/14/2022 18:54 INDICATION: fall TECHNIQUE: Computed tomography (CT) of the cervical spine was performed without intravenous contrast. Automated exposure control and iterative reconstruction technique were employed. The dose-length pro duct was 492.08 mGy-cm. COMPARISON: 07/21/2019 FINDINGS: Mildly motion limited images. Vertebral Body Alignment: Intact. Stable multilevel anterolistheses Craniocervical and atlantoaxial alignment: Moderate degenerative change with pannus formation. Alignm ent intact. Osseous structures/fracture: No evidence of a lytic or blastic process in the visualized spine. No e vidence of acute fracture. Cervical soft tissues: The paraspinal soft tissues planes are maintained. Degenerative changes: Multilevel severe degenerative disc disease. Multilevel facet arthropathy. Kelley re neural foraminal narrowing on the right at C3-4 and on the left at C5-6. No severe central canal n arrowing. IMPRESSION: Images are motion limited. Within that constraint, no definite acute fracture or traumatic malalignme nt in the cervical spine. Reviewed, dictated and finalized at location K. NOLOGY PROGRAM MANAGER IMPRESSION: Images are motion limited. Within that constraint, no definite acute fracture o r traumatic malalignment in the cervical spine.
--- NOTE | ~2022-05-14 | CT_ITS ---
EXAMINATION: CT brain wo con DATE: 05/14/2022 18:54 INDICATION: fall . TECHNIQUE: Computed tomography (CT) of the head was performed without intravenous contrast. The mA wa s adjusted according to patient size. Iterative reconstruction technique was employed. The dose-lengt h product was 605.33 mGy-cm. COMPARISON: 05/20/2021 FINDINGS: No acute intracranial hemorrhage or extra-axial fluid collection. No hydrocephalus, mass, or herniation. No acute ischemic infarct. Unremarkable dural venous sinus attenuation. No acute osseous abnormality. Bilateral maxillary mucosal thickening. Air-fluid level and aerated secretions in the right maxillary sinus. Aerated spaces are clear. Moderate atrophy and severe chronic white matter change. Atherosclerotic intracranial calcification. Cavum of septum pellucidum and cavum vergae Bilateral lens replacements. IMPRESSION: No acute intracranial process. Reviewed, dictated and finalized at location K. HEN HELP HANDYMAN
[2022-05-14 18:29] VITALS: BP 122/76; PULSE 70; RESP 18; TEMP 36.8; O2SAT 96
--- NOTE | 2022-05-14 18:31 | ECG_ITS ---
Measurements Intervals [place] Rate: 83 P: MO: 0 QRS: -64 QRSD: 108 T: -27 QT: 276 QTc: 325 Interpretive Statements ATRIAL FLUTTER LEFT AXIS DEVIATION ANTEROSEPTAL INFARCT, AGE INDETERMINATE INFERIOR INFARCT, AGE INDETERMINATE BASELINE ARTIFACT- I, II, AVR ABNORMAL ECG COMPARED TO ECG 05/15/2021 01:31:07 HEART RATE HAS DECREASED Electronically Signed On 05-15-2022 6:21:52 AGRICULTURAL MECHANIC by Juan Alberto Gomez D.O.
--- NOTE | 2022-05-14 18:44 | ED.WEAKNESS ---
HPI - Weakness General Chief complaint: Weakness <Francesca Collins PA-C - Last Filed: 05/14/22 22:56> Stated complaint: GLF, weakness <Francesca Collins PA-C - Last Filed: 05/14/22 22:56> Time Seen by Provider: 05/14/22 18:14 <Francesca Collins PA-C - Last Filed: 05/14/22 22:56> Source: patient <GLYNN Gottlieb Last Filed: 05/14/22 22:56> Mode of arrival: EMS <GLYNN Gottlieb Last Filed: 05/14/22 22:56> Limitations: other (poor historian) <Francesca Collins PA-C - Last Filed: 05/14/22 22:56> History of Present Illness HPI Narrative: This is a 81 year old female that presents to the ER after a fall today at her assisted living facility. Reports she has been feeling generally weak today. Reports she recently tested positive for COVID. She has had a cough. Also reports she has had some left knee pain. Worse with weight bearing and relieved with rest. She does not think that she hit her head when she fell. She did not lose consciousness. She does not have any other focal complaints. Denies fever, chest pain, shortness of breath, vomiting, or dysuria. <Francesca Collins PA-C - Last Filed: 05/14/22 22:56> Related Data Home medications: Home Medications Medication Instructions Recorded Confirmed cholecalciferol (vitamin D3) 25 25 mcg PO DAILY 09/27/20 05/15/22 mcg (1,000 unit) tablet diltiazem HCl 180 mg 180 mg PO DAILY 09/27/20 05/15/22 capsule,extended release 24 hr furosemide 40 mg tablet 40 mg PO QAM 09/27/20 05/15/22 metformin 1,000 mg tablet 1,000 mg PO BID 09/27/20 05/15/22 nystatin 100,000 unit/gram topical See Rx Instructions .Route 05/01/21 05/15/22 cream .COMPLEX PRN Rash cyclobenzaprine 5 mg tablet 5 mg PO HS PRN Muscle Spasm 05/15/21 05/15/22 meclizine 25 mg tablet 25 mg PO BID PRN Dizziness 05/15/21 05/15/22 metoprolol succinate 100 mg 100 mg PO DAILY 05/15/21 05/15/22 tablet,extended release 24 hr yepburfl-wzz-pbzdi acid 0.4 1 tablet PO DAILY 05/15/21 05/15/22 mg-lycopene 300 mcg-lutein 250 mcg tablet (CertaVite Senior) potassium chloride 20 mEq 20 meq PO DAILY 05/15/21 05/15/22 tablet,extended release Saccharomyces boulardii 250 mg 250 mg PO BID 05/15/22 05/15/22 capsule (Florastor) calcium 500 mg tablet 500 mg PO DAILY 05/15/22 05/15/22 citalopram 10 mg tablet 10 mg PO DAILY 05/15/22 05/15/22 insulin detemir U-100 100 unit/mL 15 unit subcut QAM 05/15/22 05/15/22 subcutaneous solution (Levemir U-100 Insulin) lisinopril 5 mg tablet 10 mg PO DAILY 05/15/22 05/15/22 magnesium oxide 400 mg PO DAILY 05/15/22 05/15/22 <Francesca Collins PA-C - Last Filed: 05/14/22 22:56> Allergies/Adverse reactions: Allergies Allergy/AdvReac Type Severity Reaction Status Date / Time bisoprolol Allergy Intermediate unknown Verified 05/14/22 18:25 hydrochlorothiazide Allergy Intermediate unknown Verified 05/14/22 18:25 oxycodone Allergy Intermediate unknown Verified 05/14/22 18:25 <Francesca Collins PA-C - Last Filed: 05/14/22 22:56> Review of Systems Review of Systems: CONSTITUTIONAL: Denies fever CARDIOVASCULAR: Denies chest pain, or edema. RESPIRATORY: Reports cough. Denies dyspnea. GASTROINTESTINAL: Denies vomiting GENITOURINARY: Denies dysuria MUSCULOSKELETAL: Reports joint pain, and myalgia. NEUROLOGIC: Reports generalized weakness. <Francesca Collins PA-C - Last Filed: 05/14/22 22:56> All systems reviewed & are unremarkable except as noted in HPI and below <Francesca Collins PA-C - Last Filed: 05/14/22 22:56> [facility] Past Medical History Medical History: Medical History Acute renal insufficiency Acute UTI Atrial fibrillation CHF (congestive heart failure) Elevated troponin GERD (gastroesophageal reflux disease) Hypercholesterolemia Hypertension Mitral valve prolapse Sepsis <Francesca Collins PA-C - Last Filed: 05/14/22 22:56> Surgical History Surgical History:
[2022-05-14 19:11] VITALS: PULSE 83
[2022-05-14 19:19] LABS: Basophils Absolute Auto 0.1 K/mm3 (0.0-0.1); Basophils Percent Auto 0.7 % (0.2-1.2); Eosinophils Absolute Auto 0.1 K/mm3 (0-0.3); Eosinophils Percent Auto 0.7 % (0-4.4); Hematocrit 37.9 % (37.0-47.0); Hemoglobin 12.1 g/dL (12.0-15.0); Immature Granulocyte Absolute 0.06 K/mm3 (0.00-0.031); Immature Granulocyte Percent A 0.7 % (0-0.5); Lymphocytes Absolute Auto 1.18 K/mm3 (0.9-3.2); Lymphocytes Percent Auto 14.3 % (18.3-44.2); Mean Corpuscular HGB Conc 31.9 g/dl (32-36); Mean Corpuscular Hemoglobin 28.7 pg (26-34); Mean Platelet Volume 10.6 fl (7.4-10.4); Monocytes Absolute Auto 1.1 K/mm3 (0.1-0.6); Monocytes Percent Auto 13.7 % (2.6-8.5); Neutrophils Absolute Auto 5.8 K/mm3 (1.3-6.7); Neutrophils Percent Auto 69.9 % (45.5-73.1); Platelet Count Result 227 k/mm3 (150-375); Red Blood Count 4.21 M/mm3 (4.2-5.4); Red Cell Distribution Width 17.8 % (11.5-14.5); White Blood Count 8.2 K/mm3 (4.5-10.0)
[2022-05-14 19:30] LABS: INR 1.1; Partial Thromboplastin Time 25.8 SECONDS (22.3-36.8); Prothrombin Time 14.1 Seconds (11.1-14.7)
[2022-05-14 19:32] LABS: Alanine Aminotransferase 40 U/L (6-35); Albumin Level 3.8 g/dL (3.5-5.1); Alkaline Phosphatase 106 U/L (38-126); Anion Gap 12 mmol/L (8-16); Aspartate Amino Transferase 33 U/L (14-36); Bilirubin,Total 0.5 mg/dL (0.2-1.3); Blood Urea Nitrogen 20 mg/dL (7-17); Calcium 8.4 mg/dL (8.4-10.2); Carbon Dioxide 25 mmol/L (22-30); Chloride 101 mmol/L (98-107); Estimated CRCL calculation 46 ml/min; Estimated Glomerular Filt Rate 60; Glucose 232 mg/dL (65-110); Potassium 3.7 mmol/L (3.4-5.0); Sodium 138 mmol/L (137-145)
[2022-05-14 20:43] LABS: Mucus Urine Rare /lpf; WBC Urine >75 /hpf
[2022-05-14 20:44] VITALS: BP 106/59; PULSE 81; RESP 20; O2SAT 95
[2022-05-14 20:44] LABS: Appearance Urine Clear (Clear); Bilirubin Urine Negative (Negative); Blood Urine 1+ (Negative); Color Urine Yellow (Yellow); Glucose Urine UA Trace mg/dL (Negative); Ketones Urine Trace mg/dL (Negative); Leukocyte Esterase Ur 1+ LEU/UL (Negative); Nitrate Urine Negative (Negative); Protein Urine 2+ mg/dL (Negative); Specific Grav Ur 1.025 (1.001-1.035); Urobilinogen Urine 0.2 mg/dL (<2.0); pH Urine 5.5 (5.0-9.0)
[2022-05-14 20:46] LABS: Add Urine Microscopic? YES
--- NOTE | 2022-05-14 21:46 | PM.IMHP ---
H&P: HPI History of Present Illness Date/Time: 05/14/22 21:46 Chief Complaint: generalized weakness Narrative: This is an 81-year-old female with past medical history significant for atrial fibrillation, congestive heart failure, GERD, dyslipidemia, hypertension, mitral valve prolapse, Obesity. patient comes to the emergency room with complaints of generalized weakness has had some chills, poor appetite, denies any pain or burning with urination, no nausea, no vomiting, no diarrhea, no abdominal pain, no cough, no sputum production, this has been ongoing for the last week or so. patient also had tested positive for COVID. preliminary workup was significant for urinalysis with more than 75 WBCs per high-power field. Patient has been admitted for further evaluation management and treatment. Chest x-ray was reported as: IMPRESSION: No acute cardiopulmonary process. x-ray of hips: IMPRESSION: No acute osseous finding in the pelvis or bilateral hips. CT of lumbar spine was reported as; IMPRESSION: No acute fracture or traumatic malalignment in the lumbar spine. Review of Systems Review of Systems: generalized weakness Constitutional: Constitutional: Reports chills, Reports fatigue, Reports lethargy, Reports malaise, Reports poor appetite and Reports weakness Eyes: Eyes: Denies change in vision ENT: Denies dysphagia, Denies nasal congestion, Denies nasal discharge, Denies nasal obstruction and Denies odynophagia Cardiovascular: Cardiovascular: Denies chest pain, Denies leg edema, Denies dyspnea on exertion and Denies orthopnea Respiratory: Respiratory: Denies cough Gastrointestinal: Gastrointestinal: Denies abdominal pain, Denies dyspepsia, Denies heartburn, Denies diarrhea, Denies nausea and Denies vomiting Genitourinary: Genitourinary: Denies dysuria Musculoskeletal: Musculoskeletal: Reports muscle weakness Integumentary/Breasts: Skin/Breast: Denies rash Neurologic: Denies focal weakness and Denies Sensory deficit (Neuro) Psychiatric: Psychiatric: Reports no additional psychiatric complaints and Reports as per HPI Endocrine: Endocrine: Denies cold intolerance, Denies flushing, Denies heat intolerance, Denies polyphagia, Denies polydipsia and Denies palpitations Hematologic/Lymphatic: Hematologic/Lymphatic: Reports no additional hematologic/lymphatic complaints and Reports as per HPI Allergic/Immunologic: Allergic/Immunologic: Reports no additional allergic/immunologic complaints and Reports as per HPI [facility] Past Medical History Medical History Acute renal insufficiency Acute UTI Atrial fibrillation CHF (congestive heart failure) Elevated troponin GERD (gastroesophageal reflux disease) Hypercholesterolemia Hypertension Mitral valve prolapse Sepsis Surgical History Surgical History H/O cataract extraction H/O: hysterectomy History of appendectomy History of esophageal surgery History of total knee arthroplasty On the left Hx of cholecystectomy S/P excision of lipoma S/P IVC filter Family History Family History Mother Diabetes mellitus Father Diabetes mellitus Sibling Acute myocardial infarction Social History Social History Social History: The patient resides has [facility] living. The patient has 5 children. The patient is . 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 The patient does have a durable power calendar control clerk blood bank for healthcare. The patient is lifelong nonsmoker. She does not use any marijuana alcohol or illicit drugs. Code status Full code Smoking status: Never smoker Second hand tobacco smoke exposure: Yes Alcohol intake: never Substance use: never Substance use type: does not use Has the Lack of Transportation Kept
[2022-05-14 21:51] VITALS: BP 122/72; PULSE 80; RESP 18; O2SAT 95
[2022-05-14 22:37] VITALS: BP 116/74; PULSE 80; RESP 19; O2SAT 98
[2022-05-14] MEDS: ACETAMINOPHEN 500 MG TABLET 1000 MG PO (23:40)
[2022-05-15] VITALS (9 sets, daily range): BP systolic 120–136; BP diastolic 60–74; PULSE 64–87; RESP 18–26; TEMP 36.6–37; O2SAT 91–99; BMI 38.0
--- NOTE | 2022-05-15 00:18 | ADMGEN ---
This patient, Freda Khanna, was admitted to [facility] Surg Room 312-01. Patient/family oriented to hospital policies and general routines including ID bracelet, bed and alarms, visiting hours, pain management, procedures, bathroom and other care routines, personal items, smoking policy, room service/diet, and visiting hours. Information on how to activate the Rapid Response Team has been discussed. Patient/Family are encouraged to report perceived risks to care and to ask questions if they do not understand what they are told or what they should do.
[2022-05-15 08:35] LABS: Glucose Point of Care 187 mg/dl (65-105)
[2022-05-15] MEDS: CHOLECALCIFEROL 1,000 UNITS TABLET 1000 UNITS PO (09:28)
[2022-05-15] MEDS: SACCHAROMYCES BOULARDII 250 MG CAPSULE PO ×2 (09:28→20:46)
[2022-05-15] MEDS: lisinopriL 10 MG TABLET PO (09:28)
[2022-05-15] MEDS: ASPIRIN 325 MG TABLET PO (09:28)
[2022-05-15] MEDS: CITALOPRAM HYDROBROMIDE 10 MG TABLET PO (09:29)
[2022-05-15] MEDS: INSULIN GLARGINE (*BKC) 100 UNITS/ML 15 UNITS SUB-Q (09:29)
[2022-05-15] MEDS: FUROSEMIDE 40 MG TABLET PO (09:29)
[2022-05-15] MEDS: INSULIN ASPART (*BKC) 100 UNITS/ML SUB-Q ×3 (09:29→17:45)
[2022-05-15] MEDS: MAGNESIUM OXIDE 400 MG TABLET PO (09:30)
[2022-05-15] MEDS: dilTIAZem HCL CD 180 MG CAP.ER.24H PO (09:31)
[2022-05-15] MEDS: ENOXAPARIN 40 MG/0.4 ML SYRINGE SUB-Q (09:32)
[2022-05-15] MEDS: METOPROLOL SUCCINATE EXT REL 100 MG TABCR PO (09:33)
[2022-05-15 12:31] LABS: Glucose Point of Care 224 mg/dl (65-105)
[2022-05-15] MEDS: MULTIVITAMINS /C LUTEIN (CENTRUM SILVER) TABLET *BKC 1 TAB PO (12:33)
[2022-05-15] MEDS: CALCIUM CARBONATE (OSCAL) 500 MG TABLET PO (12:33)
[2022-05-15 15:01] LABS: SARS-CoV-2 RNA PCR Positive
--- NOTE | 2022-05-15 15:37 | PM.IMPN ---
Progress Note: A&P Assessment and Plan (1) Acute UTI: Code(s): N39.0 - Urinary tract infection, site not specified Status: Inactive Assessment and Plan: continue IV Rocephin (2) Chronic atrial flutter: Code(s): I48.92 - Unspecified atrial flutter Status: Acute Assessment and Plan: Rate controlled. continue Cardizem (3) Type II diabetes mellitus: Code(s): E11.9 - Type 2 diabetes mellitus without complications Status: Chronic Assessment and Plan: Continue monitoring. Accu-Cheks AC and HS. Hypoglycemic protocol in place. (4) GERD (gastroesophageal reflux disease): Code(s): K21.9 - Gastro-esophageal reflux disease without esophagitis Status: Acute Assessment and Plan: PPI Subjective Date/time seen: 05/15/22 15:37 patient states she feels weak. No other complaints Review of Systems Review of Systems: generalized weakness Constitutional: Constitutional: Reports chills, Reports fatigue, Reports lethargy, Reports malaise, Reports poor appetite and Reports weakness Eyes: Eyes: Denies change in vision ENT: Denies dysphagia, Denies nasal congestion, Denies nasal discharge, Denies nasal obstruction and Denies odynophagia Cardiovascular: Cardiovascular: Denies chest pain, Denies leg edema, Denies dyspnea on exertion and Denies orthopnea Respiratory: Respiratory: Denies cough Gastrointestinal: Gastrointestinal: Denies abdominal pain, Denies dyspepsia, Denies heartburn, Denies diarrhea, Denies nausea and Denies vomiting Genitourinary: Genitourinary: Denies dysuria Musculoskeletal: Musculoskeletal: Reports muscle weakness Integumentary/Breasts: Skin/Breast: Denies rash Neurologic: Denies focal weakness and Denies Sensory deficit (Neuro) Psychiatric: Psychiatric: Reports no additional psychiatric complaints and Reports as per HPI Endocrine: Endocrine: Denies cold intolerance, Denies flushing, Denies heat intolerance, Denies polyphagia, Denies polydipsia and Denies palpitations Hematologic/Lymphatic: Hematologic/Lymphatic: Reports no additional hematologic/lymphatic complaints and Reports as per HPI Allergic/Immunologic: Allergic/Immunologic: Reports no additional allergic/immunologic complaints and Reports as per HPI Exam Const: General: comfortable, no acute distress, well developed, alert, awake, ill appearing and overweight Nutritional Appearance: average body habitus Orientation/consciousness: patient oriented x3 HENMT: Head: normal to inspection, normocephalic and atraumatic Ears: hearing grossly normal bilaterally Face/Nose/Sinus: normal facial exam Face and sinus: normal facial exam Eyes: General: appearance normal, both eyes and all related structures Pupils: Equal, round and reactive pupils present EOM: EOMs intact bilaterally Neck: Neck: full ROM, no lymphadenopathy and no JVD Thyroid: thyroid normal Lymphatic: no lymphadenopathy noted Resp: Effort & Inspection: normal respiratory effort and able to speak in complete sentences Auscultation: clear to auscultation bilaterally Cardio: Jugular venous distension: no JVD Rate: regular rate Rhythm: regular rhythm Heart sounds: S1 normal heart sound present and S2 normal heart sound present GI: GI Palp: Yes Soft to palpation and Yes No hepatosplenomegaly present : General: Yes deferred Skin: Rashes: no rashes Wounds: no wounds Other: bilateral lower extremity legs chronic skin changes and discoloration Neuro: General: patient oriented x3 and CN's II-XI intact bilaterally Cranial nerves: Yes CN's II-XII intact bilaterally and Yes Equal, round and reactive pupils present Cognition (Neuro): normal cognition Speech: normal speech Gait exam (Neuro): Unable to assess gait Motor exam (neuro): 5/5 motor strength present throughout Extrem: General: normal to inspection, full ROM, no joint enlargement and no pedal edema Other: bilateral lower extremities
[2022-05-15 16:52] LABS: Glucose Point of Care 241 mg/dl (65-105)
[2022-05-15 22:20] LABS: Glucose Point of Care 175 mg/dl (65-105)
[2022-05-16] VITALS: BP 147/81; PULSE 77; RESP 16; TEMP 36.9; O2SAT 94
[2022-05-16 04:00] VITALS: BP 147/96; PULSE 86; RESP 18; TEMP 36.6; O2SAT 93
[2022-05-16 07:49] LABS: Glucose Point of Care 175 mg/dl (65-105)
[2022-05-16 08:00] VITALS: BP 144/61; PULSE 99; RESP 22; TEMP 36.3; O2SAT 94
[2022-05-16] MEDS: FUROSEMIDE 40 MG TABLET PO (08:25)
[2022-05-16] MEDS: SACCHAROMYCES BOULARDII 250 MG CAPSULE PO (08:25)
[2022-05-16] MEDS: ENOXAPARIN 40 MG/0.4 ML SYRINGE SUB-Q (08:25)
[2022-05-16] MEDS: MULTIVITAMINS /C LUTEIN (CENTRUM SILVER) TABLET *BKC 1 TAB PO (08:25)
[2022-05-16] MEDS: MAGNESIUM OXIDE 400 MG TABLET PO (08:26)
[2022-05-16] MEDS: METOPROLOL SUCCINATE EXT REL 100 MG TABCR PO (08:26)
[2022-05-16] MEDS: CALCIUM CARBONATE (OSCAL) 500 MG TABLET PO (08:26)
[2022-05-16] MEDS: INSULIN ASPART (*BKC) 100 UNITS/ML SUB-Q ×3 (08:26→17:11)
[2022-05-16] MEDS: CITALOPRAM HYDROBROMIDE 10 MG TABLET PO (08:26)
[2022-05-16] MEDS: CHOLECALCIFEROL 1,000 UNITS TABLET 1000 UNITS PO (08:26)
[2022-05-16] MEDS: dilTIAZem HCL CD 180 MG CAP.ER.24H PO (08:26)
[2022-05-16] MEDS: lisinopriL 10 MG TABLET PO (08:26)
[2022-05-16] MEDS: ASPIRIN 325 MG TABLET PO (08:26)
[2022-05-16] MEDS: INSULIN GLARGINE (*BKC) 100 UNITS/ML 15 UNITS SUB-Q (08:28)
--- NOTE | 2022-05-16 10:54 | PM.DS ---
DS: Admitting Diagnosis Discharge Date 05/16/2022 Admitting Diagnosis UTI, weakness DS: Summary Hospital Course Hospital Course: ?This is an 81-year-old female with past medical history significant for atrial fibrillation, congestive heart failure, GERD, dyslipidemia, hypertension, mitral valve prolapse, comes to the emergency room with complaints of generalized weakness. has had some chills, poor appetite, denies any pain or burning with urination, no nausea, no vomiting, no diarrhea, no abdominal pain, no cough, no sputum production, this has been ongoing for the last week or so. preliminary workup was significant for UTI.? Patient has been admitted for further evaluation management and treatment. she was started on IV Rocephin. PT and OT were consulted. Patient did very well with therapy and the recommendation is for the patient to go home. Patient will be discharged home with oral Macrobid for 5 days. Time Spent with Patient Time attestation: Total time spent providing and/or coordinating discharge services: Exam Const: General: comfortable, no acute distress, well developed, alert, awake, ill appearing and overweight Nutritional Appearance: average body habitus Orientation/consciousness: patient oriented x3 HENMT: Head: normal to inspection, normocephalic and atraumatic Ears: hearing grossly normal bilaterally Face/Nose/Sinus: normal facial exam Face and sinus: normal facial exam Eyes: General: appearance normal, both eyes and all related structures Pupils: Equal, round and reactive pupils present EOM: EOMs intact bilaterally Neck: Neck: full ROM, no lymphadenopathy and no JVD Thyroid: thyroid normal Lymphatic: no lymphadenopathy noted Resp: Effort & Inspection: normal respiratory effort and able to speak in complete sentences Auscultation: clear to auscultation bilaterally Cardio: Jugular venous distension: no JVD Rate: regular rate Rhythm: regular rhythm Heart sounds: S1 normal heart sound present and S2 normal heart sound present GI: GI Palp: Yes Soft to palpation and Yes No hepatosplenomegaly present : General: Yes deferred Skin: Rashes: no rashes Wounds: no wounds Other: bilateral lower extremity legs chronic skin changes and discoloration Neuro: General: patient oriented x3 and CN's II-XI intact bilaterally Cranial nerves: Yes CN's II-XII intact bilaterally and Yes Equal, round and reactive pupils present Cognition (Neuro): normal cognition Speech: normal speech Gait exam (Neuro): Unable to assess gait Motor exam (neuro): 5/5 motor strength present throughout Extrem: General: normal to inspection, full ROM, no joint enlargement and no pedal edema Other: bilateral lower extremities chronic skin changes and discoloration DS: Data Data Completed and Pending Labs on day of discharge: Labs from last 24 hours 05/16/22 05/15/22 05/15/22 07:42 22:10 16:35 POC Capillary Glucose 175 H 175 H 241 H SARS-CoV-2 RNA (RT-PCR) 05/15/22 05/15/22 13:30 11:50 POC Capillary Glucose 224 H SARS-CoV-2 RNA (RT-PCR) Positive A Preliminary micro results at discharge 05/14/22 20:26 Urine Culture - Preliminary Urine-Clean Catch Staphylococcus aureus Discharge Plan Discharge Consulting providers: Francesca Collins Discharging Clinician: Wilton Worthy Anticipated Discharge Date/Time: 05/16/22 09:31 Patient Disposition: Home, Self-Care Activity: november shower Diet: heart healthy Patient Instructions: Antibiotic Form, Weakness (DC), Urinary Tract Infection in Older Adults (DC), COVID-19 (Coronavirus Disease 2019) (DC) Stand Alone Forms: General Discharge Information Follow-up/Referrals: Dayton Jones DO [Primary Care Provider] - Discharge Medications: New nitrofurantoin macrocrystal [Macrodantin] 100 mg capsule 100 mg PO Q12H 5 Days Qty: 10 0RF Rx Instructions: must administer with a meal/food aspirin 81 mg capsule 81 mg PO D
[2022-05-16 12:00] VITALS: BP 133/67; PULSE 84; RESP 20; TEMP 36.8; O2SAT 96
[2022-05-16 12:04] LABS: Glucose Point of Care 245 mg/dl (65-105)
[2022-05-16 16:00] VITALS: BP 122/64; PULSE 83; RESP 20; TEMP 36.6; O2SAT 95
[2022-05-16 16:40] LABS: Glucose Point of Care 212 mg/dl (65-105)
== END 2022-05-16 18:15 | disposition home or self-care (01) ==
LOC: ANHED 22:56 → ANH3MEDSUR 23:47
PROVIDERS: Physician Assistant; Admitting Provider Internal Medicine; Emergency Provider Emergency Medicine; PCP Family Medicine; Visit Provider Hospitalist
DX: U07.1 COVID-19 (principal); N39.0 Urinary tract infection, site not specified; B95.62 Methicillin resistant Staphylococcus aureus infection as the cause of diseases classified elsewhere; R53.1 Weakness; M25.552 Pain in left hip; M25.551 Pain in right hip; M25.562 Pain in left knee; W19.XXXA Unspecified fall, initial encounter; N28.9 Disorder of kidney and ureter, unspecified; I48.91 Unspecified atrial fibrillation; I11.0 Hypertensive heart disease with heart failure; I50.9 Heart failure, unspecified; I34.1 Nonrheumatic mitral (valve) prolapse; R77.8 Other specified abnormalities of plasma proteins; E78.00 Pure hypercholesterolemia, unspecified; K21.9 Gastro-esophageal reflux disease without esophagitis; E66.9 Obesity, unspecified; R94.31 Abnormal electrocardiogram [ECG] [EKG]; Z79.84 Long term (current) use of oral hypoglycemic drugs; Z79.82 Long term (current) use of aspirin; Z79.899 Other long term (current) drug therapy; Z82.49 Family history of ischemic heart disease and other diseases of the circulatory system
CPT/HCPCS: 36415; 51701; 70450; 71046; 72125; 72131; 73521; 73564; 80053; 81001; 82948; 85025; 85610; 85730; 87086; 87147; 87181; 87186; 93005; 96365; 96366; 96372; 97110; 97116; 97161; 97165; 99285; A9270; G0378; J0696; J1650; J1815; U0003; U0005

== ENCOUNTER 2022-06-06 09:25 | Emergency (ER) | payer OTHER, SELFPAY ==
--- NOTE | ~2022-06-06 | CT_ITS ---
EXAMINATION: CT abdomen pelvis w con DATE: 06/06/2022 13:00 INDICATION: Abdomen pain. Nausea and diarrhea. TECHNIQUE: Computed tomography (CT) of the abdomen and pelvis was performed with 100 cc Omnipaque 350 intravenous contrast. The dose-length product was 1128.99 mGy-cm. Automated exposure control and ite rative reconstruction technique were employed. COMPARISON: CT dated 05/20/2021. FINDINGS: Stable atelectasis/scarring right middle lobe. Cardiomegaly. There is atherosclerosis of th e aorta without aneurysm. There is an IVC filter present. Status post cholecystectomy. Stable 12 mm h ypodense lesion left hepatic lobe, likely benign in the absence of known malignancy. Status post chol ecystectomy. The spleen, pancreas, adrenal glands are unremarkable. There are nonobstructing bilatera l renal stones. There is left urothelial enhancement, suspicious for ascending urinary tract infectio n. No lymphadenopathy. Nonobstructive bowel gas pattern. There is laxity of the anterior abdominal wa ll musculature. No free air or free fluid. There is severe osteoarthritis of the hips. There is sever e lumbar spondylosis. There is grade 2 spondylolisthesis at L5-S1 with ankylosis. There is levoscolio sis. IMPRESSION: 1. Mild left hydronephrosis with urothelial enhancement and mild periureteral edema proximally, suspi cious for ascending urinary tract infection. 2: Nonobstructing bilateral nephrolithiasis. Reviewed, dictated and finalized at location A. N GEOGRAPHY INSTRUCTOR IMPRESSION: 1. Mild left hydronephrosis with urothelial enhancement and mild periureteral e le proximally, suspicious for ascending urinary tract infection. 2: Nonobstructing bilateral nephrolithiasis.
[2022-06-06 09:29] VITALS: BP 168/91; PULSE 87; RESP 16; TEMP 37.2; O2SAT 97
--- NOTE | 2022-06-06 10:51 | PC.NURSE ---
pt. assisted from BR back to WR via w/c. pt. in NAD- talkative, normal posture, speech clear, breathing and skin signs wnl.
[2022-06-06 12:05] LABS: Basophils Absolute Auto 0.1 K/mm3 (0.0-0.1); Basophils Percent Auto 0.7 % (0.2-1.2); Eosinophils Absolute Auto 0.1 K/mm3 (0-0.3); Eosinophils Percent Auto 0.8 % (0-4.4); Hematocrit 41.4 % (37.0-47.0); Hemoglobin 13.1 g/dL (12.0-15.0); Immature Granulocyte Absolute 0.06 K/mm3 (0.00-0.031); Immature Granulocyte Percent A 0.5 % (0-0.5); Lymphocytes Absolute Auto 1.56 K/mm3 (0.9-3.2); Lymphocytes Percent Auto 13.7 % (18.3-44.2); Mean Corpuscular HGB Conc 31.6 g/dl (32-36); Mean Corpuscular Hemoglobin 28.5 pg (26-34); Mean Corpuscular Volume 90.2 fl (80-100); Mean Platelet Volume 10.2 fl (7.4-10.4); Monocytes Absolute Auto 0.8 K/mm3 (0.1-0.6); Monocytes Percent Auto 7.2 % (2.6-8.5); Neutrophils Absolute Auto 8.8 K/mm3 (1.3-6.7); Neutrophils Percent Auto 77.1 % (45.5-73.1); Platelet Count Result 294 k/mm3 (150-375); Red Blood Count 4.59 M/mm3 (4.2-5.4); White Blood Count 11.4 K/mm3 (4.5-10.0)
--- NOTE | 2022-06-06 12:15 | PC.NURSE ---
Patient attempted to collect urine specimen. Patient missed the cup during clean catch.
--- NOTE | 2022-06-06 12:16 | ED.ABDPAIN ---
HPI - Abdominal Pain General Chief Complaint: Abdominal Pain Stated Complaint: n/v, back pain Source: patient Mode of arrival: EMS Limitations: no limitations History of Present Illness HPI narrative: This is a 81-year-old female that presents to the emergency department for abdominal pain ongoing since this morning. Associated with nausea and some loose stools. Also reports left flank pain. Denies fever, cough, congestion, sore throat, or dysuria. Related Data Home Medications Medication Instructions Recorded Confirmed cholecalciferol (vitamin D3) 25 25 mcg PO DAILY 09/27/20 05/15/22 mcg (1,000 unit) tablet diltiazem HCl 180 mg 180 mg PO DAILY 09/27/20 05/15/22 capsule,extended release 24 hr furosemide 40 mg tablet 40 mg PO QAM 09/27/20 05/15/22 metformin 1,000 mg tablet 1,000 mg PO BID 09/27/20 05/15/22 nystatin 100,000 unit/gram topical See Rx Instructions .Route 05/01/21 05/15/22 cream .COMPLEX PRN Rash cyclobenzaprine 5 mg tablet 5 mg PO HS PRN Muscle Spasm 05/15/21 05/15/22 meclizine 25 mg tablet 25 mg PO BID PRN Dizziness 05/15/21 05/15/22 metoprolol succinate 100 mg 100 mg PO DAILY 05/15/21 05/15/22 tablet,extended release 24 hr oldsrlbs-qre-bpdbv acid 0.4 1 tablet PO DAILY 05/15/21 05/15/22 mg-lycopene 300 mcg-lutein 250 mcg tablet (CertaVite Senior) potassium chloride 20 mEq 20 meq PO DAILY 05/15/21 05/15/22 tablet,extended release Saccharomyces boulardii 250 mg 250 mg PO BID 05/15/22 05/15/22 capsule (Florastor) calcium 500 mg tablet 500 mg PO DAILY 05/15/22 05/15/22 citalopram 10 mg tablet 10 mg PO DAILY 05/15/22 05/15/22 insulin detemir U-100 100 unit/mL 15 unit subcut QAM 05/15/22 05/15/22 subcutaneous solution (Levemir U-100 Insulin) lisinopril 5 mg tablet 10 mg PO DAILY 05/15/22 05/15/22 magnesium oxide 400 mg PO DAILY 05/15/22 05/15/22 Allergies Allergy/AdvReac Type Severity Reaction Status Date / Time bisoprolol Allergy Intermediate unknown Verified 05/14/22 18:25 hydrochlorothiazide Allergy Intermediate unknown Verified 05/14/22 18:25 oxycodone Allergy Intermediate unknown Verified 05/14/22 18:25 Review of Systems Review of Systems: CONSTITUTIONAL: Denies fever ENT: Denies rhinorrhea, congestion, sore throat CARDIOVASCULAR: Denies chest pain RESPIRATORY: Denies cough GASTROINTESTINAL: Reports abdominal pain, nausea, and diarrhea. Denies vomiting GENITOURINARY: Denies dysuria All systems reviewed & are unremarkable except as noted in HPI and below PMFSH Past Medical History Medical History Acute renal insufficiency Acute UTI Atrial fibrillation CHF (congestive heart failure) Elevated troponin GERD (gastroesophageal reflux disease) Hypercholesterolemia Hypertension Mitral valve prolapse Sepsis Surgical History Surgical History H/O cataract extraction H/O: hysterectomy History of appendectomy History of esophageal surgery History of total knee arthroplasty On the left Hx of cholecystectomy S/P excision of lipoma S/P IVC filter Family History Family History Mother Diabetes mellitus Father Diabetes mellitus Sibling Acute myocardial infarction Social History Social History Social History: The patient resides has [facility]. The patient has 5 children. The patient is . 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 The patient does have a durable power attorney at law for healthcare. The patient is lifelong nonsmoker. She does not use any marijuana alcohol or illicit drugs. Code status Full code Smoking status: Never smoker Second hand tobacco smoke exposure: Yes Alcohol intake: never Substance use: never Substance use type: does not use Lack of Transportation: No Lack of Food: Never True Curre
[2022-06-06 12:22] LABS: Alanine Aminotransferase 35 U/L (6-35); Albumin Level 4.6 g/dL (3.5-5.1); Alkaline Phosphatase 111 U/L (38-126); Anion Gap 13 mmol/L (8-16); Aspartate Amino Transferase 38 U/L (14-36); Bilirubin,Total 0.7 mg/dL (0.2-1.3); Blood Urea Nitrogen 19 mg/dL (7-17); Calcium 9.1 mg/dL (8.4-10.2); Carbon Dioxide 24 mmol/L (22-30); Chloride 103 mmol/L (98-107); Estimated CRCL calculation 63 ml/min; Estimated Glomerular Filt Rate > 60; Glucose 147 mg/dL (65-110); Lipase 169 U/L (23-300); Potassium 4.2 mmol/L (3.4-5.0); Sodium 140 mmol/L (137-145)
[2022-06-06] MEDS: ONDANSETRON INJ 4 MG/2 ML VIAL IV PUSH (13:22)
[2022-06-06] MEDS: FAMOTIDINE 20 MG/2 ML VIAL IV PUSH (13:22)
[2022-06-06] MEDS: SODIUM CHLORIDE 0.9% IV 500 ML 999 ML IV CONT (13:22)
[2022-06-06 13:26] LABS: Appearance Urine Clear (Clear); Bilirubin Urine Negative (Negative); Blood Urine Trace-lysed (Negative); Color Urine Yellow (Yellow); Glucose Urine UA Negative (Negative); Ketones Urine Negative (Negative); Leukocyte Esterase Ur Negative LEU/UL (Negative); Nitrate Urine Negative (Negative); Protein Urine Negative (Negative); Urobilinogen Urine 0.2 mg/dL (<2.0)
[2022-06-06 13:33] LABS: Squamous Epithelial Cell Urine Rare /hpf (Few); WBC Urine 0-3 /hpf
[2022-06-06 13:53] VITALS: TEMP 37.2
[2022-06-06 13:59] LABS: Add Urine Microscopic? YES
[2022-06-06 16:42] VITALS: BP 145/91; PULSE 74; RESP 18; O2SAT 99
--- NOTE | 2022-06-06 17:01 | PC.NURSE ---
Awaiting for patient's son, Sampson, for transportation home and a pair of clean clothes.
[2022-06-06 17:27] LABS: Influenza A QL RT-PCR Negative (Negative); Influenza B QL RT-PCR Negative (Negative); SARS-CoV-2 RNA PCR Positive
[2022-06-06 18:15] VITALS: BP 125/75; PULSE 66; RESP 18; O2SAT 95
== END 2022-06-06 18:15 ==
PROVIDERS: Emergency Provider Physician Assistant; PCP Family Medicine
DX: N10 Acute pyelonephritis (principal); Z20.822 Contact with and (suspected) exposure to COVID-19; I48.91 Unspecified atrial fibrillation; I50.9 Heart failure, unspecified; I11.0 Hypertensive heart disease with heart failure; I34.1 Nonrheumatic mitral (valve) prolapse; E78.00 Pure hypercholesterolemia, unspecified; K21.9 Gastro-esophageal reflux disease without esophagitis; Z79.4 Long term (current) use of insulin; Z79.84 Long term (current) use of oral hypoglycemic drugs; Z98.49 Cataract extraction status, unspecified eye; Z90.710 Acquired absence of both cervix and uterus; Z96.652 Presence of left artificial knee joint
CPT/HCPCS: 36415; 74177; 80053; 81001; 83690; 85025; 87636; 96361; 96374; 96375; 99284; J0131; J2405; J7040; Q9967

== ENCOUNTER 2022-06-09 09:31 | Outpatient (CLI) | payer OTHER, SELFPAY ==
[2022-06-09 10:01] LABS: Hematocrit 36.3 % (35.0-42.0); Hemoglobin 11.6 g/dL (11.7-13.8); Mean Corpuscular Hemoglobin 28.7 pg (27.0-31.0); Mean Corpuscular Volume 89.9 fL (78.0-102.0); Mean Platelet Volume 10.5 fl (9.2-11.8); Platelet Count Result 263 K/mm3 (150-420); Red Blood Count 4.04 M/mm3 (4.20-5.40); Red Cell Distribution Width 16.7 % (11.6-14.4); White Blood Count 7.5 K/mm3 (4.8-10.8)
[2022-06-09 10:10] LABS: Appearance Urine Clear (Clear); Bilirubin Urine Negative (Negative); Blood Urine Negative (Negative); Glucose Urine UA Negative (Negative); Ketones Urine Negative (Negative); Leukocyte Esterase Ur Negative (Negative); Nitrate Urine Negative (Negative); Protein Urine Negative (Negative); Urobilinogen Urine 0.2 mg/dL (0.2-1.0)
[2022-06-09 10:20] LABS: Add Urine Microscopic? NO; Color Urine Light Yellow (Yellow)
[2022-06-09 10:58] LABS: Alanine Aminotransferase 31 U/L (14-59); Albumin Level 3.1 g/dL (3.4-5.0); Alkaline Phosphatase 104 U/L (46-116); Anion Gap 11 mmol/L (8-16); Aspartate Amino Transferase 18 U/L (15-37); Bilirubin,Total 0.5 mg/dL (0.00-1.00); Blood Urea Nitrogen 19 mg/dL (7-18); Calcium 8.7 mg/dL (8.5-10.1); Carbon Dioxide 30 mmol/L (21-32); Chloride 105 mmol/L (98-108); Estimated Glomerular Filt Rate 54; Glucose 189 mg/dL (70-99); Osmolality Calculated 309 mOsm/kg (285-295); Potassium 3.4 mmol/L (3.5-5.1); Sodium 146 mmol/L (136-145); Total Protein 6.5 g/dL (6.4-8.2)
== END 2022-06-09 09:32 | disposition home or self-care (01) ==
LOC: CHSLAB 09:32
PROVIDERS: PCP Family Medicine; Visit Provider Family Medicine
DX: N39.0 Urinary tract infection, site not specified (principal)
CPT/HCPCS: 36415; 80053; 81003; 85027; 87086; 87088

== ENCOUNTER 2022-08-13 10:48 | Emergency (ER) | payer OTHER, SELFPAY ==
--- NOTE | ~2022-08-13 | XR_ITS ---
EXAMINATION: XR hip RT 2V w AP pelvis INDICATION: Right hip pain TECHNIQUE: AP view of the pelvis and two views of the right hip are obtained. COMPARISON: 05/14/2022 FINDINGS: Bone alignment is normal. There is no fracture. There is moderate right and mild left hip o steoarthritis. An IVC filter is noted. There are phleboliths of the pelvis. IMPRESSION: 1. Hip osteoarthritis without acute osseous abnormality. Reviewed, dictated and finalized at location A. COUNSELOR
[2022-08-13 10:29] VITALS: BP 127/93; PULSE 66; RESP 20; TEMP 36.5; O2SAT 98
--- NOTE | 2022-08-13 11:49 | ED.LOWEXIN ---
HPI - Extremity Injury (Lower) General Chief Complaint: Extremity Injury, Lower Stated Complaint: hip pain Source: patient and RN notes reviewed Mode of arrival: ambulatory Limitations: no limitations History of Present Illness HPI Narrative: This is an 81 year old female who presents for evaluation right hip/buttock pain. He states 3 days ago she noticed pain to right hip. She reports she was bending over to look in a file cabinet, and she developed pain to right hip/buttock. She denies falling. She is taking Tylenol for her pain and she took Tylenol just prior to arrival. She denies any pain currently. She states her pain was 10/10 when she had to walk on EMS arrival. She denies radiating pain down leg or to abdomen. She denies fever, chills, nausea, vomiting. She denies leg numbness or weakness. Review of Systems Constitutional: Constitutional: Denies weakness Cardiovascular: Cardiovascular: Denies syncope, Denies rapid heart rate, Denies irregular heart rhythm, Denies leg edema and Denies dyspnea Respiratory: Respiratory: Denies chest congestion, Denies hemoptysis, Denies excessive phlegm production and Denies dyspnea Gastrointestinal: Gastrointestinal: Denies abdominal pain, Denies hematochezia, Denies diarrhea and Denies vomiting Genitourinary: Genitourinary: Denies hematuria and Denies dysuria Musculoskeletal: Musculoskeletal: Reports arthralgias, Denies joint swelling, Denies loss of height and Denies muscle weakness Neurologic: Denies syncope, Denies focal weakness and Denies weakness PMFSH Past Medical History Medical History (Updated 08/13/22 @ 19:06 by Karen Hooker MD) Hypertension Osteoarthritis Presence of IVC filter Surgical History Surgical History (Updated 08/13/22 @ 19:06 by Karen Hooker MD) No pertinent past surgical history Social History Social History (Updated 08/13/22 @ 19:06 by Karen Hooker MD) Smoking status: Never smoker Exam Const: General: no acute distress and alert Nutritional Appearance: well nourished Orientation/consciousness: patient oriented x3 HENMT: Head: normal to inspection Eyes: EOM: EOMs intact bilaterally Neck: Neck: normal visual inspection Resp: Effort & Inspection: normal respiratory effort Auscultation: clear to auscultation bilaterally GI: GI Palp: Yes Soft to palpation, No Tenderness to palpation present (GI), No Guarding due to palpation present (GI) and No Rigid due to palpation Auscultation: normal bowel sounds Back/Spine/Pelvis: Thoracic/Lumbar Spine: thoracic and lumbar spine normal to inspection Skin: General skin exam: normal color Rashes: no rashes Neuro: General: patient oriented x3, moves all extremities and CN's II-XI intact bilaterally Extrem: General: edema Other: patient able to ROM at bilateral hip and knee without pain, no back tenderness Psych: Mental Status: mental status grossly normal Affect: normal affect Attitude: cooperative Course Reevaluation(s) Reevaluation #1: Patient presented with right hip pain. xray does not show any fracture. Patient had been laying in bed for a while so when nursing tried to ambulate the first time she was dizzy and unsteady. Patient was given food and allowed to rest. She is now able to ambulate with walker. Her son is at bedside and he is comfortable with patient's discharge. Date: 08/13/22 Time: 16:48 Vital Signs Vital signs: Vital Signs Temperature 97.7 F 08/13/22 10:29 Pulse Rate 66 08/13/22 10:29 Respiratory Rate 20 08/13/22 10:29 Blood Pressure 127/93 H 08/13/22 10:29 Pulse Oximetry 98 08/13/22 10:29 Oxygen Delivery Room Air 08/13/22 10:29 Temperature 97.7 F 08/13/22 10:29 Pulse Rate 77 08/13/22 16:00 Respiratory Rate 16 08/13/22 14:51 Blood Pressure 113/61 08/13/22 16:00 Pulse Oximetry 95 08/13/22 14:51 Oxygen Delivery Room Air 08/13/22 10:29 MDM - Extremity Injury (Lower) MDM Narrative Medical decision
--- NOTE | 2022-08-13 12:38 | ECG_ITS ---
Measurements Intervals [place] Rate: 65 P: 52 CA: 149 QRS: 101 QRSD: 153 T: 29 QT: 471 QTc: 492 Interpretive Statements SINUS RHYTHM RIGHT AXIS DEVIATION RIGHT BUNDLE BRANCH BLOCK BORDERLINE ECG COMPARED TO ECG 05/14/2022 19:14:54 SINUS RHYTHM NOW PRESENT RIGHT BUNDLE-BRANCH BLOCK NOW PRESENT CRITERIA FOR ANTEROSEPTAL AND INFERIOR INFARCTION NO LONGER APPRECIATED Electronically Signed On 08-14-2022 16:14:02 SCALE AND SKIP CAR OPERATOR by Brett Whitman M.D.
--- NOTE | 2022-08-13 14:38 | PC.NURSE ---
Ambulated pt using walker. Pt unsteady and c/o feeling dizzy. Assist with 2 nurses and walker.
[2022-08-13 14:50] LABS: Basophils Absolute Auto 0.1 K/mm3 (0.0-0.1); Eosinophils Absolute Auto 0.2 K/mm3 (0-0.3); Eosinophils Percent Auto 1.7 % (0-4.4); Hematocrit 40.9 % (37.0-47.0); Hemoglobin 13.1 g/dL (12.0-15.0); Immature Granulocyte Absolute 0.02 K/mm3 (0.00-0.031); Immature Granulocyte Percent A 0.2 % (0-0.5); Lymphocytes Absolute Auto 2.58 K/mm3 (0.9-3.2); Lymphocytes Percent Auto 29.5 % (18.3-44.2); Mean Corpuscular Hemoglobin 27.6 pg (26-34); Mean Corpuscular Volume 86.3 fl (80-100); Mean Platelet Volume 10.1 fl (7.4-10.4); Monocytes Absolute Auto 0.8 K/mm3 (0.1-0.6); Monocytes Percent Auto 9.1 % (2.6-8.5); Neutrophils Absolute Auto 5.1 K/mm3 (1.3-6.7); Neutrophils Percent Auto 58.5 % (45.5-73.1); Platelet Count Result 332 k/mm3 (150-375); Red Blood Count 4.74 M/mm3 (4.2-5.4); Red Cell Distribution Width 15.1 % (11.5-14.5); White Blood Count 8.8 K/mm3 (4.5-10.0)
[2022-08-13 14:51] VITALS: BP 123/97; PULSE 72; RESP 16; O2SAT 95
[2022-08-13 15:03] LABS: Alanine Aminotransferase 25 U/L (6-35); Albumin Level 4.4 g/dL (3.5-5.1); Alkaline Phosphatase 121 U/L (38-126); Anion Gap 6 mmol/L (8-16); Aspartate Amino Transferase 31 U/L (14-36); Bilirubin,Total 0.6 mg/dL (0.2-1.3); Blood Urea Nitrogen 17 mg/dL (7-17); Calcium 9.3 mg/dL (8.4-10.2); Carbon Dioxide 34 mmol/L (22-30); Chloride 98 mmol/L (98-107); Estimated CRCL calculation 56 ml/min; Estimated Glomerular Filt Rate > 60; Glucose 106 mg/dL (65-110); Potassium 3.2 mmol/L (3.4-5.0); Sodium 138 mmol/L (137-145)
[2022-08-13 15:44] LABS: Appearance Urine Clear (Clear); Bilirubin Urine Negative (Negative); Blood Urine Negative (Negative); Color Urine Yellow (Yellow); Glucose Urine UA Negative (Negative); Ketones Urine Negative (Negative); Leukocyte Esterase Ur Negative LEU/UL (Negative); Nitrate Urine Negative (Negative); Protein Urine Negative (Negative); Specific Grav Ur 1.015 (1.001-1.035); Urobilinogen Urine 0.2 mg/dL (<2.0); pH Urine 6.5 (5.0-9.0)
[2022-08-13 15:57] VITALS: BP 131/96; PULSE 77
[2022-08-13 16:00] VITALS: BP 113/61; PULSE 77
[2022-08-13 16:05] LABS: Add Urine Microscopic? NO
== END 2022-08-13 17:20 | disposition home or self-care (01) ==
PROVIDERS: Emergency Provider General Practice; PCP Family Medicine
DX: M16.11 Unilateral primary osteoarthritis, right hip (principal); I10 Essential (primary) hypertension
CPT/HCPCS: 36415; 73502; 80053; 81003; 85025; 93005; 99284

== ENCOUNTER 2023-01-16 11:31 | Emergency (ER) | payer OTHER, SELFPAY ==
--- NOTE | ~2023-01-16 | CT_ITS ---
EXAMINATION: CT cervical spine wo con DATE: 01/16/2023 13:13 INDICATION: Head injury TECHNIQUE: Computed tomography (CT) of the cervical spine was performed without intravenous contrast. The dose-length product (DLP) was 438.71 mGy-cm. Automated exposure control and iterative reconstruc tion technique were employed. COMPARISON: 05/14/2022 FINDINGS: There are 2 mm of unchanged anterolisthesis of C2 on C3 and 2 mm of retrolisthesis of C3 on C4. The vertebral body heights are maintained. There is severe loss of intervertebral disc space hei ght at C3-4, C5-6, and C6-7. The odontoid process is intact. There is no fracture. The prevertebral s oft tissues are normal. There is multilevel moderate facet and uncovertebral joint osteoarthritis. IMPRESSION: 1. Severe cervical spondylosis without acute findings or significant interval change. Reviewed, dictated and finalized at location L. IMPRESSION: 1. Severe cervical spondylosis without acute findings or significant interval c mi.
--- NOTE | ~2023-01-16 | CT_ITS ---
EXAMINATION: CT brain wo con INDICATION: Head injury COMPARISON: 05/14/2022 TECHNIQUE: Standard unenhanced head CT. The dose-length product (DLP) was 605.33 mGy-cm. The mA was a djusted according to patient size. Iterative reconstruction technique was employed. FINDINGS: There is no acute intraparenchymal hemorrhage. No evidence of mass lesion. No evidence of a cute infarction. There is moderate periventricular and subcortical hypodensity probably related to sm all vessel ischemic disease. There is moderate prominence of the sulci and ventricles related to cere bral atrophy. Intracranial calcified cerebral atherosclerosis is noted. There are no extra-axial arcelia ections. There is no mass effect or midline shift. Changes in the globes are likely from ocular lens surgery. Cavum septum pellucidum is noted. The visualized sinuses and mastoid air cells are well aera grant. IMPRESSION: 1. No acute intracranial abnormality. 2. Age related findings. Reviewed, dictated and finalized at location L.
[2023-01-16 11:27] VITALS: BP 170/84; PULSE 88; RESP 15; O2SAT 96
--- NOTE | 2023-01-16 12:58 | ED.FALL ---
HPI - Fall General Chief Complaint: Fall Stated Complaint: GLF Time Seen by Provider: 01/16/23 12:06 Source: patient and EMS Mode of arrival: EMS Limitations: no limitations History of Present Illness HPI Narrative: 82 years old white female came from [facility] because of a ground fall backward hit the back of her head on the ground. No loss of consciousness, complaining of occipital pain. No neck pain. Patient reports chronic back pain today not different than before. Also chronic right shoulder pain which is not different than before. Patient on aspirin she denies other injuries. Related Data Home Medications Medication Instructions Recorded Confirmed cholecalciferol (vitamin D3) 25 25 mcg PO DAILY 09/27/20 11/23/22 mcg (1,000 unit) tablet diltiazem HCl 180 mg 180 mg PO DAILY 09/27/20 11/23/22 capsule,extended release 24 hr furosemide 40 mg tablet 40 mg PO QAM 09/27/20 11/23/22 metformin 1,000 mg tablet 1,000 mg PO BID 09/27/20 11/23/22 nystatin 100,000 unit/gram topical See Rx Instructions .Route 05/01/21 11/23/22 cream .COMPLEX PRN Rash cyclobenzaprine 5 mg tablet 5 mg PO HS PRN Muscle Spasm 05/15/21 11/23/22 meclizine 25 mg tablet 25 mg PO BID PRN Dizziness 05/15/21 11/23/22 metoprolol succinate 100 mg 100 mg PO DAILY 05/15/21 11/23/22 tablet,extended release 24 hr pdnqbpcn-uax-otdni acid 0.4 1 tablet PO DAILY 05/15/21 11/23/22 mg-lycopene 300 mcg-lutein 250 mcg tablet (CertaVite Senior) potassium chloride 20 mEq 20 meq PO DAILY 05/15/21 11/23/22 tablet,extended release calcium 500 mg tablet 500 mg PO DAILY 05/15/22 11/23/22 citalopram 10 mg tablet 10 mg PO DAILY 05/15/22 11/23/22 insulin detemir U-100 100 unit/mL 15 unit subcut QAM 05/15/22 11/23/22 subcutaneous solution (Levemir U-100 Insulin) lisinopril 5 mg tablet 10 mg PO DAILY 05/15/22 11/23/22 magnesium oxide 400 mg PO DAILY 05/15/22 11/23/22 Allergies Allergy/AdvReac Type Severity Reaction Status Date / Time bisoprolol Allergy Intermediate unknown Verified 01/16/23 11:33 hydrochlorothiazide Allergy Intermediate unknown Verified 01/16/23 11:33 oxycodone Allergy Intermediate unknown Verified 01/16/23 11:33 Review of Systems Review of Systems: All systems reviewed & are unremarkable except as noted in HPI and below PMFSH Past Medical History Medical History Acute renal insufficiency Acute UTI Atrial fibrillation CHF (congestive heart failure) Elevated troponin GERD (gastroesophageal reflux disease) Hypercholesterolemia Hypertension Hypertension Mitral valve prolapse Osteoarthritis Presence of IVC filter Sepsis Surgical History Surgical History H/O cataract extraction H/O: hysterectomy History of appendectomy History of esophageal surgery History of total knee arthroplasty On the left Hx of cholecystectomy No pertinent past surgical history S/P excision of lipoma S/P IVC filter Family History Family History Mother Diabetes mellitus Father Diabetes mellitus Sibling Acute myocardial infarction Social History Social History Social History: The patient resides has [facility] living. The patient has 5 children. The patient is . 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 The patient does have a durable power rodding machine tender for healthcare. The patient is lifelong nonsmoker. She does not use any marijuana alcohol or illicit drugs. Code status Full code Smoking status: Never smoker Second hand tobacco smoke exposure: Yes Alcohol intake: never Substance use: never Substance use type: does not use Lack of Transportation: No Lack of Food: Never True Current Housing: I Have Housing Concerned About Future Housing: No Difficulty Paying Gas/Electric
[2023-01-16 13:19] VITALS: PULSE 74; RESP 17; O2SAT 94
== END 2023-01-16 14:10 ==
PROVIDERS: Emergency Provider Emergency Medicine; PCP Family Medicine
DX: S09.90XA Unspecified injury of head, initial encounter (principal); I48.91 Unspecified atrial fibrillation; I11.0 Hypertensive heart disease with heart failure; I50.9 Heart failure, unspecified; M19.90 Unspecified osteoarthritis, unspecified site; X19.XXXA Contact with other heat and hot substances, initial encounter
CPT/HCPCS: 70450; 72125; 99284

== ENCOUNTER 2023-02-26 02:45 | Emergency (ER) | payer OTHER, SELFPAY ==
--- NOTE | ~2023-02-26 | XR_ITS ---
EXAMINATION: XR knee LT 3V DATE: 02/26/2023 04:14 INDICATION: Left knee pain. Fall. TECHNIQUE: 3 views of left knee were obtained. COMPARISON: Left knee radiographs 05/14/2022 FINDINGS: There is a total left knee arthroplasty in near-anatomic alignment with patellar resurfacin g. No fracture. No periprosthetic lucency to suggest loosening or infection. No knee joint effusion. IMPRESSION: 1. Total left knee arthroplasty in near-anatomic alignment. Reviewed, dictated and finalized at location A.
--- NOTE | ~2023-02-26 | XR_ITS ---
EXAMINATION: XR knee RT 3V DATE: 02/26/2023 04:14 INDICATION: Right knee pain. Fall. TECHNIQUE: 3 views of right knee were obtained. COMPARISON: Right knee radiographs 09/27/2020 FINDINGS: Bone alignment is normal. No fracture. There is severe osteoarthritis of medial compartment , moderate osteoarthritis of lateral compartment, and mild osteoarthritis of patellofemoral compartme nt. There is a large knee joint effusion. IMPRESSION: 1. Severe right knee osteoarthritis. 2. Large knee joint effusion. Reviewed, dictated and finalized at location A.
[2023-02-26 02:46] VITALS: BP 154/85; PULSE 72; RESP 14; TEMP 37; O2SAT 96
[2023-02-26] MEDS: HYDROcodone/acetaminophen (*CRX) 5-325 MG TABLET 1 TAB PO (03:35)
--- NOTE | 2023-02-26 03:37 | ED.GENADULT ---
HPI - General Adult General Chief complaint: Extremity Injury, Lower Stated complaint: fall, knee pain Time Seen by Provider: 02/26/23 02:51 History of Present Illness HPI narrative: Patient 82-year-old female who presents the emergency department with chief complaint of knee pain. The patient reports that she was going to the bathroom this morning had some diarrhea slipped and struck her knee against the counter. The patient reports that the right knee hurts worse than the left knee but did report that she hit both of her knees against the cabinet. The patient reports no head injury denies loss of consciousness reports no other discomfort. Patient reports that she has had no fever reports she has been able to walk but she has been sore since the injury. Related Data Home Medications Medication Instructions Recorded Confirmed cholecalciferol (vitamin D3) 25 25 mcg PO DAILY 09/27/20 02/09/23 mcg (1,000 unit) tablet diltiazem HCl 180 mg 180 mg PO DAILY 09/27/20 02/09/23 capsule,extended release 24 hr furosemide 40 mg tablet 40 mg PO QAM 09/27/20 02/09/23 metformin 1,000 mg tablet 1,000 mg PO BID 09/27/20 02/09/23 nystatin 100,000 unit/gram topical See Rx Instructions .Route 05/01/21 02/09/23 cream .COMPLEX PRN Rash cyclobenzaprine 5 mg tablet 5 mg PO HS PRN Muscle Spasm 05/15/21 02/09/23 meclizine 25 mg tablet 25 mg PO BID PRN Dizziness 05/15/21 02/09/23 metoprolol succinate 100 mg 100 mg PO DAILY 05/15/21 02/09/23 tablet,extended release 24 hr iynndpxe-hyb-rzqfn acid 0.4 1 tablet PO DAILY 05/15/21 02/09/23 mg-lycopene 300 mcg-lutein 250 mcg tablet (CertaVite Senior) potassium chloride 20 mEq 20 meq PO DAILY 05/15/21 02/09/23 tablet,extended release citalopram 10 mg tablet 10 mg PO DAILY 05/15/22 02/09/23 insulin detemir U-100 100 unit/mL 15 unit subcut REPLACED BY [facility] 05/15/22 02/09/23 subcutaneous solution (Levemir U-100 Insulin) lisinopril 5 mg tablet 10 mg PO DAILY 05/15/22 02/09/23 magnesium oxide 400 mg PO DAILY 05/15/22 02/09/23 acetaminophen 500 mg tablet 500 mg PO Q6H PRN 02/09/23 02/09/23 (Tylenol Extra Strength) calcium 500 mg tablet mg PO 02/09/23 02/09/23 vitamin E (dl, acetate) 450 mg 450 mg PO DAILY 02/09/23 02/09/23 (1,000 unit) capsule Allergies Allergy/AdvReac Type Severity Reaction Status Date / Time bisoprolol Allergy Intermediate unknown Verified 01/16/23 11:33 hydrochlorothiazide Allergy Intermediate unknown Verified 01/16/23 11:33 oxycodone Allergy Intermediate unknown Verified 01/16/23 11:33 Review of Systems Review of Systems: A 10 system review of systems was completed on the patient and is negative except for what is stated in the HPI. Nursing and ancillary documentation was reviewed. [facility] Past Medical History Medical History Acute renal insufficiency Acute UTI Atrial fibrillation CHF (congestive heart failure) Elevated troponin GERD (gastroesophageal reflux disease) Hypercholesterolemia Hypertension Hypertension Mitral valve prolapse Osteoarthritis Presence of IVC filter Sepsis Surgical History Surgical History H/O cataract extraction H/O: hysterectomy History of appendectomy History of esophageal surgery History of total knee arthroplasty On the left Hx of cholecystectomy No pertinent past surgical history S/P excision of lipoma S/P IVC filter Family History Family History Mother Diabetes mellitus Father Diabetes mellitus Sibling Acute myocardial infarction Social History Social History Social History: The patient resides has [facility] living. The patient has 5 children. The patient is . 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 The patient does have a durable power
== END 2023-02-26 05:16 ==
PROVIDERS: Emergency Provider Emergency Medicine; PCP Family Medicine
DX: S80.01XA Contusion of right knee, initial encounter (principal); I48.91 Unspecified atrial fibrillation; I50.9 Heart failure, unspecified; I11.0 Hypertensive heart disease with heart failure; E78.00 Pure hypercholesterolemia, unspecified; I34.1 Nonrheumatic mitral (valve) prolapse; M17.11 Unilateral primary osteoarthritis, right knee; K21.9 Gastro-esophageal reflux disease without esophagitis; Z96.652 Presence of left artificial knee joint; Z98.49 Cataract extraction status, unspecified eye; Z90.710 Acquired absence of both cervix and uterus; Z90.49 Acquired absence of other specified parts of digestive tract; Z79.4 Long term (current) use of insulin; Z79.84 Long term (current) use of oral hypoglycemic drugs; W01.0XXA Fall on same level from slipping, tripping and stumbling without subsequent striking against object, initial encounter
CPT/HCPCS: 73562; 99284; A9270

== ENCOUNTER 2024-06-11 11:38 | Emergency (ER) | payer OTHER, SELFPAY ==
--- NOTE | ~2024-06-11 | XR_ITS ---
EXAMINATION: XR pelvis 1-2V DATE: 06/11/2024 13:17 INDICATION: Right hip pain. TECHNIQUE: An anteroposterior view of the pelvis was obtained. COMPARISON: Pelvis radiograph 08/13/2022 FINDINGS: The patient is rotated to her left. There is lumbar levoscoliosis and severe spondylosis. N o fracture. There is severe right hip osteoarthritis and mild left hip osteoarthritis. There is a gold ter in the inferior vena cava. IMPRESSION: 1. Severe right hip osteoarthritis and mild left hip osteoarthritis. Reviewed, dictated and finalized at location A. ER MACHINE
--- NOTE | ~2024-06-11 | XR_ITS ---
EXAMINATION: XR humerus RT DATE: 06/11/2024 13:17 INDICATION: Right upper arm pain. TECHNIQUE: 2 views of right humerus on 3 radiographs were obtained. COMPARISON: None. FINDINGS: There is superior subluxation of humeral head with narrowing of the subacromial space, cons istent with rotator cuff tear. No fracture. There is severe osteoarthritis of glenohumeral joint and acromioclavicular joint. There is a loose body in the glenohumeral joint. No elbow joint effusion. IMPRESSION: 1. Polyarticular osteoarthritis. 2. Right rotator cuff tear. Reviewed, dictated and finalized at location A. GER EMPLOYMENT
--- NOTE | ~2024-06-11 | XR_ITS ---
EXAMINATION: XR shoulder RT min 2V DATE: 06/11/2024 13:17 INDICATION: Right shoulder pain TECHNIQUE: AP internally and externally rotated, AP oblique externally rotated and transscapular Y vi ews of the right shoulder were obtained. COMPARISON: None FINDINGS: No fracture. There is cephalad subluxation of the humeral head with respect to the glenoid with narro wing of the subacromial space on one of the frontal projections consistent with rotator cuff tear. Se jessie osteoarthritis at the right glenohumeral and acromioclavicular joints. Osteochondral body projec ting caudal to the coracoid process likely within the deep subscapular recess. Severe thoracic and ce rvical spondylosis. Visualized portions of the lungs are clear. Soft tissues are unremarkable. IMPRESSION: Right rotator cuff arthropathy with severe glenohumeral and acromioclavicular osteoarthritis. No acut e osseous abnormality. Reviewed, dictated and finalized at location A. CHECKER IMPRESSION: Right rotator cuff arthropathy with severe glenohumeral and acromioclavicular o steoarthritis. No acute osseous abnormality.
--- NOTE | ~2024-06-11 | XR_ITS ---
EXAMINATION: XR wrist RT min 3V DATE: 06/11/2024 13:17 INDICATION: Right wrist pain. TECHNIQUE: 4 views of right wrist were obtained. COMPARISON: Right wrist radiographs 03/05/22 FINDINGS: There is volar tilt of lunate, consistent with volar intercalated segmental instability ( SI). No fracture. There is severe osteoarthritis of lunate-hamate joint and mild osteoarthritis of fi rst carpometacarpal joint. IMPRESSION: 1. Polyarticular osteoarthritis. 2. VISI. Reviewed, dictated and finalized at location A. VISION SERVICE ENGINEER
[2024-06-11 11:44] VITALS: BP 135/59; PULSE 71; RESP 16; TEMP 36.5; O2SAT 98
[2024-06-11 13:23] VITALS: BP 136/76; PULSE 67; RESP 16; O2SAT 97
[2024-06-11] MEDS: LIDOCAINE 5% PATCH 1 PATCH TRANSDERM (13:41)
[2024-06-11] MEDS: ACETAMINOPHEN 500 MG TABLET 1000 MG PO (13:42)
--- NOTE | 2024-06-11 13:49 | ED_ITS ---
HPI - General Adult General Chief complaint: Unspecified Stated complaint: fever, r arm pain Time Seen by Provider: 06/11/24 11:56 Source: patient Mode of arrival: EMS Limitations: no limitations History of Present Illness HPI narrative: This is an 83-year-old female, with history of hypertension and diabetes, brought in by EMS from her assisted ( [facility] with complaints of right wrist, arm and shoulder pain for the past week after a fall. The patient states she tripped and fell and had 2 hole herself up. She complains of 5/10 dull right wrist, right arm and right shoulder pain. She denies head injury or loss of consciousness. She has no other complaints at this time. Related Data Home Medications Medication Instructions Recorded Confirmed furosemide 40 mg tablet 40 mg PO QAM 09/27/20 03/05/23 metformin 1,000 mg tablet 1,000 mg PO BID 09/27/20 03/05/23 metoprolol succinate 100 mg 100 mg PO DAILY 05/15/21 03/05/23 tablet,extended release 24 hr citalopram 10 mg tablet 10 mg PO DAILY 05/15/22 03/05/23 lisinopril 5 mg tablet 10 mg PO DAILY 05/15/22 03/05/23 vitamin E (dl, acetate) 450 mg 450 mg PO DAILY 02/09/23 03/05/23 (1,000 unit) capsule calcium carbonate (Oyster Shell 500 mg PO DAILY 03/05/23 03/05/23 Calcium) Allergies Allergy/AdvReac Type Severity Reaction Status Date / Time bisoprolol Allergy Intermediate unknown Verified 03/06/24 11:02 hydrochlorothiazide Allergy Intermediate unknown Verified 03/06/24 11:02 oxycodone Allergy Intermediate unknown Verified 03/06/24 11:02 Review of Systems Review of Systems: All systems reviewed & are unremarkable except as noted in HPI and below PMFSH Past Medical History Medical History Acute renal insufficiency Acute UTI Atrial fibrillation CHF (congestive heart failure) Elevated troponin GERD (gastroesophageal reflux disease) Hypercholesterolemia Hypertension Hypertension Mitral valve prolapse Osteoarthritis Presence of IVC filter Sepsis Surgical History Surgical History H/O cataract extraction H/O: hysterectomy History of appendectomy History of esophageal surgery History of total knee arthroplasty On the left Hx of cholecystectomy No pertinent past surgical history S/P excision of lipoma S/P IVC filter Family History Family History Mother Diabetes mellitus Father Diabetes mellitus Sibling Acute myocardial infarction Social History Social History Social History: The patient resides has [facility]. The patient has 5 children. The patient is . 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 The patient does have a durable power admitted attorneys for healthcare. The patient is lifelong nonsmoker. She does not use any marijuana alcohol or illicit drugs. Code status Full code Smoking status: Never smoker Second hand tobacco smoke exposure: Yes Alcohol intake: never Substance use: never Substance use type: does not use Lack of Transportation: No Lack of Food: Never True Current Housing: I Have Housing Concerned About Future Housing: No Difficulty Paying Gas/Electric Bills: No Difficulty Paying for Meds: No Currently Unemployed: No Education: Grade School Difficulty w/ Childcare or Family Care: No Gender identity (if verbalized by the patient): Female Spiritual care concerns: No Exam Narrative: GENERAL: Well-developed, well-nourished, and in no acute distress. HEAD: Normocephalic, atraumatic. EYES: PERRLA and EOMI. ENT: Nares clear, no rhinorrhea or epistaxis. Mucous membranes moist. Oropharynx without tonsillar hypertrophy exudate or other lesions. NECK: Supple. No Midline spine tenderness to palpation, no step-off or crepitus. Right paraspinal cervical muscle tenderness to palpation. Right trapezius muscle spasm and tenderness to palpation CHEST: Clear to auscultation. No respiratory distress. No wheezes rales or rhonchi HEART: Regular rate and rhythm. No murmur heard. Normal peripheral pulses. ABDOMEN: Soft, nontender, nondistended, normal active bowel sounds. EXTREMITIES: tender palpation at the anterior aspect of the right shoulder and at the AC joint. Tender to palpation over the lateral aspect of the right humerus. Tender to palpation at the lateral aspect of the right wrist, though not in the anatomical snuffbox. Normal range of motion. No edema. SKIN: Warm, dry, no rash. NEURO: Alert and oriented x3. No focal deficit. Moving all 4 limbs spontaneously PSYCH: Normal mood and affect. Course Course Emergency Course: 13:50 - X-ray of the right shoulder demonstrates changes consistent with rotator cuff arthropathy and. X-ray of the right wrist demonstrates changes consistent with volar intercalated segmental instability. Will discharge with referral for primary care and with the surgery follow-up. I discussed the findings and recommendations with the patient and her son. Discussed return and emergency precautions including signs/symptoms of septic arthritis neurovascular compromise. The patient and her son voiced understanding and agreement with the plan. All questions answered to their satisfaction. Vital Signs Vital signs: Vital Signs Temperature 97.7 F 06/11/24 11:44 Pulse Rate 71 06/11/24 11:44 Respiratory Rate 16 06/11/24 11:44 Blood Pressure 135/59 L 06/11/24 11:44 Pulse Oximetry 98 06/11/24 11:44 Temperature 97.7 F 06/11/24 11:44 Pulse Rate 70 06/11/24 14:29 Respiratory Rate 16 06/11/24 14:29 Blood Pressure 130/70 06/11/24 14:29 Pulse Oximetry 98 06/11/24 14:29 Medical Decision Making MDM Narrative Medical decision making narrative: plan: Imaging, pain control, reassess Differential Diagnosis Differential Diagnosis: shoulder dislocation, shoulder separation, fracture, image fracture, wrist fracture, sprain, other Vital Signs Vital Signs: Vital Signs Temperature 97.7 F 06/11/24 11:44 Pulse Rate 71 06/11/24 11:44 Respiratory Rate 16 06/11/24 11:44 Blood Pressure 135/59 L 06/11/24 11:44 Pulse Oximetry 98 06/11/24 11:44 Temperature 97.7 F 06/11/24 11:44 Pulse Rate 70 06/11/24 14:29 Respiratory Rate 16 06/11/24 14:29 Blood Pressure 130/70 06/11/24 14:29 Pulse Oximetry 98 06/11/24 14:29 Discharge Plan Discharge Clinical Impression: Rotator cuff arthropathy of right shoulder, Acute pain of right shoulder, Acute pain of right wrist VISI (volar intercalated segment instability) Qualifiers: Laterality: right Qualified Code(s): M25.331 - Other instability, right wrist Patient Disposition: NH Senior Living/Asst Living Condition: Stable Instructions: Antibiotic Form, Rotator Cuff Injury (ED) Additional Instructions: You were seen in the emergency department. X-rays do not concerning for fracture dislocation. The x-ray of your right wrist showed ligament instability (VISI) without fracture. I recommend following up with your primary care doctor and/or surgeon.. If you develop Fevers with rapidly spreading re dness or increasing pain, the arm /hand appears blue/cold, or if you have other emergent concerns for life, limb, or eyesight, return to the emergency department. Patient Language: Irish Prescriptions: New lidocaine 5 % adhesive patch,medicated 3 patch topical DAILY Qty: 30 0RF Rx Instructions: leave on most painful area for up to 12 hrs No Action calcium carbonate [Oyster Shell Calcium] 500 mg calcium (1,250 mg) tablet 500 mg PO DAILY diltiazem HCl 360 mg capsule,extended release 24hr 360 mg PO DAILY Qty: 90 0RF furosemide 40 mg tablet 40 mg PO QAM metformin 1,000 mg tablet 1,000 mg PO BID vitamin E (dl, acetate) 450 mg (1,000 unit) capsule 450 mg PO DAILY metoprolol succinate 100 mg Tablet Extended Release 24 Hr 100 mg PO DAILY citalopram 10 mg tablet 10 mg PO DAILY lisinopril 5 mg tablet 10 mg PO DAILY aspirin 81 mg capsule 81 mg PO DAILY Qty: 30 0RF hydrocodone-acetaminophen 5-325 mg tablet 1 tablet PO Q8H PRN (Reason: pain) Qty: 90 0RF Trulicity 0.75 mg/0.5 mL pen injector See Rx Instructions .ROUTE .COMPLEX Qty: 2 3RF Dose Instruction: INJECT 0.5ML (0.75MG) SUBCUTANEOUSLY EVERY SUNDAY Rx Instructions: INJECT 0.5ML (0.75MG) SUBCUTANEOUSLY EVERY SUNDAY acetaminophen 500 mg tablet See Rx Instructions .ROUTE .COMPLEX Qty: 60 0RF Dose Instruction: TAKE 1 TABLET BY MOUTH EVERY 6 HOURS NEEDED FOR PAIN/ HEADACHE Rx Instructions: TAKE 1 TABLET BY MOUTH EVERY 6 HOURS NEEDED FOR PAIN/ HEADACHE meclizine 25 mg tablet See Rx Instructions .ROUTE .COMPLEX Qty: 30 0RF Dose Instruction: TAKE 1 TABLET BY MOUTH TWICE DAILY NEEDED FOR DIZZINESS Rx Instructions: TAKE 1 TABLET BY MOUTH TWICE DAILY NEEDED FOR DIZZINESS (DME) BD AutoShield Duo Pen Needle 30 gauge x 3/16 needle See Rx Instructions .ROUTE .COMPLEX Qty: 100 0RF Dose Instruction: PEN NEEDLE USED FOR SUB-Q INJECTION Rx Instructions: PEN NEEDLE USED FOR SUB-Q INJECTION (DME) OneTouch Ultra Test Strip See Rx Instructions .Route Qty: 100 5RF Rx Instructions: Testing BID. DX: E11.9 Follow-up/Referrals: Ivan Egan MD [Physician] - 2 Weeks Dayton Jones DO [Primary Care Provider] - 2 Weeks Stand Alone Forms: Longterm Discharge Time of Disposition: 13:52
--- NOTE | 2024-06-11 14:19 | PC.NURSE ---
Report called to [facility]. Lesson Instructor states that RN taking care of pt. is in a meeting and unable to take report at this time. RN to call Jignesh with any questions. Son at bedside and will be taking her back to [place] POV. [facility] notified of pt. d/c.
--- NOTE | 2024-06-11 14:27 | PC.NURSE ---
D/c instructions also reviewed with son at bedside. All questions answered.
[2024-06-11 14:29] VITALS: BP 130/70; PULSE 70; RESP 16; O2SAT 98
== END 2024-06-11 14:36 ==
PROVIDERS: Emergency Provider Preventive Medicine Aerospace Medicine; PCP Family Medicine
DX: M25.331 Other instability, right wrist (principal); S46.011A Strain of muscle(s) and tendon(s) of the rotator cuff of right shoulder, initial encounter; I48.91 Unspecified atrial fibrillation; I50.9 Heart failure, unspecified; I11.0 Hypertensive heart disease with heart failure; I34.1 Nonrheumatic mitral (valve) prolapse; E78.00 Pure hypercholesterolemia, unspecified; K21.9 Gastro-esophageal reflux disease without esophagitis; M19.90 Unspecified osteoarthritis, unspecified site; Z98.49 Cataract extraction status, unspecified eye; Z96.652 Presence of left artificial knee joint; Z87.440 Personal history of urinary (tract) infections; Z90.710 Acquired absence of both cervix and uterus; Z90.49 Acquired absence of other specified parts of digestive tract; M19.011 Primary osteoarthritis, right shoulder; M16.0 Bilateral primary osteoarthritis of hip; M19.031 Primary osteoarthritis, right wrist; W01.0XXA Fall on same level from slipping, tripping and stumbling without subsequent striking against object, initial encounter
CPT/HCPCS: 72170; 73030; 73060; 73110; 99284; A9270

== ENCOUNTER 2024-08-20 06:30 | Emergency (ER) | payer OTHER, SELFPAY ==
--- NOTE | ~2024-08-20 | XR_ITS ---
Right Shoulder Technique: AP and scapular Y views were obtained. Clinical History: Pain Findings: No fracture or dislocation is seen. Osseous alignment is anatomic. The glenohumeral and acr omioclavicular joints demonstrate advanced degenerative change. Probable loose body in the subscapula ris recess.. Soft tissues are unremarkable. 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 Probable loose body in the subscapularis recess of the glenohumeral joint. Reviewed, dictated and finalized at location [facility]. 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 Probable loose body in the subscapularis recess of the glenohumeral joint.
--- OUTSIDE RECORDS SUMMARY | 2024-08-20 06:31 | XMS_ITS | Continuity of Care Document ---
Author Organization [facility] Address [address] [address] [place] [address] Phone Care Team Providers Care Pediatric Np Name Role Phone Jem Quintero MD Unavailable Unavailable Allergies, Adverse Reactions, Alerts Substance Reaction Status Criticality No Known Allergies Active No Inform ation Medications Medication Instructions Dosage Effective Dates (start - stop) Status Comments Vitamin D3 25 mcg (1,000 unit) capsule take one tablet by mouths in AM - Active Lantus Solostar U-100 Insulin 100 unit/mL (3 mL) subcutaneous pen inject by subcutaneous route as per insulin protocol 0.00 - Active 30 units SC in AM Toprol XL 100 mg tablet,extended release take 1 tablet by oral route every day 100 MG - Active potassium chloride ER 20 mEq tablet,extended release take 1 tablet by oral route every day with food 20 MEQ - Active metformin 1,000 mg tablet take 1 tablet by oral route 2 times every day with morning and evening meals 1000 MG - Active lisinopril 5 mg tablet take 1 tablet by oral route every day 5 MG - Active Lasix 40 mg tablet take 1 tablet by oral route every day 40 MG - Active diltiazem ER 180 mg capsule,24 hr,extended release take 1 capsule by oral route every day 180 MG - Active Cerovite Senior tablet take one PO daily - Active Celexa 20 mg tablet take 1 tablet by oral route every day 20 MG - Active Calcium 600 + D(3) 600 mg calcium-200 unit capsule take 2 daily - Active take orally aspirin 325 mg tablet take 1 tablet by oral route every day 325 MG - Active OneTouch Ultra Blue Test Strip use BID - Active e11.9 Procedures Procedure Date OFFICE/OUTPATIENT VISIT, EST OFFICE/OUTPATIENT VISIT, EST PPPS, subseq visit OFFICE/OUTPATIENT VISIT, EST OFFICE/OUTPATIENT VISIT, EST OFFICE/OUTPATIENT VISIT, EST OFFICE/OUTPATIENT VISIT, EST PPPS, initial visit OFFICE/OUTPATIENT VISIT, EST OFFICE/OUTPATIENT VISIT, EST OFFICE/OUTPATIENT VISIT, EST OFFICE/OUTPATIENT VISIT, EST OFFICE/OUTPATIENT VISIT, EST OFFICE/OUTPATIENT VISIT, EST OFFICE/OUTPATIENT VISIT, EST OFFICE/OUTPATIENT VISIT, EST OFFICE/OUTPATIENT VISIT, EST OFFICE/OUTPATIENT VISIT, EST OFFICE/OUTPATIENT VISIT, NEW Advance Directives Directive Yes / No Effective Date File Name No Information Encounters Encounter Description Practice Location Reason(s) For Visit Diagnoses Date Provider Providers Copied on Encounter [facility], [address] [place], [address], [place] tel:[phone] [facility] Medicine No Information 1 Leon Eaton [address], [address] [place], [address] , [place]. [phone] [facility], [address] [place], [address], [place] tel:[phone] [facility] No Information 0 Leon Mcmullen, [address] [place], [address] , [place]. tel:[phone] Referring Provider: Suad Javier [address] [place], [address]. tel:[phone] OFFICE/OUTPA TIENT VISIT, [facility], [address], [place], [place], [address], [place] tel:[phone] [facility] fall (chief complaint) dizziness (chief complaint) aflutter (chief complaint) proteinuri a1 (chief complaint) HematuriaEdemaAtria l fibrillationRepeate d falls 0 Leon Parish. [address], [address], [place], [place], [address] , [place]. tel:[phone] Referring Provider: Jem Quintero [address], [place], [place], [address]. tel:[phone] [facility], [address], [place], [place], [address], [place] tel:[phone] [facility] No Information 0 Leon Parish. [address], [address], [place], [place], [address] , [place]. tel:[phone] [facility], [address], [place], [place], [address], [place] tel:[phone] [facility] No Information 9 Leon Parish. [address], [address], [place], [place], [address] , [place]. tel:[phone] OFFICE/OUTPA TIENT VISIT, [facility], [address], [place], [place], [address], [place] tel:[phone] [facility] rash1 (chief complaint) edema1 (chief complaint) weight loss1 (chief complaint) fall (chief complaint) Repeated fallsAbnormal weight lossEdemaTinea corporisHematuria 9 Leon Parish. [address], [address], [place], [place], [address] , [place]. tel:[phone] Referring Provider: Suad Javier [address], [place], [place], [address]. tel:[phone] OFFICE/OUTPA TIENT VISIT, [facility], [address], [place], [place], [address], [place] tel:[phone] [facility] Medicine PHysical (chief complaint) Encounter for general adult medical exam w abnormal findingsAtrial fibrillationEssenti al (primary) hypertensionHematur iaType 2 diabetes mellitus without complicationsEncntr for general adult medical exam w/o abnormal findings Oct-0 9 Loen Parish. [address], [address], [place], [place], [address] , [place]. tel:[phone] Referring Provider: Suad Javier [address], [place], [place], [address]. tel:[phone] OFFICE/OUTPA TIENT VISIT, [facility], [address], [place], [place], [address], [place] tel:[phone] [facility] Afib (chief complaint) Atrial fibrillationType 2 diabetes mellitus w/ diabetic neuropathyRepeated fallsTransient cerebral ischemic attack 8 Leon Parish. [address], [address], [place], [place], [address] , [place]. tel:[phone] Referring Provider: Suad Javier [address], [place], [place], [address]. tel:[phone] OFFICE/OUTPA TIENT VISIT, [facility], [address], [place], [place], [address], [place] tel:[phone] [facility] mental status change (chief complaint) tremor1 (chief complaint) Altered mental statusTremorAtrial fibrillationAbnorma l weight gainEssential (primary) hypertension 8 Leon Parish. [address], [address], [place], [place], [address] , [place]. tel:[phone] Referring Provider: Suad Javier [address], [place], [place], [address]. tel:[phone] OFFICE/OUTPA TIENT VISIT, [facility], [address], [place], [address], [place] tel:[phone] [facility] fall (chief complaint) edema1 (chief complaint) hematuria1 (chief complaint) anemia1 (chief complaint) HematuriaAtrial fibrillationRepeate d fallsEdemaBody mass index (BMI) 45.0-49.9, adultAnemia 8 Leon Eaton [address], [address], [place], [place], [address] , [place]. tel:[phone] Referring Provider: Suad Javier [address], [place], [place], [address]. tel:[phone] OFFICE/OUTPA TIENT VISIT, [facility], [address], [place], [place], [address], [place] tel:[phone] [facility] DM (chief complaint) heamturai1 (chief complaint) HLP (chief complaint) edema1 (chief complaint) afib1 (chief complaint) Encounter for general adult medical exam w abnormal findingsType 2 diabetes mellitus with diabetic nephropathyHematuri aAtrial fibrillation 8 Leon Eaton [address], [address], [place], [place], [address] , [place]. [phone] Referring Provider: Suad Javier [address], [place], [place], [address]. tel:[phone] OFFICE/OUTPA TIENT VISIT, [facility], [address] [place], [address], [place] tel:[phone] [facility] Afib (chief complaint) DM (chief complaint) HTN (chief complaint) anxiety1 (chief complaint) Atrial fibrillationType 2 diabetes mellitus without complicationsEssent ial (primary) hypertension 8 Leon Eaton [address], [address], [place], [place], [address] , [place]. tel:[phone] OFFICE/OUTPA TIENT VISIT, [facility], [address], [place], [address], [place] tel:[phone] [facility] edema1 (chief complaint) HTN (chief complaint) BM (chief complaint) DM (chief complaint) Essential (primary) hypertensionAtrial fibrillationType 2 diabetes mellitus without complicationsEdema 7 Leon Parish. [address], [address], [place], [address] , [place]. tel:[phone] Referring Provider: Suad Javier [address], [place], [place], [address]. tel:[phone] OFFICE/OUTPA TIENT VISIT, [facility], [address], [place], [address], [place] tel:[phone] [facility] HTN (chief complaint) flu (chief complaint) Afib (chief complaint) edema1 (chief complaint) Atrial fibrillationEssenti al (primary) hypertensionInfluen zaEdema 7 Leon Eaton [address], [address], [place], [place], [address] , [place]. tel:[phone] Referring Provider: Suad Javier [address], [place], [place], [address]. tel:[phone] OFFICE/OUTPA TIENT VISIT, [facility], [address], [place], [place], [address], [place] tel:[phone] [facility] DM (chief complaint) HLP (chief complaint) anemia1 (chief complaint) bowel movement (chief complaint) Type 2 diabetes mellitus without complicationsAnemia HyperlipidemiaProte inuria 6 Leon Parish. [address], [place], [place], [address] , [place]. tel:[phone] Referring Provider: Suad Javier [address], [place], [place], [address]. tel:[phone] OFFICE/OUTPA TIENT VISIT, [facility], [address], [place], [place], [address], [place] tel:[phone] [facility] htn (chief complaint) afib (chief complaint) edema1 (chief complaint) DM (chief complaint) EdemaEssential (primary) hypertensionType 2 diabetes mellitus without complicationsAtrial fibrillation 6 Leon Parish. [address], [place], [place], [address] , [place]. tel:[phone] Referring Provider: Suad Javier [address], [place], [place], [address]. tel:[phone] OFFICE/OUTPA TIENT VISIT, [facility], [address], [place], [place], [address], [place] tel:[phone] [facility] HTN (chief complaint) DM (chief complaint) nose lesion (chief complaint) edema (chief complaint) Essential (primary) hypertensionAtrial fibrillationEdemaRa 6 Leon Parish. [address], [place], [place], [address] , [place]. tel:[phone] Referring Provider: Suad Javier [address], [place], [place], [address]. tel:[phone] OFFICE/OUTPA TIENT VISIT, [facility], [address], [place], [address], [place] tel:[phone] [facility] BM (chief complaint) Afib (chief complaint) Diarrhea, unspecifiedAtrial fibrillation 6 Leon Parish. [address], [address], [place], [place], [address] , [place]. [phone] Referring Provider: Suad Javier [address], [place], [place], [address]. tel:[phone] OFFICE/OUTPA TIENT VISIT, [facility], [address], [place], [place], [address], [place] tel:[phone] [facility] HTN (chief complaint) aflutter (chief complaint) dizziness (chief complaint) DM (chief complaint) UTI1 (chief complaint) Essential (primary) hypertensionType 2 diabetes mellitus without complicationsUrinar y tract infectionHyperlipid emia 6 Leon Parish. [address], [address], [place], [place], [address] , [place]. [phone] Referring Provider: Suad Javier [place], [address]. tel:[phone] OFFICE/OUTPA TIENT VISIT, [facility], [address] [place], [address], [phone] [facility] rash1 (chief complaint) bowel movement (chief complaint) Afib1 (chief complaint) Unspecified atrial fibrillationRashCha nge in bowel habit 6 Leon Parish. [address] [facility] [place], [address] , [place]. [phone] Referring Provider: Suad Javier [place], [place], [address]. tel:[phone] OFFICE/OUTPA TIENT VISIT, [facility], [address] [place], [address], [phone] [facility] HTN1 (chief complaint) DM1 (chief complaint) anxiety1 (chief complaint) Afib1 (chief complaint) hand numnbess1 (chief complaint) Type 2 diabetes mellitus without complicationsTremor Essential (primary) hypertensionAtrial fibrillation 5 Leon Parish[address] [place], [address] , [place]. [phone] Referring Provider: Suad Javier [place], [address]. tel:[phone] Family History Family Member Type Diagnosis Age At Onset Father Problem (finding) of old age (Cause Of ) 81 Father Problem (finding) of old age (Cause Of ) 85 Payers Payer name Insurance type Covered republican ID Authoriza tion(s) No Information Social History Type Description Quantity Date Captured Comments Sex Female Smoking Status No Information Chief Complaint And Reason For Visit No Information Plan Of Treatment Date Type Action Status Goal Special diet education compl eted Goal Special diet education compl eted Goal Special diet education compl eted Goal Special diet education compl eted Referral Ordered: Physical Therapy (related to Repeated falls) ordered Referral Ordered: Juan Alberto Gomez -[facility] Physicians : Internal Medicine : Cardiovascular Disease (related to Atrial fibrillation) ordered Referral Referred To: Juan Alberto Gomez [address] [place], [place] [id number] Ordered: Referrals: Allopathic & Osteopathic Physicians : Internal Medicine : Cardiovascular Disease. Juan Alberto Gomez. Evaluate and treat ordered Referral Ordered: Physical Therapy (related to Tremor) ordered Referral Referred To: Physical Therapy Ordered: Referrals: Physical Therapy. Evaluate and treat ordered Referral Ordered: MRI BRAIN W/O & W/DYE ordered Referral Ordered: Juan Alberto Gomez (related to Atrial fibrillation) ordered Referral Referred To: Juan Alberto Gomez [address] [place], [place] [address] Ordered: Referrals: Juan Alberto Gomez. Evaluate and treat ordered Referral Ordered: DOPPLER ECHO EXAM, HEART ordered Referral Ordered: Neurology (related to Tremor) ordered Referral Ordered: Referrals: Neurology. Evaluate and treat ordered History Of Present Illness Encounter Date Complaint History Of Prese nt Illness dizziness Additional infor mation: Pt also went to ER due to vertigo and dizziness Pt had normal CBC, CMP, UA and was told that she was dehydrated and sent home Pt since has been drinking more fluid Pt does have leg edema, which is chronic and stable. aflutter Pt has chronic a flutter .Pt is seeing cardiology .Pt is NOT on anti coagulant due to risk of fall. Pt denies any chest pain or sob proteinuria1 Pt had history o f proteinuria and hematuria, which is resolved on recent ER lab Pt denies any UTI symptoms fall Pt recently trip ped and fell and hit her head Pt did not lose consciousness .Pt went to Er and had negative head and neck Ct. 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 Pt does walk with rolling walker Pt is doing PT rash1 Pt notices itchi ng rash under breast and around abdomen for several weeks. pt denies any drainage, Pt denies any bleeding weight loss1 Pt states that s he has been walking more and she cut off some carbs and she is trying to lose some weight Pt denies any appetite loss, abd pain, diarrhea, blood in stool, change of bowel, early satiety edema1 Pt has chronic L E edema. Pt takes lasix and KCL. pt still has 1+ edema. Pt denies any sob. pt wants to know if she can cut down on her lasix Pt states that she urinate frequently and she does not like that when she has company or going out. PHysical Pt needs annual physical, patient has chronic dizziness. Patient take meclizine and doing okay. Patient denies any syncope episode. Patient has chronic lower extremity edema. Patient takes Lasix and potassium. Patient denies any worsening swelling. Patient denies any shortness of breath. Patient has hypertension. Patient takes lisinopril diltiazem and Toprol. Her BP stable. Patient has diabetes. Patient takes Lantus and metformin and her blood sugars are around 130. Patient denies any polyuria polydipsia. Patient denies any hypoglycemia episode. Patient has chronic anxiety and depression. Patient takes Celexa and doing okay. Patient had lab work done which showed mild hematuria and proteinuria as well as stable diabetes. Patient has chronic atrial flutter. Patient denies any chest pain or palpitation. Patient is off anticoagulation. Patient is on aspirin daily. Afib Pt has history o f chronic proximal princess/aflutter. Pt used to take coumadin. 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 Pt has history of recurrent fall and she no longer takes coumadin due to high fall risk. Pt most recently went to ER due to rapid afib with mental status change. Pt was admitted to hospital and her metoprolol was increased and diltiazem was added. She was successfully converted to sinus rhythm. Pt also has cardiomyopathy with slightly decreased LVEF around 40%. Pt also suffered TIA recently. She did have mild confusion which quickly resolved. Pt was evaluated by neurology and she was deemed stable and was transferred to assisted. Pt has been at assisted since February. pt is eagerly hoping to return to [facility]. Pt has been doing PT and her ambulation is much improved now. Pt does walk with walker and she still poses high risk of falling due to her chronic poor physique. mental status change Pt came in with her son today stating that she had some mental status issue last week. Pt states that she could not think and felt confused last week. Pt denies any headache. Pt states that she had difficulty following instructions and she also had some memory loss. pt denies any fever, UTi symptoms. pt denies any urinary symptoms. pt is back to her baseline now. pt denies any weakness. pt states that she was able to converse but she could not write last week but she is ok now. Pt also has weak leg and some knee pain. Pt has gait difficulty which is at her baseline tremor1 Pt has some rest ing tremor both hand for long time. Pt denies any worsening symptoms fall Pt recently was admitted to hospital due to leg weakness and fall and also bronchitis and afib. Pt had negative xray for pneumonia Pt actually has been feeling well since her discharge from hospital. Pt denies any sob or chest pain. edema1 Pt takes lasix a nd KCL but she missed doses frequently. Pt has chronic bilateral LE swelling. Pt denies any sob hematuria1 Pt has mild july turia. Pt denies any UTI symptoms anemia1 Pt has mild anem ia on recent lab. Pt denies any Gi blood loss. Pt denies any dizziness. edema1 Pt has LE edema. Pt has not been taking lasix and KCL daily. Pt denies any sob or chest pain or coughing. HLP Pt has mild high TG. Pt is not on any diet heamturai1 Pt has mild july tjria. Pt denies any UTi symptoms DM Pt has DM Pt yann es metformin. Pt has not been checking her BG Pt is out of lancets . Her A1c is slighlty worse. Pt has mild proteinuria. Pt denies any polyuria, polydipsia. afib1 Pt has chronic a fib with cardiolomyopathy. Pt takes coumadin and her INR is 1.9 two weeks ago. Pt just seen cardiology recently.. She supposes to do cardiac echo. anxiety1 Pt has chronic a nxiety and depression. Pt takes celexa and doing ok. pt denies any suicidal or homicidal thought Pt denies any crying spells HTN Pt takes toprol and norvasc and lisinopril .her BP is stable. DM Pt has DM. Her B G is around 130s. Pt takes metformin only. Pt denies any polyuria, polyripsia, ,Pt denies any neuropathy Afib Pt has paroxymal afib with mild cardiomyopathy. pt has chornic leg edema. Pt takes laxix and kcl every other day. Pt denie any sob. Pt denie sany chest pain edema1 Pt has LE edema. Pt has paroximyal afib. Pt is on coumadin and toprol. Her INR s 2.5 recently. Pt denies any chest pain or headcache. Pt denies any sob. Pt sees cardiology HTN Pt takes norvac, lisinopril and also toprol and her BP is stable BM Pt c/o frequent BM for several months. Pt denies any blood in stool. pt denies any nausea, vomiting, diarrhea Pt denies any blood in stool DM Pt has borderlin e DM. Pt takes metformin. Her BG is around 100s per patient. Pt denies any numbness HTN Pt has HTN. Pt t akes lisinoril, norvac, toprol and her BP is ok Pt denies any chest pain or headache flu Pt has flu and s he feels weak and she fell Pt was admitted to hospital and did supportive care and she feels better now Pt is back to baseline now. Pt also was treaetd with augmentin for sinusitis. pt denies any symptoms now Afib Pt has afib. Pt is on coumadin 6 and 7 mg daily. Her INR is 2.3 last week. Pt denies any chest apin. Pt sees cardiology edema1 Pt has LE edema. trace Pt denies any worsening swelling. Pt denies any SOB bowel movement Pt states that s he has frequent bowel movement sometimes throughout the day. Pt denies any constipation, diarrhea, blood in stool, abd pain weight loss, ,etc. Pt has above problem for several years. No abd pain HLP Pt has mild high TG. DM Pt has DM. Pt ta kes metformin and her BG is around 130 and A1c around 7.4. Pt denies any polyuria, polydipsia. Pt has mild proteinruia anemia1 Pt has very bord margaret anemia. No blood loss per patient. Pt denies any dizziness edema1 Pt has LE edema. Pt takes lasix and KCL. Pt denies any swelling. DM Pt takes DM only . Pt states that her BG is around 100 Pt denies any polyuria, polydipisa. 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 Pt denies any numnbness htn pt has HTn. Pt t akes toprol, norvasc and lisinorpril. Her BP is stable. afib Pt has afib. Pt sees cardiology Pt takes coumadin 6 mg and 7 mg alternative and her INR has been stable with around 2.2 Pt denies any chset pain or headache edema Pt does not take lasix and KCL daily Pt denies any sob or chset pain nose lesion Pt notices small painful blister inside right side of nostrile for several days. Pt denies any fever Pt notices mild pain. Pt denies any nasal drainage DM Pt takes metform in only Her BG is around 130s. Pt denies any hypoglycemia Pt denies any polyuria polydipsia HTN Pt has HTN and s he has afib. Pt takes coumadin She seen cardiology and was told to continue coumadin. SAhe is rate controlled with toprpol. Pt denies any chset pain or headache BM Pt c/o frequent soft bowel movement chronically for several years Pt states that she does not have any blood in stool. PT notices at least 4-5 times loose stool without blood daily .Pt denies any abd pain. Pt denies any naseua, vomiting, diarrhea. Pt states that she usually notices that after food Afib Pt has afib/aflu tter. Pt takes coumadin. Last INR is 2.4. Pt supposes to go to cardiology now but instead came to my office. Pt denies any chest pain or headache HTN Pt takes toprol, norvasc and lisinopil and her BP is stable. Pt denies any chest pain UTI1 Pt denies any bu ring but she has some frequency. Pt has nitrate on her recnet ua test DM Pt has DM. Her B G is aorund 150s. Pt denies any foot numnbess. Pt has mildly high TG and also proteinuria dizziness Additional infor mation: Pt has chronic dizziness and meclizie works ok. Pt denies any worsening symptoms. No headache. aflutter Pt has aflutter and also bundle bunch block. pt takes coumadin, INR ok. Pt has appointment with cardiology in 10 days. Pt denies any chest apin or palpitation Afib1 Pt has chronic a fib Pt takes coumadin. Pt denies any chest pain or SOB rash1 Pt c/o itchy adrianne h under stomach for several months Pt deniesany blisters. Pt denies any pain bowel movement Pt c/o frequent bowel movement post meal for several years. Pt denies any abd pain .Pt denies any bloody diarrhea. Pt just notices she has to have mulitple bowel movement post any meal. Pt denies any diarhea Pt denies any relation to any food. HTN1 Pt has HTN. Pt t akes norvasc and lisinopril daily. her BP is stable DM1 Pt has DM. Pt ta kes metformin only. Her BG is around 150-170. Pt denies any hypoglycemia. Pt denies any polyuria, polydipsia anxiety1 Pt has chronic a nxiety and depression. Pt takes celexa and xanax and doing ok. Pt denies any suicidal thought. Pt takes xanax qhs PRN for insomnia and doing ok. Pt denies any feeling of hopelessness Pt denies any crying spells. Afib1 Pt has documente d afib and she is taking coumadin now. Pt denies any chest pain or headache hand numnbess1 Pt has chronic b ilateral hand pain and numnbess and stiffness. Pt does have history of osteoarthritis. Pt has bilateral hand tremor. Pt plays piano and is reather difficult Instructions Date Instruction Additional Infor damien Weight management Related to Hem aturia Weight management Related to Enc ounter for general adult medical exam w abnormal findings Increase physical activity Relat ed to Encounter for general adult medical exam w abnormal findings Special diet education Related t o Body mass index (BMI) 40.0-44.9, adult Special diet education Related t o Body mass index (BMI) 40.0-44.9, adult Weight management Related to Atr ial fibrillation Special diet education Related t o Body mass index (BMI) 45.0-49.9, adult Weight management Related to Alt ered mental status Special diet education Related t o Body mass index (BMI) 45.0-49.9, adult Increase physical activity Relat ed to Hematuria Weight management Related to Hem aturia Prescribed Activity and Exercise Education Related to Dietary Surveillance and Counseling Prescribed Diet Educ ation/Lifestyle Education Regarding Diet Related to Dietary Surveillance and Counseling Weight management Related to Atr ial fibrillation Increase physical activity Relat ed to Atrial fibrillation Prescribed Activity and Exercise Education Related to Dietary Surveillance and Counseling Prescribed Diet Educ ation/Lifestyle Education Regarding Diet Related to Dietary Surveillance and Counseling Prescribed Activity and Exercise Education Related to Dietary Surveillance and Counseling Prescribed Diet Educ ation/Lifestyle Education Regarding Diet Related to Dietary Surveillance and Counseling Increase activity. Related to Es sential (primary) hypertension Follow a low sodium diet. Relate d to Essential (primary) hypertension Prescribed Activity and Exercise Education Related to Dietary Surveillance and Counseling Prescribed Diet Educ ation/Lifestyle Education Regarding Diet Related to Dietary Surveillance and Counseling Prescribed Activity and Exercise Education Related to Dietary Surveillance and Counseling Prescribed Diet Educ ation/Lifestyle Education Regarding Diet Related to Dietary Surveillance and Counseling Prescribed Activity and Exercise Education Related to Dietary Surveillance and Counseling Prescribed Diet Educ ation/Lifestyle Education Regarding Diet Related to Dietary Surveillance and Counseling Prescribed Activity and Exercise Education Related to Dietary Surveillance and Counseling Prescribed Diet Educ ation/Lifestyle Education Regarding Diet Related to Dietary Surveillance and Counseling Prescribed Diet Educ ation/Lifestyle Education Regarding Diet Related to Dietary Surveillance and Counseling Prescribed Activity and Exercise Education Related to Dietary Surveillance and Counseling Prescribed Activity and Exercise Education Related to Dietary Surveillance and Counseling Prescribed Diet Educ ation/Lifestyle Education Regarding Diet Related to Dietary Surveillance and Counseling Assessments Type Assessment Date No Information
--- OUTSIDE RECORDS SUMMARY | 2024-08-20 06:31 | XMS_ITS | CONTINUITY OF CARE DOCUMENT ---
Author Name viji hallman Address Unknown Organization [facility] Address [address] [place] [address] [address] [place] [address] Phone [phone] Care Team Providers Care Staff Assistant Name Role Phone viji hallman Unavailable Unavailable INSURANCE PROVIDERS Payer name Policy type / Coverage type [place] red democrat ID HEALTHCARE AND FAMILY SERVICES Medicaid 0 [id number] [place] MEDICARE Medicare [id number]
[2024-08-20 06:32] VITALS: BP 163/90; PULSE 84; RESP 16; TEMP 37.1; O2SAT 97
[2024-08-20 07:16] VITALS: BP 144/92; PULSE 79; RESP 17; TEMP 36.4; O2SAT 95
--- OUTSIDE RECORDS SUMMARY | 2024-08-20 07:18 | XMS_ITS | Continuity of Care Document ---
Author Organization [facility] Address [address] [place] [address] [place] [address] Phone Care Team Providers Care Bobbin Presser Name Role Phone Jem Quintero MD Unavailable Unavailable Allergies, Adverse Reactions, Alerts Substance Reaction Status Criticality No Known Allergies Active No Inform ation Medications Medication Instructions Dosage Effective Dates (start - stop) Status Comments aspirin 325 mg tablet take 1 tablet by oral route every day 325 MG - Active Calcium 600 + D(3) 600 mg calcium-200 unit capsule take 2 daily - Active take orally Celexa 20 mg tablet take 1 tablet by oral route every day 20 MG - Active Cerovite Senior tablet take one PO daily - Active diltiazem ER 180 mg capsule,24 hr,extended release take 1 capsule by oral route every day 180 MG - Active Lasix 40 mg tablet take 1 tablet by oral route every day 40 MG - Active lisinopril 5 mg tablet take 1 tablet by oral route every day 5 MG - Active metformin 1,000 mg tablet take 1 tablet by oral route 2 times every day with morning and evening meals 1000 MG - Active potassium chloride ER 20 mEq tablet,extended release take 1 tablet by oral route every day with food 20 MEQ - Active Toprol XL 100 mg tablet,extended release take 1 tablet by oral route every day 100 MG - Active Lantus Solostar U-100 Insulin 100 unit/mL (3 mL) subcutaneous pen inject by subcutaneous route as per insulin protocol 0.00 - Active 30 units SC in AM Vitamin D3 25 mcg (1,000 unit) capsule take one tablet by mouths in AM - Active OneTouch Ultra Blue Test Strip [...] Diagnoses Date Provider Providers Copied on Encounter [facility], [address] [place], [place], [address], [place] tel:[phone] [facility] Medicine No Information 1 Leon Eaton [address], [address] [place], [address] , [place]. [phone] [facility], [address], [address], [place] tel:[phone] [facility] No Information 0 Leon Eaton [address], [address] [place], [address] , [place]. tel:[phone] Referring Provider: Suad Javier [facility] [place], [address]. tel:[phone] OFFICE/OUTPA TIENT VISIT, [facility], [address], [place], [place], [address], [place] tel:[phone] [facility] fall (chief complaint) dizziness (chief complaint) aflutter (chief complaint) proteinuri a1 (chief complaint) HematuriaEdemaAtria l fibrillationRepeate d falls 0 Leon Parish. [address], [place], [place], [address] , [place]. tel:[phone] Referring Provider: Jem Quintero [address], [place], [place], [address]. tel:[phone] [facility], [address], [place], [place], [address], [place] tel:[phone] [facility] No Information 0 Leon Parish. [address], [place], [place], [address] , [place]. tel:[phone] [facility], [address], [place], [place], [address], [place] tel:[phone] [facility] No Information 9 Leon Parish. [address], [place], [place], [address] , [place]. tel:[phone] OFFICE/OUTPA TIENT VISIT, [facility], [address], [place], [place], [address], [place] tel:[phone] [facility] rash1 (chief complaint) edema1 (chief complaint) weight loss1 (chief complaint) fall (chief complaint) Repeated fallsAbnormal weight lossEdemaTinea corporisHematuria 9 Leon Parish. [address], [address], [place], [place], [address] , [place]. tel:[phone] Referring Provider: Suad Javier [address], [place], [place], [address]. tel:[phone] OFFICE/OUTPA TIENT VISIT, [facility], [address], [place], [address], [place] tel:[phone] [facility] Medicine PHysical (chief complaint) Encounter for general adult medical exam w abnormal findingsAtrial fibrillationEssenti al (primary) hypertensionHematur iaType 2 diabetes mellitus without complicationsEncntr for general adult medical exam w/o abnormal findings Oct-0 9 Leon Parish. [address], [address], [place], [place], [address] , [place]. tel:[phone] Referring Provider: Suad Javier [address], [place], [place], [address]. tel:[phone] OFFICE/OUTPA TIENT VISIT, [facility], [address], [place], [address], [place] tel:[phone] [facility] Afib (chief complaint) Atrial fibrillationType 2 diabetes mellitus w/ diabetic neuropathyRepeated fallsTransient cerebral ischemic attack 8 Leon Parish. [address], [address], [place], [place], [address] , [place]. tel:[phone] Referring Provider: Suad Javier [address], [place], [place], [address]. tel:[phone] OFFICE/OUTPA TIENT VISIT, [facility], [address], [place], [place], [address], [place] tel:[phone] [facility] mental status change (chief complaint) tremor1 (chief complaint) Altered mental statusTremorAtrial fibrillationAbnorma l weight gainEssential (primary) hypertension 8 Leon Parish. [address], [address], [place], [place], [address] , [place]. tel:[phone] Referring Provider: Suad Javier [address], [place], [place], [address]. tel:[phone] OFFICE/OUTPA TIENT VISIT, [facility], [address], [place], [place], [address], [place] tel:[phone] [facility] fall (chief complaint) edema1 (chief complaint) hematuria1 (chief complaint) anemia1 (chief complaint) HematuriaAtrial fibrillationRepeate d fallsEdemaBody mass index (BMI) 45.0-49.9, adultAnemia 8 Leon Eaton [address], [address], [place], [place], [address] , [place]. tel:[phone] Referring Provider: Suad Javier [address], [place], [place], [address]. tel:[phone] OFFICE/OUTPA TIENT VISIT, [facility], [address], [place], [place], [address], [place] tel:[phone] [facility] DM (chief complaint) heamturai1 (chief complaint) HLP (chief complaint) edema1 (chief complaint) afib1 (chief complaint) Encounter for general adult medical exam w abnormal findingsType 2 diabetes mellitus with diabetic nephropathyHematuri aAtrial fibrillation 8 Leon Eaton [address], [address], [place], [place], [address] , [place]. [phone] Referring Provider: Suad Javier [address], [place], [place], [address]. tel:[phone] OFFICE/OUTPA TIENT VISIT, [facility], [address] [place], [address], [place] tel:[phone] [facility] Medicine Afib (chief complaint) DM (chief complaint) HTN (chief complaint) anxiety1 (chief complaint) Atrial fibrillationType 2 diabetes mellitus without complicationsEssent ial (primary) hypertension 8 Leon Eaton [address], [address], [place], [place], [address] , [place]. tel:[phone] OFFICE/OUTPA TIENT VISIT, [facility], [address], [place], [place], [address], [place] tel:[phone] [facility] edema1 (chief complaint) HTN (chief complaint) BM (chief complaint) DM (chief complaint) Essential (primary) hypertensionAtrial fibrillationType 2 diabetes mellitus without complicationsEdema 7 Leon Parish. [address], [address], [place], [place], [address] , [place]. tel:[phone] Referring Provider: Suad Javier [address], [place], [place], [address]. tel:[phone] OFFICE/OUTPA TIENT VISIT, [facility], [address], [place], [place], [address], [place] tel:[phone] [facility] HTN (chief complaint) flu (chief complaint) Afib (chief complaint) edema1 (chief complaint) Atrial fibrillationEssenti al (primary) hypertensionInfluen zaEdema 7 Leon Eaton [address], [address], [place], [place], [address] , [place]. tel:[phone] Referring Provider: Suad Javier [address], [place], [place], [address]. tel:[phone] OFFICE/OUTPA TIENT VISIT, [facility], [address], [place], [address], [place] tel:[phone] [facility] DM (chief complaint) HLP (chief complaint) anemia1 (chief complaint) bowel movement (chief complaint) Type 2 diabetes mellitus without complicationsAnemia HyperlipidemiaProte inuria 6 Leon Parish. [address], [address], [place], [place], [address] , [place]. tel:[phone] Referring Provider: Suad Javier [address], [place], [place], [address]. tel:[phone] OFFICE/OUTPA TIENT VISIT, [facility], [address], [place], [address], [place] tel:[phone] [facility] htn (chief complaint) afib (chief complaint) edema1 (chief complaint) DM (chief complaint) EdemaEssential (primary) hypertensionType 2 diabetes mellitus without complicationsAtrial fibrillation 6 Leon Parish. [address], [address], [place], [place], [address] , [place]. tel:[phone] Referring Provider: Suad Javier [address], [place], [place], [address]. tel:[phone] OFFICE/OUTPA TIENT VISIT, [facility], [address], [place], [address], [place] tel:[phone] [facility] HTN (chief complaint) DM (chief complaint) nose lesion (chief complaint) edema (chief complaint) Essential (primary) hypertensionAtrial fibrillationEdemaRa 6 Leon Parish. [address], [place], [place], [address] , [place]. tel:[phone] Referring Provider: Suad Javier [address], [place], [place], [address]. tel:[phone] OFFICE/OUTPA TIENT VISIT, [facility], [address], [place], [address], [place] tel:[phone] [facility] BM (chief complaint) Afib (chief complaint) Diarrhea, unspecifiedAtrial fibrillation 6 Leon Parish. [address], [address], [place], [place], [address] , [place]. [phone] Referring Provider: Suad Javier [address], [place], [place], [address]. tel:[phone] OFFICE/OUTPA TIENT VISIT, [facility], [address], [place], [place], [address], [place] tel:[phone] [facility] HTN (chief complaint) aflutter (chief complaint) dizziness (chief complaint) DM (chief complaint) UTI1 (chief complaint) Essential (primary) hypertensionType 2 diabetes mellitus without complicationsUrinar y tract infectionHyperlipid emia 6 Leon Parish. [address], [address], [place], [place], [address] , [place]. [phone] Referring Provider: Suad Javier [place], [address]. tel:[phone] OFFICE/OUTPA TIENT VISIT, [facility], [address] [place], [address], [phone] [facility] rash1 (chief complaint) bowel movement (chief complaint) Afib1 (chief complaint) Unspecified atrial fibrillationRashCha nge in bowel habit 6 Leon Parish. [address] [facility] [place], [address] , [place]. [phone] Referring Provider: Suad Javier [place], [address]. tel:[phone] OFFICE/OUTPA TIENT VISIT, [facility], [address], [address], [phone] [facility] HTN1 (chief complaint) DM1 (chief complaint) anxiety1 (chief complaint) Afib1 (chief complaint) hand numnbess1 (chief complaint) Type 2 diabetes mellitus without complicationsTremor Essential (primary) hypertensionAtrial fibrillation 5 Leon Parish. [address] [facility] [place] [address] , [place]. [phone] Referring Provider: Suad Javier [place], [place], [address]. tel:[phone] Family History Family Member Type Diagnosis Age [...] Gomez [address] [place], [place] [id number] Ordered: Referrals: Allopathic & Osteopathic Physicians : [...] Gomez [address] [place], [place] [id number] Ordered: Referrals: Juan Alberot Gomez. Evaluate and treat ordered Referral Ordered: [...] with staple and was removed already by care home Pt doing ok Pt denies any headache [...] Pt has not followed up with her cloud consultant due to unknown reason. Pt has history [...] was deemed stable and was transferred to care home. Pt has been at care home since February. pt is eagerly hoping to return to [facility]. Pt has been doing PT and her [...] Gi blood loss. Pt denies any dizziness. DM Pt has DM Pt yann es metformin. Pt has not been checking her BG Pt is out of lancets . Her A1c is slighlty worse. Pt has mild proteinuria. Pt denies any polyuria, polydipsia. heamturai1 Pt has mild july tjria. Pt denies any UTi symptoms HLP Pt has mild high TG. Pt is not on any diet edema1 Pt has LE edema. Pt has not been taking lasix and KCL daily. Pt denies any sob or chest pain or coughing. afib1 Pt has chronic a fib with cardiolomyopathy. Pt takes coumadin and her INR is 1.9 two weeks ago. Pt just seen cardiology recently.. She supposes to do cardiac echo. Afib Pt has paroxymal afib with mild cardiomyopathy. pt has chornic leg edema. Pt takes laxix and kcl every other day. Pt denie any sob. Pt denie sany chest pain DM Pt has DM. Her B G is around 130s. Pt takes metformin only. Pt denies any polyuria, polyripsia, ,Pt denies any neuropathy HTN Pt takes toprol and norvasc and lisinopril .her BP is stable. anxiety1 Pt has chronic a nxiety and depression. Pt takes celexa and doing ok. pt denies any suicidal or homicidal thought Pt denies any crying spells edema1 Pt has LE edema. Pt has [...] any worsening swelling. Pt denies any SOB HLP Pt has mild high TG. bowel movement Pt states that s he has frequent bowel movement sometimes throughout the day. Pt denies any constipation, diarrhea, blood in stool, abd pain weight loss, ,etc. Pt has above problem for several years. No abd pain DM Pt has DM. Pt ta kes metformin and her BG is around 130 and A1c around 7.4. Pt denies any polyuria, polydipsia. Pt has mild proteinruia anemia1 Pt has very bord margaret anemia. No blood loss per patient. Pt denies any dizziness htn pt has HTn. Pt t akes toprol, norvasc and lisinorpril. Her BP is stable. afib Pt has afib. Pt sees cardiology Pt takes coumadin 6 mg and 7 mg alternative and her INR has been stable with around 2.2 Pt denies any chset pain or headache edema1 Pt has LE edema. Pt takes lasix and KCL. Pt denies any swelling. DM Pt takes DM only . Pt states that her BG is around 100 Pt denies any polyuria, polydipisa. Pt sees panel wirer at [facility]. Pt denies any numnbness HTN Pt has HTN and s he has afib. Pt takes coumadin She seen cardiology and was told to continue coumadin. SAhe is rate controlled with toprpol. Pt denies any chset pain or headache DM Pt takes metform in only Her BG is around 130s. Pt denies any hypoglycemia Pt denies any polyuria polydipsia nose lesion Pt notices small painful blister inside right side of nostrile for several days. Pt denies any fever Pt notices mild pain. Pt denies any nasal drainage edema Pt does not take lasix and KCL daily Pt denies any sob or chset pain Afib Pt has afib/aflu tter. Pt takes coumadin. Last INR is 2.4. Pt supposes to go to cardiology now but instead came to my office. Pt denies any chest pain or headache May-03-2016 BM Pt c/o frequent soft bowel movement chronically for several years Pt states that she does not have any blood in stool. PT notices at least 4-5 times loose stool without blood daily .Pt denies any abd pain. Pt denies any naseua, vomiting, diarrhea. Pt states that she usually notices that after food aflutter Pt has aflutter and also bundle bunch block. pt takes coumadin, INR ok. Pt has appointment with cardiology in 10 days. Pt denies any chest apin or palpitation dizziness Additional infor mation: Pt has chronic dizziness and meclizie works ok. Pt denies any worsening symptoms. No headache. DM Pt has DM. Her B G is aorund 150s. Pt denies any foot numnbess. Pt has mildly high TG and also proteinuria UTI1 Pt denies any bu ring but she has some frequency. Pt has nitrate on her recnet ua test HTN Pt takes toprol, norvasc and lisinopil and her BP is stable. Pt denies any chest pain rash1 Pt c/o itchy adrianne h under stomach for several months Pt deniesany blisters. Pt denies any pain Afib1 Pt has chronic a fib Pt takes coumadin. Pt denies any chest pain or SOB bowel movement Pt c/o frequent bowel movement [...] damien Weight management Related to Hem aturia Special diet education Related t o Body mass index (BMI) 40.0-44.9, adult Increase physical activity Relat ed to Encounter for general adult medical exam w abnormal findings Weight management Related to Enc ounter for [...]
--- OUTSIDE RECORDS SUMMARY | 2024-08-20 07:18 | XMS_ITS | CONTINUITY OF CARE DOCUMENT ---
Author Name viji hallman Address Unknown Organization [facility] Address [address] [place] [address] [address] [place] [address] Phone [phone] Care Team Providers Care Accounting/Finance Tutor Name Role Phone viji hallman Unavailable Unavailable INSURANCE PROVIDERS Payer name Policy type / Coverage type [place] red green party ID HEALTHCARE AND FAMILY SERVICES Medicaid 0 [id number] [place] [employer] Medicare [id number]
--- NOTE | 2024-08-20 07:28 | ED_ITS ---
HPI - Extremity Problem General Chief complaint: Extremity Problem,Nontraumatic Stated complaint: Shoulder Piter Time Seen by Provider: 08/20/24 07:04 History of Present Illness HPI Narrative: Pt presents with right shoulder pain. Pt has had issues off and on with right shoulder for years but got much worse after putting stuuf up in cabinet. Pt feels like she pulled somethiig in her shoulder and pain radiated up into right neck and down ar. Pt is able to move it but it hurts to move. Pt not awae of ever seeing an ortho for her shoulder. Related Data Home Medications ?Medication ?Instructions ?Recorded ?Confirmed ?Last Taken ?Type furosemide 40 mg tablet 40 mg PO QAM 09/27/20 08/20/24 05/01/21 History metformin 1,000 mg tablet 1,000 mg PO BID 09/27/20 08/20/24 05/01/21 History metoprolol succinate 100 mg 100 mg PO DAILY 05/15/21 08/20/24 Unknown History tablet,extended release 24 hr citalopram 10 mg tablet 10 mg PO DAILY 05/15/22 08/20/24 Unknown History lisinopril 5 mg tablet 10 mg PO DAILY 05/15/22 08/20/24 Unknown History vitamin E (dl, acetate) 450 mg 450 mg PO DAILY 02/09/23 08/20/24 Unknown History (1,000 unit) capsule cyclobenzaprine 5 mg tablet 5 mg PO HS PRN pain 08/20/24 08/20/24 Unknown History insulin detemir U-100 100 unit/mL 15 unit subcut HS 08/20/24 08/20/24 Unknown History (3 mL) subcutaneous pen (Levemir FlexTouch U-100 Insulin) nystatin 100,000 unit/gram topical 1 applic topical BID PRN itching 08/20/24 08/20/24 Unknown History cream potassium chloride 20 mEq 20 meq PO DAILY 08/20/24 08/20/24 Unknown History tablet,extended release(part/cryst) Allergies Allergy/AdvReac Type Severity Reaction Status Date / Time bisoprolol Allergy Intermediate unknown Verified 08/20/24 06:36 hydrochlorothiazide Allergy Intermediate unknown Verified 08/20/24 06:36 oxycodone Allergy Intermediate unknown Verified 08/20/24 06:36 Review of Systems Review of Systems: All systems reviewed & are unremarkable except as noted in HPI and below PMFSH Past Medical History Medical History Acute renal insufficiency Acute UTI Atrial fibrillation CHF (congestive heart failure) Elevated troponin GERD (gastroesophageal reflux disease) Hypercholesterolemia Hypertension Hypertension Mitral valve prolapse Osteoarthritis Presence of IVC filter Sepsis Surgical History Surgical History H/O cataract extraction H/O: hysterectomy History of appendectomy History of esophageal surgery History of total knee arthroplasty On the left Hx of cholecystectomy No pertinent past surgical history S/P excision of lipoma S/P IVC filter Family History Family History Mother Diabetes mellitus Father Diabetes mellitus Sibling Acute myocardial infarction Social History Social History Social History: The patient resides has [facility] living. The patient has 5 children. The patient is . 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 The patient is lifelong nonsmoker. She does not use any marijuana alcohol or illicit drugs. Code status Full code Smoking status: Never smoker Second hand tobacco smoke exposure: Yes Alcohol intake: never Substance use: never Substance use type: does not use Lack of Transportation: No Lack of Food: Never True Current Housing: I Have Housing Concerned About Future Housing: No Difficulty Paying Gas/Electric Bills: No Difficulty Paying for Meds: No Currently Unemployed: No Education: Grade School Difficulty w/ Childcare or Family Care: No Gender identity (if verbalized by the patient): Female Spiritual care concerns: No Exam Const: General: healthy appearing and no acute distress Nutritional Appearance: well nourished Orientation/consciousness: patient oriented x3 Limitations: no limitations Neck: Neck: normal visual inspection and no lymphadenopathy Other: tender lateral right neck muscles with spasm Chest: Chest palpation & inspection: normal inspection of the chest Resp: Effort & Inspection: normal respiratory effort Auscultation: clear to auscultation bilaterally Cardio: Rate: regular rate Rhythm: regular rhythm GI: Inspection: distended GI Palp: Yes Soft to palpation Auscultation: normal bowel sounds Skin: General skin exam: normal color Rashes: no rashes Neuro: General: patient oriented x3, moves all extremities, no meningeal signs and no focal motor deficits Speech: normal speech Extrem: Other: tender over right deltoid anterior Psych: Mental Status: mental status grossly normal Affect: normal affect Attitude: cooperative Course Vital Signs Vital signs: Vital Signs Temperature 98.7 F 08/20/24 06:32 Pulse Rate 84 08/20/24 06:32 Respiratory Rate 16 08/20/24 06:32 Blood Pressure 163/90 H 08/20/24 06:32 Pulse Oximetry 97 08/20/24 06:32 Oxygen Delivery Room Air 08/20/24 06:32 Temperature 97.6 F 08/20/24 07:16 Pulse Rate 79 08/20/24 07:16 Respiratory Rate 17 08/20/24 07:16 Blood Pressure 144/92 H 08/20/24 07:16 Pulse Oximetry 95 08/20/24 07:16 Oxygen Delivery Room Air 08/20/24 06:32 MDM - Extremity (Nontraumatic) MDM Narrative Medical decision making narrative: Pt presents with worsening of chronic right shoulder pain without trauma. Pt thinks she strained something. will treat pain and get x ray. x ray neg for fx has possible loose body. Pt better after meds. will send home on pain meds and ortho follow up. Medical Records Medical records narrative: x ray neg for fx possible loose body. seems more muscular. will give toradol and norflex for pain and get ortho follow up for futher imaging if needed. Discharge Plan Discharge Clinical Impression: Muscle strain of right shoulder Patient Disposition: Home, Self-Care Condition: Stable Instructions: Antibiotic Form, Sprain (ED) Patient Language: [place] Prescriptions: New naproxen [Naprosyn] 500 mg tablet 500 mg PO BID Qty: 20 0RF cyclobenzaprine 10 mg tablet 10 mg PO TID Qty: 14 0RF No Action diltiazem HCl 360 mg capsule,extended release 24hr 360 mg PO DAILY Qty: 90 0RF furosemide 40 mg tablet 40 mg PO QAM metformin 1,000 mg tablet 1,000 mg PO BID vitamin E (dl, acetate) 450 mg (1,000 unit) capsule 450 mg PO DAILY metoprolol succinate 100 mg Tablet Extended Release 24 Hr 100 mg PO DAILY citalopram 10 mg tablet 10 mg PO DAILY lisinopril 5 mg tablet 10 mg PO DAILY aspirin 81 mg capsule 81 mg PO DAILY Qty: 30 0RF cyclobenzaprine 5 mg tablet 5 mg PO HS PRN (Reason: pain) Levemir FlexTouch U100 Insulin 100 unit/mL (3 mL) insulin pen 15 unit subcut HS nystatin 100,000 unit/gram cream 1 applic topical BID PRN (Reason: itching) potassium chloride 20 mEq tablet,ER particles/crystals 20 meq PO DAILY acetaminophen 500 mg tablet See Rx Instructions .ROUTE .COMPLEX Qty: 60 0RF Dose Instruction: TAKE 1 TABLET BY MOUTH EVERY 6 HOURS NEEDED FOR PAIN/ HEADACHE Rx Instructions: TAKE 1 TABLET BY MOUTH EVERY 6 HOURS NEEDED FOR PAIN/ HEADACHE meclizine 25 mg tablet See Rx Instructions .ROUTE .COMPLEX Qty: 30 0RF Dose Instruction: TAKE 1 TABLET BY MOUTH TWICE DAILY NEEDED FOR DIZZINESS Rx Instructions: TAKE 1 TABLET BY MOUTH TWICE DAILY NEEDED FOR DIZZINESS (DME) BD AutoShield Duo Pen Needle 30 gauge x 3/16 needle See Rx Instructions .ROUTE .COMPLEX Qty: 100 0RF Dose Instruction: PEN NEEDLE USED FOR SUB-Q INJECTION Rx Instructions: PEN NEEDLE USED FOR SUB-Q INJECTION (DME) OneTouch Ultra Test Strip See Rx Instructions .Route Qty: 100 5RF Rx Instructions: Testing BID. DX: E11.9 Follow-up/Referrals: Ivan Egan MD [Physician] - Dayton Jones DO [Primary Care Provider] -
[2024-08-20] MEDS: KETOROLAC 30 MG/ML VIAL (*BKC) IM (07:38)
[2024-08-20] MEDS: ORPHENADRINE CITRATE 100 MG TABLET.ER PO (07:40)
== END 2024-08-20 09:02 ==
PROVIDERS: Emergency Provider Emergency Medicine; PCP Family Medicine
DX: S46.911A Strain of unspecified muscle, fascia and tendon at shoulder and upper arm level, right arm, initial encounter (principal); I48.91 Unspecified atrial fibrillation; I50.9 Heart failure, unspecified; I11.0 Hypertensive heart disease with heart failure; I34.1 Nonrheumatic mitral (valve) prolapse; E78.00 Pure hypercholesterolemia, unspecified; K21.9 Gastro-esophageal reflux disease without esophagitis; M19.90 Unspecified osteoarthritis, unspecified site; Z98.49 Cataract extraction status, unspecified eye; Z96.652 Presence of left artificial knee joint; Z90.710 Acquired absence of both cervix and uterus; Z90.49 Acquired absence of other specified parts of digestive tract; Z77.22 Contact with and (suspected) exposure to environmental tobacco smoke (acute) (chronic); Z79.899 Other long term (current) drug therapy; Z79.82 Long term (current) use of aspirin; Z79.4 Long term (current) use of insulin; Z79.84 Long term (current) use of oral hypoglycemic drugs; X50.9XXA Other and unspecified overexertion or strenuous movements or postures, initial encounter
CPT/HCPCS: 73030; 96372; 99283; A9270; J1885

== ENCOUNTER 2024-10-24 15:52 | Inpatient (IN) | payer OTHER, SELFPAY ==
[2024-10-24] VITALS (21 sets, daily range): BP systolic 111–150; BP diastolic 57–84; PULSE 68–78; RESP 16–25; TEMP 36.4–36.7; O2SAT 87–98; BMI 27.6
--- NOTE | ~2024-10-24 | CT_ITS ---
CT brain wo con Ordering provider: Francesca Collins PA-C History: 84 years Female with . confusion, weakness . Comparison: None. Technique: CT of the head without contrast. Radiation reduction technique utilized.The dose-length pr oduct was 605.33 mGy-cm. FINDINGS: BRAIN PARENCHYMA AND CSF SPACES: Mild leukoaraiosis and diffuse cortical atrophy. Mild atheromatous d isease. Persistent cavum septum pellucidum is noted. No midline shift, mass effect or hemorrhage. Th e brain parenchyma and CSF spaces are otherwise normal. Calcification in both vertebral arteries with possible moderate atherosclerotic changes is not excluded. VISUALIZED PARANASAL SINUSES: Well aerated. MASTOIDS: Well aerated. BONES: The bones appear intact. SOFT TISSUES: Visualized nasopharynx is normal. Superficial soft tissues are normal. IMPRESSION: No acute intracranial findings. Reviewed, dictated and finalized at location A.
--- NOTE | ~2024-10-24 | XR_ITS ---
Portable chest x-ray Comparison: 10/24/2024 Clinical History: Pneumonia Findings: Probable COPD with mild bibasilar chronic interstitial change. No definite acute pulmonary abnormality seen. Cardiomediastinal silhouette is stable. Bones and soft tissues are unremarkable. Impression: No definite acute pulmonary abnormality. Probable COPD or mild chronic bibasilar interstitial change. Reviewed, dictated and finalized at [facility]. Impression: No definite acute pulmonary abnormality. Probable COPD or mild chronic bibasilar interstitial change.
--- NOTE | ~2024-10-24 | US_ITS ---
BILATERAL LOWER EXTREMITY VENOUS ULTRASOUND Ordering provider: Francesca Collins PA-C History: . leg pain, edema . Comparison: None. FINDINGS: RIGHT LOWER EXTREMITY VEINS: --COMMON FEMORAL: Patent and free of thrombus. Normal compressibility, phasic flow and augmentation. --PROXIMAL SUPERFICIAL FEMORAL: Patent and free of thrombus. Normal compressibility, phasic flow and augmentation. --DISTAL SUPERFICIAL FEMORAL: Patent and free of thrombus. Normal compressibility, phasic flow and au gmentation. --POPLITEAL: Patent and free of thrombus. Normal compressibility, phasic flow and augmentation. --POSTERIOR TIBIAL: Patent and free of thrombus. Normal compressibility, phasic flow and augmentation . LEFT LOWER EXTREMITY VEINS: --COMMON FEMORAL: Patent and free of thrombus. Normal compressibility, phasic flow and augmentation. --PROXIMAL SUPERFICIAL FEMORAL: Patent and free of thrombus. Normal compressibility, phasic flow and augmentation. --DISTAL SUPERFICIAL FEMORAL: Patent and free of thrombus. Normal compressibility, phasic flow and au gmentation. --POPLITEAL: Patent and free of thrombus. Normal compressibility, phasic flow and augmentation. --POSTERIOR TIBIAL: Patent and free of thrombus. Normal compressibility, phasic flow and augmentation . IMPRESSION: Negative bilateral lower extremity venous US. No deep vein thrombosis. Reviewed, dictated and finalized at location A.
--- NOTE | ~2024-10-24 | XR_ITS ---
XR chest 2V 10/24/2024 16:31 Indication: Weakness. Altered mental status. Procedure: 2 view chest Comparison: 05/14/2022 Findings: There is posterior basilar airspace disease, consistent with pneumonia. The lungs are hyper inflated which is consistent with, but not diagnostic of chronic obstructive pulmonary disease. Cardi omegaly. No significant effusion. No pneumothorax. No acute osseous abnormality. Impression: 1: Posterior basilar airspace disease, consistent with pneumonia. Reviewed, dictated and finalized at location B. Impression: 1: Posterior basilar airspace disease, consistent with pneumonia.
--- NOTE | ~2024-10-24 | XR_ITS ---
XR knee RT min 4V Ordering provider: Francesca Collins PA-C History: . pain . Comparison: None. FINDINGS: BONES: No acute fracture or dislocation. JOINT SPACES: Narrowing of the medial and lateral compartment. SOFT TISSUES: Normal. IMPRESSION: No acute osseous abnormality right knee. Severe osteoarthritic changes. Reviewed, dictated and finalized at location A.
--- NOTE | ~2024-10-24 | XR_ITS ---
XR knee LT min 4V Ordering provider: Francesca Collins PA-C History: . pain . Comparison: None. FINDINGS: BONES: No acute fracture or dislocation. Small bony fragment seen near to the tibia anteriorly most l ikely postoperative. JOINT SPACES: Total knee arthroplasty. SOFT TISSUES: Normal. IMPRESSION: No acute osseous abnormality left knee. Total knee arthroplasty. Reviewed, dictated and finalized at location A.
--- OUTSIDE RECORDS SUMMARY | 2024-10-24 15:55 | XMS_ITS | CONTINUITY OF CARE DOCUMENT ---
Author Name viji hallman Address Unknown Organization [facility] Address [address] [place] [address] [address] [place] [address] Phone [phone] Care Team Providers Care Meat Hostess Name Role Phone viji hallman Unavailable Unavailable INSURANCE PROVIDERS Payer name Policy type / Coverage type [place] red green party ID HEALTHCARE AND FAMILY SERVICES Medicaid 0 [id number] [place] MEDIC[place] Medicare [id number]
--- OUTSIDE RECORDS SUMMARY | 2024-10-24 15:55 | XMS_ITS | Continuity of Care Document ---
Author Organization [facility] Address [address] [place] [address] [place] [address] Phone Care Team Providers Care Pediatric Physical Therapist Name Role Phone Jem Quintero MD Unavailable [...] Diagnoses Date Provider Providers Copied on Encounter [facility], [address] [place], [address], [place] tel:[phone] [facility] Medicine No Information 1 Leon Eaton [address], [address] [place], [address] , [place]. [phone] [facility], [address] [place], [address], [place] tel:[phone] [facility] No Information 0 Leon Mcmullen, [address], [address] , [place]. tel:[phone] Referring Provider: Suad Javier [place], [place], [address]. tel:[phone] OFFICE/OUTPA TIENT VISIT, [facility], [address], [place], [place], [address], [place] tel:[phone] [facility] fall (chief complaint) dizziness (chief complaint) aflutter (chief complaint) proteinuri a1 (chief complaint) HematuriaEdemaAtria l fibrillationRepeate d falls 0 Leon Parish. [address], [address], [place], [place], [address] , [place]. tel:[phone] Referring Provider: Jem Quintero [address], [place], [place], [address]. tel:[phone] [facility], [address], [place], [address], [place] tel:[phone] [facility] No Information 0 Leon Parish. [address], [address], [place], [address] , [place]. tel:[phone] [facility], [address], [place], [address], [place] tel:[phone] [facility] No Information 9 Leon Parish. [address], [address], [place], [address] , [place]. tel:[phone] OFFICE/OUTPA TIENT VISIT, [facility], [address], [place], [address], [place] tel:[phone] [facility] rash1 (chief complaint) edema1 (chief complaint) weight loss1 (chief complaint) fall (chief complaint) Repeated fallsAbnormal weight lossEdemaTinea corporisHematuria 9 Leon Parish. [address], [address], [place], [place], [address] , [place]. tel:[phone] Referring Provider: Suad Javier [address], [place], [place], [address]. tel:[phone] OFFICE/OUTPA TIENT VISIT, [facility], [address], [place], [address], [place] tel:[phone] [facility] Medicine PHysical (chief complaint) Encounter for general adult medical exam w abnormal findingsAtrial fibrillationEssenti al (primary) hypertensionHematur iaType 2 diabetes mellitus without complicationsEncntr for general adult medical exam w/o abnormal findings Oct-0 9 Leon Parish. [address], [address], [place], [place], [address] , [place]. tel:[phone] Referring Provider: Suad Javier [address], [place], [place], [address]. tel:[phone] OFFICE/OUTPA TIENT VISIT, [facility], [address], [place], [address], [place] tel:[phone] [facility] Afib (chief complaint) Atrial fibrillationType 2 diabetes mellitus w/ diabetic neuropathyRepeated fallsTransient cerebral ischemic attack 8 Leon Parish. [address], [address], [place], [address] , [place]. tel:[phone] Referring Provider: Suad Javier [address], [place], [place], [address]. tel:[phone] OFFICE/OUTPA TIENT VISIT, [facility], [address], [place], [address], [place] tel:[phone] [facility] mental status change (chief complaint) tremor1 (chief complaint) Altered mental statusTremorAtrial fibrillationAbnorma l weight gainEssential (primary) hypertension 8 Leon Parish. [address], [address], [place], [address] , [place]. tel:[phone] Referring Provider: Suad Javier [address], [place], [place], [address]. tel:[phone] OFFICE/OUTPA TIENT VISIT, [facility], [address], [place], [address], [place] tel:[phone] [facility] fall (chief complaint) edema1 (chief complaint) hematuria1 (chief complaint) anemia1 (chief complaint) HematuriaAtrial fibrillationRepeate d fallsEdemaBody mass index (BMI) 45.0-49.9, adultAnemia 8 Leon Eaton [address], [address], [place], [address] , [place]. tel:[phone] Referring Provider: Suad Javier [address], [place], [address]. tel:[phone] OFFICE/OUTPA TIENT VISIT, [facility], [address], [place], [address], [place] tel:[phone] [facility] DM (chief complaint) heamturai1 (chief complaint) HLP (chief complaint) edema1 (chief complaint) afib1 (chief complaint) Encounter for general adult medical exam w abnormal findingsType 2 diabetes mellitus with diabetic nephropathyHematuri aAtrial fibrillation 8 Leon Eaton [address], [address], [place], [address] , [place]. [phone] Referring Provider: Suad Javier [address], [place], [address]. tel:[phone] OFFICE/OUTPA TIENT VISIT, [facility], [address], [address], [place] tel:[phone] [facility] Medicine Afib (chief complaint) DM (chief complaint) HTN (chief complaint) anxiety1 (chief complaint) Atrial fibrillationType 2 diabetes mellitus without complicationsEssent ial (primary) hypertension 8 Leon Eaton [address], [address], [place], [address] , [place]. tel:[phone] OFFICE/OUTPA TIENT VISIT, [facility], [address], [place], [address], [place] tel:[phone] [facility] edema1 (chief complaint) HTN (chief complaint) BM (chief complaint) DM (chief complaint) Essential (primary) hypertensionAtrial fibrillationType 2 diabetes mellitus without complicationsEdema 7 Leon Parish. [address], [address], [place], [address] , [place]. tel:[phone] Referring Provider: Suad Javier [address], [place], [address]. tel:[phone] OFFICE/OUTPA TIENT VISIT, [facility], [address], [place], [address], [place] tel:[phone] [facility] HTN (chief complaint) flu (chief complaint) Afib (chief complaint) edema1 (chief complaint) Atrial fibrillationEssenti al (primary) hypertensionInfluen zaEdema 7 Leon Eaton [address], [address], [place], [address] , [place]. tel:[phone] Referring Provider: Suad Javier [address], [place], [address]. tel:[phone] OFFICE/OUTPA TIENT VISIT, [facility], [address], [place], [address], [place] tel:[phone] [facility] DM (chief complaint) HLP (chief complaint) anemia1 (chief complaint) bowel movement (chief complaint) Type 2 diabetes mellitus without complicationsAnemia HyperlipidemiaProte inuria 6 Leon Parish. [address], [address], [place], [address] , [place]. tel:[phone] Referring Provider: Suad Javier [address], [place], [address]. tel:[phone] OFFICE/OUTPA TIENT VISIT, [facility], [address], [place], [address], [place] tel:[phone] [facility] htn (chief complaint) afib (chief complaint) edema1 (chief complaint) DM (chief complaint) EdemaEssential (primary) hypertensionType 2 diabetes mellitus without complicationsAtrial fibrillation 6 Leon Parish. [address], [address], [place], [address] , [place]. tel:[phone] Referring Provider: Suad Javier [address], [place], [address]. tel:[phone] OFFICE/OUTPA TIENT VISIT, [facility], [address], [place], [address], [place] tel:[phone] [facility] HTN (chief complaint) DM (chief complaint) nose lesion (chief complaint) edema (chief complaint) Essential (primary) hypertensionAtrial fibrillationEdemaRa 6 Leon Parish. [address], [place], [address] , [place]. tel:[phone] Referring Provider: Suad Javier [address], [place], [address]. tel:[phone] OFFICE/OUTPA TIENT VISIT, [facility], [address], [place], [address], [place] tel:[phone] [facility] BM (chief complaint) Afib (chief complaint) Diarrhea, unspecifiedAtrial fibrillation 6 Leon Parish. [address], [address], [place], [address] , [place]. [phone] Referring Provider: Suad Javier [address], [place], [address]. tel:[phone] OFFICE/OUTPA TIENT VISIT, [facility], [address], [place], [address], [place] tel:[phone] [facility] HTN (chief complaint) aflutter (chief complaint) dizziness (chief complaint) DM (chief complaint) UTI1 (chief complaint) Essential (primary) hypertensionType 2 diabetes mellitus without complicationsUrinar y tract infectionHyperlipid emia 6 Leon Parish. [address], [address], [place], [address] , [place]. [phone] Referring Provider: Suad Javier [place], [address]. tel:[phone] OFFICE/OUTPA TIENT VISIT, [facility], [address], [place], [address], [phone] [facility] rash1 (chief complaint) bowel movement (chief complaint) Afib1 (chief complaint) Unspecified atrial fibrillationRashCha nge in bowel habit 6 Leon Parish. [address] [facility], [address] , [place]. [phone] Referring Provider: Suad Javier [place], [place], [address]. tel:[phone] OFFICE/OUTPA TIENT VISIT, [facility], [address], [place], [address], [phone] [facility] HTN1 (chief complaint) DM1 (chief complaint) anxiety1 (chief complaint) Afib1 (chief complaint) hand numnbess1 (chief complaint) Type 2 diabetes mellitus without complicationsTremor Essential (primary) hypertensionAtrial fibrillation 5 Leon Parish. [address] [facility] [address] , [place]. [phone] Referring Provider: Suad Javier [place], [address]. tel:[phone] Family History Family Member Type Diagnosis Age At Onset Father Problem (finding) of old age (Cause Of ) 81 Father Problem (finding) of old age (Cause Of ) 85 Payers Payer name Insurance type Covered constitution party ID Authoriza tion(s) No Information Social History [...] Gomez [address] [place], [place] [id number] Ordered: Referrals: Allopathic & Osteopathic Physicians : [...] Gomez [address] [place], [place] [id number] Ordered: Referrals: Juan Alberto Gomez. Evaluate and treat ordered Referral Ordered: DOPPLER ECHO EXAM, HEART ordered Referral Ordered: Neurology (related to Tremor) ordered Referral Ordered: Referrals: Neurology. Evaluate and treat ordered History Of Present Illness Encounter Date Complaint History Of Prese nt Illness fall Pt recently trip ped and fell and hit her head Pt did not lose consciousness .Pt went to Er and had negative head and neck Ct. 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 Pt has history [...] was deemed stable and was transferred to correction. Pt has been at correction since February. pt is eagerly hoping [facility]. Pt has been doing PT and [...] recently.. She supposes to do cardiac echo. HTN Pt takes toprol and norvasc and lisinopril .her BP is stable. anxiety1 Pt has chronic a nxiety and depression. Pt takes celexa and doing ok. pt denies any suicidal or homicidal thought Pt denies any crying spells DM Pt has DM. Her B G [...] 100s per patient. Pt denies any numbness edema1 Pt has LE edema. trace Pt denies any worsening swelling. Pt denies any SOB Afib Pt has afib. Pt is on coumadin 6 and 7 mg daily. Her INR is 2.3 last week. Pt denies any chest apin. Pt sees cardiology flu Pt has flu and s he feels weak and she fell Pt was admitted to hospital and did supportive care and she feels better now Pt is back to baseline now. Pt also was treaetd with augmentin for sinusitis. pt denies any symptoms now HTN Pt has HTN. Pt t akes lisinoril, norvac, toprol and her BP is ok Pt denies any chest pain or headache bowel movement Pt states that s he [...] Pt denies any polyuria, polydipisa. Pt sees director of intelligence at [facility]. Pt denies any numnbness edema Pt does not take lasix and [...] Pt denies any chest pain or headache UTI1 Pt denies any bu ring but [...] Pt denies any chest apin or palpitation HTN Pt takes toprol, norvasc and lisinopil and her BP is stable. Pt denies any chest pain Afib1 Pt has chronic a fib [...]
--- NOTE | 2024-10-24 15:58 | ECG_ITS ---
Test Date: 2024-10-24 16:08:56 Measurements Intervals [place] Rate: 75 P: 0 SD: 0 QRS: -63 QRSD: 112 T: 0 QT: 380 QTc: 425 Interpretive Statements ATRIAL FLUTTER WITH ABERRANT CONDUCTION OR VENTRICULAR PREMATURE COMPLEXES INTRAVENTRICULAR CONDUCTION DELAY INFERIOR INFARCT, AGE INDETERMINATE ANTEROSEPTAL INFARCT, AGE INDETERMINATE BORDERLINE ST-T WAVE ABNORMALITY- LAT/HIGH LAT LEADS BASELINE ARTIFACT- I, II, AVR, AVL ABNORMAL ECG No previous ECG available for comparison Electronically Signed On 10-24-2024 16:14:53 CDT by Juan Alberto Gomez D.O.
[2024-10-24 16:15] LABS: Basophils Absolute Auto 0.1 K/mm3 (0.0-0.1); Basophils Percent Auto 0.6 % (0.2-1.2); Eosinophils Percent Auto 0.3 % (0-4.4); Hemoglobin 11.3 g/dL (12.0-15.0); Immature Granulocyte Absolute 0.06 K/mm3 (0.00-0.031); Immature Granulocyte Percent A 0.5 % (0-0.5); Lymphocytes Absolute Auto 1.41 K/mm3 (0.9-3.2); Lymphocytes Percent Auto 12.2 % (18.3-44.2); Mean Corpuscular HGB Conc 31.4 g/dl (32-36); Mean Corpuscular Hemoglobin 27.5 pg (26-34); Mean Corpuscular Volume 87.6 fl (80-100); Mean Platelet Volume 9.8 fl (7.4-10.4); Monocytes Absolute Auto 1.2 K/mm3 (0.1-0.6); Monocytes Percent Auto 9.9 % (2.6-8.5); Neutrophils Absolute Auto 8.9 K/mm3 (1.3-6.7); Neutrophils Percent Auto 76.5 % (45.5-73.1); Platelet Count Result 301 k/mm3 (150-375); Red Blood Count 4.11 M/mm3 (4.2-5.4); Red Cell Distribution Width 15.5 % (11.5-14.5); White Blood Count 11.6 K/mm3 (4.5-10.0)
[2024-10-24 16:24] LABS: Alanine Aminotransferase 21 U/L (6-35); Albumin Level 4.1 g/dL (3.5-5.1); Alkaline Phosphatase 108 U/L (38-126); Anion Gap 13 mmol/L (4-12); Aspartate Amino Transferase 24 U/L (14-36); Bilirubin,Total 0.8 mg/dL (0.2-1.3); Blood Urea Nitrogen 20 mg/dL (7-17); Carbon Dioxide 26 mmol/L (22-30); Chloride 100 mmol/L (98-107); Estimated Glomerular Filt Rate > 60; Glucose 140 mg/dL (65-110); Potassium 3.5 mmol/L (3.4-5.0); Sodium 139 mmol/L (137-145)
--- OUTSIDE RECORDS SUMMARY | 2024-10-24 17:46 | XMS_ITS | CONTINUITY OF CARE DOCUMENT ---
Author Name viji hallman Address Unknown Organization [facility] Address [address] [place] [address] [address] [place] [address] Phone [phone] Care Team Providers Care Typer Name Role Phone viji hallman Unavailable Unavailable INSURANCE PROVIDERS Payer name Policy type / Coverage type [place] red green party ID HEALTHCARE AND FAMILY SERVICES Medicaid 0 [id number] [place] [employer] Medicare [id number]
--- OUTSIDE RECORDS SUMMARY | 2024-10-24 17:46 | XMS_ITS | Continuity of Care Document ---
Author Organization [facility] Address [address] [place] [address] [place] [address] Phone Care Team Providers Care Jewelry Mechanic Name Role Phone Jem Quintero MD Unavailable [...] Diagnoses Date Provider Providers Copied on Encounter [facility], [address] [place], [place], [address], [place] tel:[phone] [facility] Medicine No Information 1 Leon Eaton [address], [address] [place], [address] , [place]. [phone] [facility], [address] [place] [address], [place] tel:[phone] [facility] No Information 0 Leon Eaton [address], [address] [place], [address] , [place]. tel:[phone] Referring Provider: Suad Javier [facility] [place], [address]. tel:[phone] OFFICE/OUTPA TIENT VISIT, [facility], [address], [place], [place], [address], [place] tel:[phone] [facility] fall (chief complaint) dizziness (chief complaint) aflutter (chief complaint) proteinuri a1 (chief complaint) HematuriaEdemaAtria l fibrillationRepeate d falls 0 Leon Parish. [address], [place], [place], [address] , [place]. tel:[phone] Referring Provider: Jem Quintero [address], [place], [place], [address]. tel:[phone] [facility], [address], [place], [place], [address], [place] tel:[phone] [facility] No Information 0 Leon Parish. [address], [place], [place], [address] , [place]. tel:[phone] [facility], [address], [place], [place], [address], [place] tel:[phone] [facility] No Information 9 Leon Parish. [address], [place], [place], [address] , [place]. tel:[phone] OFFICE/OUTPA TIENT VISIT, [facility], [address], [place], [place], [address], [place] tel:[phone] [facility] rash1 (chief complaint) edema1 (chief complaint) weight loss1 (chief complaint) fall (chief complaint) Repeated fallsAbnormal weight lossEdemaTinea corporisHematuria 9 Leon Parish. [address], [place], [place], [address] , [place]. tel:[phone] Referring Provider: Suad Javier [address], [place], [place], [address]. tel:[phone] OFFICE/OUTPA TIENT VISIT, [facility], [address], [place], [place], [address], [place] tel:[phone] [facility] Medicine PHysical (chief complaint) Encounter for general adult medical exam w abnormal findingsAtrial fibrillationEssenti al (primary) hypertensionHematur iaType 2 diabetes mellitus without complicationsEncntr for general adult medical exam w/o abnormal findings Oct-0 9 Leon Parish. [address], [place], [place], [address] , [place]. tel:[phone] Referring Provider: Suad Javier [address], [place], [place], [address]. tel:[phone] OFFICE/OUTPA TIENT VISIT, [facility], [address], [place], [place], [address], [place] tel:[phone] [facility] Afib (chief complaint) Atrial fibrillationType 2 diabetes mellitus w/ diabetic neuropathyRepeated fallsTransient cerebral ischemic attack 8 Leon Parish. [address], [place], [place], [address] , [place]. tel:[phone] Referring Provider: Suad Javier [address], [place], [place], [address]. tel:[phone] OFFICE/OUTPA TIENT VISIT, [facility], [address], [place], [place], [address], [place] tel:[phone] [facility] mental status change (chief complaint) tremor1 (chief complaint) Altered mental statusTremorAtrial fibrillationAbnorma l weight gainEssential (primary) hypertension 8 Leon Parish. [address], [place], [place], [address] , [place]. tel:[phone] Referring Provider: Suad Javier [address], [place], [place], [address]. tel:[phone] OFFICE/OUTPA TIENT VISIT, [facility], [address], [place], [place], [address], [place] tel:[phone] [facility] fall (chief complaint) edema1 (chief complaint) hematuria1 (chief complaint) anemia1 (chief complaint) HematuriaAtrial fibrillationRepeate d fallsEdemaBody mass index (BMI) 45.0-49.9, adultAnemia 8 Leon Eaton [address], [place], [place], [address] , [place]. tel:[phone] Referring Provider: Suad Javier [address], [place], [place], [address]. tel:[phone] OFFICE/OUTPA TIENT VISIT, [facility], [address], [place], [place], [address], [place] tel:[phone] [facility] DM (chief complaint) heamturai1 (chief complaint) HLP (chief complaint) edema1 (chief complaint) afib1 (chief complaint) Encounter for general adult medical exam w abnormal findingsType 2 diabetes mellitus with diabetic nephropathyHematuri aAtrial fibrillation 8 Leon Eaton [address], [place], [place], [address] , [place]. [phone] Referring Provider: Suad Javier [address], [place], [place], [address]. tel:[phone] OFFICE/OUTPA TIENT VISIT, [facility], [address] [place], [address], [place] tel:[phone] [facility] Medicine Afib (chief complaint) DM (chief complaint) HTN (chief complaint) anxiety1 (chief complaint) Atrial fibrillationType 2 diabetes mellitus without complicationsEssent ial (primary) hypertension 8 Leon Eaton [address], [place], [place], [address] , [place]. tel:[phone] OFFICE/OUTPA TIENT VISIT, [facility], [address], [place], [place], [address], [place] tel:[phone] [facility] edema1 (chief complaint) HTN (chief complaint) BM (chief complaint) DM (chief complaint) Essential (primary) hypertensionAtrial fibrillationType 2 diabetes mellitus without complicationsEdema 7 Leon Parish. [address], [place], [place], [address] , [place]. tel:[phone] Referring Provider: Suad Javier [address], [place], [place], [address]. tel:[phone] OFFICE/OUTPA TIENT VISIT, [facility], [address], [place], [place], [address], [place] tel:[phone] [facility] HTN (chief complaint) flu (chief complaint) Afib (chief complaint) edema1 (chief complaint) Atrial fibrillationEssenti al (primary) hypertensionInfluen zaEdema 7 Leon Eaton [address], [place], [place], [address] , [place]. tel:[phone] Referring Provider: Suad Javier [address], [place], [place], [address]. tel:[phone] OFFICE/OUTPA TIENT VISIT, [facility], [address], [place], [place], [address], [place] tel:[phone] [facility] DM (chief complaint) HLP (chief complaint) anemia1 (chief complaint) bowel movement (chief complaint) Type 2 diabetes mellitus without complicationsAnemia HyperlipidemiaProte inuria 6 Leon Parish. [address], [place], [place], [address] , [place]. tel:[phone] Referring Provider: Suad Javier [address], [place], [place], [address]. tel:[phone] OFFICE/OUTPA TIENT VISIT, [facility], [address], [place], [place], [address], [place] tel:[phone] [facility] htn (chief complaint) afib (chief complaint) edema1 (chief complaint) DM (chief complaint) EdemaEssential (primary) hypertensionType 2 diabetes mellitus without complicationsAtrial fibrillation 6 Leon Parish. [address], [place], [place], [address] , [place]. tel:[phone] Referring Provider: Suad Javier [address], [place], [place], [address]. tel:[phone] OFFICE/OUTPA TIENT VISIT, [facility], [address], [place], [place], [address], [place] tel:[phone] [facility] HTN (chief complaint) DM (chief complaint) nose lesion (chief complaint) edema (chief complaint) Essential (primary) hypertensionAtrial fibrillationEdemaRa 6 Leon Parish. [address], [place], [place], [address] , [place]. tel:[phone] Referring Provider: Suad Javier [address], [place], [place], [address]. tel:[phone] OFFICE/OUTPA TIENT VISIT, [facility], [address], [place], [place], [address], [place] tel:[phone] [facility] BM (chief complaint) Afib (chief complaint) Diarrhea, unspecifiedAtrial fibrillation 6 Leon Parish. [address], [place], [place], [address] , [place]. [phone] Referring Provider: Suad Javier [address], [place], [place], [address]. tel:[phone] OFFICE/OUTPA TIENT VISIT, [facility], [address], [place], [place], [address], [place] tel:[phone] [facility] HTN (chief complaint) aflutter (chief complaint) dizziness (chief complaint) DM (chief complaint) UTI1 (chief complaint) Essential (primary) hypertensionType 2 diabetes mellitus without complicationsUrinar y tract infectionHyperlipid emia 6 Leon Parish. [address], [place], [place], [address] , [place]. [phone] Referring Provider: Suad Javier [place] [address]. tel:[phone] OFFICE/OUTPA TIENT VISIT, [facility], [address], [address], [phone] [facility] rash1 (chief complaint) bowel movement (chief complaint) Afib1 (chief complaint) Unspecified atrial fibrillationRashCha nge in bowel habit 6 Leon Parish. [address] [facility] [place], [address] , [place]. [phone] Referring Provider: Suad Javier [place], [address]. tel:[phone] OFFICE/OUTPA TIENT VISIT, [facility], [address], [address], [phone] [facility] HTN1 (chief complaint) DM1 (chief complaint) anxiety1 (chief complaint) Afib1 (chief complaint) hand numnbess1 (chief complaint) Type 2 diabetes mellitus without complicationsTremor Essential (primary) hypertensionAtrial fibrillation 5 Leon Parish. [address] [facility] [place], [address] , [place]. [phone] Referring Provider: Suad Javier [place], [place], [address]. tel:[phone] Family History Family Member Type Diagnosis Age [...] Gomez [address] [place], [place] [id number] Ordered: Referrals: Allopathic & Osteopathic Physicians : [...] Gomez [address] [place], [place] [id number] Ordered: Referrals: Juan Alberto Gomez. 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 Pt has history [...] was deemed stable and was transferred to alf. Pt has been at alf since February. pt is eagerly hoping to return to [facility]. Pt has been doing PT and [...] Pt denies any polyuria, polydipisa. Pt sees fnp at [facility]. Pt denies any numnbness HTN Pt has [...]
[2024-10-24 18:07] LABS: Add Urine Microscopic? YES; Appearance Urine Clear (Clear); Bacteria Urine None Seen /hpf; Bilirubin Urine Negative (Negative); Blood Urine Negative (Negative); Color Urine Yellow (Yellow); Glucose Urine UA Negative (Negative); Hyaline Casts Urine Present /lpf; Ketones Urine Negative (Negative); Leukocyte Esterase Ur Negative LEU/UL (Negative); Nitrate Urine Negative (Negative); Non Pathogenic Casts 0-2; Protein Urine 1+ mg/dL (Negative); RBC Urine 0-2 /hpf (0-2); Specific Grav Ur 1.016 (1.001-1.035); Squamous Epithelial Cell Urine None Seen /hpf (Few); Urobilinogen Urine 0.2 mg/dL (<2.0); pH Urine 5.5 (5.0-9.0)
--- NOTE | 2024-10-24 18:20 | ED.WEAKNESS ---
HPI - Weakness General Chief complaint: Weakness <Francesca Collins PA-C - Last Filed: 10/24/24 22:29> Stated complaint: weakness <Francesca Collins PA-C - Last Filed: 10/24/24 22:29> Time Seen by Provider: 10/24/24 17:14 <Francesca Collins PA-C - Last Filed: 10/24/24 22:29> Source: patient <Francesca Collins PA-C - Last Filed: 10/24/24 22:29> Mode of arrival: wheelchair <Francecsa Collins PA-C - Last Filed: 10/24/24 22:29> Limitations: altered mental status <Francesca Collins PA-C - Last Filed: 10/24/24 22:29> History of Present Illness HPI Narrative: This is an 84-year-old female that presents to the emergency department for confusion, generalized weakness. Ongoing today. Facility report she has not been getting around as well as she usually does. Patient reports bilateral knee pain. She also reports some back pain. Reports a productive cough. Denies fever, shortness of breath. <Francesca Collins PA-C - Last Filed: 10/24/24 22:29> Related Data Home medications: Home Medications ?Medication ?Instructions ?Recorded ?Confirmed ?Last Taken ?Type metformin 1,000 mg tablet 1,000 mg PO BID 09/27/20 10/25/24 05/01/21 History metoprolol succinate 100 mg 100 mg PO DAILY 05/15/21 10/25/24 Unknown History tablet,extended release 24 hr citalopram 10 mg tablet 10 mg PO DAILY 05/15/22 10/25/24 Unknown History lisinopril 5 mg tablet 10 mg PO DAILY 05/15/22 10/25/24 Unknown History vitamin E (dl, acetate) 450 mg 450 mg PO DAILY 02/09/23 10/25/24 Unknown History (1,000 unit) capsule dulaglutide 0.75 mg/0.5 mL 0.75 mg subcut WEEKLY 09/05/24 10/25/24 Unknown History subcutaneous pen injector (Trulicity) calcium 500 mg tablet 500 mg PO DAILY 10/25/24 10/25/24 Unknown History cholecalciferol (vitamin D3) 25 25 mcg PO DAILY 10/25/24 10/25/24 Unknown History mcg (1,000 unit) capsule furosemide 20 mg tablet 40 mg PO QAM 10/25/24 10/25/24 Unknown History hydrocodone 5 mg-acetaminophen 325 1 tablet PO Q8H PRN pain 10/25/24 10/25/24 Unknown History mg tablet lidocaine 5 % topical patch 3 patch topical DAILY 10/25/24 10/25/24 Unknown History <Francesca Collins PA-C - Last Filed: 10/24/24 22:29> Allergies/Adverse reactions: Allergies Allergy/AdvReac Type Severity Reaction Status Date / Time bisoprolol Allergy Intermediate unknown Verified 09/05/24 13:55 hydrochlorothiazide Allergy Intermediate unknown Verified 09/05/24 13:55 oxycodone Allergy Intermediate unknown Verified 09/05/24 13:55 <Francesca Collins PA-C - Last Filed: 10/24/24 22:29> Review of Systems Review of Systems: CONSTITUTIONAL: Reports chills. Denies fever CARDIOVASCULAR: Denies chest pain RESPIRATORY: Reports cough. Denies dyspnea. <Francesca Collins PA-C - Last Filed: 10/24/24 22:29> All systems reviewed & are unremarkable except as noted in HPI and below <Francesca Collins PA-C - Last Filed: 10/24/24 22:29> [facility] Past Medical History Medical History: Medical History Type II diabetes mellitus Macular degeneration Vitamin D deficiency Diabetic peripheral neuropathy History of CVA (cerebrovascular accident) Iron deficiency anemia Bilateral renal stones Cardiomyopathy Paroxysmal atrial flutter Not on anticoagulation due to fall rate Presence of IVC filter Osteoarthritis Elevated troponin GERD (gastroesophageal reflux disease) Hypertension Atrial fibrillation Hypercholesterolemia Mitral valve prolapse CHF (congestive heart failure) Echocardiogram 2016 demonstrated mild concentric left ventricular hypertrophy, [id number] global left ventricular systolic dysfunction with EF of 40-45. Repeat echocardiogram 2020 systolic function was difficult to assess due to a flutter with aberrancy, biatrial enlargement noted left greater than right <Francesca Collins PA-C - Last Filed: 10/24/24 22:29> Surgical History Surgical History: Surgical History (Updated 10/25/24 @ 02:45 by Gely Salgado DO) History of total hysterectomy with bilateral salpingo-oophorectomy (BSO) History of total left knee replacement Status post cataract extraction of both eyes with insertion of intraocular lens S/P IVC filter History of esophageal surgery S/P excision of lipoma Hx of cholecystectomy History of appendectomy <Francesca Collins PA-C - Last Filed: 10/24/24 22:29> Family History Family History: Family History Mother Diabetes mellitus Father Diabetes mellitus Sibling Acute myocardial infarction <Francesca Collins PA-C - Last Filed: 10/24/24 22:29> Social History Social History: Social History (Updated 10/25/24 @ 02:46 by Gely Salgado DO) Social History: She is and resides has [facility] assisted living. The patient has 5 children. 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 She is lifelong nonsmoker. She does not use any marijuana alcohol or illicit drugs. Code status: Full code Healthcare power of compliance attorney: Sampson (son) Smoking status: Never smoker Second hand tobacco smoke exposure: Yes Alcohol intake: never Substance use: never Substance use type: does not use Do You Feel Safe in your Home?: Yes Lack of Transportation: No Lack of Food: Never True Current Housing: I Have Housing Concerned About Future Housing: No Difficulty Paying Gas/Electric Bills: No Difficulty Paying for Meds: No Currently Unemployed: No Education: Grade School Difficulty w/ Childcare or Family Care: No Gender identity (if verbalized by the patient): Female Spiritual care concerns: No <Francesca Collins PA-C - Last Filed: 10/24/24 22:29> Exam Narrative: GENERAL: Elderly, well-nourished, and in no acute distress. HEAD: Normocephalic, atraumatic. EYES: PERRLA and EOMI. ENT: Nares clear, no rhinorrhea or epistaxis. Mucous membranes moist. Oropharynx without tonsillar hypertrophy exudate or other lesions. Bilateral TMs pearly rojas non-bulging NECK: Supple. No adenopathy or masses. CHEST: Clear to auscultation. No respiratory distress. No wheezes rales or rhonchi HEART: Regular rate and rhythm. No murmur heard. Normal peripheral pulses. ABDOMEN: Soft, nontender, nondistended, normal active bowel sounds. EXTREMITIES: Normal range of motion. Mild edema with mild overlying redness bilaterally. Normal DP pulse. Normal sensation SKIN: Warm, dry, no rash. NEURO: No focal deficits. Alert and oriented x3. Cranial nerves 2-12 grossly intact PSYCH: Normal mood and affect <Francesca Collins PA-C - Last Filed: 10/24/24 22:29> Course Course Emergency Course: patient and family updated on workup and need for admission <Francesca Collins PA-C - Last Filed: 10/24/24 22:29> ROBOTICS APPLICATION ENGINEER/PA Physician Supervision For this patient encounter, I reviewed the ROBOTICS APPLICATION ENGINEER or PA documentation, treatment plan, and medical decision making and had [id number] time with this patient. I performed all aspects of the MDM as documented. <Jackie Venegas MD - Last Filed: 10/25/24 06:58> Consultations Consultation #1: Spoke with hospitalist about patient and workup who accepts admission <Francesca Collins PA-C - Last Filed: 10/24/24 22:29> Date: 10/24/24 <Francesca Collins PA-C - Last Filed: 10/24/24 22:29> Vital Signs Vital signs: Vital Signs Temperature 98.0 F 10/24/24 15:55 Pulse Rate 76 10/24/24 15:55 Respiratory Rate 16 10/24/24 15:55 Blood Pressure 136/75 10/24/24 15:55 Pulse Oximetry 93 10/24/24 15:55 Temperature 97.8 F 10/25/24 04:00 Pulse Rate 66 10/25/24 04:00 Respiratory Rate 18 10/25/24 04:00 Blood Pressure 117/77 10/25/24 04:00 Pulse Oximetry 99 10/25/24 04:00 Oxygen Delivery Nasal Cannula 10/24/24 21:35 Oxygen Flow Rate 2 10/24/24 21:35 <Francesca Collins PA-C - Last Filed: 10/24/24 22:29> Vital Signs Temperature 98.0 F 10/24/24 15:55 Pulse Rate 76 10/24/24 15:55 Respiratory Rate 16 10/24/24 15:55 Blood Pressure 136/75 10/24/24 15:55 Pulse Oximetry 93 10/24/24 15:55 Temperature 97.8 F 10/25/24 04:00 Pulse Rate 66 10/25/24 04:00 Respiratory Rate 18 10/25/24 04:00 Blood Pressure 117/77 10/25/24 04:00 Pulse Oximetry 99 10/25/24 04:00 Oxygen Delivery Nasal Cannula 10/24/24 21:35 Oxygen Flow Rate 2 10/24/24 21:35 <Jackie Venegas MD - Last Filed: 10/25/24 06:58> MDM - Weakness MDM Narrative Medical decision making narrative: Patient presents to the emergency department for generalized weakness, back pain, cough. Also reporting bilateral knee pain. She is afebrile and nontoxic appearing. Her vitals are stable. CBC with mild leukocytosis to 11.6. Metabolic panel without concerning findings. Urine without evidence of infection. Influenza, RSV and COVID screens are negative. Chest x-ray shows posterior basilar airspace disease consistent with pneumonia. Bilateral knee x-rays without acute osseous abnormalities. Venous Doppler without evidence of DVT. CT brain without acute findings. patient and family updated on workup and need for admission. Spoke with hospitalist about patient and workup who accepts admission <Francesca Collins PA-C - Last Filed: 10/24/24 22:29> Patient presents to the emergency department for generalized weakness, back pain, cough. Also reporting bilateral knee pain. She is afebrile and nontoxic appearing. Her vitals are stable. CBC with mild leukocytosis to 11.6. Metabolic panel without concerning findings. Urine without evidence of infection. Influenza, RSV and COVID screens are negative. Chest x-ray shows posterior basilar airspace disease consistent with pneumonia. Bilateral knee x-rays without acute osseous abnormalities. Venous Doppler without evidence of DVT. CT brain without acute findings. patient and family updated on workup and need for admission. Spoke with hospitalist about patient and workup who accepts admission. <Jackie Venegas MD - Last Filed: 10/25/24 06:58> Differential Diagnosis Differential diagnosis: Likely anemia, sepsis, dehydration and other (Pneumonia, DVT, cellulitis, venous stasis, arthritis) <Francesca Collins PA-C - Last Filed: 10/24/24 22:29> Lab Data Attestation: I reviewed the patient's lab results. <Francesca Collins PA-C - Last Filed: 10/24/24 22:29> Result diagrams: 10/25/24 06:05 10/25/24 06:05 <Francesca Collins PA-C - Last Filed: 10/24/24 22:29> Labs: Lab Results 10/24/24 10/24/24 10/24/24 Range/Units 16:06 16:07 17:29 WBC 11.6 H (4.5-10.0) K/mm3 RBC 4.11 L (4.2-5.4) M/mm3 Hgb 11.3 L (12.0-15.0) g/dL Hct 36.0 L (37.0-47.0) % MCV 87.6 (80-100) fl MCH 27.5 (26-34) pg MCHC 31.4 L (32-36) g/dl RDW 15.5 H (11.5-14.5) % Plt Count 301 (150-375) k/mm3 MPV 9.8 (7.4-10.4) fl Immature Gran % (Auto) 0.5 (0-0.5) % Neut % (Auto) 76.5 H (45.5-73.1) % Lymph % (Auto) 12.2 L (18.3-44.2) % Webster % (Auto) 9.9 H (2.6-8.5) % Eos % (Auto) 0.3 (0-4.4) % Baso % (Auto) 0.6 (0.2-1.2) % Lymph # (Auto) 1.41 (0.9-3.2) K/mm3 Webster # (Auto) 1.2 H (0.1-0.6) K/mm3 Eos # (Auto) 0.0 (0-0.3) K/mm3 Baso # (Auto) 0.1 (0.0-0.1) K/mm3 Abs Immat Gran (auto) 0.06 H (0.00-0.031) K/mm3 Absolute Neuts (auto) 8.9 H (1.3-6.7) K/mm3 Absolute Nucleated RBC 0.000 (0.0-0.012) K/mm3 Nucleated RBC % 0.0 (0.0-0.2) % Sodium 139 (137-145) mmol/L Potassium 3.5 (3.4-5.0) mmol/L Chloride 100 (98-107) mmol/L Carbon Dioxide 26 (22-30) mmol/L Anion Gap 13 H (4-12) mmol/L BUN 20 H (7-17) mg/dL Creatinine 0.68 L (0.7-1.0) mg/dL Estim Creat Clear Calc Not Reportable Estimated GFR > 60 (59 - ) Glucose 140 H (65-110) mg/dL Calcium 9.0 (8.4-10.2) mg/dL Total Bilirubin 0.8 (0.2-1.3) mg/dL AST 24 (14-36) U/L ALT 21 (6-35) U/L Alkaline Phosphatase 108 (38-126) U/L NT-Pro-B Natriuret Pep 1580 H (19.9-100) pg/mL Total Protein 8.0 (6.3-8.2) g/dL Albumin 4.1 (3.5-5.1) g/dL Urine Color Yellow (Yellow) Urine Appearance Clear (Clear) Urine pH 5.5 (5.0-9.0) Ur Specific Phenix 1.016 (1.001-1.035) Urine Protein 1+ H (Negative) mg/dL Urine Glucose (UA) Negative (Negative) mg/dL Urine Ketones Negative (Negative) mg/dL Ur Blood (Man) Negative (Negative) Urine Nitrate Negative (Negative) Urine Bilirubin Negative (Negative) Urine Urobilinogen 0.2 (<2.0) mg/dL Leukocyte Esterase Rfl Negative (Negative) JC/UL Urine RBC 0-2 (0-2) /hpf Urine WBC 6-10 H (0-3) /hpf Ur Squamous Epith Cells None seen (Few) /hpf Urine Bacteria None seen /hpf Urine Casts 0-2 Hyaline Casts Present (None) /lpf Influenza A (RT-PCR) (Negative) Influenza B (RT-PCR) (Negative) RSV (RT-PCR) (Negative) SARS-CoV-2 RNA (RT-PCR) (Negative) 10/24/24 Range/Units 20:06 WBC (4.5-10.0) K/mm3 RBC (4.2-5.4) M/mm3 Hgb (12.0-15.0) g/dL Hct (37.0-47.0) % MCV (80-100) fl MCH (26-34) pg MCHC (32-36) g/dl RDW (11.5-14.5) % Plt Count (150-375) k/mm3 MPV (7.4-10.4) fl Immature Gran % (Auto) (0-0.5) % Neut % (Auto) (45.5-73.1) % Lymph % (Auto) (18.3-44.2) % Webster % (Auto) (2.6-8.5) % Eos % (Auto) (0-4.4) % Baso % (Auto) (0.2-1.2) % Lymph # (Auto) (0.9-3.2) K/mm3 Webster # (Auto) (0.1-0.6) K/mm3 Eos # (Auto) (0-0.3) K/mm3 Baso # (Auto) (0.0-0.1) K/mm3 Abs Immat Gran (auto) (0.00-0.031) K/mm3 Absolute Neuts (auto) (1.3-6.7) K/mm3 Absolute Nucleated RBC (0.0-0.012) K/mm3 Nucleated RBC % (0.0-0.2) % Sodium (137-145) mmol/L Potassium (3.4-5.0) mmol/L Chloride (98-107) mmol/L Carbon Dioxide (22-30) mmol/L Anion Gap (4-12) mmol/L BUN (7-17) mg/dL Creatinine (0.7-1.0) mg/dL Estim Creat Clear Calc Estimated GFR (59 - ) Glucose (65-110) mg/dL Calcium (8.4-10.2) mg/dL Total Bilirubin (0.2-1.3) mg/dL AST (14-36) U/L ALT (6-35) U/L Alkaline Phosphatase (38-126) U/L NT-Pro-B Natriuret Pep (19.9-100) pg/mL Total Protein (6.3-8.2) g/dL Albumin (3.5-5.1) g/dL Urine Color (Yellow) Urine Appearance (Clear) Urine pH (5.0-9.0) Ur Specific Phenix (1.001-1.035) Urine Protein (Negative) mg/dL Urine Glucose (UA) (Negative) mg/dL Urine Ketones (Negative) mg/dL Ur Blood (Man) (Negative) Urine Nitrate (Negative) Urine Bilirubin (Negative) Urine Urobilinogen (<2.0) mg/dL Leukocyte Esterase Rfl (Negative) JC/UL Urine RBC (0-2) /hpf Urine WBC (0-3) /hpf Ur Squamous Epith Cells (Few) /hpf Urine Bacteria /hpf Urine Casts Hyaline Casts (None) /lpf Influenza A (RT-PCR) Negative (Negative) Influenza B (RT-PCR) Negative (Negative) RSV (RT-PCR) Negative (Negative) SARS-CoV-2 RNA (RT-PCR) Negative (Negative) <Francesca Collins PA-C - Last Filed: 10/24/24 22:29> Lab Results 10/24/24 10/24/24 10/24/24 Range/Units 16:06 16:07 17:29 WBC 11.6 H (4.5-10.0) K/mm3 RBC 4.11 L (4.2-5.4) M/mm3 Hgb 11.3 L (12.0-15.0) g/dL Hct 36.0 L (37.0-47.0) % MCV 87.6 (80-100) fl MCH 27.5 (26-34) pg MCHC 31.4 L (32-36) g/dl RDW 15.5 H (11.5-14.5) % Plt Count 301 (150-375) k/mm3 MPV 9.8 (7.4-10.4) fl Immature Gran % (Auto) 0.5 (0-0.5) % Neut % (Auto) 76.5 H (45.5-73.1) % Lymph % (Auto) 12.2 L (18.3-44.2) % Webster % (Auto) 9.9 H (2.6-8.5) % Eos % (Auto) 0.3 (0-4.4) % Baso % (Auto) 0.6 (0.2-1.2) % Lymph # (Auto) 1.41 (0.9-3.2) K/mm3 Webster # (Auto) 1.2 H (0.1-0.6) K/mm3 Eos # (Auto) 0.0 (0-0.3) K/mm3 Baso # (Auto) 0.1 (0.0-0.1) K/mm3 Abs Immat Gran (auto) 0.06 H (0.00-0.031) K/mm3 Absolute Neuts (auto) 8.9 H (1.3-6.7) K/mm3 Absolute Nucleated RBC 0.000 (0.0-0.012) K/mm3 Nucleated RBC % 0.0 (0.0-0.2) % Sodium 139 (137-145) mmol/L Potassium 3.5 (3.4-5.0) mmol/L Chloride 100 (98-107) mmol/L Carbon Dioxide 26 (22-30) mmol/L Anion Gap 13 H (4-12) mmol/L BUN 20 H (7-17) mg/dL Creatinine 0.68 L (0.7-1.0) mg/dL Estim Creat Clear Calc Not Reportable Estimated GFR > 60 (59 - ) Glucose 140 H (65-110) mg/dL Calcium 9.0 (8.4-10.2) mg/dL Total Bilirubin 0.8 (0.2-1.3) mg/dL AST 24 (14-36) U/L ALT 21 (6-35) U/L Alkaline Phosphatase 108 (38-126) U/L NT-Pro-B Natriuret Pep 1580 H (19.9-100) pg/mL Total Protein 8.0 (6.3-8.2) g/dL Albumin 4.1 (3.5-5.1) g/dL Urine Color Yellow (Yellow) Urine Appearance Clear (Clear) Urine pH 5.5 (5.0-9.0) Ur Specific Phenix 1.016 (1.001-1.035) Urine Protein 1+ H (Negative) mg/dL Urine Glucose (UA) Negative (Negative) mg/dL Urine Ketones Negative (Negative) mg/dL Ur Blood (Man) Negative (Negative) Urine Nitrate Negative (Negative) Urine Bilirubin Negative (Negative) Urine Urobilinogen 0.2 (<2.0) mg/dL Leukocyte Esterase Rfl Negative (Negative) JC/UL Urine RBC 0-2 (0-2) /hpf Urine WBC 6-10 H (0-3) /hpf Ur Squamous Epith Cells None seen (Few) /hpf Urine Bacteria None seen /hpf Urine Casts 0-2 Hyaline Casts Present (None) /lpf Influenza A (RT-PCR) (Negative) Influenza B (RT-PCR) (Negative) RSV (RT-PCR) (Negative) SARS-CoV-2 RNA (RT-PCR) (Negative) 10/24/24 Range/Units 20:06 WBC (4.5-10.0) K/mm3 RBC (4.2-5.4) M/mm3 Hgb (12.0-15.0) g/dL Hct (37.0-47.0) % MCV (80-100) fl MCH (26-34) pg MCHC (32-36) g/dl RDW (11.5-14.5) % Plt Count (150-375) k/mm3 MPV (7.4-10.4) fl Immature Gran % (Auto) (0-0.5) % Neut % (Auto) (45.5-73.1) % Lymph % (Auto) (18.3-44.2) % Webster % (Auto) (2.6-8.5) % Eos % (Auto) (0-4.4) % Baso % (Auto) (0.2-1.2) % Lymph # (Auto) (0.9-3.2) K/mm3 Webster # (Auto) (0.1-0.6) K/mm3 Eos # (Auto) (0-0.3) K/mm3 Baso # (Auto) (0.0-0.1) K/mm3 Abs Immat Gran (auto) (0.00-0.031) K/mm3 Absolute Neuts (auto) (1.3-6.7) K/mm3 Absolute Nucleated RBC (0.0-0.012) K/mm3 Nucleated RBC % (0.0-0.2) % Sodium (137-145) mmol/L Potassium (3.4-5.0) mmol/L Chloride (98-107) mmol/L Carbon Dioxide (22-30) mmol/L Anion Gap (4-12) mmol/L BUN (7-17) mg/dL Creatinine (0.7-1.0) mg/dL Estim Creat Clear Calc Estimated GFR (59 - ) Glucose (65-110) mg/dL Calcium (8.4-10.2) mg/dL Total Bilirubin (0.2-1.3) mg/dL AST (14-36) U/L ALT (6-35) U/L Alkaline Phosphatase (38-126) U/L NT-Pro-B Natriuret Pep (19.9-100) pg/mL Total Protein (6.3-8.2) g/dL Albumin (3.5-5.1) g/dL Urine Color (Yellow) Urine Appearance (Clear) Urine pH (5.0-9.0) Ur Specific Phenix (1.001-1.035) Urine Protein (Negative) mg/dL Urine Glucose (UA) (Negative) mg/dL Urine Ketones (Negative) mg/dL Ur Blood (Man) (Negative) Urine Nitrate (Negative) Urine Bilirubin (Negative) Urine Urobilinogen (<2.0) mg/dL Leukocyte Esterase Rfl (Negative) JC/UL Urine RBC (0-2) /hpf Urine WBC (0-3) /hpf Ur Squamous Epith Cells (Few) /hpf Urine Bacteria /hpf Urine Casts Hyaline Casts (None) /lpf Influenza A (RT-PCR) Negative (Negative) Influenza B (RT-PCR) Negative (Negative) RSV (RT-PCR) Negative (Negative) SARS-CoV-2 RNA (RT-PCR) Negative (Negative) <Jackie Venegas MD - Last Filed: 10/25/24 06:58> Imaging Data Radiologist's impression: ITS Impressions Chest X-Ray 10/24/24 16:34 Impression: 1: Posterior basilar airspace disease, consistent with pneumonia. Knee X-Ray 10/24/24 18:49 IMPRESSION: No acute osseous abnormality left knee. Total knee arthroplasty. Knee X-Ray 10/24/24 18:51 IMPRESSION: No acute osseous abnormality right knee. Severe osteoarthritic changes. Head CT 10/24/24 19:04 IMPRESSION: No acute intracranial findings. Venous Doppler Study 10/24/24 19:13 IMPRESSION: Negative bilateral lower extremity venous US. No deep vein thrombosis. <Francesca Collins PA-C - Last Filed: 10/24/24 22:29> Critical Care Time Critical Care Time Critical Care Time: No <Francesca Collins PA-C - Last Filed: 10/24/24 22:29> Discharge Plan Discharge Clinical Impression: Community acquired pneumonia <Francesca Collins PA-C - Last Filed: 10/24/24 22:29> Patient Disposition: Still a Patient <GLYNN Gottlieb Last Filed: 10/24/24 22:29> Condition: Stable <GLYNN Gottlieb Last Filed: 10/24/24 22:29>
[2024-10-24 18:40] LABS: NT Pro B Type Natriuretic Pept 1580 pg/mL (19.9-100)
[2024-10-24] MEDS: ACETAMINOPHEN 500 MG TABLET 1000 MG PO (19:38)
[2024-10-24] MEDS: AZITHROMYCIN 500 MG/NS 250 ML 500 MG/250 ML BAG 250 MG IVPB (20:12)
--- NOTE | 2024-10-24 20:27 | P.HP_ITS ---
H&P: HPI History of Present Illness Date/Time: 10/24/24 23:45 Chief Complaint: Weakness and confusion Narrative: 84-year-old female with past medical history of anxiety, paroxysmal atrial fibrillation not on anticoagulation due to falls, DVT with IVC filter type 2 diabetes mellitus among other medical conditions who presented to the ER from [facility] due to weakness and confusion. Patient's reported the usually alert orient x4. In the ER patient complaining of cough, congestion, and bilateral knee pain. On arrival to the ER she was afebrile and was in rate controlled atrial flutter and was moderately tachypneic with respiratory rate varying between 16-25. She was satting between 90 and 96% on room air. At the time of my evaluation the patient told me that she was in the hospital due to feeling more down. She could not give me much other details. When prompted she did admit that she had been having a cough that she stated was due to phlegm. She reports that her cough has been productive. She was able to tell me that had been going on for couple of weeks. She reports that multiple people at [facility] have been ill with a virus. She thought she had an upper respiratory virus. She initially told me that she had not been having any chills. However a few minutes later the patient reported that he had turned the heat often her apartment in that she had to bundle up in multiple blankets. She reports that she was serving so bad that she could not stay still. She reports a poor appetite but denies any nausea vomiting or changes in bowel habits. She does have some difficulty with urinary incontinence but denies any increased urinary frequency or abdominal pain. She has been having some back pain but this does not seem to be changed from baseline. She also has chronic bilateral knee pain. She has chronic lower extremity swelling with mild bilateral erythema but no warmth. She denies any orthopnea. She denies significant shortness of breath. She is reportedly alert orient x4 at her assisted living facility and states that she has been in assisted living for 10 years. However she does admit that she has been having some difficulty with confusion on and off for several years. Review of Systems 2 Review of Systems: Review of systems limited due to patient confusion [facility] Past Medical History Medical History Type II diabetes mellitus Macular degeneration Vitamin D deficiency Diabetic peripheral neuropathy History of CVA (cerebrovascular accident) Iron deficiency anemia Bilateral renal stones Cardiomyopathy Paroxysmal atrial flutter Not on anticoagulation due to fall rate Presence of IVC filter Osteoarthritis Elevated troponin GERD (gastroesophageal reflux disease) Hypertension Atrial fibrillation Hypercholesterolemia Mitral valve prolapse CHF (congestive heart failure) Echocardiogram 2016 demonstrated mild concentric left ventricular hypertrophy, oxat-pr-sssjzyyg global left ventricular systolic dysfunction with EF of 40-45. Repeat echocardiogram 2020 systolic function was difficult to assess due to a flutter with aberrancy, biatrial enlargement noted left greater than right Surgical History Surgical History (Updated 10/25/24 @ 02:45 by Gely Salgado DO) History of total hysterectomy with bilateral salpingo-oophorectomy (BSO) History of total left knee replacement Status post cataract extraction of both eyes with insertion of intraocular lens S/P IVC filter History of esophageal surgery S/P excision of lipoma Hx of cholecystectomy History of appendectomy Family History Family History Mother Diabetes mellitus Father Diabetes mellitus Sibling Acute myocardial infarction Social History Social History (Updated 10/25/24 @ 02:46 by Gely Salgado DO) Social History: She is and resides has [facility] assisted living. The patient has 5 children. 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 She is lifelong nonsmoker. She does not use any marijuana alcohol or illicit drugs. Code status: Full code Healthcare power of global security architect: Sampson (son) Smoking status: Never smoker Second hand tobacco smoke exposure: Yes Alcohol intake: never Substance use: never Substance use type: does not use Do You Feel Safe in your Home?: Yes Lack of Transportation: No Lack of Food: Never True Current Housing: I Have Housing Concerned About Future Housing: No Difficulty Paying Gas/Electric Bills: No Difficulty Paying for Meds: No Currently Unemployed: No Education: Grade School Difficulty w/ Childcare or Family Care: No Gender identity (if verbalized by the patient): Female Spiritual care concerns: No Meds Home Medications and Allergies Home Medications ?Medication ?Instructions ?Recorded ?Confirmed ?Type metformin 1,000 mg tablet 1,000 mg PO BID 09/27/20 10/25/24 History metoprolol succinate 100 mg 100 mg PO DAILY 05/15/21 10/25/24 History tablet,extended release 24 hr citalopram 10 mg tablet 10 mg PO DAILY 05/15/22 10/25/24 History lisinopril 5 mg tablet 10 mg PO DAILY 05/15/22 10/25/24 History aspirin 81 mg capsule 81 mg PO DAILY #30 caps 05/16/22 10/25/24 Rx vitamin E (dl, acetate) 450 mg 450 mg PO DAILY 02/09/23 10/25/24 History (1,000 unit) capsule diltiazem HCl 360 mg 360 mg PO DAILY #90 caps 06/05/23 10/25/24 Rx capsule,extended release 24 hr acetaminophen 500 mg tablet See Rx Instructions .Route 02/18/24 10/25/24 Rx .COMPLEX #60 tabs meclizine 25 mg tablet See Rx Instructions .Route 02/25/24 10/25/24 Rx .COMPLEX #30 tabs pen needle,diabetic dual safty 30 #100 ea 02/27/24 10/25/24 Rx gauge x 3/16 (BD AutoShield Duo Pen Needle) blood sugar diagnostic (OneTouch #100 ea 03/04/24 10/25/24 Rx Ultra Test strips) naproxen 500 mg tablet (Naprosyn) 500 mg PO BID #20 tabs 08/20/24 10/25/24 Rx dulaglutide 0.75 mg/0.5 mL 0.75 mg subcut WEEKLY 09/05/24 10/25/24 History subcutaneous pen injector (Trulicity) calcium 500 mg tablet 500 mg PO DAILY 10/25/24 10/25/24 History cholecalciferol (vitamin D3) 25 25 mcg PO DAILY 10/25/24 10/25/24 History mcg (1,000 unit) capsule furosemide 20 mg tablet 40 mg PO QAM 10/25/24 10/25/24 History hydrocodone 5 mg-acetaminophen 325 1 tablet PO Q8H PRN pain 10/25/24 10/25/24 History mg tablet lidocaine 5 % topical patch 3 patch topical DAILY 10/25/24 10/25/24 History Allergies Allergy/AdvReac Type Severity Reaction Status Date / Time bisoprolol Allergy Intermediate unknown Verified 09/05/24 13:55 hydrochlorothiazide Allergy Intermediate unknown Verified 09/05/24 13:55 oxycodone Allergy Intermediate unknown Verified 09/05/24 13:55 Vital Signs Vital Signs - 24 hr 10/24/24 15:55 10/24/24 16:55 10/24/24 16:59 Temperature 98.0 F Pulse Rate 76 74 78 Respiratory Rate 16 21 H 20 Blood Pressure 136/75 149/78 H Pulse Oximetry 93 95 10/24/24 17:00 10/24/24 17:01 10/24/24 17:17 Temperature Pulse Rate 75 74 77 Respiratory Rate 21 H 18 25 H Blood Pressure 145/75 H Pulse Oximetry 10/24/24 17:34 10/24/24 17:51 10/24/24 18:00 Temperature Pulse Rate 70 77 73 Respiratory Rate 17 22 H 19 Blood Pressure Pulse Oximetry 96 95 91 10/24/24 18:01 10/24/24 18:15 10/24/24 18:16 Temperature Pulse Rate 74 71 74 Respiratory Rate 19 25 H 22 H Blood Pressure 125/71 121/84 Pulse Oximetry 94 93 94 10/24/24 19:35 Temperature Pulse Rate 73 Respiratory Rate 22 H Blood Pressure Pulse Oximetry 90 Exam 2 Narrative: Weight 77.5 kg BMI 27.6 Const: Other: No acute distress, well-developed well-nourished, appears stated age HENMT: Other: Mucous membranes are dry, no oral pharyngeal erythema, fair dentition, head is normocephalic atraumatic Eyes: Other: Pupils are equal and reactive, evidence of bilateral lens replacements, no scleral icterus Neck: Other: No JVD, no lymphadenopathy Resp: Other: Clear to auscultation bilaterally, no increased work of breathing Cardio: Other: Irregularly irregular, rate controlled, 2+ bilateral radial and pedal pulses, no murmur, no JVD GI: Other: Soft, nontender, nondistended, normoactive bowel sounds, no suprapubic tenderness Back/Spine/Pelvis: Other: Mild thoracic kyphosis Skin: Other: No jaundice, no pallor to exposed areas of skin mild erythema without associated warmth consistent with chronic venous stasis dermatitis Neuro: Other: Alert oriented to person place and month but confused as to the year she knows that the year and in 5 she cannot name the president and states that his name starts with an S. she is mildly hard of hearing. She is conversational and pleasant, no localizing neurologic deficits noted, 4/5 clinical information systems director strength bilaterally, no facial asymmetry, she reports chronic decreased sensation in the tips of her fingers and in her feet Extrem: Other: Marked arthritic changes noted to bilateral hands most notably proximal and distal PIP of the index fingers bilaterally, 4/5 clinical information systems director strength bilateral, no clubbing, chronic venous stasis changes of lower extremities Psych: Other: Pleasantly confused, cooperative H&P: Results Labs Labs: Laboratory Tests 10/24/24 16:07 10/24/24 16:07 10/24/24 10/24/24 10/24/24 16:06 16:07 17:29 WBC 11.6 H RBC 4.11 L Hgb 11.3 L Hct 36.0 L MCV 87.6 MCH 27.5 MCHC 31.4 L RDW 15.5 H Plt Count 301 MPV 9.8 Immature Gran % (Auto) 0.5 Neut % (Auto) 76.5 H Lymph % (Auto) 12.2 L Graves % (Auto) 9.9 H Eos % (Auto) 0.3 Baso % (Auto) 0.6 Lymph # (Auto) 1.41 Graves # (Auto) 1.2 H Eos # (Auto) 0.0 Baso # (Auto) 0.1 Abs Immat Gran (auto) 0.06 H Absolute Neuts (auto) 8.9 H Absolute Nucleated RBC 0.000 Nucleated RBC % 0.0 Sodium 139 Potassium 3.5 Chloride 100 Carbon Dioxide 26 Anion Gap 13 H BUN 20 H Creatinine 0.68 L Estim Creat Clear Calc Not Reportable Estimated GFR > 60 Glucose 140 H Calcium 9.0 Total Bilirubin 0.8 AST 24 ALT 21 Alkaline Phosphatase 108 NT-Pro-B Natriuret Pep 1580 H Total Protein 8.0 Albumin 4.1 Urine Color Yellow Urine Appearance Clear Urine pH 5.5 Ur Specific [place] 1.016 Urine Protein 1+ H Urine Glucose (UA) Negative Urine Ketones Negative Ur Blood (Man) Negative Urine Nitrate Negative Urine Bilirubin Negative Urine Urobilinogen 0.2 Leukocyte Esterase Rfl Negative Urine RBC 0-2 Urine WBC 6-10 H Ur Squamous Epith Cells None seen Urine Bacteria None seen Urine Casts 0-2 Hyaline Casts Present Influenza A (RT-PCR) Influenza B (RT-PCR) RSV (RT-PCR) SARS-CoV-2 RNA (RT-PCR) 10/24/24 20:06 WBC RBC Hgb Hct MCV MCH MCHC RDW Plt Count MPV Immature Gran % (Auto) Neut % (Auto) Lymph % (Auto) Graves % (Auto) Eos % (Auto) Baso % (Auto) Lymph # (Auto) Graves # (Auto) Eos # (Auto) Baso # (Auto) Abs Immat Gran (auto) Absolute Neuts (auto) Absolute Nucleated RBC Nucleated RBC % Sodium Potassium Chloride Carbon Dioxide Anion Gap BUN Creatinine Estim Creat Clear Calc Estimated GFR Glucose Calcium Total Bilirubin AST ALT Alkaline Phosphatase NT-Pro-B Natriuret Pep Total Protein Albumin Urine Color Urine Appearance Urine pH Ur Specific [place] Urine Protein Urine Glucose (UA) Urine Ketones Ur Blood (Man) Urine Nitrate Urine Bilirubin Urine Urobilinogen Leukocyte Esterase Rfl Urine RBC Urine WBC Ur Squamous Epith Cells Urine Bacteria Urine Casts Hyaline Casts Influenza A (RT-PCR) Pending Influenza B (RT-PCR) Pending RSV (RT-PCR) Pending SARS-CoV-2 RNA (RT-PCR) Pending Impressions Chest X-Ray 10/24/24 16:34 Impression: 1: Posterior basilar airspace disease, consistent with pneumonia. Knee X-Ray 10/24/24 18:49 IMPRESSION: No acute osseous abnormality left knee. Total knee arthroplasty. Knee X-Ray 10/24/24 18:51 IMPRESSION: No acute osseous abnormality right knee. Severe osteoarthritic changes. Head CT 10/24/24 19:04 IMPRESSION: No acute intracranial findings. Venous Doppler Study 10/24/24 19:13 IMPRESSION: Negative bilateral lower extremity venous US. No deep vein thrombosis. [id number] 16:08:56 Measurements Intervals [place] Rate: 75 P: 0 TN: 0 QRS: -63 QRSD: 112 T: 0 QT: 380 QTc: 425 Interpretive Statements ATRIAL FLUTTER WITH ABERRANT CONDUCTION OR VENTRICULAR PREMATURE COMPLEXES INTRAVENTRICULAR CONDUCTION DELAY INFERIOR INFARCT, AGE INDETERMINATE ANTEROSEPTAL INFARCT, AGE INDETERMINATE BORDERLINE ST-T WAVE ABNORMALITY- LAT/HIGH LAT LEADS BASELINE ARTIFACT- I, II, AVR, AVL ABNORMAL ECG No previous ECG available for comparison All imaging and EKGs personally reviewed and interpreted. And unless stated otherwise agree with radiologic and cardiology interpretation. Assessment and Plan Assessment and plan (1) Community acquired pneumonia: Qualifiers: Laterality: unspecified laterality Qualified Code(s): J18.9 - Pneumonia, unspecified organism Code(s): J18.9 - Pneumonia, unspecified organism Status: Acute Assessment and Plan: Patient has bibasilar pneumonia on imaging. Blood cultures have been obtained and are pending. Will monitor CBC. The patient has been started on empiric antibiotic therapy with Rocephin and azithromycin that will be continued. Will check urine pneumococcal and Legionella antigen. Viral PCR panel negative. 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 She is technically alert oriented to person place and month but was unable to state the complete year. She also did not know the name of the president. This may be near the patient's baseline or there may be some acute exacerbation with acute encephalopathy due to pneumonia. (3) Orthostatic hypotension: Code(s): I95.1 - Orthostatic hypotension Status: Acute Assessment and Plan: The patient's reported dizziness is likely a combination of her chronic benign positional vertigo and likely exacerbated as the patient did have a 20 point drop in blood pressures when going from sitting to standing position. Patient did receive fluid bolus in the ER. Will give the patient an additional 1 L IV fluid at 100 mL an hour and then re-evaluate with repeat orthostatic vital signs in a.m.. (4) Type II diabetes mellitus: Qualifiers: Diabetes mellitus complication detail: with polyneuropathy Diabetes mellitus complication status: with neurologic complications Diabetes mellitus rat exterminator insulin use: without rat exterminator use Qualified Code(s): E11.42 - Type 2 diabetes mellitus with diabetic polyneuropathy Code(s): E11.9 - Type 2 diabetes mellitus without complications Status: Acute Assessment and Plan: Will hold patient's oral hypo glycemic agents and placed on low-dose sliding scale insulin with Accu-Cheks a.c. HS with hypoglycemia protocol (5) Paroxysmal atrial flutter: Code(s): I48.92 - Unspecified atrial flutter Status: Acute Assessment and Plan: Currently rate controlled will resume home metoprolol and Cardizem (6) Frequent falls: Code(s): R29.6 - Repeated falls Status: Acute Assessment and Plan: Fall precautions ordered (7) Benign paroxysmal positional vertigo: Qualifiers: Laterality: unspecified laterality Qualified Code(s): H81.10 - Benign paroxysmal vertigo, unspecified ear Code(s): H81.10 - Benign paroxysmal vertigo, unspecified ear Status: Inactive Assessment and Plan: Continue home meclizine Plan Patient has been admitted as observation status. Quality VTE Prophylaxis VTE prophylaxis: mechanical ordered (SCDs) Hospitalist [facility] Advance Care Plan I have confirmed that the patient's Advanced Care Plan is present, code status is documented, or surrogate decision maker is listed in patient medical record.: Yes Medication Reconciliation I have utilized all available resources to obtain, update and review the patients current medications (includes all prescriptions, OTC, herbals, cannabis, and nutritional supplements).: Yes
--- NOTE | 2024-10-24 20:47 | PC.NURSE ---
spoke with patients son Lauro about plan of care and plan to admit to the hospital.
[2024-10-24 21:20] LABS: Influenza A QL RT-PCR Negative (Negative); Influenza B QL RT-PCR Negative (Negative); RSV RNA, RT-PCR Negative (Negative); SARS-CoV-2 RNA PCR Negative (Negative)
--- NOTE | 2024-10-24 21:30 | PC.NURSE ---
patient had episode of incontinence, depend changed, gown changed.
--- NOTE | 2024-10-24 22:42 | ADMGEN ---
This patient, Freda Khanna, was admitted to [facility] Surg Room 323-02. Patient/family oriented to hospital policies and general routines including ID bracelet, bed and alarms, visiting hours, pain management, procedures, bathroom and other care routines, personal items, smoking policy, room service/diet, and visiting hours. Information on how to activate the Rapid Response Team has been discussed. Patient/Family are encouraged to report perceived risks to care and to ask questions if they do not understand what they are told or what they should do.
[2024-10-24 23:20] LABS: Glucose Point of Care 118 mg/dl (65-105)
[2024-10-25 04:00] VITALS: BP 117/77; PULSE 66; RESP 18; TEMP 36.6; O2SAT 99
[2024-10-25 06:18] LABS: Basophils Absolute Auto 0.1 K/mm3 (0.0-0.1); Basophils Percent Auto 0.9 % (0.2-1.2); Eosinophils Absolute Auto 0.2 K/mm3 (0-0.3); Eosinophils Percent Auto 2.5 % (0-4.4); Hematocrit 31.8 % (37.0-47.0); Hemoglobin 10.1 g/dL (12.0-15.0); Immature Granulocyte Absolute 0.03 K/mm3 (0.00-0.031); Immature Granulocyte Percent A 0.4 % (0-0.5); Lymphocytes Absolute Auto 1.76 K/mm3 (0.9-3.2); Lymphocytes Percent Auto 21.6 % (18.3-44.2); Mean Corpuscular HGB Conc 31.8 g/dl (32-36); Mean Corpuscular Hemoglobin 27.2 pg (26-34); Mean Corpuscular Volume 85.7 fl (80-100); Mean Platelet Volume 9.9 fl (7.4-10.4); Monocytes Absolute Auto 1.1 K/mm3 (0.1-0.6); Monocytes Percent Auto 13.4 % (2.6-8.5); Neutrophils Percent Auto 61.2 % (45.5-73.1); Platelet Count Result 253 k/mm3 (150-375); Red Blood Count 3.71 M/mm3 (4.2-5.4); Red Cell Distribution Width 15.4 % (11.5-14.5); White Blood Count 8.1 K/mm3 (4.5-10.0)
[2024-10-25 06:31] LABS: Anion Gap 7 mmol/L (4-12); Blood Urea Nitrogen 17 mg/dL (7-17); Calcium 8.3 mg/dL (8.4-10.2); Carbon Dioxide 28 mmol/L (22-30); Chloride 104 mmol/L (98-107); Estimated CRCL calculation 60 ml/min; Estimated Glomerular Filt Rate > 60; Glucose 96 mg/dL (65-110); Potassium 3.2 mmol/L (3.4-5.0); Sodium 139 mmol/L (137-145)
[2024-10-25 07:43] LABS: Glucose Point of Care 104 mg/dl (65-105)
[2024-10-25 08:00] VITALS: BP 131/79; PULSE 77; RESP 20; TEMP 37.1; O2SAT 97
[2024-10-25] MEDS: dilTIAZem HCL CD 180 MG CAP.24HR 360 MG PO (08:12)
[2024-10-25 08:13] VITALS: PULSE 78
[2024-10-25] MEDS: METOPROLOL SUCCINATE EXT REL 100 MG TABCR PO (08:13)
[2024-10-25] MEDS: CITALOPRAM HYDROBROMIDE 10 MG TABLET PO (08:13)
[2024-10-25] MEDS: FUROSEMIDE 40 MG TABLET PO (08:14)
[2024-10-25] MEDS: NAPROXEN 500 MG TABLET PO ×2 (08:14→17:41)
[2024-10-25] MEDS: ASPIRIN 81 MG ENTERIC TABLET PO (08:14)
[2024-10-25] MEDS: lisinopriL 10 MG TABLET PO (08:14)
[2024-10-25] MEDS: CHOLECALCIFEROL 1,000 UNITS TABLET 1000 UNITS PO (08:14)
[2024-10-25] MEDS: CALCIUM CARBONATE (OSCAL) 500 MG TABLET PO (08:25)
[2024-10-25] MEDS: LIDOCAINE 5% PATCH 3 PATCH TOPICAL (08:26)
[2024-10-25 11:44] LABS: Glucose Point of Care 116 mg/dl (65-105)
[2024-10-25] MEDS: POTASSIUM CHLORIDE 20 MEQ PACKET (FOR LIQUID) 40 MEQ PO (11:57)
[2024-10-25 12:00] VITALS: BP 106/79; PULSE 71; RESP 20; TEMP 37.1; O2SAT 94
--- NOTE | 2024-10-25 13:48 | PM.IMPN ---
Progress Note: A&P Assessment and Plan (1) Community acquired pneumonia: Qualifiers: Laterality: unspecified laterality Qualified Code(s): J18.9 - Pneumonia, unspecified organism Code(s): J18.9 - Pneumonia, unspecified organism Status: Acute Assessment and Plan: Patient has bibasilar pneumonia on imaging. Blood cultures have been obtained and are pending. Will monitor CBC. The patient has been started on empiric antibiotic therapy with Rocephin and azithromycin that will be continued. Will check urine pneumococcal and Legionella antigen. Viral PCR panel negative. 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 She is technically alert oriented to person place and month but was unable to state the complete year. She also did not know the name of the president. This may be near the patient's baseline or there may be some acute exacerbation with acute encephalopathy due to pneumonia. (3) Orthostatic hypotension: Code(s): I95.1 - Orthostatic hypotension Status: Acute Assessment and Plan: The patient's reported dizziness is likely a combination of her chronic benign positional vertigo and likely exacerbated as the patient did have a 20 point drop in blood pressures when going from sitting to standing position. Patient did receive fluid bolus in the ER. Will give the patient an additional 1 L IV fluid at 100 mL an hour and then re-evaluate with repeat orthostatic vital signs in a.m.. (4) Type II diabetes mellitus: Qualifiers: Diabetes mellitus penitentiary insulin use: without termite control technician use Diabetes mellitus complication status: with neurologic complications Diabetes mellitus complication detail: with polyneuropathy Qualified Code(s): E11.42 - Type 2 diabetes mellitus with diabetic polyneuropathy Code(s): E11.9 - Type 2 diabetes mellitus without complications Status: Acute Assessment and Plan: Will hold patient's oral hypo glycemic agents and placed on low-dose sliding scale insulin with Accu-Cheks a.c. HS with hypoglycemia protocol (5) Paroxysmal atrial flutter: Code(s): I48.92 - Unspecified atrial flutter Status: Acute Assessment and Plan: Currently rate controlled will resume home metoprolol and Cardizem (6) Frequent falls: Code(s): R29.6 - Repeated falls Status: Acute Assessment and Plan: Fall precautions ordered (7) Benign paroxysmal positional vertigo: Qualifiers: Laterality: unspecified laterality Qualified Code(s): H81.10 - Benign paroxysmal vertigo, unspecified ear Code(s): H81.10 - Benign paroxysmal vertigo, unspecified ear Status: Inactive Assessment and Plan: Continue home meclizine Plan 84-year-old female with past medical history of anxiety, paroxysmal atrial fibrillation not on anticoagulation due to falls, DVT with IVC filter type 2 diabetes mellitus among other medical conditions who presented to the ER from [facility] due to weakness and confusion. Patient's reported the usually alert orient x4. In the ER patient complaining of cough, congestion, and bilateral knee pain. On arrival to the ER she was afebrile and was in rate controlled atrial flutter and was moderately tachypneic with respiratory rate varying between 16-25. She was satting between 90 and 96% on room air. At the time of my evaluation the patient told me that she was in the hospital due to feeling more down. She could not give me much other details. When prompted she did admit that she had been having a cough that she stated was due to phlegm. She reports that her cough has been productive. She was able to tell me that had been going on for couple of weeks. She reports that multiple people at [facility] have been ill with a virus. She thought she had an upper respiratory virus. She initially told me that she had not been having any chills. However a few minutes later the patient reported that he had turned the heat often her apartment in that she had to bundle up in multiple blankets. She reports that she was serving so bad that she could not stay still. She reports a poor appetite but denies any nausea vomiting or changes in bowel habits. She does have some difficulty with urinary incontinence but denies any increased urinary frequency or abdominal pain. She has been having some back pain but this does not seem to be changed from baseline. She also has chronic bilateral knee pain. She has chronic lower extremity swelling with mild bilateral erythema but no warmth. She denies any orthopnea. She denies significant shortness of breath. She is reportedly alert orient x4 at her assisted living facility and states that she has been in assisted living for 10 years. However she does admit that she has been having some difficulty with confusion on and off for several years. Currently patient is somnolent, admitted with pneumonia and confusion, will have PT/OT evaluate the patient, will continue to monitor and further recommendation to follow. Patient has been admitted as observation status. Subjective Date/time seen: 10/25/24 13:48 Interval history: Weakness and confusion H&P-Narrative: 84-year-old female with past medical history of anxiety, paroxysmal atrial fibrillation not on anticoagulation due to falls, DVT with IVC filter type 2 diabetes mellitus among other medical conditions who presented to the ER from [facility] due to weakness and confusion. Patient's reported the usually alert orient x4. In the ER patient complaining of cough, congestion, and bilateral knee pain. On arrival to the ER she was afebrile and was in rate controlled atrial flutter and was moderately tachypneic with respiratory rate varying between 16-25. She was satting between 90 and 96% on room air. At the time of my evaluation the patient told me that she was in the hospital due to feeling more down. She could not give me much other details. When prompted she did admit that she had been having a cough that she stated was due to phlegm. She reports that her cough has been productive. She was able to tell me that had been going on for couple of weeks. She reports that multiple people at [facility] have been ill with a virus. She thought she had an upper respiratory virus. She initially told me that she had not been having any chills. However a few minutes later the patient reported that he had turned the heat often her apartment in that she had to bundle up in multiple blankets. She reports that she was serving so bad that she could not stay still. She reports a poor appetite but denies any nausea vomiting or changes in bowel habits. She does have some difficulty with urinary incontinence but denies any increased urinary frequency or abdominal pain. She has been having some back pain but this does not seem to be changed from baseline. She also has chronic bilateral knee pain. She has chronic lower extremity swelling with mild bilateral erythema but no warmth. She denies any orthopnea. She denies significant shortness of breath. She is reportedly alert orient x4 at her assisted living facility and states that she has been in assisted living for 10 years. However she does admit that she has been having some difficulty with confusion on and off for several years. Currently patient is somnolent, admitted with pneumonia and confusion, will have PT/OT evaluate the patient, will continue to monitor and further recommendation to follow. Review of Systems Review of Systems: Review of systems limited due to patient confusion Exam Narrative: Patient is comfortable, NAD HEENT: eyes are clear and none icteric LUNGS:CTA HEART: RR S1S2 ABD: BS+, Soft and nontender Lower extremities: no edema SKIN: nonjaundiced Neuro: grossly intact. Objective Data Vital Signs Vital Signs: Vital Signs - 24 hr 10/24/24 15:55 10/24/24 16:55 10/24/24 16:59 Temperature 36.7 C Pulse Rate 76 74 78 Respiratory Rate 16 21 H 20 Blood Pressure 136/75 149/78 H Pulse Oximetry 93 95 Oxygen Delivery Oxygen Flow Rate 10/24/24 17:00 10/24/24 17:01 10/24/24 17:17 Temperature Pulse Rate 75 74 77 Respiratory Rate 21 H 18 25 H Blood Pressure 145/75 H Pulse Oximetry Oxygen Delivery Oxygen Flow Rate 10/24/24 17:34 10/24/24 17:51 10/24/24 18:00 Temperature Pulse Rate 70 77 73 Respiratory Rate 17 22 H 19 Blood Pressure Pulse Oximetry 96 95 91 Oxygen Delivery Oxygen Flow Rate 10/24/24 18:01 10/24/24 18:15 10/24/24 18:16 Temperature Pulse Rate 74 71 74 Respiratory Rate 19 25 H 22 H Blood Pressure 125/71 121/84 Pulse Oximetry 94 93 94 Oxygen Delivery Oxygen Flow Rate 10/24/24 19:35 10/24/24 19:43 10/24/24 19:45 Temperature Pulse Rate 73 74 77 Respiratory Rate 22 H 22 H 16 Blood Pressure 150/78 H Pulse Oximetry 90 92 87 L Oxygen Delivery Oxygen Flow Rate 10/24/24 19:46 10/24/24 20:00 10/24/24 20:01 Temperature Pulse Rate 76 74 74 Respiratory Rate 21 H 22 H 24 H Blood Pressure 137/59 L 134/57 L Pulse Oximetry 93 92 91 Oxygen Delivery Oxygen Flow Rate 10/24/24 20:34 10/24/24 21:35 10/24/24 21:35 Temperature Pulse Rate 68 Respiratory Rate 24 H Blood Pressure Pulse Oximetry 87 L 87 L Oxygen Delivery Room Air Oxygen Flow Rate 10/24/24 21:35 10/24/24 23:21 10/25/24 04:00 Temperature 36.4 C 36.6 C Pulse Rate 68 66 Respiratory Rate 18 18 Blood Pressure 111/76 117/77 Pulse Oximetry 92 98 99 Oxygen Delivery Nasal Cannula Oxygen Flow Rate 2 10/25/24 08:00 10/25/24 08:00 10/25/24 08:13 Temperature 37.1 C Pulse Rate 77 78 Respiratory Rate 20 Blood Pressure 131/79 Pulse Oximetry 97 97 Oxygen Delivery Nasal Cannula Oxygen Flow Rate 2 10/25/24 11:58 10/25/24 12:00 10/25/24 12:17 Temperature 37.1 C Pulse Rate 71 Respiratory Rate 20 Blood Pressure 106/79 Pulse Oximetry 94 Oxygen Delivery Room Air Room Air Oxygen Flow Rate Intake/Output Intake/Output: Intake & Output 10/22/24 10/23/24 10/24/24 10/25/24 23:59 23:59 23:59 23:59 Intake Total 300 480 Output Total 300 Balance 300 180 Meds/Results Medications: Active Medications Generic Name Dose Route Start Last Admin Trade Name Freq PRN Reason Stop Dose Admin Hydrocodone Bitart/Acetaminophen 1 tab 10/25/24 03:36 Hydrocodone/Acetaminophen (*Crx) 5-325 Mg Tablet PO Q8H PRN pain 4-10 Aspirin 81 mg 10/25/24 09:00 10/25/24 08:14 Aspirin 81 Mg Enteric Tablet PO 81 mg QAM DALIA Administration Calcium Carbonate 500 mg 10/25/24 09:00 10/25/24 08:25 Calcium Carbonate (Oscal) 500 Mg Tablet PO 500 mg QAM DALIA Administration Citalopram Hydrobromide 10 mg 10/25/24 09:00 10/25/24 08:13 Citalopram Hydrobromide 10 Mg Tablet PO 10 mg DAILY DALIA Administration Dextrose 12.5 gm 10/24/24 20:51 Dextrose 50% 25 Gm/50 Ml Syringe IV PUSH PRN PRN Hypoglycemia Protocol Diltiazem HCl 360 mg 10/25/24 09:00 10/25/24 08:12 Diltiazem Hcl Cd 180 Mg Cap.24hr PO 360 mg QAM DALIA Administration Furosemide 40 mg 10/25/24 09:00 10/25/24 08:14 Furosemide 40 Mg Tablet PO 40 mg QAM DALIA Administration Glucagon 1 mg 10/24/24 20:51 Glucagon For Inj 1 Mg Vial IM PRN PRN Hypoglycemia Protocol Glucose 15 gm 10/24/24 20:51 Glucose Oral Gel 15 Gm Of Glucse In 37.5 Gm Tube PO PRN PRN Hypoglycemia Protocol Ceftriaxone Sodium 1 gm in 50 mls @ 100 mls/hr 10/25/24 19:00 Rocephin 1 Gm/Ns 50 Ml IVPB Q24H DALIA Dextrose 1,000 mls @ 100 mls/hr 10/24/24 20:51 Dextrose 5% 1,000 Ml IVPB PRN PRN Hypoglycemia Protocol Azithromycin 500 mg in 250 mls @ 250 mls/hr 10/25/24 20:00 Zithromax IVPB Q24H DALIA Insulin Aspart 2 - 5 units 10/25/24 08:00 10/25/24 11:58 Insulin Aspart (*Bkc) 100 Units/Ml SUB-Q Not Given TIDWM [facility] Protocol Lidocaine 3 patch 10/25/24 09:00 10/25/24 08:26 Lidocaine 5% Patch TOPICAL 3 patch DAILY DALIA Administration Lisinopril 10 mg 10/25/24 09:00 10/25/24 08:14 Lisinopril 10 Mg Tablet PO 10 mg DAILY DALIA Administration Meclizine HCl 25 mg 10/25/24 03:40 Meclizine Hcl 25 Mg Tablet PO BID PRN Dizziness Metoprolol Succinate 100 mg 10/25/24 09:00 10/25/24 08:13 Metoprolol Succinate Ext Rel 100 Mg Tabcr PO 100 mg DAILY DALIA Administration Naproxen 500 mg 10/25/24 08:00 10/25/24 08:14 Naproxen 500 Mg Tablet PO 500 mg BIDWM DALIA Administration Vitamin D 1,000 units 10/25/24 09:00 10/25/24 08:14 Cholecalciferol 1,000 Units Tablet PO 1,000 units DAILY DALIA Administration Radiology Results: ITS Impressions Chest X-Ray 10/24/24 16:34 Impression: 1: Posterior basilar airspace disease, consistent with pneumonia. Knee X-Ray 10/24/24 18:51 IMPRESSION: No acute osseous abnormality right knee. Severe osteoarthritic changes. Head CT 10/24/24 19:04 IMPRESSION: No acute intracranial findings. Venous Doppler Study 10/24/24 19:13 IMPRESSION: Negative bilateral lower extremity venous US. No deep vein thrombosis. Labs Labs: Laboratory Results - last 24 hr 10/24/24 10/24/24 10/24/24 16:06 16:07 17:29 WBC 11.6 H RBC 4.11 L Hgb 11.3 L Hct 36.0 L MCV 87.6 MCH 27.5 MCHC 31.4 L RDW 15.5 H Plt Count 301 MPV 9.8 Immature Gran % (Auto) 0.5 Neut % (Auto) 76.5 H Lymph % (Auto) 12.2 L Coal % (Auto) 9.9 H Eos % (Auto) 0.3 Baso % (Auto) 0.6 Lymph # (Auto) 1.41 Coal # (Auto) 1.2 H Eos # (Auto) 0.0 Baso # (Auto) 0.1 Abs Immat Gran (auto) 0.06 H Absolute Neuts (auto) 8.9 H Absolute Nucleated RBC 0.000 Nucleated RBC % 0.0 Sodium 139 Potassium 3.5 Chloride 100 Carbon Dioxide 26 Anion Gap 13 H BUN 20 H Creatinine 0.68 L Estim Creat Clear Calc Not Reportable Estimated GFR > 60 Glucose 140 H POC Capillary Glucose Calcium 9.0 Total Bilirubin 0.8 AST 24 ALT 21 Alkaline Phosphatase 108 NT-Pro-B Natriuret Pep 1580 H Total Protein 8.0 Albumin 4.1 Urine Color Yellow Urine Appearance Clear Urine pH 5.5 Ur Specific [place] 1.016 Urine Protein 1+ H Urine Glucose (UA) Negative Urine Ketones Negative Ur Blood (Man) Negative Urine Nitrate Negative Urine Bilirubin Negative Urine Urobilinogen 0.2 Leukocyte Esterase Rfl Negative Urine RBC 0-2 Urine WBC 6-10 H Ur Squamous Epith Cells None seen Urine Bacteria None seen Urine Casts 0-2 Hyaline Casts Present Influenza A (RT-PCR) Influenza B (RT-PCR) RSV (RT-PCR) SARS-CoV-2 RNA (RT-PCR) 10/24/24 10/24/24 10/25/24 20:06 22:48 06:05 WBC 8.1 RBC 3.71 L Hgb 10.1 L Hct 31.8 L MCV 85.7 MCH 27.2 MCHC 31.8 L RDW 15.4 H Plt Count 253 MPV 9.9 Immature Gran % (Auto) 0.4 Neut % (Auto) 61.2 Lymph % (Auto) 21.6 Coal % (Auto) 13.4 H Eos % (Auto) 2.5 Baso % (Auto) 0.9 Lymph # (Auto) 1.76 Coal # (Auto) 1.1 H Eos # (Auto) 0.2 Baso # (Auto) 0.1 Abs Immat Gran (auto) 0.03 Absolute Neuts (auto) 5.0 Absolute Nucleated RBC 0.000 Nucleated RBC % 0.0 Sodium 139 Potassium 3.2 L Chloride 104 Carbon Dioxide 28 Anion Gap 7 BUN 17 Creatinine 0.61 L Estim Creat Clear Calc 60 Estimated GFR > 60 Glucose 96 POC Capillary Glucose 118 H Calcium 8.3 L Total Bilirubin AST ALT Alkaline Phosphatase NT-Pro-B Natriuret Pep Total Protein Albumin Urine Color Urine Appearance Urine pH Ur Specific [place] Urine Protein Urine Glucose (UA) Urine Ketones Ur Blood (Man) Urine Nitrate Urine Bilirubin Urine Urobilinogen Leukocyte Esterase Rfl Urine RBC Urine WBC Ur Squamous Epith Cells Urine Bacteria Urine Casts Hyaline Casts Influenza A (RT-PCR) Negative Influenza B (RT-PCR) Negative RSV (RT-PCR) Negative SARS-CoV-2 RNA (RT-PCR) Negative 10/25/24 10/25/24 07:40 11:42 WBC RBC Hgb Hct MCV MCH MCHC RDW Plt Count MPV Immature Gran % (Auto) Neut % (Auto) Lymph % (Auto) Coal % (Auto) Eos % (Auto) Baso % (Auto) Lymph # (Auto) Coal # (Auto) Eos # (Auto) Baso # (Auto) Abs Immat Gran (auto) Absolute Neuts (auto) Absolute Nucleated RBC Nucleated RBC % Sodium Potassium Chloride Carbon Dioxide Anion Gap BUN Creatinine Estim Creat Clear Calc Estimated GFR Glucose POC Capillary Glucose 104 116 H Calcium Total Bilirubin AST ALT Alkaline Phosphatase NT-Pro-B Natriuret Pep Total Protein Albumin Urine Color Urine Appearance Urine pH Ur Specific [place] Urine Protein Urine Glucose (UA) Urine Ketones Ur Blood (Man) Urine Nitrate Urine Bilirubin Urine Urobilinogen Leukocyte Esterase Rfl Urine RBC Urine WBC Ur Squamous Epith Cells Urine Bacteria Urine Casts Hyaline Casts Influenza A (RT-PCR) Influenza B (RT-PCR) RSV (RT-PCR) SARS-CoV-2 RNA (RT-PCR) Quality VTE Prophylaxis VTE prophylaxis: mechanical ordered (SCDs)
[2024-10-25 16:00] VITALS: BP 110/73; PULSE 50; RESP 20; TEMP 37; O2SAT 94
[2024-10-25 16:25] LABS: Glucose Point of Care 137 mg/dl (65-105)
[2024-10-25 20:00] VITALS: BP 126/76; PULSE 68; RESP 18; TEMP 36.1; O2SAT 98
[2024-10-25] MEDS: AZITHROMYCIN 500 MG/NS 250 ML 500 MG/250 ML BAG 250 MG IVPB (20:43)
[2024-10-25 22:18] LABS: Glucose Point of Care 136 mg/dl (65-105)
[2024-10-26] VITALS (10 sets, daily range): BP systolic 105–136; BP diastolic 64–90; PULSE 64–105; RESP 18–20; TEMP 36.1–36.7; O2SAT 95–100
[2024-10-26 06:11] LABS: Hematocrit 36.4 % (37.0-47.0); Hemoglobin 10.8 g/dL (12.0-15.0); Mean Corpuscular HGB Conc 29.7 g/dl (32-36); Mean Corpuscular Hemoglobin 26.6 pg (26-34); Mean Corpuscular Volume 89.7 fl (80-100); Mean Platelet Volume 10.1 fl (7.4-10.4); Platelet Count Result 291 k/mm3 (150-375); Red Blood Count 4.06 M/mm3 (4.2-5.4); Red Cell Distribution Width 15.6 % (11.5-14.5)
[2024-10-26 06:27] LABS: Anion Gap 10 mmol/L (4-12); Blood Urea Nitrogen 24 mg/dL (7-17); Calcium 8.8 mg/dL (8.4-10.2); Carbon Dioxide 26 mmol/L (22-30); Chloride 104 mmol/L (98-107); Estimated CRCL calculation 48 ml/min; Estimated Glomerular Filt Rate > 60; Glucose 110 mg/dL (65-110); Sodium 140 mmol/L (137-145)
[2024-10-26 07:44] LABS: Glucose Point of Care 107 mg/dl (65-105)
[2024-10-26] MEDS: HYDROcodone/acetaminophen (*CRX) 5-325 MG TABLET 1 TAB PO ×2 (09:05→21:37)
[2024-10-26] MEDS: LIDOCAINE 5% PATCH 3 PATCH TOPICAL (09:06)
[2024-10-26] MEDS: CITALOPRAM HYDROBROMIDE 10 MG TABLET PO (09:07)
[2024-10-26] MEDS: CHOLECALCIFEROL 1,000 UNITS TABLET 1000 UNITS PO (09:07)
[2024-10-26] MEDS: CALCIUM CARBONATE (OSCAL) 500 MG TABLET PO (09:07)
[2024-10-26] MEDS: dilTIAZem HCL CD 180 MG CAP.24HR 360 MG PO (09:07)
[2024-10-26] MEDS: METOPROLOL SUCCINATE EXT REL 100 MG TABCR PO (09:07)
[2024-10-26] MEDS: NAPROXEN 500 MG TABLET PO ×2 (09:07→17:56)
[2024-10-26] MEDS: lisinopriL 10 MG TABLET PO (09:07)
[2024-10-26] MEDS: ASPIRIN 81 MG ENTERIC TABLET PO (09:11)
[2024-10-26] MEDS: FUROSEMIDE 40 MG TABLET PO (09:11)
[2024-10-26 11:38] LABS: Glucose Point of Care 115 mg/dl (65-105)
--- NOTE | 2024-10-26 15:20 | P.PNIM_ITS ---
Progress Note: A&P Assessment and Plan (1) Community acquired pneumonia: Qualifiers: Laterality: unspecified laterality Qualified Code(s): J18.9 - Pneumonia, unspecified organism Code(s): J18.9 - Pneumonia, unspecified organism Status: Acute Assessment and Plan: Patient has bibasilar pneumonia on imaging. Blood cultures have been obtained and are pending. Will monitor CBC. The patient has been started on empiric antibiotic therapy with Rocephin and azithromycin that will be continued. Will check urine pneumococcal and Legionella antigen. Viral PCR panel negative. 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 She is technically alert oriented to person place and month but was unable to state the complete year. She also did not know the name of the president. This may be near the patient's baseline or there may be some acute exacerbation with acute encephalopathy due to pneumonia. (3) Orthostatic hypotension: Code(s): I95.1 - Orthostatic hypotension Status: Acute Assessment and Plan: The patient's reported dizziness is likely a combination of her chronic benign positional vertigo and likely exacerbated as the patient did have a 20 point drop in blood pressures when going from sitting to standing position. Patient did receive fluid bolus in the ER. Will give the patient an additional 1 L IV fluid at 100 mL an hour and then re-evaluate with repeat orthostatic vital signs in a.m.. (4) Type II diabetes mellitus: Qualifiers: Diabetes mellitus complication detail: with polyneuropathy Diabetes mellitus complication status: with neurologic complications Diabetes mellitus snf insulin use: without superintendent container terminal use Qualified Code(s): E11.42 - Type 2 diabetes mellitus with diabetic polyneuropathy Code(s): E11.9 - Type 2 diabetes mellitus without complications Status: Acute Assessment and Plan: Will hold patient's oral hypo glycemic agents and placed on low-dose sliding scale insulin with Accu-Cheks a.c. HS with hypoglycemia protocol (5) Paroxysmal atrial flutter: Code(s): I48.92 - Unspecified atrial flutter Status: Acute Assessment and Plan: Currently rate controlled will resume home metoprolol and Cardizem (6) Frequent falls: Code(s): R29.6 - Repeated falls Status: Acute Assessment and Plan: Fall precautions ordered (7) Benign paroxysmal positional vertigo: Qualifiers: Laterality: unspecified laterality Qualified Code(s): H81.10 - Benign paroxysmal vertigo, unspecified ear Code(s): H81.10 - Benign paroxysmal vertigo, unspecified ear Status: Inactive Assessment and Plan: Continue home meclizine Plan 84-year-old female with past medical history of anxiety, paroxysmal atrial fibrillation not on anticoagulation due to falls, DVT with IVC filter type 2 diabetes mellitus among other medical conditions who presented to the ER from [facility] due to weakness and confusion. Patient's reported the usually alert orient x4. In the ER patient complaining of cough, congestion, and bilateral knee pain. On arrival to the ER she was afebrile and was in rate controlled atrial flutter and was moderately tachypneic with respiratory rate varying between 16-25. She was satting between 90 and 96% on room air. At the time of my evaluation the patient told me that she was in the hospital due to feeling more down. She could not give me much other details. When prompted she did admit that she had been having a cough that she stated was due to phlegm. She reports that her cough has been productive. She was able to tell me that had been going on for couple of weeks. She reports that multiple people at [facility] have been ill with a virus. She thought she had an upper respiratory virus. She initially told me that she had not been having any chills. However a few minutes later the patient reported that he had turned the heat often her apartment in that she had to bundle up in multiple blankets. She reports that she was serving so bad that she could not stay still. She reports a poor appetite but denies any nausea vomiting or changes in bowel habits. She does have some difficulty with urinary incontinence but denies any increased urinary frequency or abdominal pain. She has been having some back pain but this does not seem to be changed from baseline. She also has chronic bilateral knee pain. She has chronic lower extremity swelling with mild bilateral erythema but no warmth. She denies any orthopnea. She denies significant shortness of breath. She is reportedly alert orient x4 at her assisted living facility and states that she has been in assisted living for 10 years. However she does admit that she has been having some difficulty with confusion on and off for several years. today patient is sitting in the chair, stats she believe she caught the pneumonia from her fellow resident at the [facility], admitted with pneumonia and confusion, patient symptoms and mentation are improving, will have PT/OT evaluate the patient, will continue to monitor and further recommendation to follow. Patient has been admitted as observation status. Subjective Date/time seen: 10/26/24 15:20 Interval history: Weakness and confusion H&P-Narrative: 84-year-old female with past medical history of anxiety, paroxysmal atrial fibrillation not on anticoagulation due to falls, DVT with IVC filter type 2 diabetes mellitus among other medical conditions who presented to the ER from [facility] due to weakness and confusion. Patient's reported the usually alert orient x4. In the ER patient complaining of cough, congestion, and bilateral knee pain. On arrival to the ER she was afebrile and was in rate controlled atrial flutter and was moderately tachypneic with respiratory rate varying between 16-25. She was satting between 90 and 96% on room air. At the time of my evaluation the patient told me that she was in the hospital due to feeling more down. She could not give me much other details. When prompted she did admit that she had been having a cough that she stated was due to phlegm. She reports that her cough has been productive. She was able to tell me that had been going on for couple of weeks. She reports that multiple people at [facility] have been ill with a virus. She thought she had an upper respiratory virus. She initially told me that she had not been having any chills. However a few minutes later the patient reported that he had turned the heat often her apartment in that she had to bundle up in multiple blankets. She reports that she was serving so bad that she could not stay still. She reports a poor appetite but denies any nausea vomiting or changes in bowel habits. She does have some difficulty with urinary incontinence but denies any increased urinary frequency or abdominal pain. She has been having some back pain but this does not seem to be changed from baseline. She also has chronic bilateral knee pain. She has chronic lower extremity swelling with mild bilateral erythema but no warmth. She denies any orthopnea. She denies significant shortness of breath. She is reportedly alert orient x4 at her assisted living facility and states that she has been in assisted living for 10 years. However she does admit that she has been having some difficulty with confusion on and off for several years. today patient is sitting in the chair, stats she believe she caught the pneumonia from her fellow resident at the [facility], admitted with pneumonia and confusion, patient symptoms and mentation are improving, will have PT/OT evaluate the patient, will continue to monitor and further recommendation to follow. Review of Systems Review of Systems: Review of systems limited due to patient confusion Exam Narrative: Patient is comfortable, NAD HEENT: eyes are clear and none icteric LUNGS:CTA HEART: RR S1S2 ABD: BS+, Soft and nontender Lower extremities: no edema SKIN: nonjaundiced Neuro: grossly intact. Objective Data Vital Signs Vital Signs: Vital Signs - 24 hr 10/25/24 16:00 10/25/24 20:00 10/26/24 00:00 Temperature 37.0 C 36.1 C L 36.1 C L Pulse Rate 50 L 68 66 Respiratory Rate 20 18 18 Blood Pressure 110/73 126/76 122/75 Pulse Oximetry 94 98 99 Oxygen Delivery Fraction of Inspired Oxygen 10/26/24 04:00 10/26/24 08:00 10/26/24 08:00 Temperature 36.1 C L 36.7 C Pulse Rate 64 70 Respiratory Rate 18 18 Blood Pressure 136/90 128/70 Pulse Oximetry 100 97 Oxygen Delivery Room Air Fraction of Inspired Oxygen 10/26/24 08:33 10/26/24 09:07 10/26/24 12:00 Temperature 36.6 C Pulse Rate 67 105 H Respiratory Rate 20 Blood Pressure 109/64 Pulse Oximetry 99 100 Oxygen Delivery Room Air Fraction of Inspired Oxygen 21 Intake/Output Intake/Output: Intake & Output 10/23/24 10/24/24 10/25/24 10/26/24 23:59 23:59 23:59 23:59 Intake Total 300 1510 390 Output Total 300 Balance 300 1210 390 Meds/Results Medications: Active Medications Generic Name Dose Route Start Last Admin Trade Name Freq PRN Reason Stop Dose Admin Hydrocodone Bitart/Acetaminophen 1 tab 10/25/24 03:36 10/26/24 09:05 Hydrocodone/Acetaminophen (*Crx) 5-325 Mg Tablet PO 1 tab Q8H PRN Administration pain 4-10 Aspirin 81 mg 10/25/24 09:00 10/26/24 09:11 Aspirin 81 Mg Enteric Tablet PO 81 mg QAM DALIA Administration Calcium Carbonate 500 mg 10/25/24 09:00 10/26/24 09:07 Calcium Carbonate (Oscal) 500 Mg Tablet PO 500 mg QAM DALIA Administration Citalopram Hydrobromide 10 mg 10/25/24 09:00 10/26/24 09:07 Citalopram Hydrobromide 10 Mg Tablet PO 10 mg DAILY DALIA Administration Dextrose 12.5 gm 10/24/24 20:51 Dextrose 50% 25 Gm/50 Ml Syringe IV PUSH PRN PRN Hypoglycemia Protocol Diltiazem HCl 360 mg 10/25/24 09:00 10/26/24 09:07 Diltiazem Hcl Cd 180 Mg Cap.24hr PO 360 mg QAM DALIA Administration Furosemide 40 mg 10/25/24 09:00 10/26/24 09:11 Furosemide 40 Mg Tablet PO 40 mg QAM DALIA Administration Glucagon 1 mg 10/24/24 20:51 Glucagon For Inj 1 Mg Vial IM PRN PRN Hypoglycemia Protocol Glucose 15 gm 10/24/24 20:51 Glucose Oral Gel 15 Gm Of Glucse In 37.5 Gm Tube PO PRN PRN Hypoglycemia Protocol Ceftriaxone Sodium 1 gm in 50 mls @ 100 mls/hr 10/25/24 19:00 10/25/24 17:46 Rocephin 1 Gm/Ns 50 Ml IVPB 100 mls/hr Q24H DALIA Administration Dextrose 1,000 mls @ 100 mls/hr 10/24/24 20:51 Dextrose 5% 1,000 Ml IVPB PRN PRN Hypoglycemia Protocol Azithromycin 500 mg in 250 mls @ 250 mls/hr 10/25/24 20:00 10/25/24 20:43 Zithromax IVPB 250 mls/hr Q24H DALIA Administration Insulin Aspart 2 - 5 units 10/25/24 08:00 10/26/24 12:33 Insulin Aspart (*Bkc) 100 Units/Ml SUB-Q Not Given TIDWM DALIA Protocol Lidocaine 3 patch 10/25/24 09:00 10/26/24 09:06 Lidocaine 5% Patch TOPICAL 3 patch DAILY DALIA Administration Lisinopril 10 mg 10/25/24 09:00 10/26/24 09:07 Lisinopril 10 Mg Tablet PO 10 mg DAILY DALIA Administration Meclizine HCl 25 mg 10/25/24 03:40 Meclizine Hcl 25 Mg Tablet PO BID PRN Dizziness Metoprolol Succinate 100 mg 10/25/24 09:00 10/26/24 09:07 Metoprolol Succinate Ext Rel 100 Mg Tabcr PO 100 mg DAILY DALIA Administration Naproxen 500 mg 10/25/24 08:00 10/26/24 09:07 Naproxen 500 Mg Tablet PO 500 mg BIDWM DALIA Administration Vitamin D 1,000 units 10/25/24 09:00 10/26/24 09:07 Cholecalciferol 1,000 Units Tablet PO 1,000 units DAILY DALIA Administration Radiology Results: ITS Impressions Chest X-Ray 10/24/24 16:34 Impression: 1: Posterior basilar airspace disease, consistent with pneumonia. Knee X-Ray 10/24/24 18:51 IMPRESSION: No acute osseous abnormality right knee. Severe osteoarthritic changes. Head CT 10/24/24 19:04 IMPRESSION: No acute intracranial findings. Venous Doppler Study 10/24/24 19:13 IMPRESSION: Negative bilateral lower extremity venous US. No deep vein thrombosis. Labs Labs: Laboratory Results - last 24 hr 10/25/24 10/25/24 10/26/24 16:15 20:05 05:50 WBC 9.0 RBC 4.06 L Hgb 10.8 L Hct 36.4 L MCV 89.7 MCH 26.6 MCHC 29.7 L RDW 15.6 H Plt Count 291 MPV 10.1 Sodium 140 Potassium 4.0 Chloride 104 Carbon Dioxide 26 Anion Gap 10 BUN 24 H Creatinine 0.78 Estim Creat Clear Calc 48 Estimated GFR > 60 Glucose 110 POC Capillary Glucose 137 H 136 H Calcium 8.8 Magnesium 2.0 10/26/24 10/26/24 07:40 11:31 WBC RBC Hgb Hct MCV MCH MCHC RDW Plt Count MPV Sodium Potassium Chloride Carbon Dioxide Anion Gap BUN Creatinine Estim Creat Clear Calc Estimated GFR Glucose POC Capillary Glucose 107 H 115 H Calcium Magnesium Quality VTE Prophylaxis VTE prophylaxis: mechanical ordered (SCDs)
[2024-10-26 16:40] LABS: Glucose Point of Care 131 mg/dl (65-105)
[2024-10-26 21:11] LABS: Glucose Point of Care 169 mg/dl (65-105)
[2024-10-26] MEDS: AZITHROMYCIN 500 MG/NS 250 ML 500 MG/250 ML BAG 250 MG IVPB (21:37)
[2024-10-27 06:03] LABS: Hematocrit 35.8 % (37.0-47.0); Hemoglobin 10.9 g/dL (12.0-15.0); Mean Corpuscular HGB Conc 30.4 g/dl (32-36); Mean Corpuscular Hemoglobin 26.8 pg (26-34); Mean Corpuscular Volume 88.2 fl (80-100); Mean Platelet Volume 10.1 fl (7.4-10.4); Platelet Count Result 306 k/mm3 (150-375); Red Blood Count 4.06 M/mm3 (4.2-5.4); Red Cell Distribution Width 15.6 % (11.5-14.5); White Blood Count 11.9 K/mm3 (4.5-10.0)
[2024-10-27 06:19] LABS: Anion Gap 10 mmol/L (4-12); Blood Urea Nitrogen 24 mg/dL (7-17); Calcium 8.7 mg/dL (8.4-10.2); Carbon Dioxide 27 mmol/L (22-30); Chloride 102 mmol/L (98-107); Estimated CRCL calculation 52 ml/min; Estimated Glomerular Filt Rate > 60; Glucose 119 mg/dL (65-110); Magnesium 1.8 mg/dL (1.6-2.3); Potassium 3.6 mmol/L (3.4-5.0); Sodium 139 mmol/L (137-145)
[2024-10-27 07:54] VITALS: BP 112/62; PULSE 93; RESP 19; TEMP 36.9; O2SAT 94
[2024-10-27 08:25] LABS: Glucose Point of Care 154 mg/dl (65-105)
[2024-10-27] MEDS: LIDOCAINE 5% PATCH 3 PATCH TOPICAL (08:58)
[2024-10-27 08:59] VITALS: PULSE 88
[2024-10-27] MEDS: lisinopriL 10 MG TABLET PO (08:59)
[2024-10-27] MEDS: METOPROLOL SUCCINATE EXT REL 100 MG TABCR PO (08:59)
[2024-10-27] MEDS: ASPIRIN 81 MG ENTERIC TABLET PO (08:59)
[2024-10-27] MEDS: NAPROXEN 500 MG TABLET PO ×2 (09:01→17:58)
[2024-10-27] MEDS: FUROSEMIDE 40 MG TABLET PO (09:01)
[2024-10-27] MEDS: CHOLECALCIFEROL 1,000 UNITS TABLET 1000 UNITS PO (09:01)
[2024-10-27] MEDS: CITALOPRAM HYDROBROMIDE 10 MG TABLET PO (09:02)
[2024-10-27] MEDS: CALCIUM CARBONATE (OSCAL) 500 MG TABLET PO (09:02)
[2024-10-27] MEDS: dilTIAZem HCL CD 180 MG CAP.24HR 360 MG PO (09:02)
[2024-10-27 12:16] LABS: Glucose Point of Care 120 mg/dl (65-105)
[2024-10-27 15:00] VITALS: BP 110/52; PULSE 76; RESP 16; TEMP 36.9; O2SAT 99
[2024-10-27 17:10] LABS: Glucose Point of Care 163 mg/dl (65-105)
--- NOTE | 2024-10-27 17:43 | PM.IMPN ---
Progress Note: A&P Assessment and Plan (1) Community acquired pneumonia: Qualifiers: Laterality: unspecified laterality Qualified Code(s): J18.9 - Pneumonia, unspecified organism Code(s): J18.9 - Pneumonia, unspecified organism Status: Acute Assessment and Plan: Patient has bibasilar pneumonia on imaging. Blood cultures have been obtained and are pending. Will monitor CBC. The patient has been started on empiric antibiotic therapy with Rocephin and azithromycin that will be continued. Will check urine pneumococcal and Legionella antigen. Viral PCR panel negative. 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 She is technically alert oriented to person place and month but was unable to state the complete year. She also did not know the name of the president. This may be near the patient's baseline or there may be some acute exacerbation with acute encephalopathy due to pneumonia. (3) Orthostatic hypotension: Code(s): I95.1 - Orthostatic hypotension Status: Acute Assessment and Plan: The patient's reported dizziness is likely a combination of her chronic benign positional vertigo and likely exacerbated as the patient did have a 20 point drop in blood pressures when going from sitting to standing position. Patient did receive fluid bolus in the ER. Will give the patient an additional 1 L IV fluid at 100 mL an hour and then re-evaluate with repeat orthostatic vital signs in a.m.. (4) Type II diabetes mellitus: Qualifiers: Diabetes mellitus halfway insulin use: without care professionals use Diabetes mellitus complication status: with neurologic complications Diabetes mellitus complication detail: with polyneuropathy Qualified Code(s): E11.42 - Type 2 diabetes mellitus with diabetic polyneuropathy Code(s): E11.9 - Type 2 diabetes mellitus without complications Status: Acute Assessment and Plan: Will hold patient's oral hypo glycemic agents and placed on low-dose sliding scale insulin with Accu-Cheks a.c. HS with hypoglycemia protocol (5) Paroxysmal atrial flutter: Code(s): I48.92 - Unspecified atrial flutter Status: Acute Assessment and Plan: Currently rate controlled will resume home metoprolol and Cardizem (6) Frequent falls: Code(s): R29.6 - Repeated falls Status: Acute Assessment and Plan: Fall precautions ordered (7) Benign paroxysmal positional vertigo: Qualifiers: Laterality: unspecified laterality Qualified Code(s): H81.10 - Benign paroxysmal vertigo, unspecified ear Code(s): H81.10 - Benign paroxysmal vertigo, unspecified ear Status: Inactive Assessment and Plan: Continue home meclizine Plan 84-year-old female with past medical history of anxiety, paroxysmal atrial fibrillation not on anticoagulation due to falls, DVT with IVC filter type 2 diabetes mellitus among other medical conditions who presented to the ER from [facility] due to weakness and confusion. Patient's reported the usually alert orient x4. In the ER patient complaining of cough, congestion, and bilateral knee pain. On arrival to the ER she was afebrile and was in rate controlled atrial flutter and was moderately tachypneic with respiratory rate varying between 16-25. She was satting between 90 and 96% on room air. At the time of my evaluation the patient told me that she was in the hospital due to feeling more down. She could not give me much other details. When prompted she did admit that she had been having a cough that she stated was due to phlegm. She reports that her cough has been productive. She was able to tell me that had been going on for couple of weeks. She reports that multiple people at [facility] have been ill with a virus. She thought she had an upper respiratory virus. She initially told me that she had not been having any chills. However a few minutes later the patient reported that he had turned the heat often her apartment in that she had to bundle up in multiple blankets. She reports that she was serving so bad that she could not stay still. She reports a poor appetite but denies any nausea vomiting or changes in bowel habits. She does have some difficulty with urinary incontinence but denies any increased urinary frequency or abdominal pain. She has been having some back pain but this does not seem to be changed from baseline. She also has chronic bilateral knee pain. She has chronic lower extremity swelling with mild bilateral erythema but no warmth. She denies any orthopnea. She denies significant shortness of breath. She is reportedly alert orient x4 at her assisted living facility and states that she has been in assisted living for 10 years. However she does admit that she has been having some difficulty with confusion on and off for several years. patient is sitting in the chair, stats she believe she caught the pneumonia from her [facility] resident [place] the [place], admitted with pneumonia and confusion, patient symptoms and mentation are improving, today patient participate with PT/OT and did well, will repeat CXR in the am, will continue to monitor and further recommendation to follow. Patient has been admitted as observation status. Subjective Date/time seen: 10/27/24 17:43 Interval history: Weakness and confusion H&P-Narrative: 84-year-old female with past medical history of anxiety, paroxysmal atrial fibrillation not on anticoagulation due to falls, DVT with IVC filter type 2 diabetes mellitus among other medical conditions who presented to the ER from [facility] due to weakness and confusion. Patient's reported the usually alert orient x4. In the ER patient complaining of cough, congestion, and bilateral knee pain. On arrival to the ER she was afebrile and was in rate controlled atrial flutter and was moderately tachypneic with respiratory rate varying between 16-25. She was satting between 90 and 96% on room air. At the time of my evaluation the patient told me that she was in the hospital due to feeling more down. She could not give me much other details. When prompted she did admit that she had been having a cough that she stated was due to phlegm. She reports that her cough has been productive. She was able to tell me that had been going on for couple of weeks. She reports that multiple people at [facility] have been ill with a virus. She thought she had an upper respiratory virus. She initially told me that she had not been having any chills. However a few minutes later the patient reported that he had turned the heat often her apartment in that she had to bundle up in multiple blankets. She reports that she was serving so bad that she could not stay still. She reports a poor appetite but denies any nausea vomiting or changes in bowel habits. She does have some difficulty with urinary incontinence but denies any increased urinary frequency or abdominal pain. She has been having some back pain but this does not seem to be changed from baseline. She also has chronic bilateral knee pain. She has chronic lower extremity swelling with mild bilateral erythema but no warmth. She denies any orthopnea. She denies significant shortness of breath. She is reportedly alert orient x4 at her assisted living facility and states that she has been in assisted living for 10 years. However she does admit that she has been having some difficulty with confusion on and off for several years. patient is sitting in the chair, stats she believe she caught the pneumonia from her fellow resident at the [facility], admitted with pneumonia and confusion, patient symptoms and mentation are improving, today patient participate with PT/OT and did well, will repeat CXR in the am, will continue to monitor and further recommendation to follow. Review of Systems Review of Systems: Review of systems limited due to patient confusion Exam Narrative: Patient is comfortable, NAD HEENT: eyes are clear and none icteric LUNGS:CTA HEART: RR S1S2 ABD: BS+, Soft and nontender Lower extremities: no edema SKIN: nonjaundiced Neuro: grossly intact. Objective Data Vital Signs Vital Signs: Vital Signs - 24 hr 10/26/24 20:00 10/26/24 20:38 10/26/24 23:54 Temperature 36.6 C Pulse Rate 74 77 Respiratory Rate 20 18 Blood Pressure 130/78 Pulse Oximetry 95 95 Oxygen Delivery Room Air Fraction of Inspired Oxygen 21 10/27/24 07:54 10/27/24 08:00 10/27/24 08:59 Temperature 36.9 C Pulse Rate 93 88 Respiratory Rate 19 Blood Pressure 112/62 Pulse Oximetry 94 Oxygen Delivery Room Air Fraction of Inspired Oxygen Intake/Output Intake/Output: Intake & Output 10/24/24 10/25/24 10/26/24 10/27/24 23:59 23:59 23:59 23:59 Intake Total 300 1810 1870 960 Output Total 300 Balance 300 1510 1870 960 Meds/Results Medications: Active Medications Generic Name Dose Route Start Last Admin Trade Name Freq PRN Reason Stop Dose Admin Hydrocodone Bitart/Acetaminophen 1 tab 10/25/24 03:36 10/26/24 21:37 Hydrocodone/Acetaminophen (*Crx) 5-325 Mg Tablet PO 1 tab Q8H PRN Administration pain 4-10 Aspirin 81 mg 10/25/24 09:00 10/27/24 08:59 Aspirin 81 Mg Enteric Tablet PO 81 mg QAM DALIA Administration Calcium Carbonate 500 mg 10/25/24 09:00 10/27/24 09:02 Calcium Carbonate (Oscal) 500 Mg Tablet PO 500 mg QAM DALIA Administration Citalopram Hydrobromide 10 mg 10/25/24 09:00 10/27/24 09:02 Citalopram Hydrobromide 10 Mg Tablet PO 10 mg DAILY DALIA Administration Dextrose 12.5 gm 10/24/24 20:51 Dextrose 50% 25 Gm/50 Ml Syringe IV PUSH PRN PRN Hypoglycemia Protocol Diclofenac Sodium 1 applic 10/27/24 21:00 Diclofenac Sodium 1% 100 Gm Gel (*Bkc) TOPICAL QID DALIA Diltiazem HCl 360 mg 10/25/24 09:00 10/27/24 09:02 Diltiazem Hcl Cd 180 Mg Cap.24hr PO 360 mg QAM DALIA Administration Furosemide 40 mg 10/25/24 09:00 10/27/24 09:01 Furosemide 40 Mg Tablet PO 40 mg QAM DALIA Administration Glucagon 1 mg 10/24/24 20:51 Glucagon For Inj 1 Mg Vial IM PRN PRN Hypoglycemia Protocol Glucose 15 gm 10/24/24 20:51 Glucose Oral Gel 15 Gm Of Glucse In 37.5 Gm Tube PO PRN PRN Hypoglycemia Protocol Ceftriaxone Sodium 1 gm in 50 mls @ 100 mls/hr 10/25/24 19:00 10/26/24 17:59 Rocephin 1 Gm/Ns 50 Ml IVPB 100 mls/hr Q24H DALIA Administration Dextrose 1,000 mls @ 100 mls/hr 10/24/24 20:51 Dextrose 5% 1,000 Ml IVPB PRN PRN Hypoglycemia Protocol Azithromycin 500 mg in 250 mls @ 250 mls/hr 10/25/24 20:00 10/26/24 21:37 Zithromax IVPB 250 mls/hr Q24H DALIA Administration Insulin Aspart 2 - 5 units 10/25/24 08:00 10/27/24 14:44 Insulin Aspart (*Bkc) 100 Units/Ml SUB-Q Not Given TIDWM DALIA Protocol Lidocaine 3 patch 10/25/24 09:00 10/27/24 08:58 Lidocaine 5% Patch TOPICAL 3 patch DAILY DALIA Administration Lisinopril 10 mg 10/25/24 09:00 10/27/24 08:59 Lisinopril 10 Mg Tablet PO 10 mg DAILY DALIA Administration Meclizine HCl 25 mg 10/25/24 03:40 Meclizine Hcl 25 Mg Tablet PO BID PRN Dizziness Metoprolol Succinate 100 mg 10/25/24 09:00 10/27/24 08:59 Metoprolol Succinate Ext Rel 100 Mg Tabcr PO 100 mg DAILY DALIA Administration Naproxen 500 mg 10/25/24 08:00 10/27/24 09:01 Naproxen 500 Mg Tablet PO 500 mg BIDWM DALIA Administration Vitamin D 1,000 units 10/25/24 09:00 10/27/24 09:01 Cholecalciferol 1,000 Units Tablet PO 1,000 units DAILY DALIA Administration Radiology Results: ITS Impressions Chest X-Ray 10/24/24 16:34 Impression: 1: Posterior basilar airspace disease, consistent with pneumonia. Knee X-Ray 10/24/24 18:51 IMPRESSION: No acute osseous abnormality right knee. Severe osteoarthritic changes. Head CT 10/24/24 19:04 IMPRESSION: No acute intracranial findings. Venous Doppler Study 10/24/24 19:13 IMPRESSION: Negative bilateral lower extremity venous US. No deep vein thrombosis. Labs Labs: Laboratory Results - last 24 hr 10/26/24 10/27/24 10/27/24 21:06 05:41 08:10 WBC 11.9 H RBC 4.06 L Hgb 10.9 L Hct 35.8 L MCV 88.2 MCH 26.8 MCHC 30.4 L RDW 15.6 H Plt Count 306 MPV 10.1 Sodium 139 Potassium 3.6 Chloride 102 Carbon Dioxide 27 Anion Gap 10 BUN 24 H Creatinine 0.72 Estim Creat Clear Calc 52 Estimated GFR > 60 Glucose 119 H POC Capillary Glucose 169 H 154 H Calcium 8.7 Magnesium 1.8 10/27/24 10/27/24 12:00 17:00 WBC RBC Hgb Hct MCV MCH MCHC RDW Plt Count MPV Sodium Potassium Chloride Carbon Dioxide Anion Gap BUN Creatinine Estim Creat Clear Calc Estimated GFR Glucose POC Capillary Glucose 120 H 163 H Calcium Magnesium Quality VTE Prophylaxis VTE prophylaxis: mechanical ordered (SCDs)
[2024-10-27] MEDS: HYDROcodone/acetaminophen (*CRX) 5-325 MG TABLET 1 TAB PO (20:14)
[2024-10-27] MEDS: AZITHROMYCIN 500 MG/NS 250 ML 500 MG/250 ML BAG 250 MG IVPB (20:14)
[2024-10-27] MEDS: DICLOFENAC SODIUM 1% 100 GM GEL (*BKC) 1 APPLIC TOPICAL (20:15)
[2024-10-27 21:52] VITALS: BP 98/65; PULSE 67; RESP 16; TEMP 36.8; O2SAT 95
[2024-10-28] VITALS (9 sets, daily range): BP systolic 102–124; BP diastolic 68–78; PULSE 65–78; RESP 14–16; TEMP 36.6–36.7; O2SAT 83–99
[2024-10-28 00:40] LABS: Glucose Point of Care 156 mg/dl (65-105)
[2024-10-28 06:06] LABS: Hematocrit 34.2 % (37.0-47.0); Hemoglobin 10.5 g/dL (12.0-15.0); Mean Corpuscular HGB Conc 30.7 g/dl (32-36); Mean Corpuscular Hemoglobin 26.9 pg (26-34); Mean Corpuscular Volume 87.5 fl (80-100); Mean Platelet Volume 10.4 fl (7.4-10.4); Platelet Count Result 287 k/mm3 (150-375); Red Blood Count 3.91 M/mm3 (4.2-5.4); Red Cell Distribution Width 15.7 % (11.5-14.5); White Blood Count 9.3 K/mm3 (4.5-10.0)
[2024-10-28 06:15] LABS: Anion Gap 7 mmol/L (4-12); Blood Urea Nitrogen 24 mg/dL (7-17); Calcium 8.5 mg/dL (8.4-10.2); Carbon Dioxide 28 mmol/L (22-30); Chloride 102 mmol/L (98-107); Estimated CRCL calculation 50 ml/min; Estimated Glomerular Filt Rate > 60; Glucose 112 mg/dL (65-110); Magnesium 1.9 mg/dL (1.6-2.3); Sodium 137 mmol/L (137-145)
[2024-10-28 08:04] LABS: Glucose Point of Care 109 mg/dl (65-105)
[2024-10-28] MEDS: CITALOPRAM HYDROBROMIDE 10 MG TABLET PO (08:12)
[2024-10-28] MEDS: CHOLECALCIFEROL 1,000 UNITS TABLET 1000 UNITS PO (08:12)
[2024-10-28] MEDS: NAPROXEN 500 MG TABLET PO (08:12)
[2024-10-28] MEDS: CALCIUM CARBONATE (OSCAL) 500 MG TABLET PO (08:12)
[2024-10-28] MEDS: ASPIRIN 81 MG ENTERIC TABLET PO (08:12)
[2024-10-28] MEDS: FUROSEMIDE 40 MG TABLET PO (08:13)
[2024-10-28] MEDS: lisinopriL 10 MG TABLET PO (08:13)
[2024-10-28] MEDS: METOPROLOL SUCCINATE EXT REL 100 MG TABCR PO (08:13)
[2024-10-28] MEDS: dilTIAZem HCL CD 180 MG CAP.24HR 360 MG PO (08:13)
[2024-10-28] MEDS: LIDOCAINE 5% PATCH 3 PATCH TOPICAL (08:13)
[2024-10-28] MEDS: DICLOFENAC SODIUM 1% 100 GM GEL (*BKC) 1 APPLIC TOPICAL (08:15)
--- NOTE | 2024-10-28 10:31 | PCRCNOTE ---
Home O2 evaluation done. Pt does not qualify for home oxygen at this time.
--- NOTE | 2024-10-28 10:56 | P.DS_ITS ---
DS: Admitting Diagnosis Discharge Date 10/28/24 Admitting Diagnosis Weakness and confusion DS: Discharge Diagnosis Discharge Diagnosis (1) Community acquired pneumonia: Qualifiers: Laterality: unspecified laterality Qualified Code(s): J18.9 - Pneumonia, unspecified organism Code(s): J18.9 - Pneumonia, unspecified organism Status: Acute Assessment and Plan: Patient has bibasilar pneumonia on imaging. Blood cultures have been obtained and are pending. Will monitor CBC. The patient has been started on empiric antibiotic therapy with Rocephin and azithromycin that will be continued. Will check urine pneumococcal and Legionella antigen. Viral PCR panel negative. 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 She is technically alert oriented to person place and month but was unable to state the complete year. She also did not know the name of the president. This may be near the patient's baseline or there may be some acute exacerbation with acute encephalopathy due to pneumonia. (3) Orthostatic hypotension: Code(s): I95.1 - Orthostatic hypotension Status: Acute Assessment and Plan: The patient's reported dizziness is likely a combination of her chronic benign positional vertigo and likely exacerbated as the patient did have a 20 point drop in blood pressures when going from sitting to standing position. Patient did receive fluid bolus in the ER. Will give the patient an additional 1 L IV fluid at 100 mL an hour and then re-evaluate with repeat orthostatic vital signs in a.m.. (4) Type II diabetes mellitus: Qualifiers: Diabetes mellitus buttermaker continuous churn insulin use: without buttermaker continuous churn use Diabetes mellitus complication status: with neurologic complications Diabetes mellitus complication detail: with polyneuropathy Qualified Code(s): E11.42 - Type 2 diabetes mellitus with diabetic polyneuropathy Code(s): E11.9 - Type 2 diabetes mellitus without complications Status: Acute Assessment and Plan: Will hold patient's oral hypo glycemic agents and placed on low-dose sliding scale insulin with Accu-Cheks a.c. HS with hypoglycemia protocol (5) Paroxysmal atrial flutter: Code(s): I48.92 - Unspecified atrial flutter Status: Acute Assessment and Plan: Currently rate controlled will resume home metoprolol and Cardizem (6) Frequent falls: Code(s): R29.6 - Repeated falls Status: Acute Assessment and Plan: Fall precautions ordered (7) Benign paroxysmal positional vertigo: Qualifiers: Laterality: unspecified laterality Qualified Code(s): H81.10 - Benign paroxysmal vertigo, unspecified ear Code(s): H81.10 - Benign paroxysmal vertigo, unspecified ear Status: Inactive Assessment and Plan: Continue home meclizine Plan 84-year-old female with past medical history of anxiety, paroxysmal atrial fibrillation not on anticoagulation due to falls, DVT with IVC filter type 2 diabetes mellitus among other medical conditions who presented to the ER from [facility] due to weakness and confusion. Patient's reported the usually alert orient x4. In the ER patient complaining of cough, congestion, and bilateral knee pain. On arrival to the ER she was afebrile and was in rate controlled atrial flutter and was moderately tachypneic with respiratory rate varying between 16-25. She was satting between 90 and 96% on room air. At the time of my evaluation the patient told me that she was in the hospital due to feeling more down. She could not give me much other details. When prompted she did admit that she had been having a cough that she stated was due to phlegm. She reports that her cough has been productive. She was able to tell me that had been going on for couple of weeks. She reports that multiple people at [facility] have been ill with a virus. She thought she had an upper respiratory virus. She initially told me that she had not been having any chills. However a few minutes later the patient reported that he had turned the heat often her apartment in that she had to bundle up in multiple blankets. She reports that she was serving so bad that she could not stay still. She reports a poor appetite but denies any nausea vomiting or changes in bowel habits. She does have some difficulty with urinary incontinence but denies any increased urinary frequency or abdominal pain. She has been having some back pain but this does not seem to be changed from baseline. She also has chronic bilateral knee pain. She has chronic lower extremity swelling with mild bilateral erythema but no warmth. She denies any orthopnea. She denies significant shortness of breath. She is reportedly alert orient x4 at her assisted living facility and states that she has been in assisted living for 10 years. However she does admit that she has been having some difficulty with confusion on and off for several years. patient is sitting in the chair, stats she believe she caught the pneumonia from her fellow resident at the [facility], admitted with pneumonia and confusion, patient symptoms and mentation are improving, today patient participate with PT/OT and did well, repeat CXR in the am showed no pneumonia, patient is clinically stable, will discharge patient today. Patient has been admitted as observation status. DS: Summary Hospital Course Hospital Course: patient is sitting in the chair, stats she believe she caught the pneumonia from her fellow resident at the [facility], admitted with pneumonia and confusion, patient symptoms and mentation are improving, today patient participate with PT/OT and did well, repeat CXR in the am showed no pneumonia, patient is clinically stable, will discharge patient today. Patient has been admitted as observation status. Time Spent with Patient Time attestation: Total time spent providing and/or coordinating discharge services: Exam Narrative: Patient is comfortable, NAD HEENT: eyes are clear and none icteric LUNGS:CTA HEART: RR S1S2 ABD: BS+, Soft and nontender Lower extremities: no edema SKIN: nonjaundiced Neuro: grossly intact. DS: Data Data Completed and Pending Labs on day of discharge: Labs from last 24 hours 10/28/24 10/28/24 10/27/24 07:58 05:41 21:20 WBC 9.3 RBC 3.91 L Hgb 10.5 L Hct 34.2 L MCV 87.5 MCH 26.9 MCHC 30.7 L RDW 15.7 H Plt Count 287 MPV 10.4 Sodium 137 Potassium 4.0 Chloride 102 Carbon Dioxide 28 Anion Gap 7 BUN 24 H Creatinine 0.75 Estim Creat Clear Calc 50 Estimated GFR > 60 Glucose 112 H POC Capillary Glucose 109 H 156 H Calcium 8.5 Magnesium 1.9 10/27/24 10/27/24 17:00 12:00 WBC RBC Hgb Hct MCV MCH MCHC RDW Plt Count MPV Sodium Potassium Chloride Carbon Dioxide Anion Gap BUN Creatinine Estim Creat Clear Calc Estimated GFR Glucose POC Capillary Glucose 163 H 120 H Calcium Magnesium Preliminary micro results at discharge 10/24/24 19:34 Blood Culture - Preliminary Blood 10/24/24 19:34 Blood Culture - Preliminary Blood Discharge Plan Discharge Attending physician on discharge: Gely Salgado Discharging Clinician: Davi Vega Patient Disposition: [place] Nursing Home/Asst Living Activity: as tolerated Diet: heart healthy Discharge Instructions: patient to follow up with her primary care provider as soon as possible, patient is instructed if any symptoms redevelop to go to nearest. Patient Instructions: Antibiotic Form, Aspirin (By mouth), Heart Failure (ED) Patient Language: Bulgarian Stand Alone Forms: General Discharge Information Follow-up/Referrals: Dayton Jones DO [Primary Care Provider] - Discharge Medications: New azithromycin [Zithromax] 250 mg tablet 250 mg PO DAILY 3 Days Qty: 3 0RF Rx Instructions: start on day 2 of therapy Continued diltiazem HCl 360 mg capsule,extended release 24hr 360 mg PO DAILY Qty: 90 0RF Trulicity 0.75 mg/0.5 mL pen injector 0.75 mg subcut WEEKLY metformin 1,000 mg tablet 1,000 mg PO BID vitamin E (dl, acetate) 450 mg (1,000 unit) capsule 450 mg PO DAILY metoprolol succinate 100 mg Tablet Extended Release 24 Hr 100 mg PO DAILY citalopram 10 mg tablet 10 mg PO DAILY lisinopril 5 mg tablet 10 mg PO DAILY aspirin 81 mg capsule 81 mg PO DAILY Qty: 30 0RF naproxen [Naprosyn] 500 mg tablet 500 mg PO BID Qty: 20 0RF hydrocodone-acetaminophen 5-325 mg tablet 1 tablet PO Q8H PRN (Reason: pain) lidocaine 5 % adhesive patch,medicated 3 patch topical DAILY Rx Instructions: leave on most painful area for up to 12 hrs calcium 500 mg tablet 500 mg PO DAILY cholecalciferol (vitamin D3) 25 mcg (1,000 unit) capsule 25 mcg PO DAILY furosemide 20 mg tablet 40 mg PO QAM acetaminophen 500 mg tablet See Rx Instructions .ROUTE .COMPLEX Qty: 60 0RF Dose Instruction: TAKE 1 TABLET BY MOUTH EVERY 6 HOURS NEEDED FOR PAIN/ HEADACHE Rx Instructions: TAKE 1 TABLET BY MOUTH EVERY 6 HOURS NEEDED FOR PAIN/ HEADACHE meclizine 25 mg tablet See Rx Instructions .ROUTE .COMPLEX Qty: 30 0RF Dose Instruction: TAKE 1 TABLET BY MOUTH TWICE DAILY NEEDED FOR DIZZINESS Rx Instructions: TAKE 1 TABLET BY MOUTH TWICE DAILY NEEDED FOR DIZZINESS (DME) BD AutoShield Duo Pen Needle 30 gauge x 3/16 needle See Rx Instructions .ROUTE .COMPLEX Qty: 100 0RF Dose Instruction: PEN NEEDLE USED FOR SUB-Q INJECTION Rx Instructions: PEN NEEDLE USED FOR SUB-Q INJECTION (DME) OneTouch Ultra Test Strip See Rx Instructions .Route Qty: 100 5RF Rx Instructions: Testing BID. DX: E11.9 Date of admission: 10/25/24 09:03 Primary Care Provider: Dayton Jones Admitting Provider: Gely Salgado Attending physician on admission: Gely Salgado Condition: Stable
--- NOTE | 2024-10-28 11:34 | P.OP_ITS ---
<Statement entered by Abraham Arroyo MD - 10/31/24 14:25> NOT my patient Procedure Note - Detailed Date of Procedure 10/28/24 Pre-op Diagnosis pneumonia Surgeon Abraham Arroyo MD Urine Output 300
[2024-10-28 11:53] LABS: Glucose Point of Care 127 mg/dl (65-105)
[2024-10-28 14:28] LABS: Pneumococcal Antigen Urine NOT DETECTED
[2024-10-28 19:39] LABS: Legionella pneumophila Ag Ur NOT DETECTED
== END 2024-10-28 15:50 | DRG 193 ==
LOC: ANHED 17:45 → ANH3MEDSUR 21:27
PROVIDERS: Emergency Medicine; Admitting Provider Internal Medicine; Emergency Provider Physician Assistant; PCP Family Medicine; Visit Provider Family Medicine
DX: J18.9 Pneumonia, unspecified organism (principal); G93.41 Metabolic encephalopathy; I42.9 Cardiomyopathy, unspecified; I48.92 Unspecified atrial flutter; I48.20 Chronic atrial fibrillation, unspecified; I11.0 Hypertensive heart disease with heart failure; I50.9 Heart failure, unspecified; I95.1 Orthostatic hypotension; I34.1 Nonrheumatic mitral (valve) prolapse; D50.9 Iron deficiency anemia, unspecified; E11.42 Type 2 diabetes mellitus with diabetic polyneuropathy; E55.9 Vitamin D deficiency, unspecified; E78.00 Pure hypercholesterolemia, unspecified; K21.9 Gastro-esophageal reflux disease without esophagitis; M19.90 Unspecified osteoarthritis, unspecified site; R29.6 Repeated falls; H35.30 Unspecified macular degeneration; H81.10 Benign paroxysmal vertigo, unspecified ear; F41.9 Anxiety disorder, unspecified; Z96.652 Presence of left artificial knee joint; Z86.73 Personal history of transient ischemic attack (TIA), and cerebral infarction without residual deficits; Z87.442 Personal history of urinary calculi; Z86.718 Personal history of other venous thrombosis and embolism; Z79.82 Long term (current) use of aspirin
CPT/HCPCS: 36415; 70450; 71045; 71046; 73564; 80048; 80053; 81001; 82948; 83735; 83880; 85025; 85027; 87040; 87086; 87449; 87637; 87899; 93005; 93970; 94618; 96365; 96367; 97110; 97116; 97161; 97165; 97530; 97535; 99285; A9270; G0378; J0456; J0696

== ENCOUNTER 2024-10-29 16:12 | Emergency (ER) | payer OTHER, SELFPAY ==
--- NOTE | ~2024-10-29 | CT_ITS ---
CT cervical spine wo con Ordering provider: Love Daniels PA-C History: . fall . Comparison: January 16, 2023 Technique: CT of the cervical spine was performed without contrast. Sagittal and coronal reformatted images were also obtained and reviewed. Automated exposure control and iterative reconstruction kiran hnique were employed. The dose-length product was 364.09 mGy-cm. FINDINGS: VERTEBRAE: Minimal anterolisthesis at the level of C2-C3 unchanged from previous examination. Minimal retrolisthesis at the level of C3-C4 also unchanged. Otherwise, No subluxation or acute fracture. Th e occipital condyles are intact. DISC SPACES: Narrowing of the disc C2-C3, C3-C4, C5-C6 and C6-C7. Multilevel facet degenerative disea se. Multilevel uncovertebral joint osteoarthritic changes. Multilevel intervertebral foraminal narrow ing PARASPINOUS SOFT TISSUES: Normal. IMPRESSION: No acute osseous abnormality cervical spine. Anterolisthesis at the level of C2-C3. Retrolisthesis at the level of C3-C4. Multilevel degenerative disc disease. Reviewed, dictated and finalized at location A.
--- NOTE | ~2024-10-29 | XR_ITS ---
HISTORY: fall COMPARISON: None TECHNIQUE: 2 views of the right hip along with an AP view of the pelvis FINDINGS: No acute fracture or dislocation is identified. Superior lateral sclerosis of the femoral acetabular joint space is present consistent with severe os teoarthritis. Near complete obliteration of the right femoral acetabular joint space is identified. Degenerative disease within the visualized portion of the lower lumbar spine. Age-appropriate mineralization. Trapeze filter projecting over the lower lumbar spine. IMPRESSION: Significant degenerative disease, without acute fracture or dislocation. Reviewed, dictated and finalized at location A. IMPRESSION: Significant degenerative disease, without acute fracture or disloc ation.
--- NOTE | ~2024-10-29 | CT_ITS ---
History: Fall PROCEDURE: CT lumbar spine without intravenous contrast. COMPARISON: 05/14/2022 TECHNIQUE: Multiple contiguous axial images of the lumbar spine were performed without the administration of int ravenous contrast. DLP: 1028 mGy-cm FINDINGS: 32 degrees of levoscoliotic curvature of the lumbar spine is identified, increased from 2021 examinat ion. No acute compression fractures are present. Diffuse bony demineralization. Significant degenerative disease, with osteophyte formation, disc space narrowing, endplate changes a nd vacuum phenomena. Severe facet hypertrophy is also noted. Impression: Severe degenerative disease, without acute fracture. Reviewed, dictated and finalized at location A. Impression: Severe degenerative disease, without acute fracture.
--- NOTE | ~2024-10-29 | CT_ITS ---
CT brain wo con Ordering provider: Love Daniels PA-C History: 84 years Female with . fall . Comparison: October 24, 2024 Technique: CT of the head without contrast. Radiation reduction technique utilized. The dose-length p roduct was 681 mGy-cm. FINDINGS: BRAIN PARENCHYMA AND CSF SPACES: Mild leukoaraiosis and diffuse cortical atrophy. Mild atheromatous d isease. Persistent cavum septum pellucidum is noted. No midline shift, mass effect or hemorrhage. Th e brain parenchyma and CSF spaces are otherwise normal. VISUALIZED PARANASAL SINUSES: Well aerated. MASTOIDS: Well aerated. BONES: The bones appear intact. SOFT TISSUES: Visualized nasopharynx is normal. Superficial soft tissues are normal. IMPRESSION: No acute intracranial findings. Reviewed, dictated and finalized at location A.
[2024-10-29 16:14] VITALS: BP 140/67; PULSE 90; RESP 16; TEMP 36.4; O2SAT 96
--- OUTSIDE RECORDS SUMMARY | 2024-10-29 17:37 | XMS_ITS | Continuity of Care Document ---
Author Organization [facility] Address [address] [place] [address] [place] [address] Phone Care Team Providers Care 1 Year Olds Preschool Teacher Name Role Phone Jem Quintero MD Unavailable [...] take 2 daily - Active take orally Vitamin D3 25 mcg (1,000 unit) capsule [...] route every day 20 MG - Active OneTouch Ultra Blue Test [...] Diagnoses Date Provider Providers Copied on Encounter [facility], [address] [place], [place], [address], [place] tel:[phone] [facility] Medicine No Information 1 Leon Eaton [address], [address] [place], [place], [address] , [place]. tel:[phone] [facility], [address] [place], [place], [address], [place] tel:[phone] [facility] No Information 0 Leon Mcmullen, [address], [address] , [place]. tel:[phone] Referring Provider: Jem Quintero [address] [facility] [place], [address]. tel:[phone] OFFICE/OUTPA TIENT VISIT, [facility], [address], [place], [place], [address], [place] tel:[phone] [facility] fall (chief complaint) dizziness (chief complaint) aflutter (chief complaint) proteinuri a1 (chief complaint) HematuriaEdemaAtria l fibrillationRepeate d falls 0 Leon Parish. [address], [address], [place], [place], [address] , [place]. tel:[phone] Referring Provider: Jem Quintero [address], [place], [place], [address]. tel:[phone] [facility], [address], [place], [place], [address], [place] tel:[phone] [facility] No Information 0 Leon Parish. [address], [address], [place], [place], [address] , [place]. tel:[phone] [facility], [address], [place], [place], [address], [place] tel:[phone] [facility] No Information 9 Leon Parish. [address], [address], [place], [place], [address] , [place]. tel:[phone] OFFICE/OUTPA TIENT VISIT, [facility], [address], [place], [place], [address], [place] tel:[phone] [facility] rash1 (chief complaint) edema1 (chief complaint) weight loss1 (chief complaint) fall (chief complaint) Repeated fallsAbnormal weight lossEdemaTinea corporisHematuria 9 Leon Parish. [address], [address], [place], [place], [address] , [place]. tel:[phone] Referring Provider: Suad Javier [address], [place], [place], [address]. tel:[phone] OFFICE/OUTPA TIENT VISIT, [facility], [address], [place], [place], [address], [place] tel:[phone] [facility] Medicine PHysical (chief complaint) Encounter for general adult medical exam w abnormal findingsAtrial fibrillationEssenti al (primary) hypertensionHematur iaType 2 diabetes mellitus without complicationsEncntr for general adult medical exam w/o abnormal findings Oct-0 9 Leon Parish. [address], [address], [place], [place], [address] , [place]. tel:[phone] Referring Provider: Suad Javier [address], [place], [place], [address]. tel:[phone] OFFICE/OUTPA TIENT VISIT, [facility], [address], [place], [place], [address], [place] tel:[phone] [facility] Afib (chief complaint) Atrial fibrillationType 2 diabetes mellitus w/ diabetic neuropathyRepeated fallsTransient cerebral ischemic attack 8 Leon Parish. [address], [address], [place], [place], [address] , [place]. tel:[phone] Referring Provider: Suad Javier [address], [place], [place], [address]. tel:[phone] OFFICE/OUTPA TIENT VISIT, [facility], [address], [place], [place], [address], [place] tel:[phone] [facility] mental status change (chief complaint) tremor1 (chief complaint) Altered mental statusTremorAtrial fibrillationAbnorma l weight gainEssential (primary) hypertension 8 Leon Parish. [address], [address], [place], [place], [address] , [place]. tel:[phone] Referring Provider: Suad Javier [address], [place], [place], [address]. tel:[phone] OFFICE/OUTPA TIENT VISIT, [facility], [address], [place], [place], [address], [place] tel:[phone] [facility] fall (chief complaint) edema1 (chief complaint) hematuria1 (chief complaint) anemia1 (chief complaint) HematuriaAtrial fibrillationRepeate d fallsEdemaBody mass index (BMI) 45.0-49.9, adultAnemia 8 Leon Eaton [address], [address], [place], [place], [address] , [place]. tel:[phone] Referring Provider: Suad Javier [address], [place], [place], [address]. tel:[phone] OFFICE/OUTPA TIENT VISIT, [facility], [address], [place], [place], [address], [place] tel:[phone] [facility] DM (chief complaint) heamturai1 (chief complaint) HLP (chief complaint) edema1 (chief complaint) afib1 (chief complaint) Encounter for general adult medical exam w abnormal findingsType 2 diabetes mellitus with diabetic nephropathyHematuri aAtrial fibrillation 8 Leon Eaton [address], [address], [place], [place], [address] , [place]. [phone] Referring Provider: Suad Javier [address], [place], [place], [address]. tel:[phone] OFFICE/OUTPA TIENT VISIT, [facility], [address] [place], [address], [place] tel:[phone] [facility] Medicine Afib (chief complaint) DM (chief complaint) HTN (chief complaint) anxiety1 (chief complaint) Atrial fibrillationType 2 diabetes mellitus without complicationsEssent ial (primary) hypertension 8 Leon Eaton [address], [address], [place], [place], [address] , [place]. tel:[phone] OFFICE/OUTPA TIENT VISIT, [facility], [address], [place], [place], [address], [place] tel:[phone] [facility] edema1 (chief complaint) HTN (chief complaint) BM (chief complaint) DM (chief complaint) Essential (primary) hypertensionAtrial fibrillationType 2 diabetes mellitus without complicationsEdema 7 Leon Parish. [address], [address], [place], [place], [address] , [place]. tel:[phone] Referring Provider: Suad Javier [address], [place], [place], [address]. tel:[phone] OFFICE/OUTPA TIENT VISIT, [facility], [address], [place], [place], [address], [place] tel:[phone] [facility] HTN (chief complaint) flu (chief complaint) Afib (chief complaint) edema1 (chief complaint) Atrial fibrillationEssenti al (primary) hypertensionInfluen zaEdema 7 Leon Eaton [address], [address], [place], [place], [address] , [place]. tel:[phone] Referring Provider: Suad Javier [address], [place], [place], [address]. tel:[phone] OFFICE/OUTPA TIENT VISIT, [facility], [address], [place], [place], [address], [place] tel:[phone] [facility] DM (chief complaint) HLP (chief complaint) anemia1 (chief complaint) bowel movement (chief complaint) Type 2 diabetes mellitus without complicationsAnemia HyperlipidemiaProte inuria 6 Leon Parish. [address], [address], [place], [place], [address] , [place]. tel:[phone] Referring Provider: Suad Javier [address], [place], [place], [address]. tel:[phone] OFFICE/OUTPA TIENT VISIT, [facility], [address], [place], [place], [address], [place] tel:[phone] [facility] htn (chief complaint) afib (chief complaint) edema1 (chief complaint) DM (chief complaint) EdemaEssential (primary) hypertensionType 2 diabetes mellitus without complicationsAtrial fibrillation 6 Leon Parish. [address], [address], [place], [place], [address] , [place]. tel:[phone] Referring Provider: Suad Javier [address], [place], [place], [address]. tel:[phone] OFFICE/OUTPA TIENT VISIT, [facility], [address], [place], [place], [address], [place] tel:[phone] [facility] HTN (chief complaint) DM (chief complaint) nose lesion (chief complaint) edema (chief complaint) Essential (primary) hypertensionAtrial fibrillationEdemaRa 6 Leon Parish. [address], [address], [place], [place], [address] , [place]. tel:[phone] Referring Provider: Suad Javier [address], [place], [place], [address]. tel:[phone] OFFICE/OUTPA TIENT VISIT, [facility], [address], [place], [place], [address], [place] tel:[phone] [facility] BM (chief complaint) Afib (chief complaint) Diarrhea, unspecifiedAtrial fibrillation 6 Leon Parish. [address], [address], [place], [place], [address] , [place]. [phone] Referring Provider: Suad Javier [address], [place], [place], [address]. tel:[phone] OFFICE/OUTPA TIENT VISIT, [facility], [address], [place], [place], [address], [place] tel:[phone] [facility] HTN (chief complaint) aflutter (chief complaint) dizziness (chief complaint) DM (chief complaint) UTI1 (chief complaint) Essential (primary) hypertensionType 2 diabetes mellitus without complicationsUrinar y tract infectionHyperlipid emia 6 Leon Parish. [address], [address], [place], [place], [address] , [place]. [phone] Referring Provider: Suad Javier [place], [address]. tel:[phone] OFFICE/OUTPA TIENT VISIT, [facility], [address], [place], [address], [phone] [facility] rash1 (chief complaint) bowel movement (chief complaint) Afib1 (chief complaint) Unspecified atrial fibrillationRashCha nge in bowel habit 6 Leon Parsih. [address] [facility] [place], [address] , [place]. [phone] Referring Provider: Suad Javier [place], [place], [address]. tel:[phone] OFFICE/OUTPA TIENT VISIT, [facility], [address], [place], [address], [phone] [facility] HTN1 (chief complaint) DM1 (chief complaint) anxiety1 (chief complaint) Afib1 (chief complaint) hand numnbess1 (chief complaint) Type 2 diabetes mellitus without complicationsTremor Essential (primary) hypertensionAtrial fibrillation 5 Leon Parish. [facility] [place], [address] , [place]. [phone] Referring Provider: Suad Javier [place], [place], [address]. tel:[phone] Family History Family Member Type Diagnosis Age At Onset Father Problem (finding) of old age (Cause Of ) 81 Father Problem (finding) of old age (Cause Of ) 85 Payers Payer name Insurance type Covered green party ID Authoriza tion(s) No Information Social [...] Gomez [address] [place], [place] [phone] Ordered: Referrals: Allopathic & Osteopathic Physicians : [...] Gomez [address] [place], [place] [id number] Ordered: Referrals: Juan Alberto Gomez. Evaluate and treat ordered Referral Ordered: DOPPLER ECHO EXAM, HEART ordered Referral Ordered: Neurology (related to Tremor) ordered Referral Ordered: Referrals: Neurology. Evaluate and treat ordered History Of Present Illness Encounter Date Complaint History Of Prese nt Illness proteinuria1 Pt had history o f proteinuria and hematuria, which is resolved on recent ER lab Pt denies any UTI symptoms dizziness Additional infor mation: Pt also went [...] Pt denies any chest pain or sob fall Pt recently trip ped and fell and hit her head Pt did not lose consciousness .Pt went to Er and had negative head and neck Ct. 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 Pt has history [...] was deemed stable and was transferred to intermediate. Pt has been at intermediate since February. pt is eagerly hoping to return to [facility]. Pt has been doing PT and her [...] 100s per patient. Pt denies any numbness flu Pt has flu and s he [...] Pt denies any chest pain or headache Afib Pt has afib. Pt is on [...] Pt denies any polyuria, polydipisa. Pt sees wind tunnel engineer at [facility]. Pt denies any numnbness edema [...] Pt denies any chset pain or headache Afib Pt has afib/aflu tter. Pt takes [...] that she usually notices that after food UTI1 Pt denies any bu ring but [...] Weight management Related to Atr ial fibrillation Prescribed Activity and Exercise Education Related to Dietary Surveillance and Counseling Increase physical activity Relat ed to Atrial [...]
--- OUTSIDE RECORDS SUMMARY | 2024-10-29 17:50 | XMS_ITS | Continuity of Care Document ---
Author Organization [facility] Address [address] [place] [address] [place] [address] Phone Care Team Providers Care Manager Database Name Role Phone Jem Quintero MD Unavailable [...] Diagnoses Date Provider Providers Copied on Encounter [facility], [address] [place], [place], [address], [place] tel:[phone] [facility] Medicine No Information 1 Leon Eaton [address], [address], [place], [address] , [place]. [phone] [facility], [address], [address], [place] tel:[phone] [facility] No Information 0 Leon Eaton [address], [address], [place], [address] , [place]. tel:[phone] Referring Provider: Suad Javier [facility] [place], [address]. tel:[phone] OFFICE/OUTPA TIENT VISIT, [facility], [place], [address], [place], [place], [address], [place] tel:[phone] [facility] fall (chief complaint) dizziness (chief complaint) aflutter (chief complaint) proteinuri a1 (chief complaint) HematuriaEdemaAtria l fibrillationRepeate d falls 0 Leon Parish. [address], [address], [place], [place], [address] , [place]. tel:[phone] Referring Provider: eJm Quintero [address], [place], [place], [address]. tel:[phone] [facility], [address], [place], [place], [address], [place] tel:[phone] [facility] No Information 0 Leon Parish. [address], [address], [place], [place], [address] , [place]. tel:[phone] [facility], [address], [place], [place], [address], [place] tel:[phone] [facility] No Information 9 Leon Parish. [address], [address], [place], [place], [address] , [place]. tel:[phone] OFFICE/OUTPA TIENT VISIT, [facility], [place], [address], [place], [place], [address], [place] tel:[phone] [facility] rash1 (chief complaint) edema1 (chief complaint) weight loss1 (chief complaint) fall (chief complaint) Repeated fallsAbnormal weight lossEdemaTinea corporisHematuria 9 Leon Parish. [address], [address], [place], [place], [address] , [place]. tel:[phone] Referring Provider: Suad Javier [address], [place], [place], [address]. tel:[phone] OFFICE/OUTPA TIENT VISIT, [facility], [place], [address], [place], [place], [address], [place] tel:[phone] [facility] Medicine PHysical (chief complaint) Encounter for general adult medical exam w abnormal findingsAtrial fibrillationEssenti al (primary) hypertensionHematur iaType 2 diabetes mellitus without complicationsEncntr for general adult medical exam w/o abnormal findings Oct-0 9 Leon Parish. [address], [address], [place], [place], [address] , [place]. tel:[phone] Referring Provider: Suad Javier [address], [place], [place], [address]. tel:[phone] OFFICE/OUTPA TIENT VISIT, [facility], [place], [address], [place], [place], [address], [place] tel:[phone] [facility] Afib (chief complaint) Atrial fibrillationType 2 diabetes mellitus w/ diabetic neuropathyRepeated fallsTransient cerebral ischemic attack 8 Leon Parish. [address], [address], [place], [place], [address] , [place]. tel:[phone] Referring Provider: Suad Javier [address], [place], [place], [address]. tel:[phone] OFFICE/OUTPA TIENT VISIT, [facility], [place], [address], [place], [place], [address], [place] tel:[phone] [facility] mental status change (chief complaint) tremor1 (chief complaint) Altered mental statusTremorAtrial fibrillationAbnorma l weight gainEssential (primary) hypertension 8 Leon Parish. [address], [address], [place], [place], [address] , [place]. tel:[phone] Referring Provider: Suad Javier [address], [place], [place], [address]. tel:[phone] OFFICE/OUTPA TIENT VISIT, [facility], [place], [address], [place], [place], [address], [place] tel:[phone] [facility] fall (chief complaint) edema1 (chief complaint) hematuria1 (chief complaint) anemia1 (chief complaint) HematuriaAtrial fibrillationRepeate d fallsEdemaBody mass index (BMI) 45.0-49.9, adultAnemia 8 Leon Eaton [address], [address], [place], [place], [address] , [place]. tel:[phone] Referring Provider: Suad Javier [address], [place], [place], [address]. tel:[phone] OFFICE/OUTPA TIENT VISIT, [facility], [place], [address], [place], [place], [address], [place] tel:[phone] [facility] DM (chief complaint) heamturai1 (chief complaint) HLP (chief complaint) edema1 (chief complaint) afib1 (chief complaint) Encounter for general adult medical exam w abnormal findingsType 2 diabetes mellitus with diabetic nephropathyHematuri aAtrial fibrillation 8 Leon Eaton [address], [address], [place], [place], [address] , [place]. [phone] Referring Provider: Suad Javier [address], [place], [place], [address]. tel:[phone] OFFICE/OUTPA TIENT VISIT, [facility], [place], [address] [place], [place], [address], [place] tel:[phone] [facility] Medicine Afib (chief complaint) DM (chief complaint) HTN (chief complaint) anxiety1 (chief complaint) Atrial fibrillationType 2 diabetes mellitus without complicationsEssent ial (primary) hypertension 8 Leon Eaton [address], [address], [place], [place], [address] , [place]. tel:[phone] OFFICE/OUTPA TIENT VISIT, [facility], [place], [address], [place], [place], [address], [place] tel:[phone] [facility] edema1 (chief complaint) HTN (chief complaint) BM (chief complaint) DM (chief complaint) Essential (primary) hypertensionAtrial fibrillationType 2 diabetes mellitus without complicationsEdema 7 Leon Parish. [address], [place], [place], [address] , [place]. tel:[phone] Referring Provider: Suad Jaiver [address], [place], [place], [address]. tel:[phone] OFFICE/OUTPA TIENT VISIT, [facility], [place], [address], [place], [place], [address], [place] tel:[phone] [facility] HTN (chief complaint) flu (chief complaint) Afib (chief complaint) edema1 (chief complaint) Atrial fibrillationEssenti al (primary) hypertensionInfluen zaEdema 7 Leon Eaton [address], [address], [place], [address] , [place]. tel:[phone] Referring Provider: Suad Javier [address], [place], [place], [address]. tel:[phone] OFFICE/OUTPA TIENT VISIT, [facility], [place], [address], [place], [place], [address], [place] tel:[phone] [facility] DM (chief complaint) HLP (chief complaint) anemia1 (chief complaint) bowel movement (chief complaint) Type 2 diabetes mellitus without complicationsAnemia HyperlipidemiaProte inuria 6 Leon Parish. [address], [address], [place], [place], [address] , [place]. tel:[phone] Referring Provider: Suad Javier [address], [place], [place], [address]. tel:[phone] OFFICE/OUTPA TIENT VISIT, [facility], [place], [address], [place], [place], [address], [place] tel:[phone] [facility] htn (chief complaint) afib (chief complaint) edema1 (chief complaint) DM (chief complaint) EdemaEssential (primary) hypertensionType 2 diabetes mellitus without complicationsAtrial fibrillation 6 Leon Parish. [address], [address], [place], [place], [address] , [place]. tel:[phone] Referring Provider: Suad Javier [address], [place], [place], [address]. tel:[phone] OFFICE/OUTPA TIENT VISIT, [facility], [place], [address], [place], [place], [address], [place] tel:[phone] [facility] HTN (chief complaint) DM (chief complaint) nose lesion (chief complaint) edema (chief complaint) Essential (primary) hypertensionAtrial fibrillationEdemaRa 6 Leon Parish. [address], [place], [place], [address] , [place]. tel:[phone] Referring Provider: Suad Javier [address], [place], [place], [address]. tel:[phone] OFFICE/OUTPA TIENT VISIT, [facility], [place], [address], [place], [place], [address], [place] tel:[phone] [facility] BM (chief complaint) Afib (chief complaint) Diarrhea, unspecifiedAtrial fibrillation 6 Leon Parish. [address], [place], [place], [address] , [place]. [phone] Referring Provider: Suad Javier [address], [place], [place], [address]. tel:[phone] OFFICE/OUTPA TIENT VISIT, [facility], [place], [address], [place], [place], [address], [place] tel:[phone] [facility] HTN (chief complaint) aflutter (chief complaint) dizziness (chief complaint) DM (chief complaint) UTI1 (chief complaint) Essential (primary) hypertensionType 2 diabetes mellitus without complicationsUrinar y tract infectionHyperlipid emia 6 Leon Parish. [address], [address], [place], [place], [address] , [place]. [phone] Referring Provider: Suad Javier [place], [address]. tel:[phone] OFFICE/OUTPA TIENT VISIT, [facility], [place], [address], [place], [address], [phone] [facility] rash1 (chief complaint) bowel movement (chief complaint) Afib1 (chief complaint) Unspecified atrial fibrillationRashCha nge in bowel habit 6 Leon Parish. [address] [facility] [place], [address] , [place]. [phone] Referring Provider: Suad Javier [place], [place], [address]. tel:[phone] OFFICE/OUTPA TIENT VISIT, [facility], [address], [place], [address], [phone] [facility] HTN1 (chief complaint) DM1 (chief complaint) anxiety1 (chief complaint) Afib1 (chief complaint) hand numnbess1 (chief complaint) Type 2 diabetes mellitus without complicationsTremor Essential (primary) hypertensionAtrial fibrillation 5 Leon Parish. [address] [facility] [place], [address] , [place]. tel:[phone] Referring Provider: Suad Javier [place], [place], [address]. tel:[phone] Family History Family Member Type Diagnosis Age [...] Gomez [address] [place], [place] [phone] Ordered: Referrals: Allopathic & Osteopathic Physicians : [...] Gomez [address] [place], [place] [id number] Ordered: Referrals: Juan Alberto Gomez. 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 Pt has history [...] was deemed stable and was transferred to custodial. Pt has been at custodial since February. pt is eagerly hoping to return to [facility]. Pt has been doing PT and [...] Pt denies any polyuria, polydipisa. Pt sees dairy management specialist at [facility]. Pt denies any numnbness HTN Pt [...]
--- NOTE | 2024-10-29 18:17 | ED_ITS ---
HPI - Fall General Chief Complaint: Fall Stated Complaint: fall Time Seen by Provider: 10/29/24 17:09 History of Present Illness HPI Narrative: 84-year-old female with history of GERD, CHF, hypertension, AFib not on anticoagulants presents to the emergency department via EMS from [facility] with son at bedside for a ground level fall and head injury that occurred prior to arrival. Patient states she was ambulating with her walker to the bathroom when she tripped and fell backwards. Patient states she did hit her head but did not lose consciousness. EMS was contacted, help through off the ground and transported her here. She is reporting mild pain to her low back and to the right posterior hip, as well as achiness to the posterior scalp. She denies neck pain, chest wall pain, abdominal pain or other injuries acquired. She denies saddle anesthesia, bowel or bladder incontinence or urinary retention. Related Data Home Medications ?Medication ?Instructions ?Recorded ?Confirmed ?Last Taken ?Type metformin 1,000 mg tablet 1,000 mg PO BID 09/27/20 10/25/24 05/01/21 History metoprolol succinate 100 mg 100 mg PO DAILY 05/15/21 10/25/24 Unknown History tablet,extended release 24 hr citalopram 10 mg tablet 10 mg PO DAILY 05/15/22 10/25/24 Unknown History lisinopril 5 mg tablet 10 mg PO DAILY 05/15/22 10/25/24 Unknown History vitamin E (dl, acetate) 450 mg 450 mg PO DAILY 02/09/23 10/25/24 Unknown History (1,000 unit) capsule dulaglutide 0.75 mg/0.5 mL 0.75 mg subcut WEEKLY 09/05/24 10/25/24 Unknown History subcutaneous pen injector (Trulicity) calcium 500 mg tablet 500 mg PO DAILY 10/25/24 10/25/24 Unknown History cholecalciferol (vitamin D3) 25 25 mcg PO DAILY 10/25/24 10/25/24 Unknown History mcg (1,000 unit) capsule furosemide 20 mg tablet 40 mg PO QAM 10/25/24 10/25/24 Unknown History hydrocodone 5 mg-acetaminophen 325 1 tablet PO Q8H PRN pain 10/25/24 10/25/24 Unknown History mg tablet lidocaine 5 % topical patch 3 patch topical DAILY 10/25/24 10/25/24 Unknown History Allergies Allergy/AdvReac Type Severity Reaction Status Date / Time bisoprolol Allergy Intermediate unknown Verified 09/05/24 13:55 hydrochlorothiazide Allergy Intermediate unknown Verified 09/05/24 13:55 oxycodone Allergy Intermediate unknown Verified 09/05/24 13:55 Review of Systems Review of Systems: All systems reviewed & are unremarkable except as noted in HPI and below PMFSH Past Medical History Medical History Type II diabetes mellitus Macular degeneration Vitamin D deficiency Diabetic peripheral neuropathy History of CVA (cerebrovascular accident) Iron deficiency anemia Bilateral renal stones Cardiomyopathy Paroxysmal atrial flutter Not on anticoagulation due to fall rate Presence of IVC filter Osteoarthritis Elevated troponin GERD (gastroesophageal reflux disease) Hypertension Atrial fibrillation Hypercholesterolemia Mitral valve prolapse CHF (congestive heart failure) Echocardiogram 2016 demonstrated mild concentric left ventricular hypertrophy, [id number] global left ventricular systolic dysfunction with EF of 40-45. Repeat echocardiogram 2020 systolic function was difficult to assess due to a flutter with aberrancy, biatrial enlargement noted left greater than right Surgical History Surgical History History of total hysterectomy with bilateral salpingo-oophorectomy (BSO) History of total left knee replacement Status post cataract extraction of both eyes with insertion of intraocular lens S/P IVC filter History of esophageal surgery S/P excision of lipoma Hx of cholecystectomy History of appendectomy Family History Family History Mother Diabetes mellitus Father Diabetes mellitus Sibling Acute myocardial infarction Social History Social History Social History: She is and resides has [facility] assisted living. The patient has 5 children. 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 She is lifelong nonsmoker. She does not use any marijuana alcohol or illicit drugs. Code status: Full code Healthcare power of document review attorney: Sampson (son) Smoking status: Never smoker Second hand tobacco smoke exposure: Yes Alcohol intake: never Substance use: never Substance use type: does not use Do You Feel Safe in your Home?: Yes Lack of Transportation: No Lack of Food: Never True Current Housing: I Have Housing Concerned About Future Housing: No Difficulty Paying Gas/Electric Bills: No Difficulty Paying for Meds: No Currently Unemployed: No Education: Grade School Difficulty w/ Childcare or Family Care: No Gender identity (if verbalized by the patient): Female Spiritual care concerns: No Exam Narrative: GENERAL: Well-appearing, well-nourished, and in no acute distress. HEAD: Normocephalic, atraumatic. EYES: PERRLA and EOMI. ENT: Nares clear, no rhinorrhea or epistaxis. Mucous membranes moist. NECK: Supple. No midline cervical spinous tenderness, crepitus, step-offs or deformities BACK: No thoracic spinous tenderness crepitus, step-offs or deformities. Mild tenderness throughout the lumbar spine with no crepitus, step-offs or deformities, no overlying skin changes. Tenderness over the right SI joint and gluteus teetee with no overlying skin changes CHEST: Clear to auscultation. No respiratory distress. No tenderness to chest wall HEART: Regular rate and rhythm. No murmur heard. Normal peripheral pulses. ABDOMEN: Soft, nontender, nondistended, normal active bowel sounds. EXTREMITIES: Normal range of motion. No edema. No tenderness to BUE are BLE other than to the right glute as noted in back exam SKIN: Warm, dry, no rash. NEURO: No focal deficits. Alert and oriented x4. Sensation intact throughout. Cranial nerves 2-12 intact. Strength 5/5 in BUE and BLE Course Vital Signs Vital signs: Vital Signs Temperature 97.6 F 10/29/24 16:14 Pulse Rate 90 10/29/24 16:14 Respiratory Rate 16 10/29/24 16:14 Blood Pressure 140/67 10/29/24 16:14 Pulse Oximetry 96 10/29/24 16:14 Temperature 97.6 F 10/29/24 16:14 Pulse Rate 90 10/29/24 16:14 Respiratory Rate 16 10/29/24 16:14 Blood Pressure 140/67 10/29/24 16:14 Pulse Oximetry 96 10/29/24 16:14 MDM - Fall MDM Narrative Medical decision making narrative: 84-year-old female presents to the ED via EMS from [facility] with son at bedside for a mechanical GLF and head injury that occurred prior to arrival. Patient is not anticoagulated but does take daily baby aspirin. She did not lose consciousness. Triage vitals are stable. Patient is afebrile and nontoxic appearing resting comfortably and wheelchair. Exam is notable for the above. No focal neurologic deficits. CT brain shows no acute intracranial findings. CT lumbar and cervical spine shows no acute fractures or traumatic malalignment. X-ray of the right hip and pelvis show no acute fracture dislocations. Patient and family updated on results. Discussed ambulating slowly her walker and follow-up with PCP. Discussed strict ED return precautions. They are agreeable with the plan verbalized understanding. Discharged in stable condition Discharge Plan Discharge Clinical Impression: Closed head injury, Low back strain, Strain of right hip Patient Disposition: NH Senior Care/Asst Living Condition: Stable Instructions: Antibiotic Form, Head Injury (DC), Low Back Strain (ED) Additional Instructions: Your evaluated in the emergency department after a fall. The CT of your head, neck, back and x-ray of your right hip and pelvis show no acute findings. Please make sure your walking very slowly and always use your walker. Follow-up with your primary care provider. Return to the emergency department if you dev elop vision changes, focal numbness or weakness, confusion or loss of consciousness, seizure-like activity or other concerning symptoms. Patient Language: Maltese Prescriptions: No Action diltiazem HCl 360 mg capsule,extended release 24hr 360 mg PO DAILY Qty: 90 0RF Trulicity 0.75 mg/0.5 mL pen injector 0.75 mg subcut WEEKLY metformin 1,000 mg tablet 1,000 mg PO BID vitamin E (dl, acetate) 450 mg (1,000 unit) capsule 450 mg PO DAILY metoprolol succinate 100 mg Tablet Extended Release 24 Hr 100 mg PO DAILY citalopram 10 mg tablet 10 mg PO DAILY lisinopril 5 mg tablet 10 mg PO DAILY aspirin 81 mg capsule 81 mg PO DAILY Qty: 30 0RF naproxen [Naprosyn] 500 mg tablet 500 mg PO BID Qty: 20 0RF hydrocodone-acetaminophen 5-325 mg tablet 1 tablet PO Q8H PRN (Reason: pain) lidocaine 5 % adhesive patch,medicated 3 patch topical DAILY Rx Instructions: leave on most painful area for up to 12 hrs calcium 500 mg tablet 500 mg PO DAILY cholecalciferol (vitamin D3) 25 mcg (1,000 unit) capsule 25 mcg PO DAILY furosemide 20 mg tablet 40 mg PO QAM azithromycin [Zithromax] 250 mg tablet 250 mg PO DAILY 3 Days Qty: 3 0RF Rx Instructions: start on day 2 of therapy acetaminophen 500 mg tablet See Rx Instructions .ROUTE .COMPLEX Qty: 60 0RF Dose Instruction: TAKE 1 TABLET BY MOUTH EVERY 6 HOURS NEEDED FOR PAIN/ HEADACHE Rx Instructions: TAKE 1 TABLET BY MOUTH EVERY 6 HOURS NEEDED FOR PAIN/ HEADACHE meclizine 25 mg tablet See Rx Instructions .ROUTE .COMPLEX Qty: 30 0RF Dose Instruction: TAKE 1 TABLET BY MOUTH TWICE DAILY NEEDED FOR DIZZINESS Rx Instructions: TAKE 1 TABLET BY MOUTH TWICE DAILY NEEDED FOR DIZZINESS (DME) BD AutoShield Duo Pen Needle 30 gauge x 3/16 needle See Rx Instructions .ROUTE .COMPLEX Qty: 100 0RF Dose Instruction: PEN NEEDLE USED FOR SUB-Q INJECTION Rx Instructions: PEN NEEDLE USED FOR SUB-Q INJECTION (DME) OneTouch Ultra Test Strip See Rx Instructions .Route Qty: 100 5RF Rx Instructions: Testing BID. DX: E11.9 Follow-up/Referrals: Dayton Jones DO [Primary Care Provider] -
[2024-10-29 19:40] VITALS: BP 138/86; PULSE 72; RESP 15; O2SAT 95
== END 2024-10-29 19:42 ==
PROVIDERS: Emergency Provider Physician Assistant; PCP Family Medicine
DX: S09.90XA Unspecified injury of head, initial encounter (principal); S39.012A Strain of muscle, fascia and tendon of lower back, initial encounter; S73.101A Unspecified sprain of right hip, initial encounter; W18.30XA Fall on same level, unspecified, initial encounter; K21.9 Gastro-esophageal reflux disease without esophagitis; I50.9 Heart failure, unspecified; I11.0 Hypertensive heart disease with heart failure; I48.0 Paroxysmal atrial fibrillation; E78.00 Pure hypercholesterolemia, unspecified; Z96.652 Presence of left artificial knee joint
CPT/HCPCS: 70450; 72125; 72131; 73502; 99284

== ENCOUNTER 2024-11-22 17:38 | Emergency (ER) | payer OTHER, SELFPAY ==
--- NOTE | ~2024-11-22 | XR_ITS ---
XR chest 1V Ordering provider: Francesca Collins PA-C History: 84 years Female with . lower extremity edema, dizziness . Comparison: October 28, 2024 FINDINGS: MEDIASTINUM: The cardiac silhouette is moderately enlarged. Congestive marsha. LUNGS: No infiltrates, effusions or pneumothorax. Opacification the bilateral lower lobe area. Bilate ral interstitial thickening. OTHER: No free air under the diaphragm. Dextroscoliosis with degenerative spine. Bilateral shoulder osteoarthritic changes. IMPRESSION: Bibasilar atelectasis versus pneumonia. Underlying pulmonary edema is not excluded. Reviewed, dictated and finalized at location [facility]. IMPRESSION: Bibasilar atelectasis versus pneumonia. Underlying pulmonary edema is not exclu ded.
--- OUTSIDE RECORDS SUMMARY | 2024-11-22 17:40 | XMS_ITS | Continuity of Care Document ---
Author Organization [facility] Address [address] [place] [address] [place] [address] Phone Care Team Providers Care Equipment Records Supervisor Name Role Phone Jem Quintero MD Unavailable [...] Diagnoses Date Provider Providers Copied on Encounter [facility], [address], [address], [place] tel:[phone] [facility] Medicine No Information 1 Leon Eaton [address], [address], [address] , [place]. [phone] [facility], [address] [place], [address], [place] tel:[phone] [facility] No Information 0 Leon Mcmullen, [address], [address] , [place]. tel:[phone] Referring Provider: Suad Javier [address] [place], [place], [address]. tel:[phone] OFFICE/OUTPA TIENT VISIT, [facility], [address], [place], [place], [address], [place] tel:[phone] [facility] fall (chief complaint) dizziness (chief complaint) aflutter (chief complaint) proteinuri a1 (chief complaint) HematuriaEdemaAtria l fibrillationRepeate d falls 0 Leon Parish. [address], [address], [place], [place], [address] , [place]. tel:[phone] Referring Provider: Jem Quintero [address], [place], [place], [address]. tel:[phone] [facility], [address], [place], [place], [address], [place] tel:[phone] [facility] No Information 0 Leon Parish. [address], [address], [place], [place], [address] , [place]. tel:[phone] [facility], [address], [place], [place], [address], [place] tel:[phone] [facility] No Information 9 Leon Parish. [address], [address], [place], [place], [address] , [place]. tel:[phone] OFFICE/OUTPA TIENT VISIT, [facility], [address], [place], [place], [address], [place] tel:[phone] [facility] rash1 (chief complaint) edema1 (chief complaint) weight loss1 (chief complaint) fall (chief complaint) Repeated fallsAbnormal weight lossEdemaTinea corporisHematuria 9 Leon Parish. [address], [address], [place], [place], [address] , [place]. tel:[phone] Referring Provider: Suad Javier [address], [place], [place], [address]. tel:[phone] OFFICE/OUTPA TIENT VISIT, [facility], [address], [place], [place], [address], [place] tel:[phone] [facility] Medicine PHysical (chief complaint) Encounter for general adult medical exam w abnormal findingsAtrial fibrillationEssenti al (primary) hypertensionHematur iaType 2 diabetes mellitus without complicationsEncntr for general adult medical exam w/o abnormal findings Oct-0 9 Leon Parish. [address], [address], [place], [place], [address] , [place]. tel:[phone] Referring Provider: Suad Javier [address], [place], [place], [address]. tel:[phone] OFFICE/OUTPA TIENT VISIT, [facility], [address], [place], [place], [address], [place] tel:[phone] [facility] Afib (chief complaint) Atrial fibrillationType 2 diabetes mellitus w/ diabetic neuropathyRepeated fallsTransient cerebral ischemic attack 8 Leon Parish. [address], [place], [place], [address] , [place]. tel:[phone] Referring Provider: Suad Javier [address], [place], [place], [address]. tel:[phone] OFFICE/OUTPA TIENT VISIT, [facility], [address], [place], [place], [address], [place] tel:[phone] [facility] mental status change (chief complaint) tremor1 (chief complaint) Altered mental statusTremorAtrial fibrillationAbnorma l weight gainEssential (primary) hypertension 8 Leon Parish. [address], [address], [place], [place], [address] , [place]. tel:[phone] Referring Provider: Suad Javier [address], [place], [place], [address]. tel:[phone] OFFICE/OUTPA TIENT VISIT, [facility], [address], [place], [place], [address], [place] tel:[phone] [facility] fall (chief complaint) edema1 (chief complaint) hematuria1 (chief complaint) anemia1 (chief complaint) HematuriaAtrial fibrillationRepeate d fallsEdemaBody mass index (BMI) 45.0-49.9, adultAnemia 8 Leon Eaton [address], [address], [place], [place], [address] , [place]. tel:[phone] Referring Provider: Suad Javier [address], [place], [place], [address]. tel:[phone] OFFICE/OUTPA TIENT VISIT, [facility], [address], [place], [place], [address], [place] tel:[phone] [facility] DM (chief complaint) heamturai1 (chief complaint) HLP (chief complaint) edema1 (chief complaint) afib1 (chief complaint) Encounter for general adult medical exam w abnormal findingsType 2 diabetes mellitus with diabetic nephropathyHematuri aAtrial fibrillation 8 Leon Eaton [address], [address], [place], [place], [address] , [place]. [phone] Referring Provider: Suad Javier [address], [place], [place], [address]. tel:[phone] OFFICE/OUTPA TIENT VISIT, [facility], [address], [address], [place] tel:[phone] [facility] Afib (chief complaint) DM (chief complaint) HTN (chief complaint) anxiety1 (chief complaint) Atrial fibrillationType 2 diabetes mellitus without complicationsEssent ial (primary) hypertension 8 Leon Eaton [address], [address], [place], [place], [address] , [place]. tel:[phone] OFFICE/OUTPA TIENT VISIT, [facility], [address], [place], [place], [address], [place] tel:[phone] [facility] edema1 (chief complaint) HTN (chief complaint) BM (chief complaint) DM (chief complaint) Essential (primary) hypertensionAtrial fibrillationType 2 diabetes mellitus without complicationsEdema 7 Leon Parish. [address], [place], [place], [address] , [place]. tel:[phone] Referring Provider: Suad Javier [address], [place], [place], [address]. tel:[phone] OFFICE/OUTPA TIENT VISIT, [facility], [address], [place], [place], [address], [place] tel:[phone] [facility] HTN (chief complaint) flu (chief complaint) Afib (chief complaint) edema1 (chief complaint) Atrial fibrillationEssenti al (primary) hypertensionInfluen zaEdema 7 Leon Eaton [address], [place], [place], [address] , [place]. tel:[phone] Referring Provider: Suad Javier [address], [place], [place], [address]. tel:[phone] OFFICE/OUTPA TIENT VISIT, [facility], [address], [place], [place], [address], [place] tel:[phone] [facility] DM (chief complaint) HLP (chief complaint) anemia1 (chief complaint) bowel movement (chief complaint) Type 2 diabetes mellitus without complicationsAnemia HyperlipidemiaProte inuria 6 Leon Parish. [address], [place], [place], [address] , [place]. tel:[phone] Referring Provider: Suad Javier [address], [place], [place], [address]. tel:[phone] OFFICE/OUTPA TIENT VISIT, [facility], [address], [place], [place], [address], [place] tel:[phone] [facility] htn (chief complaint) afib (chief complaint) edema1 (chief complaint) DM (chief complaint) EdemaEssential (primary) hypertensionType 2 diabetes mellitus without complicationsAtrial fibrillation 6 Leon Parish. [address], [place], [place], [address] , [place]. tel:[phone] Referring Provider: Suad Javier [address], [place], [place], [address]. tel:[phone] OFFICE/OUTPA TIENT VISIT, [facility], [address], [place], [place], [address], [place] tel:[phone] [facility] HTN (chief complaint) DM (chief complaint) nose lesion (chief complaint) edema (chief complaint) Essential (primary) hypertensionAtrial fibrillationEdemaRa 6 Leon Parish. [address], [place], [place], [address] , [place]. tel:[phone] Referring Provider: Suad Javier [address], [place], [place], [address]. tel:[phone] OFFICE/OUTPA TIENT VISIT, [facility], [address], [place], [address], [place] tel:[phone] [facility] BM (chief complaint) Afib (chief complaint) Diarrhea, unspecifiedAtrial fibrillation 6 Leon Parish. [address], [place], [place], [address] , [place]. [phone] Referring Provider: Suad Javier [address], [place], [place], [address]. tel:[phone] OFFICE/OUTPA TIENT VISIT, [facility], [address], [place], [place], [address], [place] tel:[phone] [facility] HTN (chief complaint) aflutter (chief complaint) dizziness (chief complaint) DM (chief complaint) UTI1 (chief complaint) Essential (primary) hypertensionType 2 diabetes mellitus without complicationsUrinar y tract infectionHyperlipid emia 6 Leon Parish. [address], [place], [place], [address] , [place]. [phone] Referring Provider: Suad Javier [place], [address]. tel:[phone] OFFICE/OUTPA TIENT VISIT, [facility], [address], [address], [phone] [facility] rash1 (chief complaint) bowel movement (chief complaint) Afib1 (chief complaint) Unspecified atrial fibrillationRashCha nge in bowel habit 6 Leon Parish. [address] [facility] [place], [address] , [place]. [phone] Referring Provider: Suad Javier [place], [address]. tel:[phone] OFFICE/OUTPA TIENT VISIT, [facility], [address], [address], [phone] [facility] HTN1 (chief complaint) DM1 (chief complaint) anxiety1 (chief complaint) Afib1 (chief complaint) hand numnbess1 (chief complaint) Type 2 diabetes mellitus without complicationsTremor Essential (primary) hypertensionAtrial fibrillation 5 Leon Parish. [address] [facility] [place], [address] , [place]. [phone] Referring Provider: Suad Javier [place], [place], [address]. tel:[phone] Family History Family Member Type Diagnosis Age At Onset Father Problem (finding) of old age (Cause Of ) 81 Father Problem (finding) of old age (Cause Of ) 85 Payers Payer name Insurance type Covered alliance party ID Authoriza tion(s) No Information Social [...] Gomez [address] [place], [place] [id number] Ordered: Referrals: Allopathic & Osteopathic Physicians : [...] Gomez [address] [place], [place] [id number] Ordered: Referrals: Juan Alberto Gomez. 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 Pt has history [...] was deemed stable and was transferred to skilled nursing. Pt has been at skilled nursing since February. pt is eagerly hoping to return to [facility]. Pt has been doing PT and [...] Pt denies any polyuria, polydipisa. Pt sees polytechnic registrar at [facility]. Pt denies any numnbness HTN [...] activity Relat ed to Atrial fibrillation Prescribed Diet Educ ation/Lifestyle Education Regarding Diet [...]
--- OUTSIDE RECORDS SUMMARY | 2024-11-22 17:40 | XMS_ITS | CONTINUITY OF CARE DOCUMENT ---
Author Name viji hallman Address Unknown Organization [facility] Address [address] [place] [address] [address] [place] [address] Phone [phone] Care Team Providers Care Rivet Spinner Name Role Phone viji hallman Unavailable Unavailable INSURANCE PROVIDERS Payer name Policy type / Coverage type [place] red republican ID HEALTHCARE AND FAMILY SERVICES Medicaid 0 [id number] [place] [employer] Medicare [id number]
[2024-11-22 17:44] VITALS: BP 149/72; PULSE 72; RESP 18; O2SAT 95
--- NOTE | 2024-11-22 18:23 | ED.LOWEXIN ---
HPI - Extremity Injury (Lower) General Chief Complaint: Extremity Injury, Lower <Francesca Collins PA-C - Last Filed: 11/22/24 23:04> Stated Complaint: LLE edema, weakness <Francesca Collins PA-C - Last Filed: 11/22/24 23:04> Time Seen by Provider: 11/22/24 18:23 <Francesca Collins PA-C - Last Filed: 11/22/24 23:04> Focused HPI: This is a 84 year old female that presents to the ER for generalized weakness. Reports she was at dinner and tried to get up and felt dizzy, weak. Denies current chest pain, shortness of breath. GENERAL: Elderly, well-nourished, and in no acute distress. HEAD: Normocephalic, atraumatic. CHEST: Clear to auscultation. No respiratory distress. HEART: Regular rate and rhythm. NEURO: Alert and oriented x3. Patient screened in triage and initial orders placed. Additional care and disposition to be based upon diagnostic testing and treatment. <Francesca Collins PA-C - Last Filed: 11/22/24 23:04> History of Present Illness HPI Narrative: Patient tells me that her PCP decreased her dose of lasix from 40mg to 20mg because she was going to bathroom often; she thinks since then her legs have gotten more swollen. No trouble breathing. <Lazara Ball MD - Last Filed: 11/22/24 22:20> Related Data Home Medications: Home Medications Medication Instructions Recorded Confirmed Last Taken Type metformin 1,000 mg tablet 1,000 mg PO BID 09/27/20 10/25/24 05/01/21 History metoprolol succinate 100 mg 100 mg PO DAILY 05/15/21 10/25/24 Unknown History tablet,extended release 24 hr citalopram 10 mg tablet 10 mg PO DAILY 05/15/22 10/25/24 Unknown History lisinopril 5 mg tablet 10 mg PO DAILY 05/15/22 10/25/24 Unknown History vitamin E (dl, acetate) 450 mg 450 mg PO DAILY 02/09/23 10/25/24 Unknown History (1,000 unit) capsule dulaglutide 0.75 mg/0.5 mL 0.75 mg subcut WEEKLY 09/05/24 10/25/24 Unknown History subcutaneous pen injector (Trulicity) calcium 500 mg tablet 500 mg PO DAILY 10/25/24 10/25/24 Unknown History cholecalciferol (vitamin D3) 25 25 mcg PO DAILY 10/25/24 10/25/24 Unknown History mcg (1,000 unit) capsule furosemide 20 mg tablet 40 mg PO QAM 10/25/24 10/25/24 Unknown History hydrocodone 5 mg-acetaminophen 325 1 tablet PO Q8H PRN pain 10/25/24 10/25/24 Unknown History mg tablet lidocaine 5 % topical patch 3 patch topical DAILY 10/25/24 10/25/24 Unknown History <Francesca Collins PA-C - Last Filed: 11/22/24 23:04> Allergies/Adverse Reactions: Allergies Allergy/AdvReac Type Severity Reaction Status Date / Time bisoprolol Allergy Intermediate unknown Verified 09/05/24 13:55 hydrochlorothiazide Allergy Intermediate unknown Verified 09/05/24 13:55 oxycodone Allergy Intermediate unknown Verified 09/05/24 13:55 <Francesca Collins PA-C - Last Filed: 11/22/24 23:04> Review of Systems Review of Systems: All systems reviewed & are unremarkable except as noted in HPI and below <Francesca Collins PA-C - Last Filed: 11/22/24 23:04> [facility] Past Medical History Medical History: Medical History Type II diabetes mellitus Macular degeneration Vitamin D deficiency Diabetic peripheral neuropathy History of CVA (cerebrovascular accident) Iron deficiency anemia Bilateral renal stones Cardiomyopathy Paroxysmal atrial flutter Not on anticoagulation due to fall rate Presence of IVC filter Osteoarthritis Elevated troponin GERD (gastroesophageal reflux disease) Hypertension Atrial fibrillation Hypercholesterolemia Mitral valve prolapse CHF (congestive heart failure) Echocardiogram 2016 demonstrated mild concentric left ventricular hypertrophy, [id number] global left ventricular systolic dysfunction with EF of 40-45. Repeat echocardiogram 2020 systolic function was difficult to assess due to a flutter with aberrancy, biatrial enlargement noted left greater than right <Francesca Collins PA-C - Last Filed: 11/22/24 23:04> Surgical History Surgical History: Surgical History History of total hysterectomy with bilateral salpingo-oophorectomy (BSO) History of total left knee replacement Status post cataract extraction of both eyes with insertion of intraocular lens S/P IVC filter History of esophageal surgery S/P excision of lipoma Hx of cholecystectomy History of appendectomy <Francesca Collins PA-C - Last Filed: 11/22/24 23:04> Family History Family History: Family History Mother Diabetes mellitus Father Diabetes mellitus Sibling Acute myocardial infarction <Francesca Collins PA-C - Last Filed: 11/22/24 23:04> Social History Social History: Social History Social History: She is and resides has [facility] assisted living. The patient has 5 children. 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 She is lifelong nonsmoker. She does not use any marijuana alcohol or illicit drugs. Code status: Full code Healthcare power of food server: Sampson (son) Smoking status: Never smoker Second hand tobacco smoke exposure: Yes Alcohol intake: never Substance use: never Substance use type: does not use Do You Feel Safe in your Home?: Yes Lack of Transportation: No Lack of Food: Never True Current Housing: I Have Housing Concerned About Future Housing: No Difficulty Paying Gas/Electric Bills: No Difficulty Paying for Meds: No Currently Unemployed: No Education: Grade School Difficulty w/ Childcare or Family Care: No Gender identity (if verbalized by the patient): Female Spiritual care concerns: No <Francesca Collins PA-C - Last Filed: 11/22/24 23:04> Course Vital Signs Vital signs: Vital Signs Pulse Rate 72 11/22/24 17:44 Respiratory Rate 18 11/22/24 17:44 Blood Pressure 149/72 H 11/22/24 17:44 Pulse Oximetry 95 11/22/24 17:44 Oxygen Delivery Room Air 11/22/24 17:44 Temperature 98.7 F 11/22/24 21:52 Pulse Rate 90 11/22/24 21:52 Respiratory Rate 20 11/22/24 21:52 Blood Pressure 158/94 H 11/22/24 21:52 Pulse Oximetry 98 11/22/24 21:52 Oxygen Delivery Room Air 11/22/24 21:52 <Francesca Collins PA-C - Last Filed: 11/22/24 23:04> Vital Signs Pulse Rate 72 11/22/24 17:44 Respiratory Rate 18 11/22/24 17:44 Blood Pressure 149/72 H 11/22/24 17:44 Pulse Oximetry 95 11/22/24 17:44 Oxygen Delivery Room Air 11/22/24 17:44 Temperature 98.7 F 11/22/24 21:52 Pulse Rate 90 11/22/24 21:52 Respiratory Rate 20 11/22/24 21:52 Blood Pressure 158/94 H 11/22/24 21:52 Pulse Oximetry 98 11/22/24 21:52 Oxygen Delivery Room Air 11/22/24 21:52 <Lazara Ball MD - Last Filed: 11/22/24 22:20> MDM - Extremity Injury (Lower) MDM Narrative Medical decision making narrative: Patient tells me that her PCP decreased her dose of lasix from 40mg to 20mg because she was going to bathroom often; she thinks since then her legs have gotten more swollen. No trouble breathing. CXR here showing some atelectasis vs pulm edema; she has no cough or KEELY or fever for me to consider PNA. I did order labs and EKG the patient declined all of this, as well as the IV dose of Lasix, she does not want to be stuck or have blood work done, she just wants to get her Lasix and go home. Son at bedside also agreeable with this plan. I let her know she can always return if anything changes or worsens. She will follow-up with her primary care doctor. Vital signs are completely normal she is in no distress and denies any complaints at this time. <Lazara Ball MD - Last Filed: 11/22/24 22:20> Lab Data Labs: Lab Results 11/22/24 Range/Units 19:51 Urine Color Yellow (Yellow) Urine Appearance Clear (Clear) Urine pH 5.5 (5.0-9.0) Ur Specific Fence 1.018 (1.001-1.035) Urine Protein 1+ H (Negative) mg/dL Urine Glucose (UA) Negative (Negative) mg/dL Urine Ketones Negative (Negative) mg/dL Ur Blood (Man) Negative (Negative) Urine Nitrate Negative (Negative) Urine Bilirubin Negative (Negative) Urine Urobilinogen 0.2 (<2.0) mg/dL Leukocyte Esterase Rfl Trace H (Negative) JC/UL Urine RBC 0-2 (0-2) /hpf Urine WBC 0-5 (0-3) /hpf Ur Squamous Epith Cells None seen (Few) /hpf Urine Bacteria None seen /hpf Urine Casts 0-2 <Francesca Collins PA-C - Last Filed: 11/22/24 23:04> Lab Results 11/22/24 Range/Units 19:51 Urine Color Yellow (Yellow) Urine Appearance Clear (Clear) Urine pH 5.5 (5.0-9.0) Ur Specific Fence 1.018 (1.001-1.035) Urine Protein 1+ H (Negative) mg/dL Urine Glucose (UA) Negative (Negative) mg/dL Urine Ketones Negative (Negative) mg/dL Ur Blood (Man) Negative (Negative) Urine Nitrate Negative (Negative) Urine Bilirubin Negative (Negative) Urine Urobilinogen 0.2 (<2.0) mg/dL Leukocyte Esterase Rfl Trace H (Negative) JC/UL Urine RBC 0-2 (0-2) /hpf Urine WBC 0-5 (0-3) /hpf Ur Squamous Epith Cells None seen (Few) /hpf Urine Bacteria None seen /hpf Urine Casts 0-2 <Lazara Ball MD - Last Filed: 11/22/24 22:20> Discharge Plan Discharge Clinical Impression: Fluid overload Qualifiers: Hypervolemia type: unspecified Qualified Code(s): E87.70 - Fluid overload, unspecified <Francesca Collins PA-C - Last Filed: 11/22/24 23:04> Patient Disposition: NH Intermediate/Asst Living <Francesca Collins PA-C - Last Filed: 11/22/24 23:04> Condition: Stable <Francesca Collins PA-C - Last Filed: 11/22/24 23:04> Instructions: Leg Edema (ED) <Francesca Collins PA-C - Last Filed: 11/22/24 23:04> Additional Instructions: Please follow up with your doctor; you can always return for any further issues. You can start taking dose of Lasix as prescribed. <Francesca Collins PA-C - Last Filed: 11/22/24 23:04> Patient Language: French <Francesca Collins PA-C - Last Filed: 11/22/24 23:04> Prescriptions: New furosemide [Lasix] 40 mg tablet 40 mg PO DAILY Qty: 30 0RF No Action diltiazem HCl 360 mg capsule,extended release 24hr 360 mg PO DAILY Qty: 90 0RF Trulicity 0.75 mg/0.5 mL pen injector 0.75 mg subcut WEEKLY metformin 1,000 mg tablet 1,000 mg PO BID vitamin E (dl, acetate) 450 mg (1,000 unit) capsule 450 mg PO DAILY metoprolol succinate 100 mg Tablet Extended Release 24 Hr 100 mg PO DAILY citalopram 10 mg tablet 10 mg PO DAILY lisinopril 5 mg tablet 10 mg PO DAILY aspirin 81 mg capsule 81 mg PO DAILY Qty: 30 0RF naproxen [Naprosyn] 500 mg tablet 500 mg PO BID Qty: 20 0RF hydrocodone-acetaminophen 5-325 mg tablet 1 tablet PO Q8H PRN (Reason: pain) lidocaine 5 % adhesive patch,medicated 3 patch topical DAILY Rx Instructions: leave on most painful area for up to 12 hrs calcium 500 mg tablet 500 mg PO DAILY cholecalciferol (vitamin D3) 25 mcg (1,000 unit) capsule 25 mcg PO DAILY furosemide 20 mg tablet 40 mg PO QAM azithromycin [Zithromax] 250 mg tablet 250 mg PO DAILY 3 Days Qty: 3 0RF Rx Instructions: start on day 2 of therapy acetaminophen 500 mg tablet See Rx Instructions .ROUTE .COMPLEX Qty: 60 0RF Dose Instruction: TAKE 1 TABLET BY MOUTH EVERY 6 HOURS NEEDED FOR PAIN/ HEADACHE Rx Instructions: TAKE 1 TABLET BY MOUTH EVERY 6 HOURS NEEDED FOR PAIN/ HEADACHE (DME) BD AutoShield Duo Pen Needle 30 gauge x 3/16 needle See Rx Instructions .ROUTE .COMPLEX Qty: 100 0RF Dose Instruction: PEN NEEDLE USED FOR SUB-Q INJECTION Rx Instructions: PEN NEEDLE USED FOR SUB-Q INJECTION (DME) OneTouch Ultra Test Strip See Rx Instructions .Route Qty: 100 5RF Rx Instructions: Testing BID. DX: E11.9 meclizine 25 mg tablet See Rx Instructions .ROUTE .COMPLEX Qty: 30 3RF Dose Instruction: TAKE 1 TABLET BY MOUTH TWICE DAILY NEEDED FOR DIZZINESS Rx Instructions: TAKE 1 TABLET BY MOUTH TWICE DAILY NEEDED FOR DIZZINESS <Francesca Collins PA-C - Last Filed: 11/22/24 23:04> Follow-up/Referrals: Dayton Jones DO [Primary Care Provider] - 2 Days <Francesca Collins PA-C - Last Filed: 11/22/24 23:04>
[2024-11-22 20:02] LABS: Add Urine Microscopic? YES; Appearance Urine Clear (Clear); Bacteria Urine None Seen /hpf; Bilirubin Urine Negative (Negative); Blood Urine Negative (Negative); Color Urine Yellow (Yellow); Glucose Urine UA Negative (Negative); Ketones Urine Negative (Negative); Leukocyte Esterase Ur Trace LEU/UL (Negative); Nitrate Urine Negative (Negative); Non Pathogenic Casts 0-2; Protein Urine 1+ mg/dL (Negative); RBC Urine 0-2 /hpf (0-2); Specific Grav Ur 1.018 (1.001-1.035); Squamous Epithelial Cell Urine None Seen /hpf (Few); Urobilinogen Urine 0.2 mg/dL (<2.0); WBC Urine 0-5 /hpf (0-3); pH Urine 5.5 (5.0-9.0)
--- OUTSIDE RECORDS SUMMARY | 2024-11-22 21:25 | XMS_ITS | CONTINUITY OF CARE DOCUMENT ---
Author Name viji hallman Address Unknown Organization [facility] Address [address] [place] [address] [address] [place] [address] Phone [phone] Care Team Providers Care Assembler [employer] Name Role Phone viji hallman Unavailable Unavailable INSURANCE PROVIDERS Payer name Policy type / Coverage type [place] red constitution party ID HEALTHCARE AND FAMILY SERVICES Medicaid 0 [id number] [place] [employer] Medicare [id number]
--- OUTSIDE RECORDS SUMMARY | 2024-11-22 21:25 | XMS_ITS | Continuity of Care Document ---
Author Organization [facility] Address [address] [place] [address] [place] [address] Phone Care Team Providers Care Waffle Machine Operator Name Role Phone Jem Quintero MD Unavailable [...] Diagnoses Date Provider Providers Copied on Encounter [facility], [address] [place], [place], [address], [place] tel:[phone] [facility] No Information 1 Leon Eaton [address], [address] [place], [address] , [place]. [phone] [facility], [address] [place] [address], [place] tel:[phone] [facility] No Information 0 Leon Eaton [address], [address] [place], [address] , [place]. tel:[phone] Referring Provider: Suad Javier [facility] [place], [address]. tel:[phone] OFFICE/OUTPA TIENT VISIT, [facility], [address], [place], [place], [address], [place] tel:[phone] [facility] fall (chief complaint) dizziness (chief complaint) aflutter (chief complaint) proteinuri a1 (chief complaint) HematuriaEdemaAtria l fibrillationRepeate d falls 0 Leon Parish. [address], [place], [place], [address] , [place]. tel:[phone] Referring Provider: Jem Quintero [address], [place], [place], [address]. tel:[phone] [facility], [address], [place], [place], [address], [place] tel:[phone] [facility] No Information 0 Leon Parish. [address], [place], [place], [address] , [place]. tel:[phone] [facility], [address], [place], [place], [address], [place] tel:[phone] [facility] No Information 9 Leon Parish. [address], [place], [place], [address] , [place]. tel:[phone] OFFICE/OUTPA TIENT VISIT, [facility], [address], [place], [place], [address], [place] tel:[phone] [facility] rash1 (chief complaint) edema1 (chief complaint) weight loss1 (chief complaint) fall (chief complaint) Repeated fallsAbnormal weight lossEdemaTinea corporisHematuria 9 Leon Parish. [address], [place], [place], [address] , [place]. tel:[phone] Referring Provider: Suad Javier [address], [place], [place], [address]. tel:[phone] OFFICE/OUTPA TIENT VISIT, [facility], [address], [place], [place], [address], [place] tel:[phone] [facility] PHysical (chief complaint) Encounter for general adult medical exam w abnormal findingsAtrial fibrillationEssenti al (primary) hypertensionHematur iaType 2 diabetes mellitus without complicationsEncntr for general adult medical exam w/o abnormal findings Oct-0 9 Leon Parish. [address], [place], [place], [address] , [place]. tel:[phone] Referring Provider: Suad Javier [address], [place], [place], [address]. tel:[phone] OFFICE/OUTPA TIENT VISIT, [facility], [address], [place], [place], [address], [place] tel:[phone] [facility] Afib (chief complaint) Atrial fibrillationType 2 diabetes mellitus w/ diabetic neuropathyRepeated fallsTransient cerebral ischemic attack 8 Leon Parish. [address], [place], [place], [address] , [place]. tel:[phone] Referring Provider: Suad Javier [address], [place], [place], [address]. tel:[phone] OFFICE/OUTPA TIENT VISIT, [facility], [address], [place], [place], [address], [place] tel:[phone] [facility] mental status change (chief complaint) tremor1 (chief complaint) Altered mental statusTremorAtrial fibrillationAbnorma l weight gainEssential (primary) hypertension 8 Leon Parish. [address], [place], [place], [address] , [place]. tel:[phone] Referring Provider: Suad Javier [address], [place], [place], [address]. tel:[phone] OFFICE/OUTPA TIENT VISIT, [facility], [address], [place], [place], [address], [place] tel:[phone] [facility] fall (chief complaint) edema1 (chief complaint) hematuria1 (chief complaint) anemia1 (chief complaint) HematuriaAtrial fibrillationRepeate d fallsEdemaBody mass index (BMI) 45.0-49.9, adultAnemia 8 Leon Eaton [address], [place], [place], [address] , [place]. tel:[phone] Referring Provider: Suad Javier [address], [place], [place], [address]. tel:[phone] OFFICE/OUTPA TIENT VISIT, [facility], [address], [place], [place], [address], [place] tel:[phone] [facility] DM (chief complaint) heamturai1 (chief complaint) HLP (chief complaint) edema1 (chief complaint) afib1 (chief complaint) Encounter for general adult medical exam w abnormal findingsType 2 diabetes mellitus with diabetic nephropathyHematuri aAtrial fibrillation 8 Leon Eaton [address], [address], [place], [place], [address] , [place]. [phone] Referring Provider: Suad Javier [address], [place], [place], [address]. tel:[phone] OFFICE/OUTPA TIENT VISIT, [facility], [address] [place], [address], [place] tel:[phone] [facility] Afib (chief complaint) DM (chief complaint) HTN (chief complaint) anxiety1 (chief complaint) Atrial fibrillationType 2 diabetes mellitus without complicationsEssent ial (primary) hypertension 8 Leon Eaton [address], [place], [place], [address] , [place]. tel:[phone] OFFICE/OUTPA TIENT VISIT, [facility], [address], [place], [place], [address], [place] tel:[phone] [facility] edema1 (chief complaint) HTN (chief complaint) BM (chief complaint) DM (chief complaint) Essential (primary) hypertensionAtrial fibrillationType 2 diabetes mellitus without complicationsEdema 7 Leon Parish. [address], [place], [place], [address] , [place]. tel:[phone] Referring Provider: Suad Javier [address], [place], [place], [address]. tel:[phone] OFFICE/OUTPA TIENT VISIT, [facility], [address], [place], [place], [address], [place] tel:[phone] [facility] HTN (chief complaint) flu (chief complaint) Afib (chief complaint) edema1 (chief complaint) Atrial fibrillationEssenti al (primary) hypertensionInfluen zaEdema 7 Leon Eaton [address], [place], [address] , [place]. tel:[phone] Referring Provider: Suad Javier [address], [place], [place], [address]. tel:[phone] OFFICE/OUTPA TIENT VISIT, [facility], [address], [place], [address], [place] tel:[phone] [facility] DM (chief complaint) HLP (chief complaint) anemia1 (chief complaint) bowel movement (chief complaint) Type 2 diabetes mellitus without complicationsAnemia HyperlipidemiaProte inuria 6 Leon Parish. [address], [place], [place], [address] , [place]. tel:[phone] Referring Provider: Suad Javier [address], [place], [place], [address]. tel:[phone] OFFICE/OUTPA TIENT VISIT, [facility], [address], [place], [place], [address], [place] tel:[phone] [facility] htn (chief complaint) afib (chief complaint) edema1 (chief complaint) DM (chief complaint) EdemaEssential (primary) hypertensionType 2 diabetes mellitus without complicationsAtrial fibrillation 6 Leon Parish. [address], [place], [place], [address] , [place]. tel:[phone] Referring Provider: Suad Javier [address], [place], [place], [address]. tel:[phone] OFFICE/OUTPA TIENT VISIT, [facility], [address], [place], [place], [address], [place] tel:[phone] [facility] HTN (chief complaint) DM (chief complaint) nose lesion (chief complaint) edema (chief complaint) Essential (primary) hypertensionAtrial fibrillationEdemaRa 6 Leon Parish. [address], [place], [place], [address] , [place]. tel:[phone] Referring Provider: Suad Javier [address], [place], [address]. tel:[phone] OFFICE/OUTPA TIENT VISIT, [facility], [address], [place], [place], [address], [place] tel:[phone] [facility] BM (chief complaint) Afib (chief complaint) Diarrhea, unspecifiedAtrial fibrillation 6 Leon Parish. [address], [place], [place], [address] , [place]. [phone] Referring Provider: Suad Javier [address], [place], [place], [address]. tel:[phone] OFFICE/OUTPA TIENT VISIT, [facility], [address], [place], [place], [address], [place] tel:[phone] [facility] HTN (chief complaint) aflutter (chief complaint) dizziness (chief complaint) DM (chief complaint) UTI1 (chief complaint) Essential (primary) hypertensionType 2 diabetes mellitus without complicationsUrinar y tract infectionHyperlipid emia 6 Leon Parish. [address], [place], [place], [address] , [place]. [phone] Referring Provider: Suad Javier [place], [address]. tel:[phone] OFFICE/OUTPA TIENT VISIT, [facility], [address], [address], [phone] [facility] rash1 (chief complaint) bowel movement (chief complaint) Afib1 (chief complaint) Unspecified atrial fibrillationRashCha nge in bowel habit 6 Leon Parish. [address] [facility] [place], [address] , [place]. [phone] Referring Provider: Suad Javier [place], [address]. tel:[phone] OFFICE/OUTPA TIENT VISIT, [facility], [place], [address], [address], [phone] [facility] HTN1 (chief complaint) DM1 (chief complaint) anxiety1 (chief complaint) Afib1 (chief complaint) hand numnbess1 (chief complaint) Type 2 diabetes mellitus without complicationsTremor Essential (primary) hypertensionAtrial fibrillation 5 Leon Parish. [address] [facility] [facility] [place], [address] , [place]. [phone] Referring Provider: Suad Javier [place], [address]. tel:[phone] Family History Family Member Type Diagnosis Age [...] Gomez [address] [place], [place] [id number] Ordered: Referrals: Allopathic & Osteopathic Physicians : [...] Gomez [address] [place], [place] [id number] Ordered: Referrals: Juan Alberto Gomez. 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 Pt has history [...] was deemed stable and was transferred to [facility]. Pt has been at [facility] since February. pt is eagerly hoping to return to [facility]. Pt has been doing PT and [...] Pt denies any polyuria, polydipisa. Pt sees sole polisher at [facility]. Pt denies any numnbness HTN Pt [...]
[2024-11-22 21:52] VITALS: BP 158/94; PULSE 90; RESP 20; TEMP 37.1; O2SAT 98
== END 2024-11-22 22:59 ==
PROVIDERS: Emergency Provider Emergency Medicine; PCP Family Medicine
DX: E87.70 Fluid overload, unspecified (principal); I42.9 Cardiomyopathy, unspecified; I48.92 Unspecified atrial flutter; I48.91 Unspecified atrial fibrillation; I34.1 Nonrheumatic mitral (valve) prolapse; I50.9 Heart failure, unspecified; I11.0 Hypertensive heart disease with heart failure; E11.42 Type 2 diabetes mellitus with diabetic polyneuropathy; E55.9 Vitamin D deficiency, unspecified; H35.30 Unspecified macular degeneration; D50.9 Iron deficiency anemia, unspecified; M19.90 Unspecified osteoarthritis, unspecified site; K21.9 Gastro-esophageal reflux disease without esophagitis; Z96.652 Presence of left artificial knee joint; Z96.1 Presence of intraocular lens; Z98.42 Cataract extraction status, left eye; Z98.41 Cataract extraction status, right eye; Z86.73 Personal history of transient ischemic attack (TIA), and cerebral infarction without residual deficits; Z87.442 Personal history of urinary calculi; Z90.49 Acquired absence of other specified parts of digestive tract; Z90.79 Acquired absence of other genital organ(s); Z90.722 Acquired absence of ovaries, bilateral; Z77.22 Contact with and (suspected) exposure to environmental tobacco smoke (acute) (chronic); Z79.84 Long term (current) use of oral hypoglycemic drugs; Z79.85 Long-term (current) use of injectable non-insulin antidiabetic drugs; Z79.82 Long term (current) use of aspirin; Z79.899 Other long term (current) drug therapy
CPT/HCPCS: 71045; 81001; 99283

== ENCOUNTER 2025-04-07 10:04 | Emergency (ER) | payer OTHER, SELFPAY ==
--- NOTE | 2025-04-07 10:09 | ED.EXTPRO ---
HPI - Extremity Problem General Chief complaint: Skin/Abscess/Foreign Body Stated complaint: Skin Irritation Time Seen by Provider: 04/07/25 10:05 Source: patient Mode of arrival: ambulatory Limitations: no limitations History of Present Illness HPI Narrative: Patient is a 84-year-old female who presents with right toe redness and swelling for 2 weeks. Patient lives in assisted living and is brought in by staff. Denies any fever, chills, nausea, vomiting, diarrhea. Patient reports tight shoes make pain worse, and she is supposed to be getting new shoes with a prescription. Patient is a diabetic. Related Data Home Medications ?Medication ?Instructions ?Recorded ?Confirmed ?Last Taken ?Type metformin 1,000 mg tablet 1,000 mg PO BID 09/27/20 03/13/25 05/01/21 History metoprolol succinate 100 mg 100 mg PO DAILY 05/15/21 03/13/25 Unknown History tablet,extended release 24 hr citalopram 10 mg tablet 10 mg PO DAILY 05/15/22 03/13/25 Unknown History lisinopril 5 mg tablet 10 mg PO DAILY 05/15/22 03/13/25 Unknown History vitamin E (dl, acetate) 450 mg 450 mg PO DAILY 02/09/23 03/13/25 Unknown History (1,000 unit) capsule dulaglutide 0.75 mg/0.5 mL 0.75 mg subcut WEEKLY 09/05/24 03/13/25 Unknown History subcutaneous pen injector (Trulicity) calcium 500 mg tablet 500 mg PO DAILY 10/25/24 03/13/25 Unknown History cholecalciferol (vitamin D3) 25 25 mcg PO DAILY 10/25/24 03/13/25 Unknown History mcg (1,000 unit) capsule hydrocodone 5 mg-acetaminophen 325 1 tablet PO Q8H PRN pain 10/25/24 03/13/25 Unknown History mg tablet lidocaine 5 % topical patch 3 patch topical DAILY 10/25/24 03/13/25 Unknown History furosemide 40 mg tablet (Lasix) 40 mg PO QAM 03/13/25 03/13/25 Unknown History Allergies Allergy/AdvReac Type Severity Reaction Status Date / Time bisoprolol Allergy Intermediate unknown Verified 04/07/25 10:35 hydrochlorothiazide Allergy Intermediate unknown Verified 04/07/25 10:35 oxycodone Allergy Intermediate unknown Verified 04/07/25 10:35 Review of Systems Review of Systems: All systems reviewed & are unremarkable except as noted in HPI and below Constitutional: Constitutional: Denies body ache(s), Denies chills, Denies fatigue, Denies fever(s), Denies headache(s), Denies malaise and Denies weakness Eyes: Eyes: Denies blurry vision, Denies irritation and Denies loss of vision ENT: Denies otalgia, Denies headache(s), Denies nasal discharge, Denies sinus pain and Denies sore throat Cardiovascular: Cardiovascular: Denies chest pain, Denies irregular heart rhythm and Denies dyspnea Respiratory: Respiratory: Denies dyspnea Gastrointestinal: Gastrointestinal: Denies abdominal pain, Denies melena, Denies hematochezia, Denies diarrhea, Denies nausea and Denies vomiting Musculoskeletal: Musculoskeletal: Denies back pain, Denies myalgias and Denies arthralgias Integumentary/Breasts: Skin/Breast: Denies pruritus, Reports erythema, Denies rash, Reports skin swelling and Reports wounds Neurologic: Denies headache(s), Denies loss of vision and Denies weakness Psychiatric: Psychiatric: Reports no additional psychiatric complaints Endocrine: Endocrine: Denies fatigue PMFSH Past Medical History Medical History Type II diabetes mellitus Macular degeneration Vitamin D deficiency Diabetic peripheral neuropathy History of CVA (cerebrovascular accident) Iron deficiency anemia Bilateral renal stones Cardiomyopathy Paroxysmal atrial flutter Not on anticoagulation due to fall rate Presence of IVC filter Osteoarthritis Elevated troponin GERD (gastroesophageal reflux disease) Hypertension Atrial fibrillation Hypercholesterolemia Mitral valve prolapse CHF (congestive heart failure) Echocardiogram 2016 demonstrated mild concentric left ventricular hypertrophy, [id number] global left ventricular systolic dysfunction with EF of 40-45. Repeat echocardiogram 2020 systolic function was difficult to assess due to a flutter with aberrancy, biatrial enlargement noted left greater than right Surgical History Surgical History History of total hysterectomy with bilateral salpingo-oophorectomy (BSO) History of total left knee replacement Status post cataract extraction of both eyes with insertion of intraocular lens S/P IVC filter History of esophageal surgery S/P excision of lipoma Hx of cholecystectomy History of appendectomy Family History Family History Mother Diabetes mellitus Father Diabetes mellitus Sibling Acute myocardial infarction Social History Social History Social History: She is and resides has [facility] assisted living. The patient has 5 children. 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 She is lifelong nonsmoker. She does not use any marijuana alcohol or illicit drugs. Code status: Full code Healthcare power of immigration attorney: Sampson (son) Smoking status: Never smoker Second hand tobacco smoke exposure: Yes Alcohol intake: never Substance use: never Substance use type: does not use Do You Feel Safe in your Home?: Yes Lack of Transportation: No Lack of Food: Never True Current Housing: I Have Housing Concerned About Future Housing: No Difficulty Paying Gas/Electric Bills: No Difficulty Paying for Meds: No Currently Unemployed: No Education: Grade School Difficulty w/ Childcare or Family Care: No Gender identity (if verbalized by the patient): Female Spiritual care concerns: No Comments At time of signature, agree with nursing past medical, surgical, social and family history. There is no relevant family history pertinent to the presenting complaint. Exam Const: General: cooperative, healthy appearing, comfortable, no acute distress and well nourished Nutritional Appearance: well nourished Orientation/consciousness: patient oriented x3 Limitations: no limitations HENMT: Head: normal to inspection, normocephalic and atraumatic Ears: hearing grossly normal bilaterally and external ears normal Face/Nose/Sinus: Normal external nose present, normal facial exam and face symmetric Face and sinus: normal facial exam and face symmetric Mouth: Yes lip normal Eyes: General: appearance normal, both eyes and all related structures Alignment and Position: alignment normal and position normal Periorbital: periorbital findings normal Eyelids: eyelids normal Pupils: Equal, round and reactive pupils present EOM: EOMs intact bilaterally Neck: Neck: normal visual inspection, full ROM and supple Chest: Chest palpation & inspection: normal inspection of the chest Resp: Effort & Inspection: normal respiratory effort and able to speak in complete sentences Auscultation: clear to auscultation bilaterally Cardio: Rate: regular rate Rhythm: regular rhythm Heart sounds: S1 normal heart sound present and S2 normal heart sound present GI: Inspection: normal to inspection Skin: General skin exam: normal color and no rashes or lesions noted Neuro: General: patient oriented x3 and moves all extremities Cranial nerves: Yes Equal, round and reactive pupils present Speech: normal speech Gait exam (Neuro): Normal gait present Extrem: General: normal to inspection, full ROM and no edema Right lower extremity: lower leg Details: erythema Location: of the distal lower leg Location: anteromedially; no unusual warmth, ankle Details: normal to inspection and normal ROM; no tenderness, no swelling and achilles tendon exam normal and foot Details: normal capillary refill, toes with normal ROM, warmth Location: of the great toe Location: along the entire digit, vascular exam Details: dorsalis pedis pulse present and normal capillary refill and other (erythema to entire first digit) Upper/lower leg/hip images:  1. Area of erythema but no warmth, mild swelling Ankle/foot/toe images:  1. Area of erythema, warmth and mild swelling. Not significantly tender to touch Psych: Appearance: grossly normal and well kempt Mental Status: mental status grossly normal Speech and movement: Normal speech and movement present Affect: normal affect Attitude: cooperative Thought process: Normal thought process present Course Course Emergency Course: Patient is aware of diagnosis, understands and agrees to treatment plan. Anticipatory guidance given. Patient agrees to follow-up as directed and is aware of reasons to seek care at the emergency department. Portions of this record may have been created with voice recognition software Level of Care: Express Care Visit Vital Signs Vital signs: Reviewed MDM - Extremity (Nontraumatic) MDM Narrative Medical decision making narrative: Pt well hydrated appearing, in no respiratory distress, hemodynamically stable. Recommend supportive care. The patient is stable at time of discharge the clinical impression was discussed and the patient was given the opportunity to ask questions, which were addressed as completely as possible given the information available at present. Anticipatory guidance and return to care precautions were discussed and the importance of primary care follow-up was stressed and encouraged. The patient voiced understanding of the plan, indications to return, and the need for follow-up. Exam findings show no acute concerns or changes Patient is appropriate for outpatient treatment and follow-up. Differential Diagnosis Differential diagnosis: Likely gout, cellulitis, superficial thrombophlebitis, lower extremity edema and deep vein thrombosis of lower extremity Discharge Plan Discharge Clinical Impression: Cellulitis Qualifiers: Site of cellulitis: extremity Site of cellulitis of extremity: lower extremity Laterality: right Qualified Code(s): L03.115 - Cellulitis of right lower limb Patient Disposition: Home Condition: Stable Instructions: Cellulitis (ED) Additional Instructions: Please follow up with your Primary Care Doctor within 48-72 hours - call for an appointment. Rest and elevate affected area; apply moist heat 3-4 times daily for 10-15 minutes. Clean with soap and water only; Avoid using alcohol and peroxide. Elevate the affected area if possible Please take Antibiotics as directed. For pain, you may take: Tylenol 650-1000mg by mouth every 4-6 hours. Do not exceed 4000mg in 24 hours. Advil (Ibuprofen) 600 mg by mouth every 6 hours. Do not exceed 2400mg in 24 hours. 8 AM: Tylenol 11 AM: Ibuprofen 2 PM: Tylenol 5 PM: Ibuprofen 8 PM: Tylenol 11 PM: Ibuprofen 2 AM: Tylenol 5 AM: Ibuprofen If you experience any worsening redness, swelling, streaking (red lines), fever or chills please go to the ER Patient Language: Vietnamese Prescriptions: New clindamycin HCl 300 mg capsule 300 mg PO Q8H 10 Days Qty: 30 0RF doxycycline monohydrate 100 mg tablet 100 mg PO BID 10 Days Qty: 20 0RF No Action diltiazem HCl 360 mg capsule,extended release 24hr 360 mg PO DAILY Qty: 90 0RF Trulicity 0.75 mg/0.5 mL pen injector 0.75 mg subcut WEEKLY torsemide 40 mg tablet 40 mg PO QAM Qty: 90 0RF metformin 1,000 mg tablet 1,000 mg PO BID vitamin E (dl, acetate) 450 mg (1,000 unit) capsule 450 mg PO DAILY furosemide [Lasix] 40 mg tablet 40 mg PO QAM metoprolol succinate 100 mg Tablet Extended Release 24 Hr 100 mg PO DAILY citalopram 10 mg tablet 10 mg PO DAILY lisinopril 5 mg tablet 10 mg PO DAILY aspirin 81 mg capsule 81 mg PO DAILY Qty: 30 0RF naproxen [Naprosyn] 500 mg tablet 500 mg PO BID Qty: 20 0RF hydrocodone-acetaminophen 5-325 mg tablet 1 tablet PO Q8H PRN (Reason: pain) lidocaine 5 % adhesive patch,medicated 3 patch topical DAILY Rx Instructions: leave on most painful area for up to 12 hrs calcium 500 mg tablet 500 mg PO DAILY cholecalciferol (vitamin D3) 25 mcg (1,000 unit) capsule 25 mcg PO DAILY acetaminophen 500 mg tablet See Rx Instructions .ROUTE .COMPLEX Qty: 60 0RF Dose Instruction: TAKE 1 TABLET BY MOUTH EVERY 6 HOURS NEEDED FOR PAIN/ HEADACHE Rx Instructions: TAKE 1 TABLET BY MOUTH EVERY 6 HOURS NEEDED FOR PAIN/ HEADACHE (DME) BD AutoShield Duo Pen Needle 30 gauge x 3/16 needle See Rx Instructions .ROUTE .COMPLEX Qty: 100 0RF Dose Instruction: PEN NEEDLE USED FOR SUB-Q INJECTION Rx Instructions: PEN NEEDLE USED FOR SUB-Q INJECTION (DME) OneTouch Ultra Test Strip See Rx Instructions .Route Qty: 100 5RF Rx Instructions: Testing BID. DX: E11.9 meclizine 25 mg tablet See Rx Instructions .ROUTE .COMPLEX Qty: 30 0RF Dose Instruction: TAKE 1 TABLET BY MOUTH TWICE DAILY NEEDED FOR DIZZINESS Rx Instructions: TAKE 1 TABLET BY MOUTH TWICE DAILY NEEDED FOR DIZZINESS Follow-up/Referrals: Dayton Jones DO [Primary Care Provider, Family Practice] Lavelle Hilario DPM [Physician, Podiatry] - 3 Days Time of Disposition: 11:48
[2025-04-07 10:28] VITALS: BP 97/69; PULSE 81; RESP 18; TEMP 36.6; O2SAT 97
== END 2025-04-07 11:55 | disposition home or self-care (01) ==
PROVIDERS: Emergency Provider Nurse Practitioner Family; PCP Family Medicine
DX: L03.115 Cellulitis of right lower limb (principal); L03.031 Cellulitis of right toe; E11.42 Type 2 diabetes mellitus with diabetic polyneuropathy; Z79.84 Long term (current) use of oral hypoglycemic drugs; Z86.73 Personal history of transient ischemic attack (TIA), and cerebral infarction without residual deficits; I34.1 Nonrheumatic mitral (valve) prolapse; I11.0 Hypertensive heart disease with heart failure; I50.9 Heart failure, unspecified; E78.00 Pure hypercholesterolemia, unspecified; I48.91 Unspecified atrial fibrillation; H35.30 Unspecified macular degeneration; I42.9 Cardiomyopathy, unspecified; M19.90 Unspecified osteoarthritis, unspecified site; K21.9 Gastro-esophageal reflux disease without esophagitis; E55.9 Vitamin D deficiency, unspecified; Z96.652 Presence of left artificial knee joint; Z96.1 Presence of intraocular lens; Z98.42 Cataract extraction status, left eye; Z98.41 Cataract extraction status, right eye
CPT/HCPCS: 99213; G0463

== ENCOUNTER 2025-04-15 11:04 | Outpatient (CLI) | payer OTHER, SELFPAY ==
--- NOTE | ~2025-04-15 | XR_ITS ---
EXAMINATION: XR foot RT min 3V, 04/15/2025 11:28 CDT HISTORY: E11.621 - Type 2 diabetes mellitus with foot ulcer COMPARISON: No comparisons available. Findings: Hallux valgus deformity noted. No osseous destruction or fracture. Moderate degenerative changes. Large calcaneal spur. Soft tissue swelling. Impression: No acute fracture or malalignment. Reviewed, dictated and finalized at location P. Impression: No acute fracture or malalignment.
[2025-04-15 11:24] LABS: Hematocrit 37.8 % (35.0-42.0); Hemoglobin 12.0 g/dL (11.7-13.8); Immature Granulocyte Percent A 0.4 % (0.0-0.0); Lymphocytes Absolute Auto 1.69 K/mm3 (1.10-4.50); Mean Corpuscular HGB Conc 31.7 g/dL (32-36); Mean Corpuscular Hemoglobin 26.9 pg (27.0-31.0); Mean Corpuscular Volume 84.8 fL (78.0-102.0); Nucleated Red Blood Cells Absolute Auto 0.00 K/mm3 (0.00-0.00); Nucleated Red Blood Cells Perc 0.0 % (0-0.0); Platelet Count Result 381 K/mm3 (150-420); Red Blood Count 4.46 M/mm3 (4.20-5.40); White Blood Count 9.0 K/mm3 (4.8-10.8)
[2025-04-15 12:18] LABS: Alanine Aminotransferase 20 U/L (6-35); Albumin Level 4.2 g/dL (3.5-5.1); Alkaline Phosphatase 127 U/L (38-126); Anion Gap 13 mmol/L (4-12); Aspartate Amino Transferase 26 U/L (14-36); Bilirubin,Total 0.5 mg/dL (0.2-1.3); Blood Urea Nitrogen 43 mg/dL (7-17); CRP 0.8 mg/dL (<1.0); Calcium 9.7 mg/dL (8.4-10.2); Carbon Dioxide 27 mmol/L (22-30); Chloride 103 mmol/L (98-107); Estimated Glomerular Filt Rate 59; Glucose 115 mg/dL (65-110); Osmolality Calculated 307 mOsm/kg (285-295); Potassium 3.1 mmol/L (3.4-5.0); Sodium 143 mmol/L (137-145); Total Protein 8.7 g/dL (6.3-8.2)
[2025-04-15 12:24] LABS: Add Urine Microscopic? YES; Appearance Urine Clear (Clear); Glucose Urine UA Negative (Negative); Leukocyte Esterase Ur Negative (Negative); Nitrate Urine Negative (Negative); Specific Grav Ur 1.020 (1.010-1.020)
[2025-04-15 12:45] LABS: Thyroid Stimulating Hormone Reflex 1.750 uIU/mL (0.465-4.68)
[2025-04-15 13:20] LABS: Vitamin B12 445.0 pg/mL (239-931)
== END 2025-04-15 11:05 | disposition home or self-care (01) ==
LOC: CHSLAB 11:08
PROVIDERS: PCP Family Medicine; Visit Provider Family Medicine
DX: E03.9 Hypothyroidism, unspecified (principal); E11.621 Type 2 diabetes mellitus with foot ulcer; L97.509 Non-pressure chronic ulcer of other part of unspecified foot with unspecified severity; E53.8 Deficiency of other specified B group vitamins; R29.818 Other symptoms and signs involving the nervous system
CPT/HCPCS: 36415; 73630; 80053; 81001; 82607; 82746; 84443; 85025; 86140

== ENCOUNTER 2025-06-14 12:26 | Emergency (ER) | payer MEDICARE, SELFPAY ==
--- NOTE | ~2025-06-14 | CT_ITS ---
CT HEAD NON-CONTRAST CT C-SPINE Clinical History: fall, head injury Comparison: 10/29/2024 Technique: Unenhanced axial images skull base to vertex. Coronal, sagittal reformats. Axial images thoracic inlet to skull base. Sagittal and coronal reformats. CT images acquired with automatic exposure control for dose reduction DLP: 681 mGy-cm Findings: Head: Age-related atrophy. Chronic white matter microvascular ischemic changes. Sulci, ventricles: Unremarkable. Cavum septa pellucidum et vergae. No intracerebral hemorrhage. No evidence acute territorial infarct. No mass effect, midline shift, intra-/extra-axial fluid collection. Bony calvarium intact. Visualized paranasal sinuses: Clear. Mastoid air cells: Clear. Hematoma right lateral scalp. C-spine: No acute fracture. Grade 1 anterolisthesis C2 on 3, C4 on 5. Grade 1 retrolisthesis of C3 on 4. Straightening of normal cervical lordosis. Moderate degenerative changes. Prevertebral soft tissues within normal limits. Visualized lung apices: Clear. Visualized thyroid: Small cystic nodule left lobe. No enlarged cervical nodes. IMPRESSION: HEAD: 1. No acute intracranial findings. C-SPINE: 1. No acute fracture. Reviewed, dictated and finalized at location R. KER IMPRESSION: HEAD: 1. No acute intracranial findings. C-SPINE: 1. No acute fracture.
[2025-06-14 12:28] VITALS: BP 113/65; PULSE 71; RESP 20; TEMP 36.4; O2SAT 97
[2025-06-14] MEDS: ACETAMINOPHEN 500 MG TABLET 1000 MG PO (12:51)
--- NOTE | 2025-06-14 13:40 | ED_ITS ---
HPI - Fall General Chief Complaint: Fall Stated Complaint: fell out of wheelchair Time Seen by Provider: 06/14/25 12:42 History of Present Illness HPI Narrative: Patient was in her wheelchair when her wheels got stuck in the elevator and she fell out of her wheelchair, she did hit her head but denies any pain anywhere, no loss of consciousness. Related Data Home Medications ?Medication ?Instructions ?Recorded ?Confirmed ?Last Taken ?Type metformin 1,000 mg tablet 1,000 mg PO BID 09/27/2011/3005/01/21 History metoprolol succinate 100 mg 100 mg PO DAILY 05/15/21 0 03/13/25 Unknown History tablet,extended release 24 hr citalopram 10 mg tablet 10 mg PO DAILY 05/15/2211/30 Unknown History vitamin E (dl, acetate) 450 mg 450 mg PO DAILY 3 03/13/25 Unknown History (1,000 unit) capsule dulaglutide 0.75 mg/0.5 mL 0.75 mg subcut WEEKLY 09/0503/13/25 Unknown History subcutaneous pen injector (Trulicity) calcium 500 mg tablet 500 mg PO DAILY 10/25/2411/30 Unknown History cholecalciferol (vitamin D3) 25 25 mcg PO DAILY 03/13/25 Unknown History mcg (1,000 unit) capsule hydrocodone 5 mg-acetaminophen 325 1 tablet PO Q8H PRN pain 10/25/24 03/13/25 Unknown History mg tablet lidocaine 5 % topical patch 3 patch topical DAILY 10/0703/13/25 Unknown History furosemide 40 mg tablet (Lasix) 40 mg PO QAM 03/13/25 03/13/25 Unknown History Allergies Allergy/AdvReac Type Severity Reaction Status Date / Time bisoprolol Allergy Intermediate unknown Verified 04/15/25 10:37 hydrochlorothiazide Allergy Intermediate unknown Verified 04/15/25 10:37 oxycodone Allergy Intermediate unknown Verified 04/15/25 10:37 Review of Systems Review of Systems: All systems reviewed & are unremarkable except as noted in HPI and below PMFSH Past Medical History Medical History Type II diabetes mellitus Macular degeneration Vitamin D deficiency Diabetic peripheral neuropathy History of CVA (cerebrovascular accident) Iron deficiency anemia Bilateral renal stones Cardiomyopathy Paroxysmal atrial flutter Not on anticoagulation due to fall rate Presence of IVC filter Osteoarthritis Elevated troponin GERD (gastroesophageal reflux disease) Hypertension Atrial fibrillation Hypercholesterolemia Mitral valve prolapse CHF (congestive heart failure) Echocardiogram 2016 demonstrated mild concentric left ventricular hypertrophy, [id number] global left ventricular systolic dysfunction with EF of 40-45. Repeat echocardiogram 2020 systolic function was difficult to assess due to a flutter with aberrancy, biatrial enlargement noted left greater than right Surgical History Surgical History History of total hysterectomy with bilateral salpingo-oophorectomy (BSO) History of total left knee replacement Status post cataract extraction of both eyes with insertion of intraocular lens S/P IVC filter History of esophageal surgery S/P excision of lipoma Hx of cholecystectomy History of appendectomy Family History Family History Mother Diabetes mellitus Father Diabetes mellitus Sibling Acute myocardial infarction Social History Social History Social History: She is and resides has [facility] assisted living. The patient has 5 children. 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 She is lifelong nonsmoker. She does not use any marijuana alcohol or illicit drugs. Code status: Full code Healthcare power of mergers and acquisitions attorney: Sampson (son) Smoking status: Never smoker Second hand tobacco smoke exposure: Yes Alcohol intake: never Substance use: never Substance use type: does not use Lack of Transportation: No Lack of Food: Never True Current Housing: I Have Housing Concerned About Future Housing: No Difficulty Paying Gas/Electric Bills: No Difficulty Paying for Meds: No Currently Unemployed: No Education: Grade School Difficulty w/ Childcare or Family Care: No Gender identity (if verbalized by the patient): Female Spiritual care concerns: No Exam Narrative: EXAMINATION OF ORGAN SYSTEMS/BODY AREAS: Constitutional: Vital signs per nursing GENERAL:[No acute distress, non-toxic appearing.] HEAD: Normal with no signs of head trauma. EYES: EOMI, conjunctiva normal ENT: Hearing grossly intact LUNGS: Nonlabored breathing. HEART: [Regular rate and rhythm] ABD: [Soft], [nontender to palpation] EXT: Normal range of motion SKIN: [No rashes or lesions.] NEURO: [Alert. No gross focal sensory or strength deficits.] PSYCH: Normal affect Course Vital Signs Vital signs: Vital Signs Temperature 97.6 F 06/14/25 12:28 Pulse Rate 71 06/14/25 12:28 Respiratory Rate 20 06/14/25 12:28 Blood Pressure 113/65 06/14/25 12:28 Pulse Oximetry 97 06/14/25 12:28 Oxygen Delivery Room Air 06/14/25 12:28 Temperature 97.6 F 06/14/25 12:28 Pulse Rate 71 06/14/25 12:28 Respiratory Rate 20 06/14/25 12:28 Blood Pressure 113/65 06/14/25 12:28 Pulse Oximetry 97 06/14/25 12:28 Oxygen Delivery Room Air 06/14/25 12:28 MDM MDM Narrative Medical decision making narrative: Patient presents after mechanical fall out of her wheelchair, she is denying any complaints or pain anywhere, on exam she has no obvious signs of trauma, no tenderness to her head or any treatment he is, normal range of motion and no obvious deformity. CT head and C-spine obtained are within acceptable limits, stable for discharge, patient has no complaints and is happy to go home. Differential Diagnosis Differential Diagnosis: Acute fracture, intracranial hemorrhage, etc. Imaging Data Radiologist's impression: ITS Impressions Cervical Spine CT 06/14/25 13:27 IMPRESSION: HEAD: 1. No acute intracranial findings. C-SPINE: 1. No acute fracture. Head CT 06/14/25 13:27 IMPRESSION: HEAD: 1. No acute intracranial findings. C-SPINE: 1. No acute fracture. Discharge Plan Discharge Clinical Impression: Head injury Patient Disposition: Home Condition: Stable Instructions: Head Injury (ED) Additional Instructions: Please follow up with your doctor; you can always return for any further issues. Patient Language: Botswanan Prescriptions: No Action clindamycin HCl 300 mg capsule 300 mg PO Q8H 10 Days Qty: 30 0RF doxycycline monohydrate 100 mg tablet 100 mg PO BID 10 Days Qty: 20 0RF diltiazem HCl 360 mg capsule,extended release 24hr 360 mg PO DAILY Qty: 90 0RF Trulicity 0.75 mg/0.5 mL pen injector 0.75 mg subcut WEEKLY torsemide 40 mg tablet 40 mg PO QAM Qty: 90 0RF metformin 1,000 mg tablet 1,000 mg PO BID vitamin E (dl, acetate) 450 mg (1,000 unit) capsule 450 mg PO DAILY furosemide [Lasix] 40 mg tablet 40 mg PO QAM metoprolol succinate 100 mg Tablet Extended Release 24 Hr 100 mg PO DAILY citalopram 10 mg tablet 10 mg PO DAILY aspirin 81 mg capsule 81 mg PO DAILY Qty: 30 0RF naproxen [Naprosyn] 500 mg tablet 500 mg PO BID Qty: 20 0RF hydrocodone-acetaminophen 5-325 mg tablet 1 tablet PO Q8H PRN (Reason: pain) lidocaine 5 % adhesive patch,medicated 3 patch topical DAILY Rx Instructions: leave on most painful area for up to 12 hrs calcium 500 mg tablet 500 mg PO DAILY cholecalciferol (vitamin D3) 25 mcg (1,000 unit) capsule 25 mcg PO DAILY acetaminophen 500 mg tablet See Rx Instructions .ROUTE .COMPLEX Qty: 60 0RF Dose Instruction: TAKE 1 TABLET BY MOUTH EVERY 6 HOURS NEEDED FOR PAIN/ HEADACHE Rx Instructions: TAKE 1 TABLET BY MOUTH EVERY 6 HOURS NEEDED FOR PAIN/ HEADACHE (DME) BD AutoShield Duo Pen Needle 30 gauge x 3/16 needle See Rx Instructions .ROUTE .COMPLEX Qty: 100 0RF Dose Instruction: PEN NEEDLE USED FOR SUB-Q INJECTION Rx Instructions: PEN NEEDLE USED FOR SUB-Q INJECTION (DME) OneTouch Ultra Test Strip See Rx Instructions .Route Qty: 100 5RF Rx Instructions: Testing BID. DX: E11.9 meclizine 25 mg tablet See Rx Instructions .ROUTE .COMPLEX Qty: 30 0RF Dose Instruction: TAKE 1 TABLET BY MOUTH TWICE DAILY NEEDED FOR DIZZINESS Rx Instructions: TAKE 1 TABLET BY MOUTH TWICE DAILY NEEDED FOR DIZZINESS potassium chloride 10 mEq capsule, extended release 10 meq PO DAILY Qty: 90 0RF Follow-up/Referrals: Dayton Jones DO [Primary Care Provider, Family Practice]
== END 2025-06-14 14:50 ==
PROVIDERS: Emergency Provider Emergency Medicine; PCP Family Medicine
DX: S09.90XA Unspecified injury of head, initial encounter (principal); E11.9 Type 2 diabetes mellitus without complications; Z86.73 Personal history of transient ischemic attack (TIA), and cerebral infarction without residual deficits; D50.9 Iron deficiency anemia, unspecified; M19.90 Unspecified osteoarthritis, unspecified site; K21.9 Gastro-esophageal reflux disease without esophagitis; I11.0 Hypertensive heart disease with heart failure; I50.9 Heart failure, unspecified; W05.0XXA Fall from non-moving wheelchair, initial encounter
CPT/HCPCS: 70450; 72125; 99284; A9270